=== PATIENT | male | born 1965 | race Caucasian/White ===

== ENCOUNTER 2019-07-08 09:14 | Outpatient (CLI) | payer MEDICARE, MEDICAID, SELFPAY ==
--- NOTE | ~2019-07-08 | XR_ITS ---
EXAMINATION: XR foot LT min 3V EXAM DATE: 07/08/2019 09:45 INDICATION: No known recent injury provided at this time. Pain of the left foot, fifth metatarsal. TECHNIQUE: Left foot dorsoplantar, lateral and oblique projections obtained and reviewed. Images obt ained standing. FINDINGS: Left metatarsal bones unremarkable. There is left calcaneal moderate sized posterior spu r. There is mild polyarticular midfoot primary osteoarthritis. There are no bony erosions identified . No periosteal reaction or band of sclerosis to suggest subacute stress fracture. There are no acute fractures or dislocations identified. There is no subcutaneous gas. The soft tissue is unremarkabl e. There are no radiopaque foreign bodies. IMPRESSION: 1. Left calcaneal posterior spur. 2. Mild polyarticular midfoot osteoarthritis. Reviewed, dictated and finalized at location A. E WORKER
--- NOTE | ~2019-07-08 | XR_ITS ---
EXAMINATION: XR foot RT min 3V EXAM DATE: 07/08/2019 09:45 INDICATION: No known recent injury provided at this time. Pain of the TECHNIQUE: Right foot dorsoplantar, lateral and oblique projections obtained and reviewed. Images o btained standing. There are no prior studies for comparison. FINDINGS: Right metatarsal bones unremarkable. Moderate sized posterior calcaneal spur. The joint s paces are uniform. There are no bony erosions identified. No periosteal reaction or band of sclerosis to suggest subacute stress fracture. Mild polyarticular midfoot primary osteoarthritis. There are no acute fractures or dislocations identified. There is no subcutaneous gas. The soft tissue is unrem arkable. There are no radiopaque foreign bodies. IMPRESSION: 1. Right calcaneal posterior spur. 2. Mild polyarticular midfoot osteoarthritis. Reviewed, dictated and finalized at location A. WARE MAINTENANCE ENGINEER
== END 2019-07-08 09:15 | disposition home or self-care (01) ==
PROVIDERS: PCP Family Medicine; Visit Provider Podiatrist Foot & Ankle Surgery
DX: M77.32 Calcaneal spur, left foot (principal); M77.31 Calcaneal spur, right foot; M19.071 Primary osteoarthritis, right ankle and foot; M19.072 Primary osteoarthritis, left ankle and foot
CPT/HCPCS: 73630

== ENCOUNTER 2019-08-04 10:36 | Outpatient (CLI) | payer MEDICARE, MEDICAID, SELFPAY ==
--- NOTE | 2019-08-04 | ECG_ITS ---
Measurements Intervals [place] Rate: 68 P: 51 IN: 175 QRS: -85 QRSD: 161 T: 28 QT: 422 QTc: 451 Interpretive Statements SINUS RHYTHM RIGHT BUNDLE BRANCH BLOCK LEFT ANTERIOR FASCICULAR BLOCK ABNORMAL ECG Electronically Signed On 08-04-2019 11:25:04 VP STRATEGIC PLANNING by Michael Esquivel D.O.
== END 2019-08-04 10:37 | disposition home or self-care (01) ==
LOC: ANHIMG 10:51 → ANHCARD 10:54
PROVIDERS: PCP Family Medicine; Visit Provider Family Medicine
DX: R06.00 Dyspnea, unspecified (principal); I45.10 Unspecified right bundle-branch block; I44.4 Left anterior fascicular block
CPT/HCPCS: 93005

== ENCOUNTER 2019-08-06 00:15 | Day surgery (SDC) | payer MEDICARE, MEDICAID, SELFPAY ==
[2019-08-01 09:30] VITALS: BMI 40.7
[2019-08-06 08:16] VITALS: BP 139/70; PULSE 80; RESP 20; TEMP 36.7; O2SAT 96
[2019-08-06] MEDS: LACTATED RINGERS 1,000 ML 150 ML IV CONT (08:25)
[2019-08-06 08:31] LABS: Glucose Point of Care 219 (65-105)
--- NOTE | 2019-08-06 08:45 | P.PNAN_ITS ---
Anes - Initial Pre Proc Eval Procedure: Operation Date: 08/06/19 09:30 Proposed Procedures p Esophagogastroduodenoscopy & Screening Colonoscopy - Blas Roblero MD Date/Time: 08/06/19 08:45 Surgeon: Blas Roblero MD Pre Op Diagnosis: Neoplasm Screening, dysphagia Patient Data Age: 54 Gender: M Height: 5 ft 7 in Weight: 118.3 kg Last Vital Signs Temp 98.0 F 08/06/19 08:16 Pulse 80 08/06/19 08:16 Resp 20 08/06/19 08:16 BP 139/70 08/06/19 08:16 Pulse Ox 96 08/06/19 08:16 Allergies Allergy/AdvReac Type Severity Reaction Status Date / Time codeine Allergy Mild Itching Verified 08/06/19 08:09 Home Medications Medication Instructions Recorded Confirmed Type amlodipine 10 mg PO HS 05/05/19 08/01/19 History aspirin [Adult Low Dose Aspirin] 1 mg PO QAM 05/05/19 08/01/19 History atenolol 50 mg PO BID 05/05/19 08/01/19 History buspirone 30 mg PO HS 05/05/19 08/01/19 History citalopram 20 mg PO HS 05/05/19 08/01/19 History clopidogrel 75 mg PO DAILY 05/05/19 08/06/19 History ezetimibe 1 mg PO HS 05/05/19 08/01/19 History fenofibrate 145 mg PO HS 05/05/19 08/01/19 History glimepiride 4 mg PO BID 05/05/19 08/01/19 History hydrochlorothiazide 25 mg PO DAILY 05/05/19 08/01/19 History levothyroxine 50 mcg PO DAILY 05/05/19 08/01/19 History lisinopril 20 mg PO DAILY 05/05/19 08/01/19 History metoclopramide HCl 10 mg PO BID 05/05/19 08/01/19 History potassium chloride 10 meq PO DAILY 05/05/19 08/01/19 History pregabalin [Lyrica] 150 mg PO BID 05/05/19 08/01/19 History simvastatin 40 mg PO HS 05/05/19 08/01/19 History sitagliptin [Januvia] 100 mg PO QPM #30 tablet 05/07/19 08/01/19 Rx omeprazole 40 mg PO DAILY 08/01/19 08/01/19 History Laboratory Tests 08/06/19 08:23 POC Capillary Glucose 219 mg/dl H mg/dl (65-105) Patient hx anesthesia problems: none Family hx anesthesia problems: none [facility] Social History Social History Tobacco type: cigarettes Alcohol intake: former Substance use: never Gender identity (if verbalized by the patient): Male Spiritual care concerns: No Agree to blood products: Yes Anes - Eval Final PreProcedure Day of Procedure 08/06/19 08:45 Patient weight: morbidly obese Heart: regular rate and rhythm Lungs: clear to auscultation Airway: Mallampati scale class III Neurological: alert and oriented Last oral intake: >/= 8 hours ASA classification: IV Emergent: no Anesthetic plan: proceed Anesthesia type and monitoring: general GIVS and standard monitoring Informed Consent: The patient's anesthetic plan and its attendant risks and benefits were discussed with the patient/family/POA. Questions were solicited and answers provided to the satisfaction of the patient/family/POA.
--- NOTE | 2019-08-06 08:58 | PM.HPGS ---
History of Present Illness History of Present Illness Consent: Risks, benefits, and alternatives have been discussed and questions answered. Patient agrees to proceed with procedure. Chief complaint: Neoplasm Screening, dysphagia Narrative: Ramakrishna Mora is a 54 year old male referred for screening colonoscopy and also for investigation of dysphagia. He has noticed difficulty swallowing not only solid food and liquids which seem to get caught up I in his chest. He will need to stop wait for while for to pass. He has been on omeprazole just recently to try and relieve this. [facility] Past Medical History Medical History CAD (coronary artery disease) Chronic low back pain Depression with anxiety Diabetes History of drainage of abscess 1994 and 2004 Hyperlipidemia Hypertension, essential Hypothyroidism (acquired) KEVIN (obstructive sleep apnea) Proteinuria Testicular abscess 1994 and 2004 with hospitalization, drainage and packing Tobacco use Type 2 diabetes mellitus with hyperglycemia Type 2 diabetes mellitus with polyneuropathy Surgical History Surgical History History of appendectomy History of cholecystectomy Stented coronary artery 2017 Family History Family History Other Chronic obstructive pulmonary disease Diabetes mellitus Social History Social History Tobacco type: cigarettes Alcohol intake: former Substance use: never Gender identity (if verbalized by the patient): Male Spiritual care concerns: No Agree to blood products: Yes Meds Home Medications and Allergies Home Medications Medication Instructions Recorded Confirmed Type amlodipine 10 mg PO HS 05/05/19 08/01/19 History aspirin [Adult Low Dose Aspirin] 1 mg PO QAM 05/05/19 08/01/19 History atenolol 50 mg PO BID 05/05/19 08/01/19 History buspirone 30 mg PO HS 05/05/19 08/01/19 History citalopram 20 mg PO HS 05/05/19 08/01/19 History clopidogrel 75 mg PO DAILY 05/05/19 08/06/19 History ezetimibe 1 mg PO HS 05/05/19 08/01/19 History fenofibrate 145 mg PO HS 05/05/19 08/01/19 History glimepiride 4 mg PO BID 05/05/19 08/01/19 History hydrochlorothiazide 25 mg PO DAILY 05/05/19 08/01/19 History levothyroxine 50 mcg PO DAILY 05/05/19 08/01/19 History lisinopril 20 mg PO DAILY 05/05/19 08/01/19 History metoclopramide HCl 10 mg PO BID 05/05/19 08/01/19 History potassium chloride 10 meq PO DAILY 05/05/19 08/01/19 History pregabalin [Lyrica] 150 mg PO BID 05/05/19 08/01/19 History simvastatin 40 mg PO HS 05/05/19 08/01/19 History sitagliptin [Januvia] 100 mg PO QPM #30 tablet 05/07/19 08/01/19 Rx omeprazole 40 mg PO DAILY 08/01/19 08/01/19 History Allergies Allergy/AdvReac Type Severity Reaction Status Date / Time codeine Allergy Mild Itching Verified 08/06/19 08:09 Vital Signs Vital Signs - 24 hr 08/06/19 08:16 Temperature 36.7 C Pulse Rate 80 Respiratory Rate 20 Blood Pressure 139/70 Pulse Oximetry 96 Exam Const: General: alert Orientation/consciousness: patient oriented x3 Resp: Auscultation: clear to auscultation bilaterally Cardio: Rhythm: regular rhythm GI: GI Palp: Yes Soft to palpation and No Tenderness to palpation present (GI) Neuro: General: patient oriented x3 Assessment and Plan Assessment and plan (1) Dysphagia: Code(s): R13.10 - Dysphagia, unspecified Status: Acute Assessment and Plan: EGD with possible biopsy or dilatation or cautery. (2) Colon cancer screening: Code(s): Z12.11 - Encounter for screening for malignant neoplasm of colon Status: Acute Assessment and Plan: Colonoscopy with possible biopsy or polypectomy or cautery or injection of substances.
[2019-08-06 09:53] VITALS: BP 98/44; PULSE 71; RESP 24; O2SAT 98
[2019-08-06 10:03] VITALS: BP 97/55; PULSE 71; RESP 14; O2SAT 98
== END 2019-08-06 10:24 | disposition home or self-care (01) ==
PROVIDERS: PCP Family Medicine; Visit Provider Internal Medicine Gastroenterology
PROC: 0DJ08ZZ Inspection of Upper Intestinal Tract, Via Natural or Artificial Opening Endoscopic (ICD-10-PCS; CPT 43235; principal; 2019-08-06 09:30)
DX: Z12.11 Encounter for screening for malignant neoplasm of colon (principal); D12.0 Benign neoplasm of cecum; D12.3 Benign neoplasm of transverse colon; K63.5 Polyp of colon; R13.10 Dysphagia, unspecified; K29.70 Gastritis, unspecified, without bleeding; K21.9 Gastro-esophageal reflux disease without esophagitis; I25.10 Atherosclerotic heart disease of native coronary artery without angina pectoris; I10 Essential (primary) hypertension; E78.5 Hyperlipidemia, unspecified; E11.40 Type 2 diabetes mellitus with diabetic neuropathy, unspecified; E03.9 Hypothyroidism, unspecified; G47.33 Obstructive sleep apnea (adult) (pediatric); F41.8 Other specified anxiety disorders; Z79.82 Long term (current) use of aspirin; Z79.02 Long term (current) use of antithrombotics/antiplatelets; Z87.891 Personal history of nicotine dependence; E66.01 Morbid (severe) obesity due to excess calories; Z68.41 Body mass index [BMI] 40.0-44.9, adult; Z95.5 Presence of coronary angioplasty implant and graft; Z79.84 Long term (current) use of oral hypoglycemic drugs
CPT/HCPCS: 45385; 45380; 43239; 87081; 88305; J2704; J7120

== ENCOUNTER 2020-05-20 13:43 | Outpatient (CLI) | payer MEDICARE, MEDICAID, SELFPAY ==
--- NOTE | ~2020-05-20 | MR_ITS ---
EXAMINATION: MR lumbar spine wo [facility] EXAM DATE: 05/20/2020 14:55 INDICATION: Low back pain. Bilateral hip pain. TECHNIQUE: Multi-sequential, multiplanar MR images of the lumbar spine were obtained without contrast . Sagittal T1, T2, T2 fat saturation images. Axial T2 weighted images. There is no prior study for comparison. FINDINGS: There is moderate disc disease L-1-2. Mild disc disease L4-5 and L5-S1. There is 3 mm anter olisthesis L5 on S1 without spondylolysis. The conus medullaris terminates at the T12 level and has n ormal signal intensity and morphology. There are no suspicious marrow signal abnormalities. Paraspin al soft tissue is unremarkable. Level by level evaluation: T12-L1: There is a minimal diffuse disc bulge. Facet arthropathy: None. Neural foraminal stenosis: No stenosis. Central canal stenosis: No stenosis. L1-L2: There is a mild to moderate diffuse disc bulge. Facet arthropathy: Mild. Neural foraminal stenosis: Mild left. Central canal stenosis: Mild. L2-L3: There is a minimal diffuse disc bulge. Facet arthropathy: Mild bilateral. Neural foraminal stenosis: Mild left. Central canal stenosis: No stenosis. L3-L4: There is a minimal diffuse disc bulge. Facet arthropathy: Mild bilateral. Neural foraminal stenosis: No stenosis. Central canal stenosis: No stenosis. L4-L5: Hrym-gy-snkekdly Facet arthropathy: Mild to moderate. Neural foraminal stenosis: Moderate to severe left, moderate right. Central canal stenosis: Mild. L5-S1: There is a mild to moderate diffuse disc bulge. Facet arthropathy: Moderate. Neural foraminal stenosis: Mild to moderate left, mild right. Central canal stenosis: Mild. IMPRESSION: 1. L4-5 moderate to severe left, moderate right neural foraminal stenosis. 2. Otherwise mild to moderate lumbar spondylosis. Reviewed, dictated and finalized at location A. GE IRONWORKER HELPER
== END 2020-05-20 13:44 | disposition home or self-care (01) ==
LOC: ANHIMG 13:47
PROVIDERS: PCP Family Medicine; Visit Provider Nurse Practitioner Family
DX: M47.896 Other spondylosis, lumbar region (principal)
CPT/HCPCS: 72148

== ENCOUNTER 2022-05-01 13:07 | Outpatient (CLI) | payer OTHER, SELFPAY ==
--- NOTE | ~2022-05-01 | XR_ITS ---
XR chest 2V 05/01/2022 13:28 Indication: Dyspnea Procedure: 2 view chest Comparison: 02/11/2019 Findings: Heart size normal. No focal air space disease, pulmonary edema, pleural effusion or suspect ed pneumothorax. No acute osseous abnormality. Impression: 1: No acute cardiopulmonary disease. Reviewed, dictated and finalized at location A. RIAL STOCKKEEPER YARD Impression: 1: No acute cardiopulmonary disease.
== END 2022-05-01 13:08 | disposition home or self-care (01) ==
LOC: ANHIMG 13:15
PROVIDERS: PCP Family Medicine; Visit Provider Family Medicine
DX: R06.00 Dyspnea, unspecified (principal)
CPT/HCPCS: 71046

== ENCOUNTER 2022-05-10 13:33 | Outpatient (CLI) | payer OTHER, SELFPAY ==
--- NOTE | 2022-05-10 | ECHO_ITS ---
Patient Info Name: Ramakrishna Mora Age: 57 years : 1965 Gender: Male Ht: 67 in Wt: 250 lbs BSA: 2.37 m2 HR: 103 bpm BP: 181 / 94 mmHg Heart Rhythm: Sinus Rhythm, Tachycardia Exam Date: 05/10/2022 2:26 PM Exam Location: [facility] Patient Status: Outpatient Admit Date: 05/10/2022 Staff Ordering Physician: Letty, Karyn Finley MD Auto Painter: Citlalli Eaton RDCS Attending Provider: Letty, Karyn Finley MD Referring Physician: Letty STEWARD; Exam Type: CA echo doppler color flow Study Info Indications R06.00 - Dyspnea, unspecified Complete two-dimensional, color flow and Doppler transthoracic echocardiogram is performed. Summary 1. Complete two-dimensional, color flow and Doppler transthoracic echocardiogram is performed. 2. Technically difficult study with limited views. 3. Left ventricular chamber dimension is normal. 4. Left ventricular systolic function is normal, estimated at 55-60%. 5. There is no increased left ventricular wall thickness. 6. The left ventricular diastolic function is grade I diastolic dysfunction. 7. There is no aortic valve stenosis. 8. There is mild mitral valve stenosis. 9. There is trace mitral valve regurgitation. 10. Unable to estimate PA systolic pressure due to poor spectral resolution of tricuspid regurgitant jet velocity. Left Ventricle Left ventricular chamber dimension is normal. Left ventricular systolic function is normal, estimated at 55-60%. There is no increased left ventricular wall thickness. The left ventricular diastolic function is grade I diastolic dysfunction. Technically difficult study with limited views. Right Ventricle Right ventricular chamber dimension is normal. Right ventricular systolic function is normal. Left Atria Left atrial chamber dimension is mildly enlarged. Right Atria Right atrial chamber dimension is mildly enlarged. Aortic Valve The aortic valve is trileaflet. There is no aortic valve stenosis. There is trace aortic valve regurgitation. There is mild aortic valve calcification. Pulmonic Valve The pulmonic valve is not well visualized. Mitral Valve The mitral valve has thickened leaflets. There is mild mitral valve stenosis. There is trace mitral valve regurgitation. The mitral valve annulus is severely calcified. Tricuspid Valve The tricuspid valve leaflets are normal. There is trace tricuspid valve regurgitation. Unable to estimate PA systolic pressure due to poor spectral resolution of tricuspid regurgitant jet velocity. Pericardium/Pleural The pericardium appears not well visualized. Aorta The aortic root size at the sinus of Valsalva is not well visualized. Left Ventricular Outflow Tract Name Value Normal LVOT Doppler LVOT Peak Gradient 7 mmHg LVOT Mean Gradient 4 mmHg LVOT VTI 25 cm LVOT VTI/AV VTI Ratio 1.2 Mitral Valve Name Value Normal MV Doppler
== END 2022-05-10 13:34 | disposition home or self-care (01) ==
PROVIDERS: PCP Family Medicine; Visit Provider Family Medicine
DX: R06.00 Dyspnea, unspecified (principal); I05.0 Rheumatic mitral stenosis
CPT/HCPCS: 93306

== ENCOUNTER 2022-05-24 10:17 | Outpatient (CLI) | payer OTHER, SELFPAY ==
--- NOTE | 2022-05-24 | ECG_ITS ---
Measurements Intervals [place] Rate: 110 P: 72 HI: 168 QRS: -83 QRSD: 153 T: 69 QT: 365 QTc: 494 Interpretive Statements SINUS TACHYCARDIA RIGHT BUNDLE BRANCH BLOCK [120+ ms QRS DURATION, UPRIGHT V1, 40+ ms S IN I/aVL/V4/V5/V6] LEFT ANTERIOR FASCICULAR BLOCK [QRS AXIS <= -45, QR IN I, RS IN II] COMPARED TO ECG 08/04/2019 11:21:55 SINUS TACHYCARDIA NOW PRESENT Electronically Signed On 05-24-2022 17:59:02 WORKERS COMPENSATION ADJUSTER by Enid Marinelli M.D.
[2022-05-24 11:54] LABS: Alveolar/Arterial O2 Gradient 56.7 mmHg; Base Excess ABG 7.1 mEq/l (+/-2.0); Carboxyhemoglobin 3.6 % THb (0-2.0); Fractional Inspired Oxygen 21 %; HCO3 ABG 32.7 mEq/l (22.0-26.0); Methemoglobin ABG 0.2 %THb (0-1.5); Oxygen Content ABG 14.2 %vol (16.0-22.0); PCO2 ABG 48.2 mmHg (35.0-45.0); PO2 FiO2 Ratio Arterial Blood 1.68 %; Reduced Hemoglobin 39.4 %THb (0-5.0); Total Hemoglobin 17.9 g/dL (12.0-18.0); pH ABG 7.449 (7.350-7.450)
[2022-05-24 12:06] LABS: Site Drawn RIGHT BRACHIAL
[2022-05-24 12:07] LABS: Device ROOM AIR
[2022-05-24 18:45] LABS: Oxygen Saturation ABG 69.7 % (95.0-100.0); PO2 ABG 35.3 mmHg (80.0-100.0)
[2022-05-24 18:46] LABS: Oxyhemoglobin 56.8 % THb (90.0-100.0)
== END 2022-05-24 10:18 | disposition home or self-care (01) ==
PROVIDERS: PCP Family Medicine; Visit Provider Nurse Practitioner
DX: R05.3 Chronic cough (principal); J44.9 Chronic obstructive pulmonary disease, unspecified; R06.09 Other forms of dyspnea; R60.9 Edema, unspecified; I45.10 Unspecified right bundle-branch block; I44.4 Left anterior fascicular block
CPT/HCPCS: 36600; 82375; 82805; 83050; 87070; 87205; 93005

== ENCOUNTER 2022-07-23 07:36 | Inpatient (IN) | payer OTHER, SELFPAY ==
[2022-07-23] VITALS (40 sets, daily range): BP systolic 97–219; BP diastolic 67–122; PULSE 94–128; RESP 16–35; TEMP 36.2–36.9; O2SAT 87–100; BMI 41.4
--- NOTE | ~2022-07-23 | XR_ITS ---
XR chest 1V portable 07/26/2022 14:28 Indication: Shortness of breath Procedure: AP portable chest Comparison: 07/25/2022 Findings: Borderline heart size with mild persistent interstitial edema. No pleural effusion. No pneu mothorax. No acute osseous abnormality. Impression: 1: Unchanged mild interstitial edema. Reviewed, dictated and finalized at location B. INE ENGINE ASSEMBLER Impression: 1: Unchanged mild interstitial edema.
--- NOTE | ~2022-07-23 | XR_ITS ---
XR chest 1V portable 07/23/2022 07:58 Indication: Shortness of breath Procedure: AP portable chest Comparison: 05/01/2022 Findings: Bilateral asymmetric diffuse airspace disease. No significant effusion. No pneumothorax. No acute osseous abnormality. Impression: 1: Stable diffuse bilateral airspace disease, right greater than left. Differential diagnosis include s asymmetric edema and pneumonia. Reviewed, dictated and finalized at location A. L WELDER Impression: 1: Stable diffuse bilateral airspace disease, right greater than left. Differleatha tiashayy diagnosis includes asymmetric edema and pneumonia.
--- NOTE | ~2022-07-23 | US_ITS ---
EXAMINATION:US venous doppler LE BI INDICATION:Leg edema TECHNIQUE: Multiple grayscale, color flow and Doppler images of the right and left lower extremity de ep venous systems were obtained and reviewed. COMPARISON:No prior studies for comparison. FINDINGS: The common femoral, superficial femoral and popliteal veins demonstrate normal respiratory variation, augmentation and compressibility. Color flow is also seen within the posterior tibial, pe roneal, greater saphenous and profunda veins. IMPRESSION: 1: No lower extremity deep venous thrombosis. Reviewed, dictated and finalized at location B. SCRIBING OPERATOR HEAD
--- NOTE | ~2022-07-23 | CT_ITS ---
EXAMINATION: CTA chest PE protocol DATE: 07/23/2022 09:44 BRICK OFFBEARER INDICATION: Shortness of breath TECHNIQUE: Computed tomographic angiography (CTA) of the chest was performed with 100 mL Omnipaque-35 0 intravenous contrast. The dose-length product was 1066.13 mGy-cm. Maximum intensity projection 3D-r econstructions of the aorta and other arteries were constructed by the technologist on a separate wor kstation. Automated exposure control and iterative reconstruction technique were employed. COMPARISON: CT dated 05/26/2019. FINDINGS: Study is technically adequate without evidence for pulmonary embolism. There is mediastinal and bilateral hilar lymphadenopathy. No evidence for aortic aneurysm or dissection. No significant p leural or pericardial effusion. There are cholecystectomy clips. No focal airspace consolidation. No pneumothorax. No endobronchial lesions. There are a few small pulmonary nodules in the upper lobes me asuring 2 mm or less, likely benign. Evaluation for nodules limited by motion artifact in the mid and lower lungs. There is nonspecific bilateral adrenal thickening and nodularity, likely related to und erlying adenomatous change. IMPRESSION: 1. No evidence for pulmonary embolism. 2: Mediastinal and bilateral hilar lymph node adenopathy, most likely reactive, although metastatic d isease and lymphoma are considered in the appropriate clinical setting. 3: Small pulmonary nodules measuring 2 mm or less, most likely benign. Consider follow-up low dose CT chest in 12 months. Reviewed, dictated and finalized at location A. K OFFBEARER IMPRESSION: 1. No evidence for pulmonary embolism. 2: Mediastinal and bilateral hilar lymph node adenopathy, most likely reactive, although metastatic disease and lymphoma are considered in the appropriate cli nical setting. 3: Small pulmonary nodules measuring 2 mm or less, most likely benign. Consider follow-up low dose CT chest in 12 months.
--- NOTE | ~2022-07-23 | XR_ITS ---
Portable chest x-ray Comparison: 07/23/2022 Clinical History: Shortness of breath Findings: Probable mild interstitial pulmonary edema pattern is present. No definite pleural effusio ns. Cardiomediastinal silhouette is stable. Bones and soft tissues are unremarkable. Impression: Mild interstitial pulmonary edema pattern. Reviewed, dictated and finalized at [facility]. CONSULTANT Impression: Mild interstitial pulmonary edema pattern.
--- NOTE | ~2022-07-23 | XR_ITS ---
Portable chest x-ray Comparison: 07/26/2022 Clinical History: Shortness of breath Findings: Questionable minimal bibasilar interstitial edema. No consolidation or pleural effusion. Cardiomediastinal silhouette is stable. Bones and soft tissues are unremarkable. Impression: Possible minimal bibasilar interstitial edema. Reviewed, dictated and finalized at [facility]. E PURCHASE DRIVER Impression: Possible minimal bibasilar interstitial edema.
--- NOTE | 2022-07-23 07:48 | ECG_ITS ---
Measurements Intervals [place] Rate: 127 P: SC: 0 QRS: 270 QRSD: 154 T: 41 QT: 350 QTc: 511 Interpretive Statements PROBABLE SINUS TACHYCARDIA WITH PREMATURE ATRIAL CONTRACTIONS RIGHT AXIS DEVIATION RIGHT BUNDLE BRANCH BLOCK CANNOT RULE OUT INFERIOR INFARCTION, AGE INDETERMINATE ABNORMAL ECG COMPARED TO ECG 05/24/2022 11:08:55 HEART RATE HAS INCREASED Electronically Signed On 07-23-2022 14:51:34 JANITORIAL MANAGER by Brett Brown M.D.
[2022-07-23] MEDS: methylPREDNISolone SOD SUCC 125 MG VIAL IV PUSH (07:57)
[2022-07-23 08:20] LABS: Alveolar/Arterial O2 Gradient 181.8 mmHg; Base Excess ABG 1.2 mEq/l (+/-2.0); Carboxyhemoglobin 1.3 % THb (0-2.0); Fractional Inspired Oxygen 40 %; HCO3 ABG 26.1 mEq/l (22.0-26.0); Methemoglobin ABG 0.6 %THb (0-1.5); Oxygen Content ABG 24.7 %vol (16.0-22.0); Oxygen Saturation ABG 88.8 % (95.0-100.0); PCO2 ABG 42.2 mmHg (35.0-45.0); PO2 ABG 54.9 mmHg (80.0-100.0); PO2 FiO2 Ratio Arterial Blood 1.37 %; Reduced Hemoglobin 11.2 %THb (0-5.0); Total Hemoglobin 20.3 g/dL (12.0-18.0); pH ABG 7.409 (7.350-7.450)
[2022-07-23 08:23] LABS: Device NASAL CANNULA; Oxyhemoglobin 86.9 % THb (90.0-100.0); Site Drawn LEFT BRACHIAL
[2022-07-23] MEDS: NITROGLYCERIN OINTMENT 1 INCH DOSE TRANSDERM (08:47)
[2022-07-23 08:54] LABS: Basophils Absolute Auto 0.1 K/mm3 (0.0-0.1); Basophils Percent Auto 0.7 % (0.2-1.2); Eosinophils Percent Auto 0.1 % (0-4.4); Hematocrit 54.9 % (42.0-52.0); Hemoglobin 18.6 g/dL (14.0-18.0); Immature Granulocyte Absolute 0.09 K/mm3 (0.00-0.031); Immature Granulocyte Percent A 0.7 % (0-0.5); Lymphocytes Absolute Auto 0.72 K/mm3 (0.9-3.2); Lymphocytes Percent Auto 5.7 % (18.3-44.2); Mean Corpuscular HGB Conc 33.9 g/dl (32-36); Mean Corpuscular Hemoglobin 27.6 pg (26-34); Mean Corpuscular Volume 81.5 fl (80-100); Mean Platelet Volume 9.8 fl (7.4-10.4); Monocytes Absolute Auto 1.8 K/mm3 (0.1-0.6); Monocytes Percent Auto 14.1 % (2.6-8.5); Neutrophils Percent Auto 78.7 % (45.5-73.1); Platelet Count Result 226 k/mm3 (150-375); Red Blood Count 6.74 M/mm3 (4.6-6.20); Red Cell Distribution Width 15.5 % (11.5-14.5); White Blood Count 12.7 K/mm3 (4.5-10.0)
[2022-07-23 09:04] LABS: Alanine Aminotransferase 23 U/L (6-50); Albumin Level 3.9 g/dL (3.5-5.1); Alkaline Phosphatase 78 U/L (38-126); Anion Gap 8 mmol/L (8-16); Aspartate Amino Transferase 25 U/L (17-59); Blood Urea Nitrogen 18 mg/dL (9-20); Carbon Dioxide 27 mmol/L (22-30); Chloride 92 mmol/L (98-107); Estimated CRCL calculation 88 ml/min; Estimated Glomerular Filt Rate > 60; Glucose 293 mg/dL (65-110); INR 1.2; Potassium 3.8 mmol/L (3.4-5.0); Prothrombin Time 14.6 Seconds (11.1-14.7); Sodium 127 mmol/L (137-145)
[2022-07-23 09:05] LABS: Partial Thromboplastin Time 31.3 SECONDS (22.3-36.8)
--- NOTE | 2022-07-23 09:09 | ED.SOB ---
HPI - SOB/Dyspnea General Chief Complaint: Shortness of Breath/Dyspnea Stated Complaint: SOB Time Seen by Provider: 07/23/22 07:45 History of Present Illness HPI Narrative: Patient is a 57-year-old male who presents ER with shortness of breath. Worsening over last 3 days. No fevers or chills. Has wheezing and orthopnea. Endorses lower extremity swelling that is new. No known sick contacts. No history of heart failure. Patient does have history of COPD. He does have cough. Hypoxic for EMS and given DuoNeb in route. Related Data Home Medications Medication Instructions Recorded Confirmed amlodipine 10 mg tablet 10 mg PO HS 05/05/19 08/01/19 aspirin 81 mg tablet,delayed 1 mg PO QAM 05/05/19 08/01/19 release (Adult Low Dose Aspirin) atenolol 50 mg tablet 50 mg PO BID 05/05/19 08/01/19 buspirone 15 mg tablet 30 mg PO HS 05/05/19 08/01/19 citalopram 20 mg tablet 20 mg PO HS 05/05/19 08/01/19 clopidogrel 75 mg tablet 75 mg PO DAILY 05/05/19 08/06/19 ezetimibe 10 mg tablet 1 mg PO HS 05/05/19 08/01/19 fenofibrate 150 mg capsule 145 mg PO HS 05/05/19 08/01/19 glimepiride 4 mg tablet 4 mg PO BID 05/05/19 08/01/19 hydrochlorothiazide 25 mg tablet 25 mg PO DAILY 05/05/19 08/01/19 levothyroxine 50 mcg tablet 50 mcg PO DAILY 05/05/19 08/01/19 lisinopril 20 mg tablet 20 mg PO DAILY 05/05/19 08/01/19 metoclopramide HCl 10 mg tablet 10 mg PO BID 05/05/19 08/01/19 potassium chloride 10 mEq 10 meq PO DAILY 05/05/19 08/01/19 tablet,extended release pregabalin 150 mg capsule (Lyrica) 150 mg PO BID 05/05/19 08/01/19 simvastatin 40 mg tablet 40 mg PO HS 05/05/19 08/01/19 omeprazole 40 mg capsule,delayed 40 mg PO DAILY 08/01/19 08/01/19 release Allergies Allergy/AdvReac Type Severity Reaction Status Date / Time codeine Allergy Mild Itching Verified 07/23/22 07:53 Review of Systems Review of Systems: All systems reviewed & are unremarkable except as noted in HPI and below Constitutional: Constitutional: Denies chills, Reports fatigue and Denies fever(s) ENT: Reports nasal congestion and Denies sore throat Cardiovascular: Cardiovascular: Denies chest pain, Denies rapid heart rate and Denies radiating jaw, neck or arm pain Respiratory: Respiratory: Reports chest congestion, Reports cough, Reports dyspnea and Reports wheezing Gastrointestinal: Gastrointestinal: Denies abdominal pain, Denies nausea and Denies vomiting [facility] Past Medical History Medical History (Updated 07/23/22 @ 10:58 by Carlos Langley MD) CAD (coronary artery disease) Chronic low back pain Depression with anxiety Diabetes History of drainage of abscess 1994 and 2004 Hyperlipidemia Hypertension, essential Hypothyroidism (acquired) KEVIN (obstructive sleep apnea) Proteinuria Testicular abscess 1994 and 2004 with hospitalization, drainage and packing Tobacco use Type 2 diabetes mellitus with hyperglycemia Type 2 diabetes mellitus with polyneuropathy Surgical History Surgical History History of appendectomy History of cholecystectomy Stented coronary artery 2017 Family History Family History Other Chronic obstructive pulmonary disease Diabetes mellitus Social History Social History Tobacco type: cigarettes Alcohol intake: former Substance use: never Gender identity (if verbalized by the patient): Male Spiritual care concerns: No Agree to blood products: Yes Exam Narrative: GENERAL: Uncomfortable appearing, morbidly obese, and in moderate distress. HEAD: Normocephalic, atraumatic. EYES: PERRL and EOMI. ENT: Mucous membranes moist. CHEST: Moderate respiratory distress with expiratory wheezing and some crackles noted throughout.. HEART: Tachycardic and regular. Normal peripheral pulses. ABDOMEN: Soft, nontender, nondistended. EXTREMITIES: Normal range of mot
[2022-07-23 09:12] LABS: NT Pro B Type Natriuretic Pept 918 pg/mL (19.9-100)
[2022-07-23 09:29] LABS: Influenza A QL RT-PCR Negative (Negative); Influenza B QL RT-PCR Negative (Negative); SARS-CoV-2 RNA PCR Negative
[2022-07-23] MEDS: FUROSEMIDE INJ 40 MG/4 ML VIAL IV PUSH ×2 (10:00→18:02)
[2022-07-23] MEDS: IPRATROPIUM BR 0.02% INH SOLN 0.5 MG/2.5 ML VIAL 1.5 MG INHALATION (11:25)
--- NOTE | 2022-07-23 13:26 | PM.IMHP ---
H&P: HPI History of Present Illness Date/Time: 07/23/22 13:26 Chief Complaint: Shortness of breath Narrative: This is a 57-year-old male patient to has a history of COPD and tobacco abuse. The patient is not on oxygen at home. He also has sleep apnea and does not use his CPAP machine. The patient came to the emergency room with complaint of worsening shortness of breath over the last 3 days. The patient has been wheezing. The patient has no fever or chills. He has difficulty laying flat. He also has 4+ pitting edema to his lower extremities. The patient stated that he does not have a history of CHF. The patient has been having a cough. The patient was hypoxic when EMS assessed him and he was given a dual nebs EN route and placed on 5 liters per nasal cannula. There is a BiPAP at the bedside. The patient is currently sitting on the side of the bed with his feet up. His white count is 12.7. H&H is 18.6 and 54.9. The patient admits to not eating and drinking very much because he was too short of breath. On his ABGs is pH was within normal limits and his PC O2 was within normal limits however his PO2 was 54.9. The patient admits to smoking at least a carton of cigarettes a month. His oxyhemoglobin was 86.9. Sodium is low at 127. Hemoglobin A1c is 9.3 blood glucose is 293. BNP 918. He was negative for influenza A/B and COVID. Chest x-ray read as stable diffuse bilateral airspace disease right greater than left differential diagnosis includes asymmetric edema or pneumonia. CTA was read as the following. No evidence for pulmonary embolism. 2: Mediastinal and bilateral hilar lymph node adenopathy, most likely reactive, although metastatic disease and lymphoma are considered in the appropriate clinical setting. 3: Small pulmonary nodules measuring 2 mm or less, most likely benign. Consider follow-up low dose CT chest in 12 months. The patient was given Solu-Medrol, nitro, Lasix and nebulizer treatment in the emergency room. The patient was initially admitted to observation and change to inpatient status on the date of service of 07/23/2022. Review of Systems Review of Systems: See HPI All systems reviewed & are unremarkable except as noted in HPI and below Constitutional: Constitutional: Reports as per HPI and Reports no additional constitutional complaints Eyes: Eyes: Reports as per HPI and Reports no additional eye complaints ENT: Reports system reviewed and no additional complaints, except as documented and Reports Normal hearing present Cardiovascular: Cardiovascular: Reports no additional cardiovascular complaints Respiratory: Respiratory: Reports no additional respiratory complaints and Reports no additional respiratory complaints Gastrointestinal: Gastrointestinal: Reports as per HPI and Reports no additional gastrointestinal complaints Musculoskeletal: Musculoskeletal: Reports no additional musculoskeletal complaints Integumentary/Breasts: Skin/Breast: Reports system reviewed and no additional complaints, except as docu and Reports as per HPI Neurologic: Reports system reviewed and no additional complaints, except as documented, Reports as per HPI and Reports Normal hearing present Psychiatric: Psychiatric: Reports no additional psychiatric complaints and Reports as per HPI Endocrine: Endocrine: Reports no additional endocrine complaints Hematologic/Lymphatic: Hematologic/Lymphatic: Reports no additional hematologic/lymphatic complaints Allergic/Immunologic: Allergic/Immunologic: Reports no additional allergic/immunologic complaints [facility] Past Medical History Medical History CAD (coronary artery disease) Chronic low back pain Depression with anxiety Diabetes History of drainage of abscess 1994 and 2004 Hyperlipidemia Hypertension, essential Hypothyroidism (acquired) KEVIN (obstructive sleep apnea) Proteinuria Testicular abscess 1994 and 2004 with hospitalizatio
[2022-07-23 14:26] LABS: Hemoglobin A1C 9.3 % (<5.7)
--- NOTE | 2022-07-23 14:40 | ADMGEN ---
This patient, Ramakrishna Mora, was admitted to IMU Room 207-01. Patient/family oriented to hospital policies and general routines including ID bracelet, bed and alarms, visiting hours, pain management, procedures, bathroom and other care routines, personal items, smoking policy, room service/diet, and visiting hours. Information on how to activate the Rapid Response Team has been discussed. Patient/Family are encouraged to report perceived risks to care and to ask questions if they do not understand what they are told or what they should do.
[2022-07-23] MEDS: methylPREDNISolone SOD SUCC 125 MG VIAL 60 MG IV PUSH ×2 (16:46→20:54)
[2022-07-23 17:20] LABS: Glucose Point of Care 497 mg/dl (65-105)
[2022-07-23] MEDS: INSULIN ASPART (*BKC) 100 UNITS/ML 8 UNITS SUB-Q (17:42)
[2022-07-23] MEDS: PREGABALIN (*CRX) 75 MG CAPSULE 150 MG PO (18:02)
[2022-07-23] MEDS: GLIMEPIRIDE 2 MG TABLET 4 MG PO (18:02)
[2022-07-23 18:03] LABS: Anion Gap 9 mmol/L (8-16); Blood Urea Nitrogen 24 mg/dL (9-20); Calcium 7.7 mg/dL (8.4-10.2); Carbon Dioxide 25 mmol/L (22-30); Chloride 91 mmol/L (98-107); Estimated CRCL calculation 87 ml/min; Estimated Glomerular Filt Rate > 60; Glucose 476 mg/dL (65-110); Potassium 4.5 mmol/L (3.4-5.0); Sodium 125 mmol/L (137-145)
[2022-07-23] MEDS: ENOXAPARIN 40 MG/0.4 ML SYRINGE SUB-Q (18:03)
[2022-07-23 19:55] LABS: Glucose Point of Care 465 mg/dl (65-105)
[2022-07-23 20:31] LABS: Alveolar/Arterial O2 Gradient 147.5 mmHg; Base Excess ABG 0.5 mEq/l (+/-2.0); Fractional Inspired Oxygen 40 %; HCO3 ABG 27.8 mEq/l (22.0-26.0); Oxygen Content ABG 27.6 %vol (16.0-22.0); Oxygen Saturation ABG 94.4 % (95.0-100.0); Oxyhemoglobin 93.2 % THb (90.0-100.0); PO2 ABG 76.8 mmHg (80.0-100.0); PO2 FiO2 Ratio Arterial Blood 1.92 %; Total Hemoglobin 21.1 g/dL (12.0-18.0); pH ABG 7.338 (7.350-7.450)
[2022-07-23 20:32] LABS: Device NON-INVASIVE VENT; Modified Allen's Test Pass; Site Drawn LEFT RADIAL
[2022-07-23 20:33] LABS: Non-Invasive Expiratory Pressure 8 CMH2O; Non-Invasive Inspiratory Pressure 14 CMH2O; Non-Invasive Vent Rate 16 /MIN
[2022-07-23] MEDS: INSULIN GLARGINE (*BKC) 100 UNITS/ML 10 UNITS SUB-Q (20:39)
[2022-07-23] MEDS: hydrALAZINE HCL 20 MG/ML VIAL 10 MG IV PUSH (20:39)
[2022-07-23] MEDS: ALBUTEROL SULFATE NEB 2.5 MG/3 ML INH INHALATION (20:45)
[2022-07-23] MEDS: IPRATROPIUM BR 0.02% INH SOLN 0.5 MG/2.5 ML VIAL INHALATION (20:45)
[2022-07-23] MEDS: INSULIN ASPART (*BKC) 100 UNITS/ML 6 UNITS SUB-Q (20:54)
[2022-07-24] VITALS (25 sets, daily range): BP systolic 148–160; BP diastolic 57–74; PULSE 71–118; RESP 20–31; TEMP 36.1–36.7; O2SAT 90–100
--- NOTE | 2022-07-24 | ECHO_ITS ---
Patient Info Name: Ramakrishna Mora Age: 57 years : 1965 Gender: Male Ht: 67 in Wt: 268 lbs BSA: 2.46 m2 HR: 104 bpm BP: 160 / 74 mmHg Heart Rhythm: Sinus Rhythm Exam Date: 07/24/2022 8:37 AM Exam Location: [facility] Patient Status: Inpatient Admit Date: 07/23/2022 Staff Ordering Physician: Chela Pickett NP Award Clerk: Jaun Dinh RDCS, RT Attending Provider: Adi Gutierrez MD Referring Physician: Piyush LAWRENCE; Exam Type: CA echo dop color flow w con Study Info Indications R60.0 - Localized edema Complete two-dimensional, color flow and Doppler transthoracic echocardiogram is performed with contrast to opacify the left ventricle and to improve the deliniation of the left ventricle endocardial borders. Summary 1. Technically difficult exam, definity contrast used to improve visualization. 2. Left ventricular hypertrophy with vigorous systolic function and grade 1 diastolic noncompliance. 3. Enlarged left atrium. 4. Calcified mitral valve annulus versus previous ring annuloplasty/clinical correlation advised. 5. Sclerotic aortic valve which is not stenotic. 6. Mild tricuspid insufficiency velocities indicate at least moderate if not severely elevated pulmonary artery pressure. Left Ventricle Left ventricular chamber dimension is normal. Left ventricular systolic function is normal, estimated at 65-70%. There is mild concentric increased left ventricular wall thickness. The left ventricular diastolic function is grade I diastolic dysfunction. Right Ventricle Right ventricular chamber dimension is mildly enlarged. Left Atria Left atrial chamber dimension is moderately enlarged. Right Atria Right atrial chamber dimension is normal. Aortic Valve The aortic valve is trileaflet. There is mild aortic valve sclerosis. Pulmonic Valve The pulmonic valve is not well visualized. Mitral Valve The mitral valve has thickened leaflets. There is no mitral valve regurgitation. The mitral valve annulus is moderately calcified. Tricuspid Valve The tricuspid valve leaflets are normal. There is mild tricuspid valve regurgitation. Moderate pulmonary hypertension, estimated pulmonary arterial systolic pressure is 71 mmHg. Pericardium/Pleural The pericardium appears normal. Aorta The aortic root size at the sinus of Valsalva is normal. Left Ventricular Outflow Tract Name Value Normal LVOT 2D LVOT Diameter 2.01 cm LVOT Doppler LVOT Peak Gradient 8 mmHg LVOT Mean Gradient 4 mmHg LVOT VTI 25.32 cm LVOT VTI/AV VTI Ratio 0.82 LVOT Stroke Volume 80.03 ml LVOT CO 8.50 l/min LVOT CI 3.46 L/min/m2 Mitral Valve Name Value Normal MV Doppler
[2022-07-24] MEDS: ALBUTEROL SULFATE NEB 2.5 MG/3 ML INH INHALATION ×4 (01:50→19:53)
[2022-07-24] MEDS: IPRATROPIUM BR 0.02% INH SOLN 0.5 MG/2.5 ML VIAL INHALATION ×4 (01:52→19:53)
[2022-07-24 05:09] LABS: Basophils Percent Auto 0.3 % (0.2-1.2); Hematocrit 59.9 % (42.0-52.0); Hemoglobin 19.8 g/dL (14.0-18.0); Immature Granulocyte Absolute 0.12 K/mm3 (0.00-0.031); Lymphocytes Absolute Auto 0.52 K/mm3 (0.9-3.2); Lymphocytes Percent Auto 4.3 % (18.3-44.2); Mean Corpuscular HGB Conc 33.1 g/dl (32-36); Mean Corpuscular Hemoglobin 27.8 pg (26-34); Mean Corpuscular Volume 84.1 fl (80-100); Mean Platelet Volume 9.8 fl (7.4-10.4); Monocytes Absolute Auto 1.1 K/mm3 (0.1-0.6); Monocytes Percent Auto 8.7 % (2.6-8.5); Neutrophils Absolute Auto 10.4 K/mm3 (1.3-6.7); Neutrophils Percent Auto 85.7 % (45.5-73.1); Platelet Count Result 233 k/mm3 (150-375); Red Blood Count 7.12 M/mm3 (4.6-6.20); Red Cell Distribution Width 16.8 % (11.5-14.5); White Blood Count 12.2 K/mm3 (4.5-10.0)
[2022-07-24 05:15] LABS: Alanine Aminotransferase 25 U/L (6-50); Albumin Level 4.1 g/dL (3.5-5.1); Alkaline Phosphatase 78 U/L (38-126); Anion Gap 9 mmol/L (8-16); Aspartate Amino Transferase 24 U/L (17-59); Bilirubin,Total 0.7 mg/dL (0.2-1.3); Blood Urea Nitrogen 30 mg/dL (9-20); Calcium 7.9 mg/dL (8.4-10.2); Carbon Dioxide 27 mmol/L (22-30); Chloride 92 mmol/L (98-107); Estimated CRCL calculation 87 ml/min; Estimated Glomerular Filt Rate > 60; Glucose 334 mg/dL (65-110); Magnesium 1.6 mg/dL (1.6-2.3); Potassium 3.8 mmol/L (3.4-5.0); Sodium 128 mmol/L (137-145)
[2022-07-24 05:17] LABS: Lactic Acid Reflex 1.6 mmol/L (0.7-2.0)
[2022-07-24] MEDS: LEVOTHYROXINE SODIUM 25 MCG TABLET PO (05:30)
[2022-07-24] MEDS: methylPREDNISolone SOD SUCC 125 MG VIAL 60 MG IV PUSH ×3 (05:30→20:38)
[2022-07-24 07:41] LABS: Glucose Point of Care 324 mg/dl (65-105)
[2022-07-24] MEDS: INSULIN ASPART (*BKC) 100 UNITS/ML SUB-Q ×4 (08:12→23:24)
[2022-07-24] MEDS: GLIMEPIRIDE 2 MG TABLET 4 MG PO (08:12)
[2022-07-24] MEDS: FUROSEMIDE INJ 40 MG/4 ML VIAL IV PUSH (08:13)
[2022-07-24] MEDS: POTASSIUM CHLORIDE 10 MEQ TABLET.ER PO (08:13)
[2022-07-24] MEDS: ASPIRIN 325 MG ENTERIC TABLET PO (08:13)
[2022-07-24] MEDS: PREGABALIN (*CRX) 75 MG CAPSULE 150 MG PO ×2 (08:22→18:20)
[2022-07-24] MEDS: PERFLUTREN LIPID MICROSPHERES 1.5 ML VIAL DILUTED TO 10 ML TOTAL VOLUME IV PUSH (09:23)
--- NOTE | 2022-07-24 09:23 | IVDEFINITY ---
Prior to administration of IV Definity the patient was educated on the risks and benefits of the imaging enhancing agent including potential adverse side effects. The patient verbalized understanding. Allergies were verified. No exclusion criteria were identified and at least one of the following inclusion criteria were met: 1) physician request, 2) patient technically difficult to image (per the [place] [employer] guidelines of two or more segments not discernable within the apical view), or 3) questionable left ventricular function. ?
[2022-07-24] MEDS: FLUTICASONE/UMECLIDIN/VILANTER 100-62.5-25 MCG ELLIPTA 1 PUFF INHALATION (09:31)
[2022-07-24 11:26] LABS: Glucose Point of Care 365 mg/dl (65-105)
--- NOTE | 2022-07-24 15:00 | PM.IMPN ---
Progress Note: A&P Assessment and Plan (1) COPD exacerbation: Code(s): J44.1 - Chronic obstructive pulmonary disease with (acute) exacerbation Status: Acute Assessment and Plan: endorses increased shortness of breath, increased oxygen demand, increased cough and changes in sputum Sputum is brown thick Sputum culture ordered ABG shows respiratory acidosis Neb treatments Continue Solu-Medrol Add Pulmozyme AVAPS Start patient on a azithromycin and ceftriaxone Consult pulmonology (2) Acute respiratory failure: Code(s): J96.00 - Acute respiratory failure, unspecified whether with hypoxia or hypercapnia Status: Acute Assessment and Plan: No home O2 needs Currently on 5 L high-flow cannula Neb treatment Patient has dyspnea with minimal exertion, unable to complete sentences, tripoding Continue with supplemental oxygen wean to maintain saturation greater than 80% Fluid overload could have a component along with pneumonia and COPD (3) Hypothyroidism (acquired): Code(s): E03.9 - Hypothyroidism, unspecified Status: Acute Assessment and Plan: continue levothyroxine TSH in a.m. (4) Tobacco use: Code(s): Z72.0 - Tobacco use Status: Acute Assessment and Plan: Nicotine patch and gum ordered Reiterated smoking cessation with patient (5) Depression with anxiety: Code(s): F41.8 - Other specified anxiety disorders Status: Acute Assessment and Plan: Continue with current treatment Add Xanax (6) Type 2 diabetes mellitus with polyneuropathy: Code(s): E11.42 - Type 2 diabetes mellitus with diabetic polyneuropathy Status: Acute Assessment and Plan: Accu-Cheks AC and HS Sliding scale insulin increased hypoglycemic protocol A1c 9.3 hematology nurse educator consulted Continue with Januvia hold glimepiride Increase Lantus to 20 units (7) KEVIN (obstructive sleep apnea): Code(s): G47.33 - Obstructive sleep apnea (adult) (pediatric) Status: Acute Assessment and Plan: Patient will need a new machine Patient will need of patient follow-up (8) Hypertension, essential: Code(s): I10 - Essential (primary) hypertension Status: Acute Assessment and Plan: Continue with current treatment Blood pressure a bit on the high side 152/57 Continue home medication Trend blood pressure Adjust therapy as indicated (9) Pneumonia: Code(s): J18.9 - Pneumonia, unspecified organism Status: Acute Assessment and Plan: CTA indicate CHF versus pneumonia Azithromycin ceftriaxone started Sputum culture ordered Chest x-ray in the a.m. Breathing treatments (10) CHF (congestive heart failure): Code(s): I50.9 - Heart failure, unspecified Status: Acute Assessment and Plan: Acute on chronic diastolic heart failure in acute exacerbation Echo shows an EF of 65-70 with grade 1 diastolic dysfunction 2 to 3+ pitting edema bilateral lower extremities Lasix ordered Daily weights CTA indicates possible fluid shift Trend labs Adjust therapy as indicated Time Spent With Patient Time: 52 minutes Time with patient: Greater than 35 minutes Subjective Date/time seen: 07/24/22 15:00 Interval history: 07/24/22 1500 Patient was resting in bed. He did arise very easily however he is having hard time talking in full signs is as he gets very short of breath. Patient does have 2+ pitting edema bilateral lower extremities. He is complaining of a cough which he stated his sputum is brown in nature he is also complaining that he is very anxious as stuff is just scaring him. He denies any chest pain, abdominal pain, nausea, vomiting, diarrhea or constipation. 07/23/22? 13:26 This is a 57-year-ol
--- NOTE | 2022-07-24 15:00 | P.PNIM_ITS ---
Progress Note: A&P Assessment and Plan (1) COPD exacerbation: Code(s): J44.1 - Chronic obstructive pulmonary disease with (acute) exacerbation Status: Acute Assessment and Plan: * endorses increased shortness of breath, increased oxygen demand, increased cough and changes in sputum * Sputum is brown thick * Sputum culture ordered * ABG shows respiratory acidosis * Neb treatments * Continue Solu-Medrol * Add Pulmozyme * AVAPS * Start patient on a azithromycin and ceftriaxone * Consult pulmonology (2) Acute respiratory failure: Code(s): J96.00 - Acute respiratory failure, unspecified whether with hypoxia or hypercapnia Status: Acute Assessment and Plan: * No home O2 needs * Currently on 5 L high-flow cannula * Neb treatment * Patient has dyspnea with minimal exertion, unable to complete sentences, tripoding * Continue with supplemental oxygen wean to maintain saturation greater than 80% * Fluid overload could have a component along with pneumonia and COPD (3) Hypothyroidism (acquired): Code(s): E03.9 - Hypothyroidism, unspecified Status: Acute Assessment and Plan: * continue levothyroxine * TSH in a.m. (4) Tobacco use: Code(s): Z72.0 - Tobacco use Status: Acute Assessment and Plan: * Nicotine patch and gum ordered * Reiterated smoking cessation with patient (5) Depression with anxiety: Code(s): F41.8 - Other specified anxiety disorders Status: Acute Assessment and Plan: * Continue with current treatment * Add Xanax (6) Type 2 diabetes mellitus with polyneuropathy: Code(s): E11.42 - Type 2 diabetes mellitus with diabetic polyneuropathy Status: Acute Assessment and Plan: * Accu-Cheks AC and HS * Sliding scale insulin increased * hypoglycemic protocol * A1c 9.3 * visual educator consulted * Continue with Januvia hold glimepiride * Increase Lantus to 20 units (7) KEVIN (obstructive sleep apnea): Code(s): G47.33 - Obstructive sleep apnea (adult) (pediatric) Status: Acute Assessment and Plan: * Patient will need a new machine * Patient will need of patient follow-up (8) Hypertension, essential: Code(s): I10 - Essential (primary) hypertension Status: Acute Assessment and Plan: * Continue with current treatment * Blood pressure a bit on the high side 152/57 * Continue home medication * Trend blood pressure * Adjust therapy as indicated (9) Pneumonia: Code(s): J18.9 - Pneumonia, unspecified organism Status: Acute Assessment and Plan: * CTA indicate CHF versus pneumonia * Azithromycin ceftriaxone started * Sputum culture ordered * Chest x-ray in the a.m. * Breathing treatments (10) CHF (congestive heart failure): Code(s): I50.9 - Heart failure, unspecified Status: Acute Assessment and Plan: * Acute on chronic diastolic heart failure in acute exacerbation * Echo shows an EF of 65-70 with grade 1 diastolic dysfunction * 2 to 3+ pitting edema bilateral lower extremities * Lasix ordered * Daily weights * CTA indicates possible fluid
[2022-07-24] MEDS: SODIUM CHLORIDE 0.9% IV 500 ML 999 ML IV CONT (16:02)
[2022-07-24] MEDS: MAGNESIUM SULF 4 GM/WATER100ML 4 GM/100 ML BAG IVPB (16:02)
[2022-07-24] MEDS: SODIUM CHLORIDE 0.9% IV 1,000 ML 100 ML IV CONT (16:02)
[2022-07-24 16:36] LABS: Glucose Point of Care 256 mg/dl (65-105)
[2022-07-24] MEDS: ENOXAPARIN 40 MG/0.4 ML SYRINGE SUB-Q (18:20)
[2022-07-24] MEDS: DORNASE ALFA INH SOLN 1 MG/ML 2.5 ML AMP 2.5 MG INHALATION (19:53)
[2022-07-24] MEDS: INSULIN GLARGINE (*BKC) 100 UNITS/ML 20 UNITS SUB-Q (20:37)
[2022-07-24 23:05] LABS: Glucose Point of Care 250 mg/dl (65-105)
[2022-07-25] VITALS (29 sets, daily range): BP systolic 132–174; BP diastolic 67–86; PULSE 88–145; RESP 18–40; TEMP 36.1–36.8; O2SAT 86–98
[2022-07-25] MEDS: ALBUTEROL SULFATE NEB 2.5 MG/3 ML INH INHALATION ×4 (02:32→21:43)
[2022-07-25] MEDS: IPRATROPIUM BR 0.02% INH SOLN 0.5 MG/2.5 ML VIAL INHALATION ×4 (02:32→21:43)
--- NOTE | 2022-07-25 03:01 | PCRCNOTE ---
pt has extreme GOLD when getting up to use restroom with RN.
[2022-07-25 04:48] LABS: Basophils Percent Auto 0.3 % (0.2-1.2); Hematocrit 59.7 % (42.0-52.0); Hemoglobin 19.7 g/dL (14.0-18.0); Immature Granulocyte Percent A 0.7 % (0-0.5); Lymphocytes Absolute Auto 0.54 K/mm3 (0.9-3.2); Lymphocytes Percent Auto 3.8 % (18.3-44.2); Mean Corpuscular Hemoglobin 27.9 pg (26-34); Mean Corpuscular Volume 84.6 fl (80-100); Mean Platelet Volume 9.9 fl (7.4-10.4); Monocytes Percent Auto 6.6 % (2.6-8.5); Neutrophils Absolute Auto 12.7 K/mm3 (1.3-6.7); Neutrophils Percent Auto 88.6 % (45.5-73.1); Platelet Count Result 248 k/mm3 (150-375); Red Blood Count 7.06 M/mm3 (4.6-6.20); Red Cell Distribution Width 16.8 % (11.5-14.5); White Blood Count 14.3 K/mm3 (4.5-10.0)
[2022-07-25] MEDS: methylPREDNISolone SOD SUCC 125 MG VIAL 60 MG IV PUSH ×3 (04:54→22:13)
[2022-07-25] MEDS: LEVOTHYROXINE SODIUM 25 MCG TABLET PO (04:54)
[2022-07-25 05:07] LABS: Transferrin 232 mg/dL (206-381)
[2022-07-25 05:08] LABS: Alanine Aminotransferase 30 U/L (6-50); Albumin Level 4.1 g/dL (3.5-5.1); Alkaline Phosphatase 64 U/L (38-126); Anion Gap 7 mmol/L (8-16); Aspartate Amino Transferase 42 U/L (17-59); Bilirubin,Total 0.6 mg/dL (0.2-1.3); Blood Urea Nitrogen 39 mg/dL (9-20); Calcium 7.8 mg/dL (8.4-10.2); Carbon Dioxide 30 mmol/L (22-30); Chloride 95 mmol/L (98-107); Estimated CRCL calculation 96 ml/min; Estimated Glomerular Filt Rate > 60; Glucose 225 mg/dL (65-110); Iron 48 ug/dL (49-181); Magnesium 2.8 mg/dL (1.6-2.3); Potassium 4.5 mmol/L (3.4-5.0); Sodium 132 mmol/L (137-145)
[2022-07-25 05:12] LABS: Percent Iron Saturation 14 % (20-50)
[2022-07-25 06:04] LABS: Folic Acid 12.2 ng/mL (2.76->20)
[2022-07-25 08:02] LABS: Glucose Point of Care 241 mg/dl (65-105)
[2022-07-25] MEDS: FERROUS SULFATE 324 MG TABLET PO (08:30)
[2022-07-25] MEDS: FUROSEMIDE INJ 100 MG/10 ML VIAL 80 MG IV PUSH (08:30)
--- NOTE | 2022-07-25 08:45 | P.PNIM_ITS ---
Progress Note: A&P Assessment and Plan (1) CHF (congestive heart failure): Code(s): I50.9 - Heart failure, unspecified Status: Acute Assessment and Plan: * Acute on chronic diastolic heart failure in acute exacerbation * Echo shows an EF of 65-70 with grade 1 diastolic dysfunction * 2 to 3+ pitting edema bilateral lower extremities * Lasix increased to Q8H for now * Daily weights * CTA indicates possible fluid shift * Chest xray from today shows pulmonary edema * Trend labs * Adjust therapy as indicated (2) Acute respiratory failure: Code(s): J96.00 - Acute respiratory failure, unspecified whether with hypoxia or hypercapnia Status: Acute Assessment and Plan: * No home O2 needs * Currently on 10 L high-flow cannula * Neb treatment * Patient has dyspnea with minimal exertion, unable to complete sentences, tripoding * Continue with supplemental oxygen wean to maintain saturation greater than 88% * Fluid overload is a problem at this time * Placed patient on AVAPS at this time (3) COPD exacerbation: Code(s): J44.1 - Chronic obstructive pulmonary disease with (acute) exacerbation Status: Acute Assessment and Plan: * endorses increased shortness of breath, increased oxygen demand, increased cough and changes in sputum * Sputum is brown thick * Sputum culture continues to pend * ABG from 07/25/22 * Neb treatments * Continue Solu-Medrol * Add Pulmozyme * AVAPS mode initiated at TV 500, EPAP 6, Rate 20, itime 0.95, MinP 8, MaxP 25, Rise 3, FIO2 50%. * Continue azithromycin and ceftriaxone * Consult pulmonology thank you for your recommendations (4) Pneumonia: Code(s): J18.9 - Pneumonia, unspecified organism Status: Acute Assessment and Plan: * CTA indicate CHF versus pneumonia * Azithromycin ceftriaxone started * Sputum culture pending * Chest x-ray pulmonary edema * Breathing treatments (5) Hypothyroidism (acquired): Code(s): E03.9 - Hypothyroidism, unspecified Status: Acute Assessment and Plan: * continue levothyroxine * TSH 2.600 (6) Tobacco use: Code(s): Z72.0 - Tobacco use Status: Acute Assessment and Plan: * Nicotine patch and gum ordered * Reiterated smoking cessation with patient (7) Depression with anxiety: Code(s): F41.8 - Other specified anxiety disorders Status: Acute Assessment and Plan: * Continue with current treatment * Add Xanax (8) Type 2 diabetes mellitus with polyneuropathy: Code(s): E11.42 - Type 2 diabetes mellitus with diabetic polyneuropathy Status: Acute Assessment and Plan: * Glucose is 225 * Accu-Cheks AC and HS * Sliding scale insulin increased * hypoglycemic protocol * A1c 9.3 * adaptive physical educator consulted * Continue with Januvia hold glimepiride * Increase Lantus to 25 units * Insulin aspart 5 units with meals (9) KEVIN (obstructive sleep apnea): Code(s): G47.33 - Obstructive sleep apnea (adult) (pediatric) Status: Acute Assessment and Plan: * Patient will need a new machine * Patient will need of patient follow-up (10) Hype
--- NOTE | 2022-07-25 08:45 | PM.IMPN ---
Progress Note: A&P Assessment and Plan (1) CHF (congestive heart failure): Code(s): I50.9 - Heart failure, unspecified Status: Acute Assessment and Plan: Acute on chronic diastolic heart failure in acute exacerbation Echo shows an EF of 65-70 with grade 1 diastolic dysfunction 2 to 3+ pitting edema bilateral lower extremities Lasix increased to Q8H for now Daily weights CTA indicates possible fluid shift Chest xray from today shows pulmonary edema Trend labs Adjust therapy as indicated (2) Acute respiratory failure: Code(s): J96.00 - Acute respiratory failure, unspecified whether with hypoxia or hypercapnia Status: Acute Assessment and Plan: No home O2 needs Currently on 10 L high-flow cannula Neb treatment Patient has dyspnea with minimal exertion, unable to complete sentences, tripoding Continue with supplemental oxygen wean to maintain saturation greater than 88% Fluid overload is a problem at this time Placed patient on AVAPS at this time (3) COPD exacerbation: Code(s): J44.1 - Chronic obstructive pulmonary disease with (acute) exacerbation Status: Acute Assessment and Plan: endorses increased shortness of breath, increased oxygen demand, increased cough and changes in sputum Sputum is brown thick Sputum culture continues to pend ABG from 07/25/22 Neb treatments Continue Solu-Medrol Add Pulmozyme AVAPS mode initiated at TV 500, EPAP 6, Rate 20, itime 0.95, MinP 8, MaxP 25, Rise 3, FIO2 50%. Continue azithromycin and ceftriaxone Consult pulmonology thank you for your recommendations (4) Pneumonia: Code(s): J18.9 - Pneumonia, unspecified organism Status: Acute Assessment and Plan: CTA indicate CHF versus pneumonia Azithromycin ceftriaxone started Sputum culture pending Chest x-ray pulmonary edema Breathing treatments (5) Hypothyroidism (acquired): Code(s): E03.9 - Hypothyroidism, unspecified Status: Acute Assessment and Plan: continue levothyroxine TSH 2.600 (6) Tobacco use: Code(s): Z72.0 - Tobacco use Status: Acute Assessment and Plan: Nicotine patch and gum ordered Reiterated smoking cessation with patient (7) Depression with anxiety: Code(s): F41.8 - Other specified anxiety disorders Status: Acute Assessment and Plan: Continue with current treatment Add Xanax (8) Type 2 diabetes mellitus with polyneuropathy: Code(s): E11.42 - Type 2 diabetes mellitus with diabetic polyneuropathy Status: Acute Assessment and Plan: Glucose is 225 Accu-Cheks AC and HS Sliding scale insulin increased hypoglycemic protocol A1c 9.3 community educator consulted Continue with Januvia hold glimepiride Increase Lantus to 25 units Insulin aspart 5 units with meals (9) KEVIN (obstructive sleep apnea): Code(s): G47.33 - Obstructive sleep apnea (adult) (pediatric) Status: Acute Assessment and Plan: Patient will need a new machine Patient will need of patient follow-up (10) Hypertension, essential: Code(s): I10 - Essential (primary) hypertension Status: Acute Assessment and Plan: Continue with current treatment Blood pressure a bit on the high side 156/69 Continue home medication Trend blood pressure Adjust therapy as indicated (11) Pulmonary hypertension: Code(s): I27.20 - Pulmonary hypertension, unspecified Status: Acute Assessment and Plan: Echo indicates severe pulmonary hypertension Pulmonary consulted thank you for your help Probably related to severe COPD, tobacco abuse Currently on AVAPS (12) Acquired polycythemia: Code(s): D75.1 - Secondary polycythemia Status: Acute
[2022-07-25] MEDS: PREGABALIN (*CRX) 75 MG CAPSULE 150 MG PO ×2 (08:55→16:47)
[2022-07-25] MEDS: FUROSEMIDE INJ 40 MG/4 ML VIAL 80 MG (08:55)
[2022-07-25] MEDS: ASPIRIN 325 MG ENTERIC TABLET PO (08:55)
[2022-07-25] MEDS: INSULIN ASPART (*BKC) 100 UNITS/ML SUB-Q ×3 (08:55→16:47)
[2022-07-25] MEDS: POTASSIUM CHLORIDE 10 MEQ TABLET.ER PO (08:55)
[2022-07-25] MEDS: DORNASE ALFA INH SOLN 1 MG/ML 2.5 ML AMP 2.5 MG INHALATION ×2 (09:06→21:43)
[2022-07-25 09:15] LABS: Alveolar/Arterial O2 Gradient 308.1 mmHg; Carboxyhemoglobin 0.3 % THb (0-2.0); Fractional Inspired Oxygen 60 %; HCO3 ABG 27.1 mEq/l (22.0-26.0); Methemoglobin ABG 0.5 %THb (0-1.5); Oxygen Content ABG 25.4 %vol (16.0-22.0); PCO2 ABG 56.4 mmHg (35.0-45.0); PO2 ABG 57.7 mmHg (80.0-100.0); PO2 FiO2 Ratio Arterial Blood 0.96 %; Reduced Hemoglobin 11.4 %THb (0-5.0); Total Hemoglobin 20.7 g/dL (12.0-18.0)
[2022-07-25 09:19] LABS: Modified Allen's Test Pass; Oxygen Saturation ABG 86.7 % (95.0-100.0); Oxyhemoglobin 87.8 % THb (90.0-100.0); Site Drawn LEFT RADIAL
[2022-07-25 09:20] LABS: Device HIGH FLOW NASAL CANN
[2022-07-25] MEDS: ALPRAZolam (*CRX) 0.5 MG TABLET PO (09:33)
[2022-07-25] MEDS: NICOTINE (*PBKC) 21 MG PATCH 1 PATCH TRANSDERM (09:33)
[2022-07-25] MEDS: FLUTICASONE/UMECLIDIN/VILANTER 100-62.5-25 MCG ELLIPTA 1 PUFF INHALATION (09:41)
--- NOTE | 2022-07-25 11:28 | PCRCNOTE ---
RT was called to pt's room, pt was only stating 85%, placed pt on BiPAP, earlier in the day Dr. Mckeon placed pt on AVAPS settings, RT try titrating to pt comfort but was unable to. Placed pt on previous BiPAP settings of 15/01 R 16. RN notified of changes. Will continue to try to inform Dr. Mckeon of changes to BiPAP.
[2022-07-25 11:40] LABS: Glucose Point of Care 334 mg/dl (65-105)
[2022-07-25] MEDS: FUROSEMIDE INJ 40 MG/4 ML VIAL IV PUSH (16:46)
[2022-07-25 16:51] LABS: Glucose Point of Care 379 mg/dl (65-105)
--- NOTE | 2022-07-25 20:09 | PM.CNPUL ---
Assessment and Plan Assessment and plan (1) COPD exacerbation: Code(s): J44.1 - Chronic obstructive pulmonary disease with (acute) exacerbation Status: Acute Assessment and Plan: Admitted with severe COPD exacerbation, not sure his underlying degree of COPD, still smokes, failed out patient treated, had symptoms for several weeks, worse x 3 days Now with AF with RVR due to strain on heart from his COPD exacerbation plans outlined below Can continue to follow up as put patient as he has many issues that need to be addressed (2) Acute respiratory failure: Code(s): J96.00 - Acute respiratory failure, unspecified whether with hypoxia or hypercapnia Status: Acute Assessment and Plan: Has not required O2 at home so far (3) Tobacco use: Code(s): Z72.0 - Tobacco use Status: Acute Assessment and Plan: current smoker (4) KEVIN (obstructive sleep apnea): Code(s): G47.33 - Obstructive sleep apnea (adult) (pediatric) Status: Acute Assessment and Plan: Plan Stop albuterol and ipratropium; he is having rapid atrial fibrillation, these may worsen his tachyarrhythmia. Levalbuterol if rescue bronchodilator is needed, Q 6 hr prn shortness of breath. Continue Trelegy for COPD controller therapy. Stop D5W at 100; he has edema , getting diuresed. Will watch renal labs; BUN is 39, creat 0.9; expect these to increase with Lasix and no IVF Stop solumedrol 60 mg IV Q 8 hr, change to prednisone 40 mg po Q am with food. Sputum specimen is pending. Try other O2 delivery as he is uncomfortable on BiPAP, saturation is 94% on BiPAP 14/8, f-16 and 50%, not severely hypoxemic. He is a candidate for NPPV at discharge; he tells me that he has been trying to get PAP equipment at home, has a dx of KEVIN. History of Present Illness History of Present Illness Consult date: 07/25/22 Chief complaint: COPD/Acute Respiratory Failure Narrative: Patient was seen 07/25/2022 at 22:00 cc: COPD exacerbation NEW: Ramakrishna Mora is a 57-year-old man with a COPD exacerbation, admitted 07/23/2022. He said that he had a sinus infection, increased cough, purulent sputum green-brown color, increased shortness of breath and LE swelling for 3 days prior to admission. He had 2 rounds of antibiotics before admission. He was better after the first round of antibiotics, had 3 weeks with improved symptoms, then worsened. He says that Dr Saenz was trying to get him set up with supplemental O2, sleep equipment, a nebulizer, and some help with smoking cessation before he deteriorated and required admission. He kwame not been on O2 at home. His nurse is at the beside, tells me he start on BiPAP about an hour and a half ago. He went into rapid atrial fibrillation rate 140s, is getting Cardizem IV push and a drip because his rate is still high. He did not have hypoxemia triggering the event. He has been getting IV Lasix Q 8 hours. The patient says that he was getting more IV fluids in the last day with increase in his leg swelling. DATA * 07/25/2022 CXR - Mild interstitial pulmonary edema pattern. * 07/23/2022 - CTA- No evidence for pulmonary embolism. 2: Mediastinal and bilateral hilar lymph node adenopathy, most likely reactive, although metastatic disease and lymphoma are considered in the appropriate clinical setting. 3: Small pulmonary nodules measuring 2 mm or less, most likely benign. Consider follow-up low dose CT chest in 12 months. * 07/24/2022 - echo Technically difficult exam, definity contrast used to improve visualization. ?
[2022-07-25 20:27] LABS: Glucose Point of Care 417 mg/dl (65-105)
--- NOTE | 2022-07-25 20:56 | ECG_ITS ---
Measurements Intervals [place] Rate: 124 P: TN: 0 QRS: 266 QRSD: 146 T: 122 QT: 327 QTc: 471 Interpretive Statements ATRIAL FIBRILLATION WITH RAPID VENTRICULAR RESPONSE MARKED RIGHT AXIS DEVIATION [QRS AXIS > 100] RIGHT BUNDLE BRANCH BLOCK [120+ ms QRS DURATION, UPRIGHT V1, 40+ ms S IN I/aVL/V4/V5/V6] POSSIBLE ANTERIOR MYOCARDIAL INFARCTION [30 ms Q WAVE IN V3/V4, OR R < 0.2 mV IN V4], OF INDETERMINATE AGE ABNORMAL ECG COMPARED TO ECG 07/23/2022 07:40:57 ATRIAL FIBRILLATION NOW PRESENT Electronically Signed On 07-26-2022 13:39:22 ROBOT TECHNICIAN by Sukumar Kyle M.D.
[2022-07-25] MEDS: ENOXAPARIN 40 MG/0.4 ML SYRINGE SUB-Q (21:06)
[2022-07-25] MEDS: INSULIN GLARGINE (*BKC) 100 UNITS/ML 25 UNITS SUB-Q (21:07)
[2022-07-25] MEDS: INSULIN ASPART (*BKC) 100 UNITS/ML 12 UNITS SUB-Q (21:08)
[2022-07-25] MEDS: dilTIAZem HCl INJ 25 MG/5 ML VIAL 10 MG IV PUSH (21:13)
--- NOTE | 2022-07-25 21:15 | PM.EVENT ---
Event Note Event Note Event Note: Received a call from nursing staff at about 21:00. The patient went into atrial fibrillation with rapid ventricular response. He is asymptomatic with that and has no sensations of racing heart or palpitations. He was bolused with IV diltiazem 10 mg x 1 and has been started on a diltiazem drip. CHADS2 Vasc score is 2-3 (hypertension, diabetes, diastolic dysfunction) and he has been started on Lovenox 1 milligram/kilogram b.i.d..
[2022-07-25] MEDS: HYDROcodone/acetaminophen (*CRX) 5-325 MG TABLET 1 TAB PO (22:24)
--- NOTE | 2022-07-25 22:48 | PM.EVENT ---
Event Note Event Note Event Note: Received a call from nursing staff at about 21:00. The patient went into atrial fibrillation with rapid ventricular response. He is asymptomatic with that and has no sensations of racing heart or palpitations. He was bolused with IV diltiazem 10 mg x 1 and has been started on a diltiazem drip. CHADS2 Vasc score is 2 (hypertension and diabetes) and he was given a dose of Lovenox 1 milligram/kilogram x1.
[2022-07-25] MEDS: dilTIAZem 100 MG/100 ML 100 MG/100 ML BAG IV CONT (23:03)
[2022-07-25] MEDS: ENOXAPARIN 120 MG/0.8 ML SYRINGE SUB-Q (23:04)
[2022-07-26] VITALS (28 sets, daily range): BP systolic 125–161; BP diastolic 70–97; PULSE 66–136; RESP 18–32; TEMP 36.1–36.6; O2SAT 90–97; BMI 40.8
[2022-07-26] MEDS: ENOXAPARIN 80 MG/0.8 ML SYRINGE SUB-Q (00:03)
[2022-07-26] MEDS: BENZOCAINE/MENTHOL (*BKC) 18 EA LOZENGE 1 LOZENGE PO ×3 (00:04→10:47)
[2022-07-26 00:14] LABS: Glucose Point of Care 360 mg/dl (65-105)
[2022-07-26] MEDS: FUROSEMIDE INJ 40 MG/4 ML VIAL IV PUSH ×2 (01:58→10:55)
[2022-07-26 05:02] LABS: Basophils Absolute Auto 0.1 K/mm3 (0.0-0.1); Basophils Percent Auto 0.4 % (0.2-1.2); Hematocrit 58.7 % (42.0-52.0); Hemoglobin 18.7 g/dL (14.0-18.0); Immature Granulocyte Absolute 0.11 K/mm3 (0.00-0.031); Immature Granulocyte Percent A 0.8 % (0-0.5); Lymphocytes Absolute Auto 0.71 K/mm3 (0.9-3.2); Lymphocytes Percent Auto 5.1 % (18.3-44.2); Mean Corpuscular HGB Conc 31.9 g/dl (32-36); Mean Corpuscular Hemoglobin 27.5 pg (26-34); Mean Corpuscular Volume 86.2 fl (80-100); Monocytes Absolute Auto 1.3 K/mm3 (0.1-0.6); Monocytes Percent Auto 9.3 % (2.6-8.5); Neutrophils Absolute Auto 11.8 K/mm3 (1.3-6.7); Neutrophils Percent Auto 84.4 % (45.5-73.1); Platelet Count Result 283 k/mm3 (150-375); Red Blood Count 6.81 M/mm3 (4.6-6.20); Red Cell Distribution Width 16.6 % (11.5-14.5); White Blood Count 13.9 K/mm3 (4.5-10.0)
[2022-07-26] MEDS: dilTIAZem 100 MG/100 ML 100 MG/100 ML BAG 15 MG IV CONT ×3 (05:23→19:36)
[2022-07-26 05:25] LABS: Alanine Aminotransferase 29 U/L (6-50); Albumin Level 3.8 g/dL (3.5-5.1); Alkaline Phosphatase 75 U/L (38-126); Anion Gap 6 mmol/L (8-16); Aspartate Amino Transferase 24 U/L (17-59); Bilirubin,Total 0.4 mg/dL (0.2-1.3); Blood Urea Nitrogen 55 mg/dL (9-20); Carbon Dioxide 33 mmol/L (22-30); Chloride 94 mmol/L (98-107); Estimated CRCL calculation 79 ml/min; Estimated Glomerular Filt Rate > 60; Glucose 339 mg/dL (65-110); Magnesium 2.4 mg/dL (1.6-2.3); Potassium 4.7 mmol/L (3.4-5.0); Sodium 133 mmol/L (137-145)
[2022-07-26] MEDS: LEVOTHYROXINE SODIUM 25 MCG TABLET PO (05:55)
[2022-07-26] MEDS: DORNASE ALFA INH SOLN 1 MG/ML 2.5 ML AMP 2.5 MG INHALATION ×2 (07:41→21:49)
[2022-07-26] MEDS: FLUTICASONE/UMECLIDIN/VILANTER 100-62.5-25 MCG ELLIPTA 1 PUFF INHALATION (07:42)
[2022-07-26 08:21] LABS: Glucose Point of Care 367 mg/dl (65-105)
[2022-07-26] MEDS: POTASSIUM CHLORIDE 10 MEQ TABLET.ER PO (08:30)
[2022-07-26] MEDS: predniSONE 20 MG TABLET 40 MG PO (08:30)
[2022-07-26] MEDS: ASPIRIN 325 MG ENTERIC TABLET PO (08:30)
[2022-07-26] MEDS: FERROUS SULFATE 324 MG TABLET PO (08:30)
[2022-07-26] MEDS: ENOXAPARIN 120 MG/0.8 ML SYRINGE SUB-Q (08:31)
[2022-07-26] MEDS: PREGABALIN (*CRX) 75 MG CAPSULE 150 MG PO ×2 (08:35→17:28)
[2022-07-26] MEDS: INSULIN ASPART (*BKC) 100 UNITS/ML SUB-Q ×5 (08:35→17:26)
[2022-07-26] MEDS: NICOTINE (*PBKC) 21 MG PATCH 1 PATCH TRANSDERM (10:48)
[2022-07-26 11:56] LABS: Glucose Point of Care 367 mg/dl (65-105)
--- NOTE | 2022-07-26 12:30 | PM.CNCAR ---
Assessment and Plan Assessment and plan (1) Atrial fibrillation: Code(s): I48.91 - Unspecified atrial fibrillation Status: Acute Assessment and Plan: New onset atrial fibrillation that he is aware of. He has a chads Vasc score of 3 and anticoagulation is recommended. He has received enoxaparin 1 milligram/kilogram at this point and will transition him to Xarelto 20 mg daily if cost effective. Continue this has not drip for the time being. He is undergoing treatment of his COPD exacerbation which is at least in part in etiology of his AFib with RVR. He also has untreated sleep apnea, pulmonary hypertension, known CAD. All of these could be contributors also to his AFib in addition to his hypertension and diabetes. Will give a dose of IV amiodarone 150 mg IV x1 to hopefully lower his heart rate. Long-term however amiodarone is a poor choice of medication given his underlying lung disease. Will also lower his aspirin dose down 81 mg p.o. daily since starting anticoagulant therapy. Patient verbalized understanding and is agreeable (2) Pulmonary hypertension: Code(s): I27.20 - Pulmonary hypertension, unspecified Status: Acute Assessment and Plan: Moderate to severe and likely related to a combination sleep apnea, obesity and left heart disease in addition to underlying COPD/lung disease (3) CHF (congestive heart failure): Code(s): I50.9 - Heart failure, unspecified Status: Acute Assessment and Plan: Likely right-sided heart failure from pulmonary hypertension. No evidence of significant diastolic failure or systolic failure (4) COPD exacerbation: Code(s): J44.1 - Chronic obstructive pulmonary disease with (acute) exacerbation Status: Acute Assessment and Plan: Per hospitalist (5) Tobacco use: Code(s): Z72.0 - Tobacco use Status: Acute Assessment and Plan: Tobacco abuse counseling performed (6) CAD (coronary artery disease): Code(s): I25.10 - Atherosclerotic heart disease of [place] coronary artery without angina pectoris Status: Acute Assessment and Plan: Will lower his aspirin at 81 mg p.o. daily. Will add rosuvastatin 10 mg daily. (7) KEVIN (obstructive sleep apnea): Code(s): G47.33 - Obstructive sleep apnea (adult) (pediatric) Status: Acute Assessment and Plan: Imperative that he has CPAP treatment (8) Hypertension, essential: Code(s): I10 - Essential (primary) hypertension Status: Acute Assessment and Plan: Continue meds History of Present Illness History of Present Illness Consult date/time: 07/26/22 12:30 Requesting physician: Arnaud Mckeon [facility] Consult reason: atrial fibrillation Reason For Visit: COPD/Acute Respiratory Failure Narrative: Reason for consultation: Atrial fibrillation Date of service 07/26/2022 Requesting provider: Arnaud Mckeon History patient is a 57-year-old male who appears older than stated age who has a history of CAD and previous stent placement previously followed by [facility] vascular in [facility] by Dr. Soto. He has not been seen in well over a year he states. Came to hospital because worsening shortness of breath. He had been more short of breath 3 days prior to admission with wheezing and he was being treated as an inpatient for COPD exacerbation. He also had significant lower extremity edema. Echocardiogram reveals preserved ejection fraction but with moderate to severe pulmonary hypertension left atrial enlargement. While undergoing treatment for COPD exacerbation, he was noted to go into atrial fibrillation with rapid ventricular response last night. He was started on diltiazem drip and has had marginal heart rate control with heart rate varying between 101 120 beats per minute. Patient states that he does have episodes of palpitations as an outpatient. He thinks that he goes in and out of his rhythm every few weeks and
--- NOTE | 2022-07-26 14:00 | P.PNIM_ITS ---
Progress Note: A&P Assessment and Plan (1) CHF (congestive heart failure): Code(s): I50.9 - Heart failure, unspecified Status: Acute Assessment and Plan: * Acute on chronic right sided heart failure in acute exacerbation * Echo shows an EF of 65-70 with grade 1 diastolic dysfunction * 2 to 3+ pitting edema bilateral lower extremities * Lasix changed to bumex 1mg BID * Daily weights * CTA indicates possible fluid shift * Chest xray from today shows pulmonary edema * Trend labs * Adjust therapy as indicated (2) Acute respiratory failure: Code(s): J96.00 - Acute respiratory failure, unspecified whether with hypoxia or hypercapnia Status: Acute Assessment and Plan: * No home O2 needs * Currently on airvo maxed out * Neb treatment * Patient has dyspnea with minimal exertion, unable to complete sentences, tripoding * Continue with supplemental oxygen wean to maintain saturation greater than 88% * Fluid overload is a problem at this time * Placed patient on AVAPS at this time (3) COPD exacerbation: Code(s): J44.1 - Chronic obstructive pulmonary disease with (acute) exacerbation Status: Acute Assessment and Plan: * endorses increased shortness of breath, increased oxygen demand, increased cough and changes in sputum * Sputum is brown thick * Sputum culture Beta hemolytic streptococcus * ABG from 07/25/22 7.370, PCO2 43.8, PO2 74.8, HCO3 24.8, O2 sat 94.6 * Neb treatments * Continue Solu-Medrol * Add Pulmozyme * AVAPS mode initiated at TV 500, EPAP 6, Rate 20, itime 0.95, MinP 8, MaxP 25, Rise 3, FIO2 50%. * Continue azithromycin and ceftriaxone * Consult pulmonology thank you for your recommendations (4) Pneumonia: Code(s): J18.9 - Pneumonia, unspecified organism Status: Acute Assessment and Plan: * CTA indicate CHF versus pneumonia * Azithromycin ceftriaxone started * Sputum culture Beta Hemolytic streptococcus * Chest x-ray pulmonary edema * Breathing treatments (5) Hypothyroidism (acquired): Code(s): E03.9 - Hypothyroidism, unspecified Status: Acute Assessment and Plan: * continue levothyroxine * TSH 2.600 (6) Tobacco use: Code(s): Z72.0 - Tobacco use Status: Acute Assessment and Plan: * Nicotine patch and gum ordered * Reiterated smoking cessation with patient (7) Depression with anxiety: Code(s): F41.8 - Other specified anxiety disorders Status: Acute Assessment and Plan: * Continue with current treatment * Add Xanax (8) Type 2 diabetes mellitus with polyneuropathy: Code(s): E11.42 - Type 2 diabetes mellitus with diabetic polyneuropathy Status: Acute Assessment and Plan: * Glucose is 339 * Accu-Cheks AC and HS * Sliding scale insulin increased * hypoglycemic protocol * A1c 9.3 * primary special educator consulted * Continue with Januvia hold glimepiride * Increase Lantus to 35 units * Insulin aspart 10 units with meals (9) KEVIN (obstructive sleep apnea): Code(s): G47.33 - Obstructive sleep apnea (adult) (pediatric) Status: Acute Assessment and Plan: * Patient will need a new machine * Patient w
--- NOTE | 2022-07-26 14:00 | PM.IMPN ---
Progress Note: A&P Assessment and Plan (1) CHF (congestive heart failure): Code(s): I50.9 - Heart failure, unspecified Status: Acute Assessment and Plan: Acute on chronic right sided heart failure in acute exacerbation Echo shows an EF of 65-70 with grade 1 diastolic dysfunction 2 to 3+ pitting edema bilateral lower extremities Lasix changed to bumex 1mg BID Daily weights CTA indicates possible fluid shift Chest xray from today shows pulmonary edema Trend labs Adjust therapy as indicated (2) Acute respiratory failure: Code(s): J96.00 - Acute respiratory failure, unspecified whether with hypoxia or hypercapnia Status: Acute Assessment and Plan: No home O2 needs Currently on airvo maxed out Neb treatment Patient has dyspnea with minimal exertion, unable to complete sentences, tripoding Continue with supplemental oxygen wean to maintain saturation greater than 88% Fluid overload is a problem at this time Placed patient on AVAPS at this time (3) COPD exacerbation: Code(s): J44.1 - Chronic obstructive pulmonary disease with (acute) exacerbation Status: Acute Assessment and Plan: endorses increased shortness of breath, increased oxygen demand, increased cough and changes in sputum Sputum is brown thick Sputum culture Beta hemolytic streptococcus ABG from 07/25/22 7.370, PCO2 43.8, PO2 74.8, HCO3 24.8, O2 sat 94.6 Neb treatments Continue Solu-Medrol Add Pulmozyme AVAPS mode initiated at TV 500, EPAP 6, Rate 20, itime 0.95, MinP 8, MaxP 25, Rise 3, FIO2 50%. Continue azithromycin and ceftriaxone Consult pulmonology thank you for your recommendations (4) Pneumonia: Code(s): J18.9 - Pneumonia, unspecified organism Status: Acute Assessment and Plan: CTA indicate CHF versus pneumonia Azithromycin ceftriaxone started Sputum culture Beta Hemolytic streptococcus Chest x-ray pulmonary edema Breathing treatments (5) Hypothyroidism (acquired): Code(s): E03.9 - Hypothyroidism, unspecified Status: Acute Assessment and Plan: continue levothyroxine TSH 2.600 (6) Tobacco use: Code(s): Z72.0 - Tobacco use Status: Acute Assessment and Plan: Nicotine patch and gum ordered Reiterated smoking cessation with patient (7) Depression with anxiety: Code(s): F41.8 - Other specified anxiety disorders Status: Acute Assessment and Plan: Continue with current treatment Add Xanax (8) Type 2 diabetes mellitus with polyneuropathy: Code(s): E11.42 - Type 2 diabetes mellitus with diabetic polyneuropathy Status: Acute Assessment and Plan: Glucose is 339 Accu-Cheks AC and HS Sliding scale insulin increased hypoglycemic protocol A1c 9.3 hospital educator consulted Continue with Januvia hold glimepiride Increase Lantus to 35 units Insulin aspart 10 units with meals (9) KEVIN (obstructive sleep apnea): Code(s): G47.33 - Obstructive sleep apnea (adult) (pediatric) Status: Acute Assessment and Plan: Patient will need a new machine Patient will need of patient follow-up (10) Hypertension, essential: Code(s): I10 - Essential (primary) hypertension Status: Acute Assessment and Plan: Continue with current treatment Blood pressure a bit on the high side 148/97 Continue home medication Trend blood pressure Adjust therapy as indicated (11) Pulmonary hypertension: Code(s): I27.20 - Pulmonary hypertension, unspecified Status: Acute Assessment and Plan: Echo indicates severe pulmonary hypertension at 78 Pulmonary consulted thank you for your help Probably related to severe COPD, tobacco abuse Currently on AVAPS (12) Acquired pavel
[2022-07-26 15:00] LABS: Alveolar/Arterial O2 Gradient 304.8 mmHg; Base Excess ABG -0.8 mEq/l (+/-2.0); Carboxyhemoglobin 0.3 % THb (0-2.0); Fractional Inspired Oxygen 60 %; HCO3 ABG 24.8 mEq/l (22.0-26.0); Methemoglobin ABG 0.6 %THb (0-1.5); Oxygen Content ABG 25.6 %vol (16.0-22.0); Oxygen Saturation ABG 94.6 % (95.0-100.0); Oxyhemoglobin 93.1 % THb (90.0-100.0); PCO2 ABG 43.8 mmHg (35.0-45.0); PO2 ABG 74.8 mmHg (80.0-100.0); PO2 FiO2 Ratio Arterial Blood 1.25 %; Total Hemoglobin 19.6 g/dL (12.0-18.0)
[2022-07-26 15:01] LABS: Device HIGH FLOW THERAPY; Modified Allen's Test Pass; Site Drawn RIGHT RADIAL
[2022-07-26 16:22] LABS: Glucose Point of Care 366 mg/dl (65-105)
[2022-07-26] MEDS: INSULIN ASPART (*BKC) 100 UNITS/ML 10 UNITS SUB-Q (17:26)
[2022-07-26] MEDS: RIVAROXABAN 20 MG TABLET PO (17:28)
[2022-07-26] MEDS: BUMETANIDE INJ 1 MG/4 ML VIAL IV PUSH (20:30)
[2022-07-26] MEDS: INSULIN GLARGINE (*BKC) 100 UNITS/ML 35 UNITS SUB-Q (20:30)
[2022-07-26 20:46] LABS: Glucose Point of Care 295 mg/dl (65-105)
[2022-07-27] VITALS (28 sets, daily range): BP systolic 117–148; BP diastolic 69–80; PULSE 48–119; RESP 18–34; TEMP 35.9–36.3; O2SAT 92–98
[2022-07-27] MEDS: dilTIAZem 100 MG/100 ML 100 MG/100 ML BAG 15 MG IV CONT ×4 (02:07→22:18)
[2022-07-27] MEDS: LEVOTHYROXINE SODIUM 25 MCG TABLET PO (05:42)
[2022-07-27] MEDS: BUMETANIDE INJ 1 MG/4 ML VIAL IV PUSH ×3 (05:42→20:10)
[2022-07-27 06:38] LABS: Alveolar/Arterial O2 Gradient 269.7 mmHg; Base Excess ABG 7.3 mEq/l (+/-2.0); Carboxyhemoglobin 0.9 % THb (0-2.0); Fractional Inspired Oxygen 55 %; HCO3 ABG 33.8 mEq/l (22.0-26.0); Methemoglobin ABG 0.3 %THb (0-1.5); Oxygen Saturation ABG 92.3 % (95.0-100.0); Oxyhemoglobin 90.6 % THb (90.0-100.0); PCO2 ABG 53.2 mmHg (35.0-45.0); PO2 ABG 63.3 mmHg (80.0-100.0); PO2 FiO2 Ratio Arterial Blood 1.15 %; Reduced Hemoglobin 8.2 %THb (0-5.0); Total Hemoglobin 18.1 g/dL (12.0-18.0); pH ABG 7.421 (7.350-7.450)
[2022-07-27 06:44] LABS: Device HIGH FLOW THERAPY; Modified Allen's Test Pass; Site Drawn RIGHT RADIAL
[2022-07-27] MEDS: HYDROcodone/acetaminophen (*CRX) 5-325 MG TABLET 1 TAB PO (08:33)
[2022-07-27] MEDS: NICOTINE (*PBKC) 21 MG PATCH 1 PATCH TRANSDERM (08:34)
[2022-07-27] MEDS: BENZOCAINE/MENTHOL (*BKC) 18 EA LOZENGE 1 LOZENGE PO (08:35)
[2022-07-27] MEDS: ASPIRIN 81 MG ENTERIC TABLET PO (08:36)
[2022-07-27] MEDS: ROSUVASTATIN 10 MG TABLET PO (08:36)
[2022-07-27] MEDS: predniSONE 20 MG TABLET 40 MG PO (08:36)
[2022-07-27] MEDS: POTASSIUM CHLORIDE 10 MEQ TABLET.ER PO (08:36)
[2022-07-27] MEDS: FERROUS SULFATE 324 MG TABLET PO (08:36)
[2022-07-27] MEDS: INSULIN ASPART (*BKC) 100 UNITS/ML SUB-Q ×3 (08:50→17:00)
[2022-07-27] MEDS: PREGABALIN (*CRX) 75 MG CAPSULE 150 MG PO ×2 (08:50→17:01)
[2022-07-27] MEDS: INSULIN ASPART (*BKC) 100 UNITS/ML 10 UNITS SUB-Q ×3 (08:51→17:01)
[2022-07-27] MEDS: DORNASE ALFA INH SOLN 1 MG/ML 2.5 ML AMP 2.5 MG INHALATION ×2 (09:40→19:38)
[2022-07-27] MEDS: FLUTICASONE/UMECLIDIN/VILANTER 100-62.5-25 MCG ELLIPTA 1 PUFF INHALATION (09:40)
--- NOTE | 2022-07-27 09:43 | PM.PNCARD ---
Progress Note: A&P Assessment and Plan (1) Atrial fibrillation: Code(s): I48.91 - Unspecified atrial fibrillation Status: Acute Assessment and Plan: New onset atrial fibrillation that he is aware of. He has a chads Vasc score of 3 and anticoagulation is recommended. Continue diltiazem drip and Xarelto for now. Wean drips as able. Gradually transition to oral and consider cardioversion once lung issues improved. He also has untreated sleep apnea, pulmonary hypertension, known CAD. All of these could be contributors also to his AFib in addition to his hypertension and diabetes. (2) Pulmonary hypertension: Code(s): I27.20 - Pulmonary hypertension, unspecified Status: Acute Assessment and Plan: Moderate to severe and likely related to a combination sleep apnea, obesity and left heart disease in addition to underlying COPD/lung disease (3) CHF (congestive heart failure): Code(s): I50.9 - Heart failure, unspecified Status: Acute Assessment and Plan: Likely right-sided heart failure from pulmonary hypertension. No evidence of significant diastolic failure or systolic failure (4) COPD exacerbation: Code(s): J44.1 - Chronic obstructive pulmonary disease with (acute) exacerbation Status: Acute Assessment and Plan: Per hospitalist (5) Tobacco use: Code(s): Z72.0 - Tobacco use Status: Acute Assessment and Plan: Tobacco abuse counseling performed (6) CAD (coronary artery disease): Code(s): I25.10 - Atherosclerotic heart disease of [place] coronary artery without angina pectoris Status: Acute Assessment and Plan: Continue current meds. He does have some chest pain today and will order troponin as well as an EKG (7) KEVIN (obstructive sleep apnea): Code(s): G47.33 - Obstructive sleep apnea (adult) (pediatric) Status: Acute Assessment and Plan: Imperative that he has CPAP treatment (8) Hypertension, essential: Code(s): I10 - Essential (primary) hypertension Status: Acute Assessment and Plan: Continue meds Subjective Date/time seen: 07/27/22 09:43 Interval history: This is a 57-year-old male patient to has a history of COPD and tobacco abuse Admitted for worsening shortness of breath.? date of service 07/27/2022: Patient states he has been having intermittent chest pain on the left side since yesterday. Breathing is better. Overall feels better than he did yesterday. Review of Systems Review of Systems: All systems reviewed & are unremarkable except as noted in HPI and below Constitutional: Constitutional: Denies body ache(s) and Denies excessive sweating Eyes: Eyes: Denies blurry vision ENT: Reports Normal hearing present Cardiovascular: Cardiovascular: Denies chest pain, Reports pedal edema, Reports leg edema, Reports dyspnea and Reports dyspnea on exertion Respiratory: Respiratory: Denies chest congestion, Reports dyspnea, Reports dyspnea on exertion and Reports wheezing Gastrointestinal: Gastrointestinal: Denies abdominal pain Genitourinary: Genitourinary: Denies hematuria Musculoskeletal: Musculoskeletal: Denies back pain Integumentary/Breasts: Skin/Breast: Denies breast pain Neurologic: Reports Normal hearing present and Denies Abnormal speech present Psychiatric: Psychiatric: Denies anxiety Endocrine: Endocrine: Denies excessive sweating Hematologic/Lymphatic: Hematologic/Lymphatic: Denies easy bleeding Allergic/Immunologic: Allergic/Immunologic: Denies GI upset with certain foods and Reports wheezing Exam Narrative: Patient is awake alert oriented appears older than stated age Const: General: comfortable; No in distress HENMT: Face/Nose/Sinus: Normal nares present Mouth: Yes moist mucous membranes Eyes: General: appearance normal, both eyes and all related structures Sclera: sclerae normal Neck: Neck: supple Carotids: no bruit
--- NOTE | 2022-07-27 09:47 | ECG_ITS ---
Measurements Intervals [place] Rate: 96 P: [place]: 0 QRS: -84 QRSD: 155 T: 72 QT: 388 QTc: 491 Interpretive Statements ATRIAL FIBRILLATION RIGHT BUNDLE BRANCH BLOCK [120+ ms QRS DURATION, UPRIGHT V1, 40+ ms S IN I/aVL/V4/V5/V6] LEFT ANTERIOR FASCICULAR BLOCK [QRS AXIS <= -45, QR IN I, RS IN II] POSSIBLE SEPTAL MYOCARDIAL INFARCTION [30 ms Q WAVE IN V1/V2], PROBABLY OLD ABNORMAL ECG COMPARED TO ECG 07/25/2022 21:04:20 LEFT ANTERIOR FASCICULAR BLOCK NOW PRESENT Electronically Signed On 07-27-2022 12:07:23 HAND RUG CLEANER by Sukumar Kyle M.D.
[2022-07-27 10:43] LABS: Troponin I < 0.012 ng/mL (0.000-0.034)
--- NOTE | 2022-07-27 11:37 | P.PNIM_ITS ---
Progress Note: A&P Assessment and Plan (1) CHF (congestive heart failure): Code(s): I50.9 - Heart failure, unspecified Status: Acute Assessment and Plan: * Acute on chronic right sided heart failure in acute exacerbation * Echo shows an EF of 65-70 with grade 1 diastolic dysfunction * edema has improved * bumex 1mg BID * Daily weights * CTA indicates possible fluid shift * Chest xray from today shows pulmonary edema * Trend labs * Adjust therapy as indicated (2) Acute respiratory failure: Code(s): J96.00 - Acute respiratory failure, unspecified whether with hypoxia or hypercapnia Status: Acute Assessment and Plan: * No home O2 needs * Currently on airvo maxed out * Neb treatment * Patient has dyspnea with minimal exertion, unable to complete sentences, tripoding * Continue with supplemental oxygen wean to maintain saturation greater than 88% * Fluid overload is a problem at this time * Placed patient on AVAPS at this time (3) COPD exacerbation: Code(s): J44.1 - Chronic obstructive pulmonary disease with (acute) exacerbation Status: Acute Assessment and Plan: * endorses increased shortness of breath, increased oxygen demand, increased cough and changes in sputum * Sputum is brown thick * Sputum culture Beta hemolytic streptococcus * ABG from 07/25/22 7.370, PCO2 43.8, PO2 74.8, HCO3 24.8, O2 sat 94.6 * Neb treatments * Continue Solu-Medrol * Add Pulmozyme * AVAPS mode initiated at TV 500, EPAP 6, Rate 20, itime 0.95, MinP 8, MaxP 25, Rise 3, FIO2 50%. * Continue azithromycin and ceftriaxone * Consult pulmonology thank you for your recommendations (4) Pneumonia: Code(s): J18.9 - Pneumonia, unspecified organism Status: Acute Assessment and Plan: * CTA indicate CHF versus pneumonia * Azithromycin ceftriaxone started * Sputum culture Beta Hemolytic streptococcus * Chest x-ray pulmonary edema * Breathing treatments (5) Hypothyroidism (acquired): Code(s): E03.9 - Hypothyroidism, unspecified Status: Acute Assessment and Plan: * continue levothyroxine * TSH 2.600 (6) Tobacco use: Code(s): Z72.0 - Tobacco use Status: Acute Assessment and Plan: * Nicotine patch and gum ordered * Reiterated smoking cessation with patient (7) Depression with anxiety: Code(s): F41.8 - Other specified anxiety disorders Status: Acute Assessment and Plan: * Continue with current treatment * Add Xanax (8) Type 2 diabetes mellitus with polyneuropathy: Code(s): E11.42 - Type 2 diabetes mellitus with diabetic polyneuropathy Status: Acute Assessment and Plan: * Glucose is 339 * Accu-Cheks AC and HS * Sliding scale insulin increased * hypoglycemic protocol * A1c 9.3 * community nutrition educator consulted * Continue with Januvia hold glimepiride * Increase Lantus to 35 units * Insulin aspart 10 units with meals (9) KEVIN (obstructive sleep apnea): Code(s): G47.33 - Obstructive sleep apnea (adult) (pediatric) Status: Acute Assessment and Plan: * Patient will need a new machine * Patient will need of patient follow-up
--- NOTE | 2022-07-27 11:37 | PM.IMPN ---
Progress Note: A&P Assessment and Plan (1) CHF (congestive heart failure): Code(s): I50.9 - Heart failure, unspecified Status: Acute Assessment and Plan: Acute on chronic right sided heart failure in acute exacerbation Echo shows an EF of 65-70 with grade 1 diastolic dysfunction edema has improved bumex 1mg BID Daily weights CTA indicates possible fluid shift Chest xray from today shows pulmonary edema Trend labs Adjust therapy as indicated (2) Acute respiratory failure: Code(s): J96.00 - Acute respiratory failure, unspecified whether with hypoxia or hypercapnia Status: Acute Assessment and Plan: No home O2 needs Currently on airvo maxed out Neb treatment Patient has dyspnea with minimal exertion, unable to complete sentences, tripoding Continue with supplemental oxygen wean to maintain saturation greater than 88% Fluid overload is a problem at this time Placed patient on AVAPS at this time (3) COPD exacerbation: Code(s): J44.1 - Chronic obstructive pulmonary disease with (acute) exacerbation Status: Acute Assessment and Plan: endorses increased shortness of breath, increased oxygen demand, increased cough and changes in sputum Sputum is brown thick Sputum culture Beta hemolytic streptococcus ABG from 07/25/22 7.370, PCO2 43.8, PO2 74.8, HCO3 24.8, O2 sat 94.6 Neb treatments Continue Solu-Medrol Add Pulmozyme AVAPS mode initiated at TV 500, EPAP 6, Rate 20, itime 0.95, MinP 8, MaxP 25, Rise 3, FIO2 50%. Continue azithromycin and ceftriaxone Consult pulmonology thank you for your recommendations (4) Pneumonia: Code(s): J18.9 - Pneumonia, unspecified organism Status: Acute Assessment and Plan: CTA indicate CHF versus pneumonia Azithromycin ceftriaxone started Sputum culture Beta Hemolytic streptococcus Chest x-ray pulmonary edema Breathing treatments (5) Hypothyroidism (acquired): Code(s): E03.9 - Hypothyroidism, unspecified Status: Acute Assessment and Plan: continue levothyroxine TSH 2.600 (6) Tobacco use: Code(s): Z72.0 - Tobacco use Status: Acute Assessment and Plan: Nicotine patch and gum ordered Reiterated smoking cessation with patient (7) Depression with anxiety: Code(s): F41.8 - Other specified anxiety disorders Status: Acute Assessment and Plan: Continue with current treatment Add Xanax (8) Type 2 diabetes mellitus with polyneuropathy: Code(s): E11.42 - Type 2 diabetes mellitus with diabetic polyneuropathy Status: Acute Assessment and Plan: Glucose is 339 Accu-Cheks AC and HS Sliding scale insulin increased hypoglycemic protocol A1c 9.3 bread molder consulted Continue with Jankarrie hold glimepiride Increase Lantus to 35 units Insulin aspart 10 units with meals (9) KEVIN (obstructive sleep apnea): Code(s): G47.33 - Obstructive sleep apnea (adult) (pediatric) Status: Acute Assessment and Plan: Patient will need a new machine Patient will need of patient follow-up (10) Hypertension, essential: Code(s): I10 - Essential (primary) hypertension Status: Acute Assessment and Plan: Continue with current treatment Blood pressure a bit on the high side 148/97 Continue home medication Trend blood pressure Adjust therapy as indicated (11) Pulmonary hypertension: Code(s): I27.20 - Pulmonary hypertension, unspecified Status: Acute Assessment and Plan: Echo indicates severe pulmonary hypertension at 78 Pulmonary consulted thank you for your help Probably related to severe COPD, tobacco abuse Currently on AVAPS (12) Acquired polycythemia: Code(s): D75.1 - Secondary
[2022-07-27 11:58] LABS: Glucose Point of Care 212 mg/dl (65-105)
[2022-07-27 11:59] LABS: Glucose Point of Care 246 mg/dl (65-105)
[2022-07-27] MEDS: traMADol HCL (*CRX) 50 MG TABLET PO ×2 (12:23→18:27)
[2022-07-27] MEDS: polyethylene glycoL 3350 17 GM POWD.PACK PO (12:28)
--- NOTE | 2022-07-27 15:08 | PM.PNPUL ---
Progress Note: A&P Assessment and Plan (1) COPD exacerbation: Code(s): J44.1 - Chronic obstructive pulmonary disease with (acute) exacerbation Status: Acute Assessment and Plan: Admitted with severe COPD exacerbation, not sure his underlying degree of COPD, still smokes, failed out patient treated, had symptoms for several weeks, worse x 3 days prior to arrival. A fib resolved. His a fib was due to strain on heart from his COPD exacerbation. Can continue to follow up with JUAN Abdi- out patient. We can get his NIV set up while he is here. (2) Acute respiratory failure: Code(s): J96.00 - Acute respiratory failure, unspecified whether with hypoxia or hypercapnia Status: Acute Assessment and Plan: The patient appears to have chronic hypercapnic and possibly hypoxemic respiratory failure looking there was old blood gases. He gets pulmonary management through [facility], may have other data that we have not reviewed. He has elevated pCO2 dating back prior to this admission. Has not required O2 at home however may go home on oxygen. He is having improvement on AVAPS AE mode, O2, management of COPD and smoking cessation. We will continue the AVAPS mode, oxygen, and plan for home O2 study prior to discharge. (3) Tobacco use: Code(s): Z72.0 - Tobacco use Status: Acute Assessment and Plan: current smoker, stopped at admission (4) KEVIN (obstructive sleep apnea): Code(s): G47.33 - Obstructive sleep apnea (adult) (pediatric) Status: Acute Assessment and Plan: He reports a diagnosis of obstructive sleep apnea but has not been set up with a quit me yet. He is a candidate for noninvasive ventilator and this will take the place of CPAP or other equipment ordered through the sleep lab. Treating chronic respiratory failure takes precedence over treating sleep apnea. (5) Acquired polycythemia: Code(s): D75.1 - Secondary polycythemia Status: Acute Assessment and Plan: due to underlying lung disease, hypoxemia, untreated sleep apnea Plan Levalbuterol if rescue bronchodilator is needed, Q 6 hr prn shortness of breath. Continue Trelegy for COPD controller therapy. Will watch renal labs; BUN is 55, creat 1.1, expect these to increase with diuresis. Oral steroids prednisone 40 mg po Q am with food. Sputum specimen showed a sample that was not acceptable, too many epithelial cells. Wean O2 delivery as tolerated. Saturation is 95% on HFNC. Management of CHF per inspector air carrier and hospitalist. He is a candidate for NPPV at discharge; he tells me that he has been trying to get PAP equipment at home, has a dx of KEVIN. He wants to follow with JOANA Thakur from [facility], which is fine. We can set up AVAPS and he can follow with her. Subjective Date/time seen: 07/27/22 15:08 Interval history: Hospital follow up Ramakrishna Mora is a 57-year-old man with a COPD exacerbation, admitted 07/23/2022, presented with recent sinus infection, increased cough, purulent sputum green-brown color, increased shortness of breath and LE swelling for 3 days prior to admission.? He had 2 rounds of antibiotics before admission.? He was better after the first round of antibiotics, had 3 weeks with improved symptoms, then worsened.? He says that Dr Saenz was trying to get him set up with supplemental O2, sleep equipment, a nebulizer, and some help with smoking cessation before he deteriorated
[2022-07-27 16:30] LABS: Glucose Point of Care 332 mg/dl (65-105)
[2022-07-27] MEDS: RIVAROXABAN 20 MG TABLET PO (17:00)
[2022-07-27] MEDS: CEFDINIR 300 MG CAPSULE PO (17:00)
[2022-07-27] MEDS: AZITHROMYCIN 250 MG TABLET 500 MG PO (17:00)
[2022-07-27] MEDS: INSULIN GLARGINE (*BKC) 100 UNITS/ML 35 UNITS SUB-Q (20:10)
[2022-07-27 20:47] LABS: Glucose Point of Care 336 mg/dl (65-105)
[2022-07-27] MEDS: ALPRAZolam (*CRX) 0.5 MG TABLET PO (23:38)
[2022-07-28] VITALS (27 sets, daily range): BP systolic 101–165; BP diastolic 60–73; PULSE 68–97; RESP 18–22; TEMP 35.8–36.5; O2SAT 92–100
[2022-07-28] MEDS: BUMETANIDE INJ 1 MG/4 ML VIAL IV PUSH ×3 (04:29→22:57)
[2022-07-28] MEDS: CEFDINIR 300 MG CAPSULE PO ×2 (05:07→18:00)
[2022-07-28] MEDS: LEVOTHYROXINE SODIUM 25 MCG TABLET PO (05:07)
[2022-07-28] MEDS: dilTIAZem 100 MG/100 ML 100 MG/100 ML BAG 15 MG IV CONT ×2 (05:08→11:16)
[2022-07-28 07:40] LABS: Glucose Point of Care 252 mg/dl (65-105)
[2022-07-28] MEDS: ERGOCALCIFEROL 50,000 UNITS CAPSULE 50000 UNITS PO (08:47)
[2022-07-28] MEDS: predniSONE 20 MG TABLET 40 MG PO (08:48)
[2022-07-28] MEDS: POTASSIUM CHLORIDE 10 MEQ TABLET.ER PO (08:48)
[2022-07-28] MEDS: ROSUVASTATIN 10 MG TABLET PO (08:48)
[2022-07-28] MEDS: FERROUS SULFATE 324 MG TABLET PO (08:48)
[2022-07-28] MEDS: ASPIRIN 81 MG ENTERIC TABLET PO (08:49)
[2022-07-28] MEDS: polyethylene glycoL 3350 17 GM POWD.PACK PO (08:49)
[2022-07-28] MEDS: PREGABALIN (*CRX) 75 MG CAPSULE 150 MG PO ×2 (08:52→16:25)
[2022-07-28] MEDS: INSULIN ASPART (*BKC) 100 UNITS/ML SUB-Q ×3 (08:52→18:01)
[2022-07-28] MEDS: INSULIN ASPART (*BKC) 100 UNITS/ML 10 UNITS SUB-Q ×3 (08:54→18:02)
[2022-07-28] MEDS: DORNASE ALFA INH SOLN 1 MG/ML 2.5 ML AMP 2.5 MG INHALATION ×2 (09:09→20:12)
[2022-07-28] MEDS: FLUTICASONE/UMECLIDIN/VILANTER 100-62.5-25 MCG ELLIPTA 1 PUFF INHALATION (09:09)
[2022-07-28 10:14] LABS: Basophils Absolute Auto 0.1 K/mm3 (0.0-0.1); Basophils Percent Auto 0.4 % (0.2-1.2); Eosinophils Absolute Auto 0.1 K/mm3 (0-0.3); Eosinophils Percent Auto 0.4 % (0-4.4); Hematocrit 45.6 % (42.0-52.0); Hemoglobin 14.7 g/dL (14.0-18.0); Immature Granulocyte Absolute 0.23 K/mm3 (0.00-0.031); Immature Granulocyte Percent A 1.4 % (0-0.5); Lymphocytes Absolute Auto 3.11 K/mm3 (0.9-3.2); Lymphocytes Percent Auto 19.5 % (18.3-44.2); Mean Corpuscular HGB Conc 32.2 g/dl (32-36); Mean Corpuscular Hemoglobin 27.8 pg (26-34); Mean Corpuscular Volume 86.2 fl (80-100); Mean Platelet Volume 10.1 fl (7.4-10.4); Monocytes Absolute Auto 1.4 K/mm3 (0.1-0.6); Monocytes Percent Auto 8.7 % (2.6-8.5); Neutrophils Absolute Auto 11.1 K/mm3 (1.3-6.7); Neutrophils Percent Auto 69.6 % (45.5-73.1); Platelet Count Result 293 k/mm3 (150-375); Red Blood Count 5.29 M/mm3 (4.6-6.20); Red Cell Distribution Width 14.3 % (11.5-14.5)
[2022-07-28 10:39] LABS: Anion Gap 4 mmol/L (8-16); Blood Urea Nitrogen 68 mg/dL (9-20); Calcium 8.4 mg/dL (8.4-10.2); Carbon Dioxide 39 mmol/L (22-30); Chloride 93 mmol/L (98-107); Estimated CRCL calculation 94 ml/min; Estimated Glomerular Filt Rate > 60; Glucose 254 mg/dL (65-110); Potassium 4.2 mmol/L (3.4-5.0); Sodium 136 mmol/L (137-145)
[2022-07-28 11:42] LABS: Glucose Point of Care 293 mg/dl (65-105)
[2022-07-28] MEDS: AZITHROMYCIN 250 MG TABLET 500 MG PO (16:21)
[2022-07-28] MEDS: RIVAROXABAN 20 MG TABLET PO (16:22)
[2022-07-28 16:39] LABS: Glucose Point of Care 268 mg/dl (65-105)
[2022-07-28 19:54] LABS: Glucose Point of Care 348 mg/dl (65-105)
[2022-07-28] MEDS: traMADol HCL (*CRX) 50 MG TABLET PO (22:56)
[2022-07-28] MEDS: INSULIN GLARGINE (*BKC) 100 UNITS/ML 35 UNITS SUB-Q (22:58)
[2022-07-29] VITALS (20 sets, daily range): BP systolic 96–141; BP diastolic 55–68; PULSE 74–109; RESP 16–24; TEMP 36.1–36.6; O2SAT 92–100
[2022-07-29] MEDS: dilTIAZem 100 MG/100 ML 100 MG/100 ML BAG 15 MG IV CONT (01:50)
[2022-07-29] MEDS: CEFDINIR 300 MG CAPSULE PO ×2 (06:32→18:41)
[2022-07-29] MEDS: traMADol HCL (*CRX) 50 MG TABLET PO ×2 (06:32→16:44)
[2022-07-29] MEDS: LEVOTHYROXINE SODIUM 25 MCG TABLET PO (06:32)
[2022-07-29] MEDS: ROSUVASTATIN 10 MG TABLET PO (08:00)
[2022-07-29] MEDS: POTASSIUM CHLORIDE 10 MEQ TABLET.ER PO (08:00)
[2022-07-29] MEDS: predniSONE 20 MG TABLET 40 MG PO (08:00)
[2022-07-29] MEDS: FERROUS SULFATE 324 MG TABLET PO (08:00)
[2022-07-29] MEDS: ASPIRIN 81 MG ENTERIC TABLET PO (08:01)
[2022-07-29] MEDS: polyethylene glycoL 3350 17 GM POWD.PACK PO (08:01)
[2022-07-29] MEDS: PREGABALIN (*CRX) 75 MG CAPSULE 150 MG PO ×2 (08:05→16:44)
[2022-07-29] MEDS: FLUTICASONE/UMECLIDIN/VILANTER 100-62.5-25 MCG ELLIPTA 1 PUFF INHALATION (08:06)
[2022-07-29] MEDS: INSULIN ASPART (*BKC) 100 UNITS/ML SUB-Q ×3 (08:06→16:46)
[2022-07-29] MEDS: DORNASE ALFA INH SOLN 1 MG/ML 2.5 ML AMP 2.5 MG INHALATION ×2 (08:06→20:22)
[2022-07-29] MEDS: INSULIN ASPART (*BKC) 100 UNITS/ML 10 UNITS SUB-Q ×3 (08:06→16:46)
[2022-07-29 08:11] LABS: Glucose Point of Care 252 mg/dl (65-105)
--- NOTE | 2022-07-29 09:32 | PM.PNCARD ---
Progress Note: A&P Assessment and Plan (1) Atrial fibrillation: Code(s): I48.91 - Unspecified atrial fibrillation Status: Acute Plan 57-year-old man with background of coronary artery disease also has chronic significant COPD. Patient had AF with RVR in the setting of respiratory difficulties on admission. On top of this he also has previously untreated sleep apnea. Xarelto has been appropriately started for systemic anticoagulation. Will discontinue IV diltiazem today since he is back in sinus rhythm. We will follow telemetry with you while he is in the hospital. I will presume that he intends to follow up with his established [facility] in [place] unless we hear otherwise Scott Cross MD [facility] Subjective Date/time seen: Date of service: 07/29/22 09:32 Interval history: This is a 57-year-old male patient to has a history of COPD and tobacco abuse Admitted for worsening shortness of breath.? date of service 07/27/2022: Patient states he has been having intermittent chest pain on the left side since yesterday. Breathing is better. Overall feels better than he did yesterday. Date of service 07/29/2022: Patient seems to be comfortable this morning. On telemetry he is back in sinus rhythm and heart rate is normal. No cardiovascular complaints this morning. Slept well with BiPAP device last night Exam Narrative: Patient is awake alert oriented appears older than stated age Const: General: comfortable; No in distress HENMT: Face/Nose/Sinus: Normal nares present Mouth: Yes moist mucous membranes Eyes: General: appearance normal, both eyes and all related structures Sclera: sclerae normal Neck: Neck: supple Carotids: no bruits Chest: Other: No reproducible chest wall pain to palpation Resp: Auscultation: diminished lung sounds Cardio: Rate: tachycardic Rhythm: abnormal rhythm irregularly irregular Heart sounds: no murmurs GI: Inspection: distended Auscultation: normal bowel sounds Skin: General skin exam: normal color and No rashes Rashes: no rashes noted Neuro: Cranial nerves: Yes Normal hearing present Speech: normal speech and No Abnormal speech present Sensory Exam: normal sensation Extrem: General: edema Other: 3+ bilateral lower extremity edema Psych: Mental Status: mental status grossly normal Affect: normal affect Objective Data Vital Signs Vital Signs: Vital Signs - 24 hr 07/28/22 11:16 07/28/22 10:00 07/28/22 11:44 Temperature 35.8 C L Pulse Rate 84 89 88 Respiratory Rate 20 Blood Pressure 128/60 128/60 Pulse Oximetry 93 Oxygen Delivery Oxygen Flow Rate Fraction of Inspired Oxygen 07/28/22 14:53 07/28/22 15:42 07/28/22 12:00 Temperature Pulse Rate 86 Respiratory Rate Blood Pressure Pulse Oximetry 95 95 Oxygen Delivery High Flow Therapy with Na High Flow Nasal Cannula Oxygen Flow Rate 30 6 Fraction of Inspired Oxygen 30 07/28/22 14:00 07/28/22 16:00 07/28/22 16:00 Temperature 36.5 C Pulse Rate 97 87 95 Respiratory Rate 20 Blood Pressure 165/67 H Pulse Oximetry 98 Oxygen Delivery Oxygen Flow Rate Fraction of Inspired Oxygen 07/28/22 20:18 07/28/22 20:18 07/28/22 20:00 Temperature 36.4 C L Pulse Rate 90 95 Respiratory Rate 18 20 Blood Pressure 151/69 H Pulse Oximetry 95 99 Oxygen Delivery High Flow Nasal Cannula Oxygen Flow Rate 4 Fraction of Inspired Oxygen 07/28/22 20:30 07/28/22 12:00 07/28/22 16:00 Temperature Pulse Rate 89 Respiratory Rate 18 Blood Pressure Pulse Oximetry 95 95 Oxygen Delivery High Flow Nasal Cannula High Flow Nasal Cannula Oxygen Flow Rate 35 30 Fraction of Inspired Oxygen 35 30 07/28/22 18:00 07/28/22 23:08 07/28/22 23:11 Temperature 36.1 C L Pulse Rate 89 85 84 Respiratory Rate 22 H Blood Pressure 138/66 Pulse Oximetry 92 Oxygen Delivery Oxygen Flow Rate Fraction of Inspired O
--- NOTE | 2022-07-29 12:04 | P.PNIM_ITS ---
Progress Note: A&P Assessment and Plan (1) CHF (congestive heart failure): Code(s): I50.9 - Heart failure, unspecified Status: Acute Assessment and Plan: * Acute on chronic right sided heart failure in acute exacerbation * Echo shows an EF of 65-70 with grade 1 diastolic dysfunction * edema has improved * bumex * Daily weights * CTA indicates possible fluid shift * Chest xray from today shows pulmonary edema * Trend labs * Adjust therapy as indicated =-overall breathing much better (2) Acute respiratory failure: Code(s): J96.00 - Acute respiratory failure, unspecified whether with hypoxia or hypercapnia Status: Acute Assessment and Plan: * Currently on airvo -oxygen requirements are coming down. * Neb treatment * Appreciate pulmonary input (3) COPD exacerbation: Code(s): J44.1 - Chronic obstructive pulmonary disease with (acute) exacerbation Status: Acute Assessment and Plan: * endorses increased shortness of breath, increased oxygen demand, increased cough and changes in sputum * Sputum is brown thick * Sputum culture Beta hemolytic streptococcus * ABG from 07/25/22 7.370, PCO2 43.8, PO2 74.8, HCO3 24.8, O2 sat 94.6 * Neb treatments * Continue Solu-Medrol * Add Pulmozyme * AVAPS mode initiated at TV 500, EPAP 6, Rate 20, itime 0.95, MinP 8, MaxP 25, Rise 3, FIO2 50%. * Continue azithromycin and ceftriaxone * Consult pulmonology thank you for your recommendations (4) Pneumonia: Code(s): J18.9 - Pneumonia, unspecified organism Status: Acute Assessment and Plan: * CTA indicate CHF versus pneumonia * Azithromycin ceftriaxone started * Sputum culture Beta Hemolytic streptococcus * Chest x-ray pulmonary edema * Breathing treatments (5) Hypothyroidism (acquired): Code(s): E03.9 - Hypothyroidism, unspecified Status: Acute Assessment and Plan: * continue levothyroxine * TSH 2.600 (6) Tobacco use: Code(s): Z72.0 - Tobacco use Status: Acute Assessment and Plan: * Nicotine patch and gum ordered * Reiterated smoking cessation with patient (7) Depression with anxiety: Code(s): F41.8 - Other specified anxiety disorders Status: Acute Assessment and Plan: * Continue with current treatment * Add Xanax (8) Type 2 diabetes mellitus with polyneuropathy: Code(s): E11.42 - Type 2 diabetes mellitus with diabetic polyneuropathy Status: Acute Assessment and Plan: * Glucose is 339 * Accu-Cheks AC and HS * Sliding scale insulin increased * hypoglycemic protocol * A1c 9.3 * special education paraeducator consulted * Continue with Januvia hold glimepiride * Increase Lantus to 35 units * Insulin aspart 10 units with meals (9) KEVIN (obstructive sleep apnea): Code(s): G47.33 - Obstructive sleep apnea (adult) (pediatric) Status: Acute Assessment and Plan: * Patient will need a new machine * Patient will need of patient follow-up (10) Hypertension, essential: Code(s): I10 - Essential (primary) hypertension Status: Acute Assessment and Plan: * Continue with current yana
--- NOTE | 2022-07-29 12:04 | PM.IMPN ---
Progress Note: A&P Assessment and Plan (1) CHF (congestive heart failure): Code(s): I50.9 - Heart failure, unspecified Status: Acute Assessment and Plan: Acute on chronic right sided heart failure in acute exacerbation Echo shows an EF of 65-70 with grade 1 diastolic dysfunction edema has improved bumex Daily weights CTA indicates possible fluid shift Chest xray from today shows pulmonary edema Trend labs Adjust therapy as indicated =-overall breathing much better (2) Acute respiratory failure: Code(s): J96.00 - Acute respiratory failure, unspecified whether with hypoxia or hypercapnia Status: Acute Assessment and Plan: Currently on airvo -oxygen requirements are coming down. Neb treatment Appreciate pulmonary input (3) COPD exacerbation: Code(s): J44.1 - Chronic obstructive pulmonary disease with (acute) exacerbation Status: Acute Assessment and Plan: endorses increased shortness of breath, increased oxygen demand, increased cough and changes in sputum Sputum is brown thick Sputum culture Beta hemolytic streptococcus ABG from 07/25/22 7.370, PCO2 43.8, PO2 74.8, HCO3 24.8, O2 sat 94.6 Neb treatments Continue Solu-Medrol Add Pulmozyme AVAPS mode initiated at TV 500, EPAP 6, Rate 20, itime 0.95, MinP 8, MaxP 25, Rise 3, FIO2 50%. Continue azithromycin and ceftriaxone Consult pulmonology thank you for your recommendations (4) Pneumonia: Code(s): J18.9 - Pneumonia, unspecified organism Status: Acute Assessment and Plan: CTA indicate CHF versus pneumonia Azithromycin ceftriaxone started Sputum culture Beta Hemolytic streptococcus Chest x-ray pulmonary edema Breathing treatments (5) Hypothyroidism (acquired): Code(s): E03.9 - Hypothyroidism, unspecified Status: Acute Assessment and Plan: continue levothyroxine TSH 2.600 (6) Tobacco use: Code(s): Z72.0 - Tobacco use Status: Acute Assessment and Plan: Nicotine patch and gum ordered Reiterated smoking cessation with patient (7) Depression with anxiety: Code(s): F41.8 - Other specified anxiety disorders Status: Acute Assessment and Plan: Continue with current treatment Add Xanax (8) Type 2 diabetes mellitus with polyneuropathy: Code(s): E11.42 - Type 2 diabetes mellitus with diabetic polyneuropathy Status: Acute Assessment and Plan: Glucose is 339 Accu-Cheks AC and HS Sliding scale insulin increased hypoglycemic protocol A1c 9.3 architectural coating finisher consulted Continue with Januvia hold glimepiride Increase Lantus to 35 units Insulin aspart 10 units with meals (9) KEVIN (obstructive sleep apnea): Code(s): G47.33 - Obstructive sleep apnea (adult) (pediatric) Status: Acute Assessment and Plan: Patient will need a new machine Patient will need of patient follow-up (10) Hypertension, essential: Code(s): I10 - Essential (primary) hypertension Status: Acute Assessment and Plan: Continue with current treatment Blood pressure a bit on the high side 148/97 Continue home medication Trend blood pressure Adjust therapy as indicated (11) Pulmonary hypertension: Code(s): I27.20 - Pulmonary hypertension, unspecified Status: Acute Assessment and Plan: Echo indicates severe pulmonary hypertension at 78 Pulmonary consulted thank you for your help Probably related to severe COPD, tobacco abuse Currently on AVAPS (12) Acquired polycythemia: Code(s): D75.1 - Secondary polycythemia Status: Acute Assessment and Plan: H/H elevated at 18.7/58.7 Thought it could be from hemoconcentrate fluids given with no results Probably related to
[2022-07-29 12:24] LABS: Glucose Point of Care 329 mg/dl (65-105)
[2022-07-29] MEDS: RIVAROXABAN 20 MG TABLET PO (16:42)
[2022-07-29 16:56] LABS: Glucose Point of Care 319 mg/dl (65-105)
--- NOTE | 2022-07-29 17:20 | PM.PNPUL ---
Progress Note: A&P Assessment and Plan (1) COPD exacerbation: Code(s): J44.1 - Chronic obstructive pulmonary disease with (acute) exacerbation Status: Acute Assessment and Plan: Admitted with severe COPD exacerbation, not sure his underlying degree of COPD, still smokes, failed out patient treated, had symptoms for several weeks, worse x 3 days prior to arrival. A fib resolved. His a fib was due to strain on heart from his COPD exacerbation. Can continue to follow up with JUAN Abdi- out patient. We can get his NIV set up while he is here. (2) Acute respiratory failure: Code(s): J96.00 - Acute respiratory failure, unspecified whether with hypoxia or hypercapnia Status: Acute Assessment and Plan: The patient appears to have chronic hypercapnic and possibly hypoxemic respiratory failure looking there was old blood gases. He gets pulmonary management through [facility], may have other data that we have not reviewed. He has elevated pCO2 dating back prior to this admission. Has not required O2 at home however may go home on oxygen. He is having improvement on AVAPS AE mode, O2, management of COPD and smoking cessation. We will continue the AVAPS mode, oxygen, and plan for home O2 study prior to discharge. (3) Tobacco use: Code(s): Z72.0 - Tobacco use Status: Acute Assessment and Plan: current smoker, stopped at admission (4) KEVIN (obstructive sleep apnea): Code(s): G47.33 - Obstructive sleep apnea (adult) (pediatric) Status: Acute Assessment and Plan: He reports a diagnosis of obstructive sleep apnea but has not been set up with a quit me yet. He is a candidate for noninvasive ventilator and this will take the place of CPAP or other equipment ordered through the sleep lab. Treating chronic respiratory failure takes precedence over treating sleep apnea. (5) Acquired polycythemia: Code(s): D75.1 - Secondary polycythemia Status: Acute Assessment and Plan: due to underlying lung disease, hypoxemia, untreated sleep apnea Plan Levalbuterol if rescue bronchodilator is needed, Q 6 hr prn shortness of breath. Continue Trelegy for COPD controller therapy. Will watch renal labs; BUN is 55, creat 1.1, expect these to increase with diuresis. Oral steroids prednisone 40 mg po Q am with food. Sputum specimen showed a sample that was not acceptable, too many epithelial cells. Wean O2 delivery as tolerated. Saturation is 95% on HFNC. Management of CHF per direct service provider and hospitalist. He is a candidate for NPPV at discharge; he tells me that he has been trying to get PAP equipment at home, has a dx of KEVIN. He wants to follow with JOANA Thakur from [facility], which is fine. We can set up AVAPS and he can follow with her. Subjective Date/time seen: 07/29/22 17:20 Interval history: Hospital follow up? Ramakrishna Mora is a 57-year-old man with a COPD exacerbation, admitted 07/23/2022, presented with recent sinus infection, increased cough, purulent sputum green-brown color, increased shortness of breath and LE swelling for 3 days prior to admission.? He had 2 rounds of antibiotics before admission.? He was better after the first round of antibiotics, had 3 weeks with improved symptoms, then worsened.? He says that Dr Saenz was trying to get him set up with supplemental O2, sleep equipment, a nebulizer, and some help with smoking cessation before he deteriorated
[2022-07-29 20:22] LABS: Glucose Point of Care 223 mg/dl (65-105)
[2022-07-29] MEDS: INSULIN GLARGINE (*BKC) 100 UNITS/ML 35 UNITS SUB-Q (20:37)
[2022-07-29] MEDS: ALPRAZolam (*CRX) 0.5 MG TABLET PO (22:22)
[2022-07-29] MEDS: BUMETANIDE 1 MG TABLET PO (22:27)
[2022-07-30] VITALS (19 sets, daily range): BP systolic 92–130; BP diastolic 47–95; PULSE 83–109; RESP 8–24; TEMP 36.1–36.7; O2SAT 92–100
[2022-07-30] MEDS: LEVOTHYROXINE SODIUM 25 MCG TABLET PO (06:25)
[2022-07-30] MEDS: CEFDINIR 300 MG CAPSULE PO ×2 (06:25→17:44)
[2022-07-30] MEDS: INSULIN ASPART (*BKC) 100 UNITS/ML SUB-Q ×3 (08:06→17:40)
[2022-07-30] MEDS: INSULIN ASPART (*BKC) 100 UNITS/ML 10 UNITS SUB-Q ×3 (08:07→17:40)
[2022-07-30 08:09] LABS: Glucose Point of Care 233 mg/dl (65-105)
[2022-07-30] MEDS: BUMETANIDE 1 MG TABLET PO (08:34)
[2022-07-30] MEDS: ASPIRIN 81 MG ENTERIC TABLET PO (08:34)
[2022-07-30] MEDS: polyethylene glycoL 3350 17 GM POWD.PACK PO (08:34)
[2022-07-30] MEDS: FERROUS SULFATE 324 MG TABLET PO (08:34)
[2022-07-30] MEDS: predniSONE 20 MG TABLET 40 MG PO (08:34)
[2022-07-30] MEDS: ROSUVASTATIN 10 MG TABLET PO (08:35)
[2022-07-30] MEDS: POTASSIUM CHLORIDE 10 MEQ TABLET.ER PO (08:35)
[2022-07-30] MEDS: PREGABALIN (*CRX) 75 MG CAPSULE 150 MG PO ×2 (08:37→17:43)
[2022-07-30] MEDS: DORNASE ALFA INH SOLN 1 MG/ML 2.5 ML AMP 2.5 MG INHALATION ×2 (10:06→20:15)
[2022-07-30] MEDS: FLUTICASONE/UMECLIDIN/VILANTER 100-62.5-25 MCG ELLIPTA 1 PUFF INHALATION (10:18)
--- NOTE | 2022-07-30 11:29 | P.PNIM_ITS ---
Progress Note: A&P Assessment and Plan (1) CHF (congestive heart failure): Code(s): I50.9 - Heart failure, unspecified Status: Acute Assessment and Plan: * Acute on chronic right sided heart failure in acute exacerbation * Echo shows an EF of 65-70 with grade 1 diastolic dysfunction * edema has improved * bumex * Daily weights * Adjust therapy as indicated =-overall breathing much better (2) Acute respiratory failure: Code(s): J96.00 - Acute respiratory failure, unspecified whether with hypoxia or hypercapnia Status: Acute Assessment and Plan: * Currently on airvo -oxygen requirements are coming down. * Neb treatment * Appreciate pulmonary input * Will be set up with noninvasive ventilator on discharge (3) COPD exacerbation: Code(s): J44.1 - Chronic obstructive pulmonary disease with (acute) exacerbation Status: Acute Assessment and Plan: * endorses increased shortness of breath, increased oxygen demand, increased cough and changes in sputum * Sputum is brown thick * Sputum culture Beta hemolytic streptococcus * ABG from 07/25/22 7.370, PCO2 43.8, PO2 74.8, HCO3 24.8, O2 sat 94.6 * Neb treatments * Continue Solu-Medrol * Add Pulmozyme * AVAPS mode initiated at TV 500, EPAP 6, Rate 20, itime 0.95, MinP 8, MaxP 25, Rise 3, FIO2 50%. * Continue azithromycin and ceftriaxone * Consult pulmonology thank you for your recommendations (4) Pneumonia: Code(s): J18.9 - Pneumonia, unspecified organism Status: Acute Assessment and Plan: * CTA indicate CHF versus pneumonia * Azithromycin ceftriaxone started * Sputum culture Beta Hemolytic streptococcus * Chest x-ray pulmonary edema * Breathing treatments (5) Hypothyroidism (acquired): Code(s): E03.9 - Hypothyroidism, unspecified Status: Acute Assessment and Plan: * continue levothyroxine * TSH 2.600 (6) Tobacco use: Code(s): Z72.0 - Tobacco use Status: Acute Assessment and Plan: * Nicotine patch and gum ordered * Reiterated smoking cessation with patient (7) Depression with anxiety: Code(s): F41.8 - Other specified anxiety disorders Status: Acute Assessment and Plan: * Continue with current treatment * Add Xanax (8) Type 2 diabetes mellitus with polyneuropathy: Code(s): E11.42 - Type 2 diabetes mellitus with diabetic polyneuropathy Status: Acute Assessment and Plan: * Glucose is 339 * Accu-Cheks AC and HS * Sliding scale insulin increased * hypoglycemic protocol * A1c 9.3 * consumer educator consulted * Continue with Januvkrystle hold glimepiride * Increase Lantus to 35 units * Insulin aspart 10 units with meals (9) KEVIN (obstructive sleep apnea): Code(s): G47.33 - Obstructive sleep apnea (adult) (pediatric) Status: Acute Assessment and Plan: * Patient will need a new machine * Patient will need of patient follow-up (10) Hypertension, essential: Code(s): I10 - Essential (primary) hypertension Status: Acute Assessment and Plan: * Continue with current treatment * Blood pressure a bit on the high si
[2022-07-30 12:02] LABS: Glucose Point of Care 236 mg/dl (65-105)
[2022-07-30 16:44] LABS: Glucose Point of Care 248 mg/dl (65-105)
[2022-07-30] MEDS: HYDROcodone/acetaminophen (*CRX) 5-325 MG TABLET 1 TAB PO (17:41)
[2022-07-30] MEDS: RIVAROXABAN 20 MG TABLET PO (17:42)
[2022-07-30 20:10] LABS: Glucose Point of Care 306 mg/dl (65-105)
[2022-07-30] MEDS: INSULIN GLARGINE (*BKC) 100 UNITS/ML 35 UNITS SUB-Q (20:33)
[2022-07-30] MEDS: traMADol HCL (*CRX) 50 MG TABLET PO (20:41)
[2022-07-30] MEDS: ALPRAZolam (*CRX) 0.5 MG TABLET PO (22:43)
[2022-07-31] VITALS (17 sets, daily range): BP systolic 104–138; BP diastolic 50–58; PULSE 87–104; RESP 18–20; TEMP 36–36.5; O2SAT 87–100
[2022-07-31] MEDS: CEFDINIR 300 MG CAPSULE PO (06:26)
[2022-07-31] MEDS: LEVOTHYROXINE SODIUM 25 MCG TABLET PO (06:26)
[2022-07-31 08:10] LABS: Glucose Point of Care 193 mg/dl (65-105)
[2022-07-31] MEDS: ROSUVASTATIN 10 MG TABLET PO (08:29)
[2022-07-31] MEDS: predniSONE 20 MG TABLET 40 MG PO (08:29)
[2022-07-31] MEDS: PREGABALIN (*CRX) 75 MG CAPSULE 150 MG PO ×2 (08:29→16:47)
[2022-07-31] MEDS: BUMETANIDE 1 MG TABLET PO (08:29)
[2022-07-31] MEDS: ASPIRIN 81 MG ENTERIC TABLET PO (08:29)
[2022-07-31] MEDS: FERROUS SULFATE 324 MG TABLET PO (08:29)
[2022-07-31] MEDS: polyethylene glycoL 3350 17 GM POWD.PACK PO (08:30)
[2022-07-31] MEDS: DORNASE ALFA INH SOLN 1 MG/ML 2.5 ML AMP 2.5 MG INHALATION (08:39)
[2022-07-31] MEDS: INSULIN ASPART (*BKC) 100 UNITS/ML 10 UNITS SUB-Q ×3 (08:39→16:47)
[2022-07-31] MEDS: FLUTICASONE/UMECLIDIN/VILANTER 100-62.5-25 MCG ELLIPTA 1 PUFF INHALATION (09:59)
[2022-07-31] MEDS: POTASSIUM CHLORIDE 10 MEQ TABLET.ER PO (10:17)
--- NOTE | 2022-07-31 11:05 | PCNWS ---
Weekly nutritional screen. Patient is tolerating current diabetic diet with adequate intake at 100% all meals. No weight loss reported. No nutritional needs at this time. Will reassess as needed.
--- NOTE | 2022-07-31 11:15 | PC.NURSE ---
Received from [facility] / via wheelchair.
--- NOTE | 2022-07-31 11:52 | PM.IMPN ---
Progress Note: A&P Assessment and Plan (1) CHF (congestive heart failure): Code(s): I50.9 - Heart failure, unspecified Status: Acute Assessment and Plan: Acute on chronic right sided heart failure in acute exacerbation Echo shows an EF of 65-70 with grade 1 diastolic dysfunction edema has improved bumex Daily weights Adjust therapy as indicated =-overall breathing much better (2) Acute respiratory failure: Code(s): J96.00 - Acute respiratory failure, unspecified whether with hypoxia or hypercapnia Status: Acute Assessment and Plan: Currently on airvo -oxygen requirements are coming down. Neb treatment Appreciate pulmonary input Will be set up with noninvasive ventilator on discharge (3) COPD exacerbation: Code(s): J44.1 - Chronic obstructive pulmonary disease with (acute) exacerbation Status: Acute Assessment and Plan: endorses increased shortness of breath, increased oxygen demand, increased cough and changes in sputum Sputum is brown thick Sputum culture Beta hemolytic streptococcus ABG from 07/25/22 7.370, PCO2 43.8, PO2 74.8, HCO3 24.8, O2 sat 94.6 Neb treatments Continue Solu-Medrol Add Pulmozyme AVAPS mode initiated at TV 500, EPAP 6, Rate 20, itime 0.95, MinP 8, MaxP 25, Rise 3, FIO2 50%. Continue azithromycin and ceftriaxone Consult pulmonology thank you for your recommendations (4) Pneumonia: Code(s): J18.9 - Pneumonia, unspecified organism Status: Acute Assessment and Plan: CTA indicate CHF versus pneumonia Azithromycin ceftriaxone started Sputum culture Beta Hemolytic streptococcus Chest x-ray pulmonary edema Breathing treatments (5) Hypothyroidism (acquired): Code(s): E03.9 - Hypothyroidism, unspecified Status: Acute Assessment and Plan: continue levothyroxine TSH 2.600 (6) Tobacco use: Code(s): Z72.0 - Tobacco use Status: Acute Assessment and Plan: Nicotine patch and gum ordered Reiterated smoking cessation with patient (7) Depression with anxiety: Code(s): F41.8 - Other specified anxiety disorders Status: Acute Assessment and Plan: Continue with current treatment Add Xanax (8) Type 2 diabetes mellitus with polyneuropathy: Code(s): E11.42 - Type 2 diabetes mellitus with diabetic polyneuropathy Status: Acute Assessment and Plan: Glucose is 339 Accu-Cheks AC and HS Sliding scale insulin increased hypoglycemic protocol A1c 9.3 early childhood special educator consulted Continue with Tash shearer glimepiride Increase Lantus to 35 units Insulin aspart 10 units with meals (9) KEVIN (obstructive sleep apnea): Code(s): G47.33 - Obstructive sleep apnea (adult) (pediatric) Status: Acute Assessment and Plan: Patient will need a new machine Patient will need of patient follow-up (10) Hypertension, essential: Code(s): I10 - Essential (primary) hypertension Status: Acute Assessment and Plan: Continue with current treatment Blood pressure a bit on the high side 148/97 Continue home medication Trend blood pressure Adjust therapy as indicated (11) Pulmonary hypertension: Code(s): I27.20 - Pulmonary hypertension, unspecified Status: Acute Assessment and Plan: Echo indicates severe pulmonary hypertension at 78 Pulmonary consulted thank you for your help Probably related to severe COPD, tobacco abuse Currently on AVAPS (12) Acquired polycythemia: Code(s): D75.1 - Secondary polycythemia Status: Acute Assessment and Plan: H/H elevated at 18.7/58.7 Thought it could be from hemoconcentrate fluids given with no results Probably related to smoking and severe COPD Continue to t
[2022-07-31 12:05] LABS: Glucose Point of Care 188 mg/dl (65-105)
--- NOTE | 2022-07-31 12:07 | PC.NURSE ---
This patient, Ramakrishna Mora, was transferred to [facility] on 07/31/22 at 1115. Personal belongings sent with patient. Report given to Cristy. Appropriate documentation sent with patient.
[2022-07-31] MEDS: HYDROcodone/acetaminophen (*CRX) 5-325 MG TABLET 1 TAB PO ×2 (12:27→22:15)
--- NOTE | 2022-07-31 15:14 | PM.PNPUL ---
Progress Note: A&P Assessment and Plan (1) COPD exacerbation: Code(s): J44.1 - Chronic obstructive pulmonary disease with (acute) exacerbation Status: Acute Assessment and Plan: Admitted with severe COPD exacerbation, not sure his underlying degree of COPD, still smokes, failed out patient treated, had symptoms for several weeks, worse x 3 days prior to arrival. A fib resolved. His a fib was due to strain on heart from his COPD exacerbation. Can continue to follow up with JOANA Abdi out patient. We can get his NIV set up while he is here. Patient has a history of COPD with chronic hypercarbic respiratory failure. Patient is BiPAP gas on 15/01 and 40% was 7.3 4-50 3-77. Repeat blood gas on 07/27/2022 on high-flow nasal cannula 45 L and 55% FiO2 was 7.42/53/63. Patient would benefit from noninvasive ventilation to prevent further deterioration and subsequent hospitalizations. Patient did not tolerate BiPAP but has tolerated noninvasive ventilation with the AVAPS mode. 07/26: Orders for a trilogy noninvasive ventilator with AVAPS-AE mode were sent to [facility]. Breath rate auto, tidal volume 400-550, EPAP minimum 4, EPAP maximum 14, PS minimum 5, PS maximum 25, AVAPS speed 5, maximum pressure 30 with 8 L bleed in. 07/31 : Patient tells me his breathing is back to normal. He has no change in his chronic cough and phlegm production. Room air saturations are 91%. Patient wore hospital noninvasive ventilator with the a AVAPS mode last night for approximately 3-4 hours. He is willing to wear noninvasive ventilation at home. if patient's home noninvasive ventilator can be set up today he is stable for discharge on these pulmonary medications: trelegy 100-60.2 0.5-25 at 1 puff q.day rescue albuterol 2 puffs Q 4 hours p.r.n. shortness of breath or wheezing. 1 L NC oxygen at rest and with ambulation per formal home O2 assessment completed on 07/31. when he naps or sleeps: trilogy noninvasive ventilator with AVAPS-AE mode were sent to [facility]. Breath rate auto, tidal volume 400-550, EPAP minimum 4, EPAP maximum 14, PS minimum 5, PS maximum 25, AVAPS speed 5, maximum pressure 30 with 8 L bleed in (through [facility] and [employer]). He wants to follow with JOANA Thakur from [facility], which is fine. We can set up AVAPS and he can follow with her. (2) Acute respiratory failure: Code(s): J96.00 - Acute respiratory failure, unspecified whether with hypoxia or hypercapnia Status: Acute Assessment and Plan: The patient appears to have chronic hypercapnic and possibly hypoxemic respiratory failure looking there was old blood gases. He gets pulmonary management through [facility], may have other data that we have not reviewed. He has elevated pCO2 dating back prior to this admission. Has not required O2 at home however may go home on oxygen. He is having improvement on AVAPS AE mode, O2, management of COPD and smoking cessation. We will continue the AVAPS mode, oxygen, and plan for home O2 study prior to discharge. 07/26: Orders for a trilogy noninvasive ventilator with AVAPS-AE mode were sent to [facility]. Breath rate auto, tidal volume 400-550, EPAP minimum 4, EPAP maximum 14, PS minimum 5, PS maximum 25, a VATS speed 5, maximum pressure 30 with 8 L bleed in. 07/31: we have placed a call to [facility] to determine if there are any updates regarding the patient's home noninvasive ventilator. Patient's insurance is [employer] and we are waiting to hear back from [facility]. (3) Tobacco use: Code(s): Z72.0 - Tobacco use Status: Acute Assessment and Plan: current smoker, stopped at admission (4) KEVIN (obstructive sleep apnea)
--- NOTE | 2022-07-31 15:21 | PCRCNOTE ---
Home O2 eval complete. Patient requires 1lpm with rest and activity. RN notified. will set up with [facility].
--- NOTE | 2022-07-31 16:04 | PCRCNOTE ---
Trilogy has been approved through [employer] and will be arranged with [facility].
[2022-07-31 16:37] LABS: Glucose Point of Care 259 mg/dl (65-105)
[2022-07-31] MEDS: INSULIN ASPART (*BKC) 100 UNITS/ML SUB-Q (16:47)
[2022-07-31] MEDS: RIVAROXABAN 20 MG TABLET PO (16:47)
[2022-07-31] MEDS: INSULIN GLARGINE (*BKC) 100 UNITS/ML 35 UNITS SUB-Q (20:14)
[2022-07-31 20:33] LABS: Glucose Point of Care 267 mg/dl (65-105)
[2022-07-31] MEDS: ALPRAZolam (*CRX) 0.5 MG TABLET PO (22:15)
[2022-08-01 00:05] VITALS: PULSE 75; RESP 21; O2SAT 97
[2022-08-01] MEDS: LEVOTHYROXINE SODIUM 25 MCG TABLET PO (05:32)
[2022-08-01 06:00] VITALS: BP 123/54; PULSE 82; RESP 16; TEMP 36.3; O2SAT 94
[2022-08-01 08:27] LABS: Glucose Point of Care 130 mg/dl (65-105)
[2022-08-01] MEDS: PREGABALIN (*CRX) 75 MG CAPSULE 150 MG PO (08:33)
[2022-08-01] MEDS: polyethylene glycoL 3350 17 GM POWD.PACK PO (08:33)
[2022-08-01] MEDS: INSULIN ASPART (*BKC) 100 UNITS/ML 10 UNITS SUB-Q (08:34)
[2022-08-01] MEDS: BUMETANIDE 1 MG TABLET PO (08:34)
[2022-08-01] MEDS: FERROUS SULFATE 324 MG TABLET PO (08:34)
[2022-08-01] MEDS: ASPIRIN 81 MG ENTERIC TABLET PO (08:34)
[2022-08-01] MEDS: POTASSIUM CHLORIDE 10 MEQ TABLET.ER PO (08:34)
[2022-08-01] MEDS: ROSUVASTATIN 10 MG TABLET PO (08:35)
[2022-08-01] MEDS: FLUTICASONE/UMECLIDIN/VILANTER 100-62.5-25 MCG ELLIPTA 1 PUFF INHALATION (09:35)
[2022-08-01 09:38] VITALS: O2SAT 92
--- NOTE | 2022-08-01 10:12 | PM.PNPUL ---
Progress Note: A&P Assessment and Plan (1) COPD exacerbation: Code(s): J44.1 - Chronic obstructive pulmonary disease with (acute) exacerbation Status: Acute Assessment and Plan: Admitted with severe COPD exacerbation, not sure his underlying degree of COPD, still smokes, failed out patient treated, had symptoms for several weeks, worse x 3 days prior to arrival. A fib resolved. His a fib was due to strain on heart from his COPD exacerbation. Can continue to follow up with JOANA Abdi out patient. We can get his NIV set up while he is here. Patient has a history of COPD with chronic hypercarbic respiratory failure. Patient is BiPAP gas on 15/01 and 40% was 7.3 4-50 3-77. Repeat blood gas on 07/27/2022 on high-flow nasal cannula 45 L and 55% FiO2 was 7.42/53/63. Patient would benefit from noninvasive ventilation to prevent further deterioration and subsequent hospitalizations. Patient did not tolerate BiPAP but has tolerated noninvasive ventilation with the AVAPS mode. 07/26: Orders for a trilogy noninvasive ventilator with AVAPS-AE mode were sent to [facility]. Breath rate auto, tidal volume 400-550, EPAP minimum 4, EPAP maximum 14, PS minimum 5, PS maximum 25, AVAPS speed 5, maximum pressure 30 with 8 L bleed in. 07/31 : Patient tells me his breathing is back to normal. He has no change in his chronic cough and phlegm production. Room air saturations are 91%. Patient wore hospital noninvasive ventilator with the a AVAPS mode last night for approximately 3-4 hours. He is willing to wear noninvasive ventilation at home. 08/01 Patient said he slept for about 4 hours with a hospital noninvasive ventilator with a VATS mode rate of 20, tidal volume 500, EPAP 5, minimal inspiratory pressure 6, maximal inspiratory pressure 25. 28% FiO2. Patient had an overnight oximetry on the studies with an average saturation 92%, low saturation 55%, time with saturation less than or equal to 88% was 77 minutes. patient should be discharged home on 4 L bleed in The patient told me he has contacted his [employer] company and once he is home and notified as the [employer] company they can set his noninvasive ventilator up as early as today. From a pulmonary perspective patient is stable for discharge on these pulmonary medications: trelegy 100-60.2 0.5-25 at 1 puff q.day rescue albuterol 2 puffs Q 4 hours p.r.n. shortness of breath or wheezing. 1 L NC oxygen at rest and with ambulation per formal home O2 assessment completed on 07/31. When he naps or sleeps: trilogy noninvasive ventilator with AVAPS-AE mode were sent to [facility]. Breath rate auto, tidal volume 400-550, EPAP minimum 4, EPAP maximum 14, PS minimum 5, PS maximum 25, AVAPS speed 5, maximum pressure 30 with 4 L bleed in (through [facility] and [employer]). He wants to follow with JOANA Thakur from [facility], which is fine. We can set up AVAPS and he can follow with her. Discussed with Dr. Varela. (2) Acute respiratory failure: Code(s): J96.00 - Acute respiratory failure, unspecified whether with hypoxia or hypercapnia Status: Acute Assessment and Plan: The patient appears to have chronic hypercapnic and possibly hypoxemic respiratory failure looking there was old blood gases. He gets pulmonary management through [facility], may have other data that we have not reviewed. He has elevated pCO2 dating back prior to this admission. Has not required O2 at home however may go home on oxygen. He is having improvement on AVAPS AE mode, O2, management of COPD and smoking cessation. We will continue the AVAPS mode, oxygen, and plan for home O2 study prior to discharge. 07/26: Orders for a trilogy noninvasive ventilator with AVAPS-AE mode were sent to [facility]. Breath rate auto, tidal volume 400-550, EPAP minimum 4, EPAP maximum 14, PS minimum 5,
--- NOTE | 2022-08-01 10:29 | P.DS_ITS ---
DS: Admitting Diagnosis Discharge Date August 01, 2022 Admitting Diagnosis COPD acute on chronic respiratory failure, hypercarbic DS: Discharge Diagnosis Discharge Diagnosis (1) CHF (congestive heart failure): Code(s): I50.9 - Heart failure, unspecified Status: Acute Assessment and Plan: * Acute on chronic right sided heart failure in acute exacerbation * Echo shows an EF of 65-70 with grade 1 diastolic dysfunction * edema has improved * bumex * Daily weights * Adjust therapy as indicated =-overall breathing much better (2) Acute respiratory failure: Code(s): J96.00 - Acute respiratory failure, unspecified whether with hypoxia or hypercapnia Status: Acute Assessment and Plan: * Currently on airvo -oxygen requirements are coming down. * Neb treatment * Appreciate pulmonary input * Will be set up with noninvasive ventilator on discharge (3) COPD exacerbation: Code(s): J44.1 - Chronic obstructive pulmonary disease with (acute) exacerbation Status: Acute Assessment and Plan: * endorses increased shortness of breath, increased oxygen demand, increased cough and changes in sputum * Sputum is brown thick * Sputum culture Beta hemolytic streptococcus * ABG from 07/25/22 7.370, PCO2 43.8, PO2 74.8, HCO3 24.8, O2 sat 94.6 * Neb treatments * Continue Solu-Medrol * Add Pulmozyme * AVAPS mode initiated at TV 500, EPAP 6, Rate 20, itime 0.95, MinP 8, MaxP 25, Rise 3, FIO2 50%. * Continue azithromycin and ceftriaxone * Consult pulmonology thank you for your recommendations (4) Pneumonia: Code(s): J18.9 - Pneumonia, unspecified organism Status: Acute Assessment and Plan: * CTA indicate CHF versus pneumonia * Azithromycin ceftriaxone started * Sputum culture Beta Hemolytic streptococcus * Chest x-ray pulmonary edema * Breathing treatments (5) Hypothyroidism (acquired): Code(s): E03.9 - Hypothyroidism, unspecified Status: Acute Assessment and Plan: * continue levothyroxine * TSH 2.600 (6) Tobacco use: Code(s): Z72.0 - Tobacco use Status: Acute Assessment and Plan: * Nicotine patch and gum ordered * Reiterated smoking cessation with patient (7) Depression with anxiety: Code(s): F41.8 - Other specified anxiety disorders Status: Acute Assessment and Plan: * Continue with current treatment * Add Xanax (8) Type 2 diabetes mellitus with polyneuropathy: Code(s): E11.42 - Type 2 diabetes mellitus with diabetic polyneuropathy Status: Acute Assessment and Plan: * Glucose is 339 * Accu-Cheks AC and HS * Sliding scale insulin increased * hypoglycemic protocol * A1c 9.3 * imcu nurse consulted * Continue with Januvia hold glimepiride * Increase Lantus to 35 units * Insulin aspart 10 units with meals (9) KEVIN (obstructive sleep apnea): Code(s): G47.33 - Obstructive sleep apnea (adult) (pediatric) Status: Acute Assessment and Plan: * Patient will need a new machine * Patient will need of patient follow-up (10) Hypertension, essential: Code(s): I10 - Esse
--- NOTE | 2022-08-01 10:29 | PM.DS ---
DS: Admitting Diagnosis Discharge Date August 01, 2022 Admitting Diagnosis COPD acute on chronic respiratory failure, hypercarbic DS: Discharge Diagnosis Discharge Diagnosis (1) CHF (congestive heart failure): Code(s): I50.9 - Heart failure, unspecified Status: Acute Assessment and Plan: Acute on chronic right sided heart failure in acute exacerbation Echo shows an EF of 65-70 with grade 1 diastolic dysfunction edema has improved bumex Daily weights Adjust therapy as indicated =-overall breathing much better (2) Acute respiratory failure: Code(s): J96.00 - Acute respiratory failure, unspecified whether with hypoxia or hypercapnia Status: Acute Assessment and Plan: Currently on airvo -oxygen requirements are coming down. Neb treatment Appreciate pulmonary input Will be set up with noninvasive ventilator on discharge (3) COPD exacerbation: Code(s): J44.1 - Chronic obstructive pulmonary disease with (acute) exacerbation Status: Acute Assessment and Plan: endorses increased shortness of breath, increased oxygen demand, increased cough and changes in sputum Sputum is brown thick Sputum culture Beta hemolytic streptococcus ABG from 07/25/22 7.370, PCO2 43.8, PO2 74.8, HCO3 24.8, O2 sat 94.6 Neb treatments Continue Solu-Medrol Add Pulmozyme AVAPS mode initiated at TV 500, EPAP 6, Rate 20, itime 0.95, MinP 8, MaxP 25, Rise 3, FIO2 50%. Continue azithromycin and ceftriaxone Consult pulmonology thank you for your recommendations (4) Pneumonia: Code(s): J18.9 - Pneumonia, unspecified organism Status: Acute Assessment and Plan: CTA indicate CHF versus pneumonia Azithromycin ceftriaxone started Sputum culture Beta Hemolytic streptococcus Chest x-ray pulmonary edema Breathing treatments (5) Hypothyroidism (acquired): Code(s): E03.9 - Hypothyroidism, unspecified Status: Acute Assessment and Plan: continue levothyroxine TSH 2.600 (6) Tobacco use: Code(s): Z72.0 - Tobacco use Status: Acute Assessment and Plan: Nicotine patch and gum ordered Reiterated smoking cessation with patient (7) Depression with anxiety: Code(s): F41.8 - Other specified anxiety disorders Status: Acute Assessment and Plan: Continue with current treatment Add Xanax (8) Type 2 diabetes mellitus with polyneuropathy: Code(s): E11.42 - Type 2 diabetes mellitus with diabetic polyneuropathy Status: Acute Assessment and Plan: Glucose is 339 Accu-Cheks AC and HS Sliding scale insulin increased hypoglycemic protocol A1c 9.3 early childhood special educator consulted Continue with Januvkrystle hold glimepiride Increase Lantus to 35 units Insulin aspart 10 units with meals (9) KEVIN (obstructive sleep apnea): Code(s): G47.33 - Obstructive sleep apnea (adult) (pediatric) Status: Acute Assessment and Plan: Patient will need a new machine Patient will need of patient follow-up (10) Hypertension, essential: Code(s): I10 - Essential (primary) hypertension Status: Acute Assessment and Plan: Continue with current treatment Blood pressure a bit on the high side 148/97 Continue home medication Trend blood pressure Adjust therapy as indicated (11) Pulmonary hypertension: Code(s): I27.20 - Pulmonary hypertension, unspecified Status: Acute Assessment and Plan: Echo indicates severe pulmonary hypertension at 78 Pulmonary consulted thank you for your help Probably related to severe COPD, tobacco abuse Currently on AVAPS (12) Acquired polycythemia: Code(s): D75.1 - Secondary polycythemia Status: Acute Assessment and Plan: H/H elevated at 1
--- NOTE | 2022-08-01 11:54 | HOMEO2EVAL ---
Evaluation was performed at [facility] Home Oxygen Evaluation RC: Home Oxygen (O2) Evaluation Start: 07/31/22 11:51 Freq: ONCE Status: Active Protocol: RPE Activity Type Activity Date Activity User E-sign Co-sign Detail Recorded Client Recorded Date Recorded By Document 07/31/22 14:40 [facility] [email or web address] 07/31/22 15:20 [facility] Document 07/31/22 14:50 PK RT_004 07/31/22 15:20 [facility] Document 07/31/22 15:05 [facility] RT_004 07/31/22 15:20 [facility] Document 07/31/22 15:10 [facility] RT_004 07/31/22 15:20 [facility] 07/31/22 07/31/22 07/31/22 14:40 14:50 15:05 Home O2 Evaluation [Oxygen] -Test Phase Resting Resting Exercise -Oxygen Delivery Room Air Nasal Cannula Nasal Cannula -Oxygen Flow Rate (L/min) 1 1 [Pulse Oximetry] -Pulse Oximetry (90-100 %) 87 L 91 91 [Pulse Rate] -Pulse Rate (60-100 beats/min) 99 104 H 102 H [Evaluation] -Activity Tolerance Good [Charges] -Treatment Charges O2 Evaluation - Inpatient 07/31/22 15:10 Home O2 Evaluation [Oxygen] -Test Phase Resting -Oxygen Delivery Nasal Cannula -Oxygen Flow Rate (L/min) 1 [Pulse Oximetry] -Pulse Oximetry (90-100 %) 91 [Pulse Rate] -Pulse Rate (60-100 beats/min) 102 H [Evaluation] -Activity Tolerance [Charges] -Treatment Charges
== END 2022-08-01 11:56 | disposition home or self-care (01) | DRG 190 ==
LOC: ANHED 10:58 → ANHIMU 13:20 → ANH2MED 07-31 10:52
PROVIDERS: Internal Medicine Cardiovascular Disease; Nurse Practitioner; Admitting Provider Internal Medicine; Emergency Provider Emergency Medicine; PCP Family Medicine; Visit Provider Chiropractor
DX: J44.1 Chronic obstructive pulmonary disease with (acute) exacerbation (principal); I50.33 Acute on chronic diastolic (congestive) heart failure; J18.9 Pneumonia, unspecified organism; J96.01 Acute respiratory failure with hypoxia; J96.12 Chronic respiratory failure with hypercapnia; F41.8 Other specified anxiety disorders; E11.42 Type 2 diabetes mellitus with diabetic polyneuropathy; E03.9 Hypothyroidism, unspecified; I11.0 Hypertensive heart disease with heart failure; G47.33 Obstructive sleep apnea (adult) (pediatric); I27.20 Pulmonary hypertension, unspecified; D75.1 Secondary polycythemia; D50.9 Iron deficiency anemia, unspecified; I48.91 Unspecified atrial fibrillation; Z20.822 Contact with and (suspected) exposure to COVID-19; F17.210 Nicotine dependence, cigarettes, uncomplicated; Z79.899 Other long term (current) drug therapy; Z88.5 Allergy status to narcotic agent; Z79.82 Long term (current) use of aspirin
CPT/HCPCS: 36415; 36600; 71045; 71275; 80048; 80053; 82375; 82607; 82728; 82746; 82805; 82948; 83036; 83050; 83540; 83550; 83605; 83735; 83880; 84443; 84466; 84484; 85025; 85610; 85730; 87070; 87205; 87636; 93005; 93970; 94002; 94003; 94618; 94640; 94660; 96374; 96375; 99291; A9270; C8929; G0378; J0360; J0456; J0696; J1650; J1815; J1940; J2930; J3475; J7030; J7040; J7512; Q9957; Q9967

== ENCOUNTER 2022-08-02 12:14 | Inpatient (IN) | payer OTHER, SELFPAY ==
[2022-08-02] VITALS (19 sets, daily range): BP systolic 95–165; BP diastolic 39–102; PULSE 83–102; RESP 14–24; TEMP 36.2–36.7; O2SAT 90–100
--- NOTE | ~2022-08-02 | MR_ITS ---
EXAMINATION: MR lumbar spine wo con DATE: 08/04/2022 17:58 INDICATION: Right lower extremity weakness. Low back pain. TECHNIQUE: Magnetic resonance imaging (MRI) of the lumbar spine was performed without intravenous con trast. Sequences included sagittal T2-weighted FSE, sagittal T2-weighted FS FSE, sagittal T1-weighted FSE, and axial T2-weighted FSE. COMPARISON: Lumbar spine MRI 05/20/2020 FINDINGS: There is 3 mm anterolisthesis of L4 on L5. There is mild chronic anterior wedging of L1 suze tebral body. There is severely decreased disc height at L1-L2 and mildly decreased disc height at L4- L5. The distal spinal cord signal intensity is normal. The conus medullaris is at L1. The following d isc levels are specifically discussed: L1-L2: The disc is bulging and has an annular fissure. There is no facet joint osteoarthritis. There is mild bilateral neural foraminal stenosis. There is mild central canal stenosis. L2-L3: The disc is bulging. There is mild bilateral facet joint osteoarthritis. There is mild bilater al neural foraminal stenosis. There is mild central canal stenosis. L3-L4: The disc is bulging. There is mild bilateral facet joint osteoarthritis. There is mild bilater al neural foraminal stenosis. There is no central canal stenosis. L4-L5: The disc is bulging and has an annular fissure. There is mild right and moderate left facet alireza int osteoarthritis. There is moderate bilateral neural foraminal stenosis. There is mild central sandy l stenosis. L5-S1: The disc is bulging and has an annular fissure. There is severe bilateral facet joint osteoart hritis. There is mild bilateral neural foraminal stenosis. There is mild central canal stenosis. IMPRESSION: 1. Severe lumbar spondylosis, stable from 05/20/2020. Reviewed, dictated and finalized at location A. CALIBRATOR
--- NOTE | ~2022-08-02 | XR_ITS ---
EXAMINATION: XR chest 1V portable INDICATION: Central line insertion TECHNIQUE: Portable AP chest at 2115 hours COMPARISON: 07/27/2022 FINDINGS: A right internal jugular central venous catheter ends with its tip in the proximal right at rium. No pneumothorax or pleural effusion. The cardiomediastinal silhouette is stable. There are mini mal airspace opacities of the right lung base. Changes of cervical spinal fusion are noted. IMPRESSION: 1. Right internal jugular catheter ending with its tip in the right atrium. 2. Minimal right basilar airspace opacity, consistent with atelectasis versus pneumonia. Reviewed, dictated and finalized at location F. AND GROOVE MACHINE OPERATOR IMPRESSION: 1. Right internal jugular catheter ending with its tip in the right atrium. 2. Minimal right basilar airspace opacity, consistent with atelectasis versus p neumonia.
--- NOTE | ~2022-08-02 | CT_ITS ---
EXAMINATION: CT brain wo con INDICATION: Right leg weakness COMPARISON: None TECHNIQUE: Standard unenhanced head CT. The dose-length product (DLP) was 681.00 mGy-cm. The mA was a djusted according to patient size. Iterative reconstruction technique was employed. FINDINGS: There is no intracranial hemorrhage, acute infarction, or abnormal mass lesion. The ventric les are normal. There is no abnormal mass effect or midline shift. The delvalle-white matter differentiat ion is normal. The basal cisterns are patent. The orbits are normal. There is mild mucosal thickening of the paranasal sinuses. IMPRESSION: 1. No acute intracranial abnormality. Reviewed, dictated and finalized at location F. ASST
--- NOTE | ~2022-08-02 | CT_ITS ---
CT of the Abdomen and Pelvis: Indication: Sepsis, GI bleed Technique: 2.5 mm axial scans were obtained through the abdomen and pelvis following intravenous adm inistration of 100 cc of Omnipaque 350. Dose reduction technique was used on this scan by utilizing a utomated exposure control and iterative reconstruction technique. The dose-length product (DLP) was 1 283.34 mGy-cm. COMPARISON: 05/05/2019 Findings: Scans through the lung bases are unremarkable. The liver, spleen, pancreas, and kidneys are within normal limits. Cholecystectomy clips present. Sta ble small bilateral adrenal nodules, compatible with benign lesions given time interval. No evidence of aortic aneurysm. There are atherosclerotic calcifications of the aorta. No lymphadenopathy. No bowel obstruction or bowel wall thickening. There is no evidence to suggest acute appendicitis. Ev idence of probable prior herniorrhaphy. Images through the pelvis were performed. Urinary bladder is collapsed with Avila catheter. Prostate gland is enlarged. No ascites. Impression: No acute abnormality. Stable small bilateral adrenal nodules, benign given stability since 2018. Postoperative changes, as above. Enlarged prostate gland. Reviewed, dictated and finalized at location . [place] RATTLE AND LEAK REPAIRER Impression: No acute abnormality. Stable small bilateral adrenal nodules, benign given stability since 2018. Postoperative changes, as above. Enlarged prostate gland.
--- NOTE | ~2022-08-02 | US_ITS ---
EXAMINATION: US venous doppler LE RT DATE: 08/02/2022 18:35 INDICATION: Numbness and tingling of the right lower extremity TECHNIQUE: Love scale images without and with compression and Doppler images of the right lower extre mity veins were obtained. COMPARISON: 07/24/2022 FINDINGS: The right common femoral vein, profunda femoral vein, femoral vein, popliteal vein, peronea l trunk, posterior tibial veins, and greater saphenous vein are patent. IMPRESSION: 1. Patent right lower extremity veins. No evidence of deep venous thrombosis. Reviewed, dictated and finalized at location F. RESSOR STATION ENGINEER CHIEF
--- NOTE | ~2022-08-02 | CT_ITS ---
EXAMINATION: CTA brain carotid DATE: 08/05/2022 15:09 INDICATION: Acute stroke TECHNIQUE: Computed tomographic angiography (CTA) of the head was performed without and with 100 mL O mnipaque-350 intravenous contrast. CTA of the neck was performed with intravenous contrast. The dose- length product was 2329.96 mGy-cm. Maximum intensity projection and volume rendered 3D-reconstruction s were created by the technologist on a separate workstation. Automated exposure control and iterativ e reconstruction technique were employed. COMPARISON: 08/02/2022 and MRI, 08/04/2022 FINDINGS: HEAD CTA: There is no intracranial hemorrhage or abnormal mass lesion. The ventricles are normal. The re are subtle areas of low attenuation in the left cerebellum corresponding to infarcts seen on the c omparison MRI. There is no abnormal mass effect or midline shift. The delvalle-white matter differentiati on is normal. The basal cisterns are patent. The orbits are normal. There is mild mucosal thickening of the paranasal sinuses. There is no significant stenosis of the basilar artery or posterior cerebral arteries. There is no si gnificant stenosis of the anterior or middle cerebral arteries. There is moderate stenosis of the int racranial internal carotid arteries. The anterior communicating artery and posterior communicating ar teries are normal. There is no aneurysm. NECK CTA: The thyroid gland is unremarkable. The submandibular and parotid glands are symmetric. Ther e is no lymphadenopathy. There are no masses identified. The airway is unremarkable. There is moderat e cervical spondylosis with changes of anterior fusion from C4 through C6. The superior mediastinum i s unremarkable. A right internal jugular central venous catheter ends with its tip in the distal supe rior vena cava. There is 52% stenosis of the proximal right internal carotid artery relative to normal distal artery lumen diameter (NASCET criteria). There is 43% stenosis of the proximal left internal carotid artery relative to normal distal artery lumen diameter. IMPRESSION: 1. Subtle areas of low attenuation in the left cerebellum corresponding to the known small infarcts. Moderate stenosis of the intracranial internal carotid arteries. 2. 52% stenosis of the proximal right internal carotid artery relative to normal distal artery lumen diameter (NASCET criteria). 3. 43% stenosis of the proximal left internal carotid artery relative to normal distal artery lumen d iameter. Reviewed, dictated and finalized at location F. H SPREADER IMPRESSION: 1. Subtle areas of low attenuation in the left cerebellum corresponding to the known small infarcts. Moderate stenosis of the intracranial internal carotid ar teries. 2. 52% stenosis of the proximal right internal carotid artery relative to antwon l distal artery lumen diameter (NASCET criteria). 3. 43% stenosis of the proximal left internal carotid artery relative to normal distal artery lumen diameter.
--- NOTE | ~2022-08-02 | MR_ITS ---
EXAMINATION: MR brain/brain stem wo con DATE: 08/04/2022 17:43 INDICATION: Right lower extremity weakness. TECHNIQUE: Magnetic resonance imaging (MRI) of the brain and brainstem was performed without intraven ous contrast. COMPARISON: Head CT 08/02/2022 FINDINGS: There are acute infarcts in the left cerebellar white matter. There are scattered areas of nonspecific increased T2-weighted signal intensity in the cerebral white matter. There is no intracra nial hemorrhage or abnormal mass lesion. The ventricles are normal in size. There is mucosal thickeni ng in the paranasal sinuses. There are likely changes of ocular lens replacement surgeries. There are small mastoid effusions. IMPRESSION: 1. Acute infarcts in the left cerebellar white matter. 2. Moderate nonspecific cerebral white matter disease and pontine disease, which likely represents ch ronic small vessel ischemic disease. Reviewed, dictated and finalized at location A. E SUPERVISOR IMPRESSION: 1. Acute infarcts in the left cerebellar white matter. 2. Moderate nonspecific cerebral white matter disease and pontine disease, whic h likely represents chronic small vessel ischemic disease.
--- NOTE | ~2022-08-02 | US_ITS ---
EXAMINATION: US ARTERIAL DUPLEX LOWER SARAHY DATE: 08/02/2022 22:01 INDICATION: Weak pulses TECHNIQUE: Grayscale ultrasound images and duplex color Doppler ultrasound images of the bilateral lo wer extremity arteries were obtained. COMPARISON: none FINDINGS: The systolic velocity is 63 cm/s in the left common femoral artery, 85 cm/s in the profunda femoris artery, 57 cm/s in the proximal superficial femoral artery, 35 cm/s in the distal superficia l femoral artery, 21 cm/s in the popliteal artery, 19 cm/s in the posterior tibial artery, 24 cm/s in the anterior tibial artery and 11 cm/s in the dorsalis pedis artery. IMPRESSION: 1. Diminished distal pulses relative to the superficial femoral artery suggestive of moderate stenosi s. Reviewed, dictated and finalized at location F. URCE CONSERVATION SPECIALIST IMPRESSION: 1. Diminished distal pulses relative to the superficial femoral artery suggesti ve of moderate stenosis.
--- NOTE | 2022-08-02 17:44 | ED.GENADULT ---
HPI - General Adult General Chief complaint: Unspecified <Belen Edward PA-C - Last Filed: 08/03/22 01:48> Stated complaint: LEG NUMBNESS <Belen Edward PA-C - Last Filed: 08/03/22 01:48> Time Seen by Provider: 08/02/22 17:30 <RANDI Pineda Last Filed: 08/03/22 01:48> History of Present Illness HPI narrative: Patient is a 57-year-old male who was recently hospitalized for COPD/heart failure exacerbation here for evaluation of right lower extremity numbness and pain. States he woke up with this sensation in his right leg and has been unable to walk due to the sensations. He also states that he feels weak all over. States that his breathing has been better since he was hospitalized and denies increased SOB, fevers, chest pain. He has chronic back pain but denies any incontinence or retention of bowel or bladder or saddle anesthesia. <Belen Edward PA-C - Last Filed: 08/03/22 01:48> Related Data Home medications: Home Medications Medication Instructions Recorded Confirmed aspirin 81 mg tablet,delayed 325 mg PO QAM 05/05/19 08/03/22 release (Adult Low Dose Aspirin) glimepiride 4 mg tablet 4 mg PO BID 05/05/19 08/03/22 levothyroxine 50 mcg tablet 25 mcg PO 0600 05/05/19 08/03/22 potassium chloride 10 mEq 10 meq PO DAILY 05/05/19 08/03/22 tablet,extended release pregabalin 150 mg capsule (Lyrica) 150 mg PO BID 05/05/19 08/03/22 albuterol sulfate 90 mcg/actuation 1 puff inhalation Q6H PRN 07/23/22 08/03/22 aerosol inhaler Shortness Of Breath ergocalciferol (vitamin D2) 1,250 1,250 mcg PO WEEKLY 07/23/22 08/03/22 mcg (50,000 unit) capsule fluticasone fur. 100 mcg-umeclid 1 inh inhalation DAILY 07/23/22 08/03/22 62.5 mcg-vilant 25 mcg inhalat.powder (Trelegy Ellipta) furosemide 40 mg tablet 80 mg PO DAILY 07/23/22 08/03/22 <RANDI Pineda Last Filed: 08/03/22 01:48> Allergies/adverse reactions: Allergies Allergy/AdvReac Type Severity Reaction Status Date / Time codeine Allergy Mild Itching Verified 08/03/22 10:28 <RANDI Pineda Last Filed: 08/03/22 01:48> Review of Systems Review of Systems: Gen: Denies fevers or chills Eyes: Denies eye pain or visual change ENT: Denies congestion Respiratory: Denies shortness of breath or cough CV: Denies chest pain or palpitations GI: Denies abdominal pain nausea, emesis or diarrhea : denies burning, urgency, frequency or hematuria Musculoskeletal: Reports right leg pain Neuro: Denies numbness, tingling, weakness or focal weakness Skin: Denies rash Except as documented, all other systems reviewed and negative <RANDI Pineda Last Filed: 08/03/22 01:48> PMFSH Past Medical History Medical History: Medical History CAD (coronary artery disease) CHF (congestive heart failure) Chronic low back pain Depression with anxiety Diabetes History of drainage of abscess 1994 and 2004 Hyperlipidemia Hypertension, essential Hypothyroidism (acquired) KEVIN (obstructive sleep apnea) Proteinuria Pulmonary hypertension Testicular abscess 1994 and 2004 with hospitalization, drainage and packing Tobacco use Type 2 diabetes mellitus with hyperglycemia Type 2 diabetes mellitus with polyneuropathy <RANDI Pineda Last Filed: 08/03/22 01:48> Surgical History Surgical History: Surgical History History of appendectomy History of cataract extraction History of cholecystectomy Stented coronary artery 2016 <RANDI Pineda Last Filed: 08/03/22 01:48> Family History Family History: Family History Father Diabetes mellitus Emphysema lung Mother Hypothyroidism Grandparent Brain tumor <RANDI Pineda Last Filed: 08/03/22 01:48> Social Hi
--- NOTE | 2022-08-02 17:50 | PC.NURSE ---
Patient states that yesterday when he was discharged they started him on oxygen. Patient is currently on room air and has normal readings (90-100) for readings.
[2022-08-02] MEDS: traMADol HCL (*CRX) 50 MG TABLET PO (18:25)
--- NOTE | 2022-08-02 18:52 | PC.NURSE ---
Patient stated that he just started oxygen at home, 1L/min in the day via nasal cannula and 4L/min at night via bipap
[2022-08-02 19:19] LABS: Mean Corpuscular HGB Conc 31.9 g/dl (32-36); Mean Corpuscular Hemoglobin 28.7 pg (26-34); Mean Platelet Volume 9.6 fl (7.4-10.4); Platelet Count Result 395 k/mm3 (150-375); Red Blood Count 2.09 M/mm3 (4.6-6.20); Red Cell Distribution Width 17.8 % (11.5-14.5); White Blood Count 26.9 K/mm3 (4.5-10.0)
[2022-08-02 19:30] LABS: Alanine Aminotransferase 60 U/L (6-50); Albumin Level 3.1 g/dL (3.5-5.1); Alkaline Phosphatase 78 U/L (38-126); Anion Gap 4 mmol/L (8-16); Aspartate Amino Transferase 44 U/L (17-59); Bilirubin,Total 0.7 mg/dL (0.2-1.3); Blood Urea Nitrogen 30 mg/dL (9-20); Calcium 8.2 mg/dL (8.4-10.2); Carbon Dioxide 35 mmol/L (22-30); Chloride 93 mmol/L (98-107); Estimated CRCL calculation 86 ml/min; Estimated Glomerular Filt Rate > 60; Glucose 159 mg/dL (65-110); Sodium 132 mmol/L (137-145)
[2022-08-02 19:31] LABS: INR 1.1; Partial Thromboplastin Time 26.5 SECONDS (22.3-36.8); Prothrombin Time 13.8 Seconds (11.1-14.7)
[2022-08-02 19:40] LABS: Hematocrit 18.8 % (42.0-52.0)
[2022-08-02 19:42] LABS: Band Neutrophils Percent 2 % (0-6); Metamyelocytes Percent 1 %; Monocytes Absolute Manual 0.53 K/mm3 (0.1-0.90); Monocytes Percent Manual 2 % (3-9); Neutrophils Absolute Manual 21.78 K/mm3 (1.3-6.7); Neutrophils Percent Manual 79 % (46-73); Nucleated Red Blood Cells 1 %; Platelet Estimate Adequate (Adequate); Total Cells Counted 100
[2022-08-02 19:43] LABS: Anisocytosis 1+ (NORMAL); Hypochromasia 2+ (NORMAL); Polychromasia 1+ (NORMAL); Schistocytes None Seen (NORMAL); Stomatocytes 1+ (NORMAL)
[2022-08-02 19:54] LABS: Influenza A QL RT-PCR Negative (Negative); Influenza B QL RT-PCR Negative (Negative); SARS-CoV-2 RNA PCR Negative
--- NOTE | 2022-08-02 20:25 | PC.NURSE ---
central line to be placed by Dr Aparicio Consent given by the pt
[2022-08-02 21:26] LABS: Mean Corpuscular HGB Conc 32.4 g/dl (32-36); Mean Corpuscular Hemoglobin 29.5 pg (26-34); Mean Corpuscular Volume 91.2 fl (80-100); Mean Platelet Volume 10.1 fl (7.4-10.4); Platelet Count Result 393 k/mm3 (150-375); Red Blood Count 1.93 M/mm3 (4.6-6.20); Red Cell Distribution Width 17.8 % (11.5-14.5)
[2022-08-02 21:31] LABS: Hematocrit 17.6 % (42.0-52.0); Hemoglobin 5.7 g/dL (14.0-18.0)
[2022-08-02 21:39] LABS: INR 1.2; Prothrombin Time 14.4 Seconds (11.1-14.7)
[2022-08-02] MEDS: LACTATED RINGERS 1,000 ML 999 ML IV CONT (21:39)
[2022-08-02 21:40] LABS: Lactic Acid Reflex 1.6 mmol/L (0.7-2.0); Partial Thromboplastin Time 26.5 SECONDS (22.3-36.8)
[2022-08-02 21:41] LABS: Free T4 Free Thyroxine Reflex 1.03 ng/dL (0.78-2.19)
[2022-08-02 22:06] LABS: Band Neutrophils Percent 2 % (0-6); Metamyelocytes Percent 1 %; Neutrophils Absolute Manual 20.25 K/mm3 (1.3-6.7); Neutrophils Percent Manual 79 % (46-73); Platelet Estimate Adequate (Adequate); Total Cells Counted 100
[2022-08-02 22:07] LABS: Anisocytosis 1+ (NORMAL); Polychromasia 1+ (NORMAL); Schistocytes None Seen (NORMAL)
[2022-08-02] MEDS: MORPHINE SULFATE (*CRX) 4 MG/ML INJ IV PUSH (22:07)
[2022-08-02 22:34] LABS: Total Triiodothyronine (T3) 0.87 NG/ML (0.97-1.69)
[2022-08-02 23:21] LABS: Appearance Urine Clear (Clear); Bacteria Urine None Seen /hpf; Bilirubin Urine Negative (Negative); Blood Urine 2+ (Negative); Color Urine Yellow (Yellow); Glucose Urine UA Negative (Negative); Ketones Urine Negative (Negative); Leukocyte Esterase Ur Negative LEU/UL (Negative); Nitrate Urine Negative (Negative); Non Pathogenic Casts 0-2; Protein Urine 2+ mg/dL (Negative); Specific Grav Ur 1.012 (1.001-1.035); Squamous Epithelial Cell Urine None seen /hpf (Few); Urobilinogen Urine 0.2 mg/dL (<2.0); WBC Urine 0-5 /hpf; pH Urine 6.5 (5.0-9.0)
--- NOTE | 2022-08-02 23:23 | PM.IMHP ---
H&P: HPI History of Present Illness Date/Time: 08/02/22 23:23 Chief Complaint: 57 years old male with past medical history of COPD CHF AFib on aspirin was recently discharged from the hospital were was treated for probable pneumonia pulmonary edema CHF exacerbation COPD exacerbation required [facility] pulmonology and cardiology was consulted during last hospitalization. Patient presented to the hospital with difficulty standing associated with generalized weakness patient was not able to walk patient denies fever or chills still complaining of intermittent cough patient has baseline shortness of breath still has lower extremity swelling at the ER patient was found to have hemoglobin of 5 black tarry stool patient denies vomiting blood or seeing fresh blood in the stools patient denies previous history of GI bleed, CT scan of the abdomen pending, GI consulted, GI bleed protocol. CT scan of the head negative for acute finding Review of Systems Review of Systems: Twelve system review was done negative except above PMFSH Past Medical History Medical History CAD (coronary artery disease) Chronic low back pain Depression with anxiety Diabetes History of drainage of abscess 1994 and 2004 Hyperlipidemia Hypertension, essential Hypothyroidism (acquired) KEVIN (obstructive sleep apnea) Proteinuria Testicular abscess 1994 and 2004 with hospitalization, drainage and packing Tobacco use Type 2 diabetes mellitus with hyperglycemia Type 2 diabetes mellitus with polyneuropathy Surgical History Surgical History History of appendectomy History of cataract extraction History of cholecystectomy Stented coronary artery 2017 Family History Family History Father Diabetes mellitus Emphysema lung Mother Hypothyroidism Grandparent Brain tumor Social History Social History Social History: He lives alone and is . He stated that he smoked less than 2 cartons a month . He has no children . He is disabled. code status : full code Smoking packs per day: 1 Smoking cigarettes per day: 20.0 Years smoked: 50 Smoking pack-years: 50.00 Smoking status: Current every day smoker Tobacco type: cigarettes Alcohol intake: former Substance use: never Substance use type: marijuana Last use: 07/21/2022 Lack of Transportation: No Lack of Food: Never True Current Housing: I Have Housing Concerned About Future Housing: No Difficulty Paying Gas/Electric Bills: No Difficulty Paying for Meds: No Currently Unemployed: No Education: High School Diploma/GED Difficulty w/ Childcare or Family Care: No Gender identity (if verbalized by the patient): Male Spiritual care concerns: No Agree to blood products: Yes Meds Home Medications and Allergies Home Medications Medication Instructions Recorded Confirmed Type aspirin 81 mg tablet,delayed 325 mg PO QAM 05/05/19 07/23/22 History release (Adult Low Dose Aspirin) glimepiride 4 mg tablet 4 mg PO BID 05/05/19 07/23/22 History levothyroxine 50 mcg tablet 25 mcg PO 0600 05/05/19 07/23/22 History potassium chloride 10 mEq 10 meq PO DAILY 05/05/19 07/23/22 History tablet,extended release pregabalin 150 mg capsule (Lyrica) 150 mg PO BID 05/05/19 07/23/22 History sitagliptin phosphate 100 mg 100 mg PO QPM #30 tabs 05/07/19 07/23/22 Rx tablet (Januvia) albuterol sulfate 90 mcg/actuation 1 puff inhalation Q6H PRN 07/23/22 07/23/22 History aerosol inhaler Shortness Of Breath ergocalciferol (vitamin D2) 1,250 1,250 mcg PO WEEKLY 07/23/22 07/23/22 History mcg (50,000 unit) capsule fluticasone fur. 100 mcg-umeclid 1 inh inhalation DAILY 07/23/22 07/23/22 History 62.5 mcg-vilant 25 mcg inhalat.powder (Trelegy Ellipt
[2022-08-02 23:25] LABS: Add Urine Microscopic? YES
[2022-08-02] MEDS: PANTOPRAZOLE SODIUM IV 40 MG VIAL 80 MG IV PUSH (23:25)
[2022-08-02] MEDS: SODIUM CHLORIDE 0.9% IV 250 ML 30 ML IV CONT (23:25)
[2022-08-02] MEDS: TUBING, BLOOD SET 1 EACH XX (23:49)
[2022-08-03] VITALS (58 sets, daily range): BP systolic 110–151; BP diastolic 48–93; PULSE 70–97; RESP 14–24; TEMP 36.1–37; O2SAT 91–100; BMI 39.6
[2022-08-03 00:08] LABS: Lactic Acid Reflex 0.6 mmol/L (0.7-2.0)
[2022-08-03 01:30] LABS: Procalcitonin 0.1 ng/mL
[2022-08-03 04:52] LABS: Hematocrit 22.6 % (42.0-52.0); Hemoglobin 7.3 g/dL (14.0-18.0); Mean Corpuscular HGB Conc 32.3 g/dl (32-36); Mean Corpuscular Hemoglobin 28.5 pg (26-34); Mean Corpuscular Volume 88.3 fl (80-100); Mean Platelet Volume 9.8 fl (7.4-10.4); Platelet Count Result 345 k/mm3 (150-375); Red Blood Count 2.56 M/mm3 (4.6-6.20); Red Cell Distribution Width 17.1 % (11.5-14.5); White Blood Count 20.9 K/mm3 (4.5-10.0)
--- NOTE | 2022-08-03 05:07 | PC.NURSE ---
2.2L emptied from urinary catheter.
[2022-08-03 05:25] LABS: Band Neutrophils Percent 2 % (0-6); Lymphocytes Absolute Manual 5.43 K/mm3 (1.1-4.5); Metamyelocytes Percent 1 %; Monocytes Absolute Manual 1.04 K/mm3 (0.1-0.90); Monocytes Percent Manual 5 % (3-9); Neutrophils Absolute Manual 14.21 K/mm3 (1.3-6.7); Neutrophils Percent Manual 66 % (46-73); Platelet Estimate Adequate (Adequate); Total Cells Counted 100
[2022-08-03 05:26] LABS: Anisocytosis 1+ (NORMAL); Hypochromasia 2+ (NORMAL); Schistocytes None Seen (NORMAL); Stomatocytes 1+ (NORMAL)
--- NOTE | 2022-08-03 05:39 | ADMGEN ---
This patient, Ramakrishna Mora, was admitted to IMU Room 202-01 at 0535. Patient/family oriented to hospital policies and general routines including ID bracelet, bed and alarms, visiting hours, pain management, procedures, bathroom and other care routines, personal items, smoking policy, room service/diet, and visiting hours. Information on how to activate the Rapid Response Team has been discussed. Patient/Family are encouraged to report perceived risks to care and to ask questions if they do not understand what they are told or what they should do.
--- NOTE | 2022-08-03 06:40 | WPDGICN ---
Assessment and Plan Assessment and plan (1) Acute blood loss anemia: Code(s): D62 - Acute posthemorrhagic anemia Status: Acute Assessment and Plan: She may go has dropped dramatically from 14 last week to 5.7 at present. He has noted that his stools were dark but thought that there was because he takes an iron supplement. He has never had an ulcer. He takes only aspirin for his atrial fibrillation and denies using NSAIDs. EGD will be scheduled for today. (2) Iron deficiency anemia: Code(s): D50.9 - Iron deficiency anemia, unspecified Status: Acute Assessment and Plan: He has never been treated for anemia in the past. He is now taking an iron supplement. during his last admission his iron level was found to be 48 with normal 49 or higher. (3) Atrial fibrillation: Code(s): I48.91 - Unspecified atrial fibrillation Status: Acute Assessment and Plan: Only on aspirin 325 mg for this (4) Generalized weakness: Code(s): R53.1 - Weakness Status: Acute Assessment and Plan: admission, his right a extremities seemed difficulty moving he was afraid he might be having a stroke. He has recovered from that. He admits that when he went home 2 days ago he was not feeling the best done gradually of felt weaker over the next 24 hours. (5) CHF (congestive heart failure): Code(s): I50.9 - Heart failure, unspecified Status: Acute (6) Lower respiratory tract infection: Code(s): J22 - Unspecified acute lower respiratory infection Status: Acute Assessment and Plan: chest x-ray shows: 1. Right internal jugular catheter ending with its tip in the right atrium. 2. Minimal right basilar airspace opacity, consistent with atelectasis versus pneumonia. he has been started on antibiotics for possible infection due to elevated white blood count GI Consult Note Consult date/time: 08/03/22 06:40 HPI: Ramakrishna Mora is a 57 year old male who was just discharged from the hospital after treatment for COPD exacerbation and congestive heart failure he states that was also questionable whether he may have had pneumonia. The day after going home he felt his right side become very weak and thought he may be having a stroke. He came then to the emergency room last evening and he was found to be markedly anemic. His hemoglobin which was 18.7 a week ago and then 14.7 on the now has dropped to 6. He states that he has had black stools what he thought was because he takes iron supplements. Repeat hemoglobin was 5.7. He has received 2 units of blood in is up to 7.3. He denies being short of breath now. He has never had an ulcer in the past. He does take 1 aspirin a day for atrial fibrillation. He denies using any anti-inflammatory medications. He has had no vomiting or nausea but admits to having queasy discomfort in the upper abdomen from time to time. He thinks he had an EGD and colonoscopy many years ago in [place] some more. Review of Systems Review of Systems: All systems reviewed & are unremarkable except as noted in HPI and below PMFSH Past Medical History Medical History CAD (coronary artery disease) Chronic low back pain Depression with anxiety Diabetes History of drainage of abscess 1994 and 2004 Hyperlipidemia Hypertension, essential Hypothyroidism (acquired) KEVIN (obstructive sleep apnea) Proteinuria Testicular abscess 1994 and 2004 with hospitalization, drainage and packing Tobacco use Type 2 diabetes mellitus with hyperglycemia Type 2 diabetes mellitus with polyneuropathy Surgical History Surgical History History of appendectomy History of cataract extraction History of cholecystectomy Stented coronary artery 2017 Family History Family History Nabil
[2022-08-03 08:23] LABS: Glucose Point of Care 170 mg/dl (65-105)
--- NOTE | 2022-08-03 08:26 | WPDANESEPPF ---
Anes - Initial Pre Proc Eval Procedure: Operation Date: 08/03/22 11:30 Proposed Procedures p Esophagogastroduodenoscopy - Blas Roblero MD Date/Time: 08/03/22 08:26 Surgeon: Georgie Wilkes MD Pre Op Diagnosis: GI bleed Patient Data Age: 57 Gender: M Height: 1.7 m Weight: 115 kg Last Vital Signs Temp 36.3 C L 08/03/22 07:55 Pulse 77 08/03/22 07:55 Resp 16 08/03/22 07:55 BP 131/48 L 08/03/22 07:55 Pulse Ox 95 08/03/22 07:55 O2 Del Method Nasal Cannula 08/03/22 07:40 O2 Flow Rate 1.5 08/03/22 07:40 Allergies Allergy/AdvReac Type Severity Reaction Status Date / Time codeine Allergy Mild Itching Verified 08/03/22 10:28 Home Medications Medication Instructions Recorded Confirmed Type aspirin 81 mg tablet,delayed 325 mg PO QAM 05/05/19 07/23/22 History release (Adult Low Dose Aspirin) glimepiride 4 mg tablet 4 mg PO BID 05/05/19 07/23/22 History levothyroxine 50 mcg tablet 25 mcg PO 0600 05/05/19 07/23/22 History potassium chloride 10 mEq 10 meq PO DAILY 05/05/19 07/23/22 History tablet,extended release pregabalin 150 mg capsule (Lyrica) 150 mg PO BID 05/05/19 07/23/22 History sitagliptin phosphate 100 mg 100 mg PO QPM #30 tabs 05/07/19 07/23/22 Rx tablet (Januvia) albuterol sulfate 90 mcg/actuation 1 puff inhalation Q6H PRN 07/23/22 07/23/22 History aerosol inhaler Shortness Of Breath ergocalciferol (vitamin D2) 1,250 1,250 mcg PO WEEKLY 07/23/22 07/23/22 History mcg (50,000 unit) capsule fluticasone fur. 100 mcg-umeclid 1 inh inhalation DAILY 07/23/22 07/23/22 History 62.5 mcg-vilant 25 mcg inhalat.powder (Trelegy Ellipta) furosemide 40 mg tablet 80 mg PO DAILY 07/23/22 07/23/22 History Laboratory Tests 08/02/22 08/02/22 08/02/22 19:12 19:12 19:12 WBC 26.9 K/mm3 H K/mm3 (4.5-10.0) RBC 2.09 M/mm3 L M/mm3 (4.6-6.20) Hgb 6.0 g/dL L* D g/dL (14.0-18.0) Hct 18.8 % L* % (42.0-52.0) MCV 90.0 fl fl (80-100) MCH 28.7 pg pg (26-34) MCHC 31.9 g/dl L g/dl (32-36) RDW 17.8 % H % (11.5-14.5) Plt Count 395 k/mm3 H k/mm3 (150-375) MPV 9.6 fl fl (7.4-10.4) Immature Gran % (Auto) Not Reportable Neut % (Auto) Not Reportable Lymph % (Auto) Not Reportable Brooks % (Auto) Not Reportable Eos % (Auto) Not Reportable Baso % (Auto) Not Reportable Lymph # (Auto) Not Reportable Brooks # (Auto) Not Reportable Eos # (Auto) Not Reportable Baso # (Auto) Not Reportable Abs Immat Gran (auto) Not Reportable Absolute Neuts (auto) Not Reportable Absolute Nucleated RBC Not Reportable Total Counted 100 Neutrophils % (Manual) 79 % H % (46-73) Band Neutrophils % 2 % % (0-6) Lymphocytes % (Manual) 16.0 % L % (18-44) Monocytes % (Manual) 2 % L % (3-9) Metamyelocytes % 1 % % Nucleated RBC % Not Reportable Abs Neuts (Manual) 21.78 K/mm3 H K/mm3 (1.3-6.7) Abs Lymphs (Manual) 4.30 K/mm3 K/mm3 (1.1-4.5) Abs Monocytes (Manual) 0.53 K/mm3 K/mm3 (0.1-0.90) Nucleated RBCs 1 % % Platelet Estimate Adequate (Adequate) Polychromasia 1+ (NORMAL) Hypochromasia 2+ (NORMAL) Anisocytosis 1+ (NORMAL) Stomatocytes 1+ (NORMAL) Schistocytes None seen (NORMAL) PT 13.8 Seconds Seconds (11.1-14.7) INR 1.1 APTT 26.5 SECONDS SECONDS (22.3-36.8) Sodium 132 mmol/L L mmol/L (137-145) Potassium 4.0 mmol/L mmol/L (3.4-5.0) Chloride 93 mmol/L L mmol/L (98-107) Carbon Dioxide 35 mmol/L H mmol/L (22-30) Anion Gap 4 mmol/L L mmol/L (8-16) BUN
[2022-08-03 08:47] LABS: Alanine Aminotransferase 46 U/L (6-50); Albumin Level 2.9 g/dL (3.5-5.1); Alkaline Phosphatase 70 U/L (38-126); Anion Gap 0 mmol/L (8-16); Aspartate Amino Transferase 29 U/L (17-59); Bilirubin,Total 0.8 mg/dL (0.2-1.3); Blood Urea Nitrogen 22 mg/dL (9-20); Calcium 7.8 mg/dL (8.4-10.2); Carbon Dioxide 35 mmol/L (22-30); Chloride 93 mmol/L (98-107); Estimated CRCL calculation 78 ml/min; Estimated Glomerular Filt Rate > 60; Glucose 163 mg/dL (65-110); Potassium 3.8 mmol/L (3.4-5.0); Sodium 128 mmol/L (137-145)
--- NOTE | 2022-08-03 10:06 | PM.IMPN ---
Progress Note: A&P Assessment and Plan (1) Atrial fibrillation: Code(s): I48.91 - Unspecified atrial fibrillation Status: Acute Assessment and Plan: Hold aspirin for now Pending home medication reconciliation Rate controlled (2) CHF (congestive heart failure): Code(s): I50.9 - Heart failure, unspecified Status: Acute Assessment and Plan: Blood pressure is soft Na are 103 systolic Hold diuresis for now Monitor closely as patient is planned to get 2 units of blood No sign of fluid overload (3) Pneumonia: Code(s): J18.9 - Pneumonia, unspecified organism Status: Acute Assessment and Plan: CT scan concern for atelectasis versus pneumonia patient has significant leukocytosis Blood culture pending sputum culture pending Patient was recently on steroid Has acute GI bleed Continue empiric IV antibiotic for now will give Hcap coverage vancomycin and cefepime avoid Zosyn as patient at increased risk for renal failure (4) Acute blood loss anemia: Code(s): D62 - Acute posthemorrhagic anemia Status: Acute Assessment and Plan: Monitor H&H Occult blood GI bleed protocol IV Protonix GI consulted NPO (5) Hypothyroidism (acquired): Code(s): E03.9 - Hypothyroidism, unspecified Status: Acute Assessment and Plan: Pending home medication reconciliation (6) CAD (coronary artery disease): Code(s): I25.10 - Atherosclerotic heart disease of [place] coronary artery without angina pectoris Status: Acute Assessment and Plan: Hold aspirin (7) Type 2 diabetes mellitus with polyneuropathy: Code(s): E11.42 - Type 2 diabetes mellitus with diabetic polyneuropathy Status: Acute Assessment and Plan: Insulin sliding scale for now Patient has numbness tingling on right foot, chronic, and patient also has feeling of right leg sleeping patient can hold the right leg 45 degree more than 10 seconds (8) KEVIN (obstructive sleep apnea): Code(s): G47.33 - Obstructive sleep apnea (adult) (pediatric) Status: Acute Assessment and Plan: Patient is noncompliant (9) Hypertension, essential: Code(s): I10 - Essential (primary) hypertension Status: Acute Assessment and Plan: Hold blood pressure medication due to soft blood pressure Subjective Date/time seen: 08/03/22 10:06 Interval history: Patient denies chest pain, shortness of breath, abdomen pain. Patient has chronic numbness tingling of foot due to diabetic neuropathy. Also has sleeping feeling all right leg. Patient denies headache, vision change, or focal weakness Exam Narrative: GENERAL: Well appearing, well-nourished, non-toxic, in no acute distress. HEAD: Normocephalic, atraumatic. NECK: Supple. No adenopathy, no masses. RESPIRATORY: Decreased air entry bilateral CARDIOVASCULAR: Regular rate and rhythm without murmurs, rubs, or gallops. Peripheral pulses 2+ and equal bilaterally. ABDOMINAL: Soft, nontender, nondistended, no hepatosplenomegaly. Normoactive BS. MUSCULOSKELETAL: Bilateral lower extremity edema SKIN: Warm, dry, normal color. No rashes. NEURO: A&O X3. Speech clear. Cranial nerves grossly intact. Steady gait. No ataxic movements. No focal weakness. Numbness of her right foot PSYCHIATRIC: Appropriate mood and affect. Normal interaction. Objective Data Vital Signs Vital Signs: Vital Signs - 24 hr 08/02/22 12:46 08/02/22 17:17 08/02/22 17:29 Temperature 97.5 F L 97.2 F L 97.8 F Pulse Rate 102 H 93 91 Respiratory Rate 16 16 17 Blood Pressure 100/68 116/43 L 112/54 L Pulse Oximetry 96 94 94 Oxygen Delivery Room Air Room Air Oxygen Flow Rate 08/02/22 17:34 08/02/22 17:45 08/02/22 18:54 Temperature Pulse Rate 96 92 Respiratory Rate 23 H Blood Pressure Pulse Oximetry 90 96 Oxygen Delivery Room Air Oxygen Flow Rate 08/02/22 18:54 08/02/22 19:00 08/02/22 20:30 Temperature
[2022-08-03 10:41] LABS: Glucose Point of Care 225 mg/dl (65-105)
[2022-08-03] MEDS: LACTATED RINGERS 1,000 ML 150 ML IV CONT (11:02)
--- NOTE | 2022-08-03 12:14 | PC.NURSE ---
Patient transferred to GI lab at 1015 with hospital staff, oriented x4, no complaints of chest pain/shortness of breath. Patient returned to 202 at 1150 with gi lab staff. No complaints, oriented x4, vital signs within normal limits.
[2022-08-03] MEDS: BISACODYL 5 MG TABLET EC 10 MG PO ×3 (13:41→20:59)
[2022-08-03] MEDS: INSULIN ASPART (*BKC) 100 UNITS/ML SUB-Q (13:43)
[2022-08-03] MEDS: polyethylene glycoL 3350 238 GM BOTTLE PO (15:54)
[2022-08-03 17:05] LABS: Glucose Point of Care 146 mg/dl (65-105)
[2022-08-03 19:46] LABS: Glucose Point of Care 165 mg/dl (65-105)
[2022-08-03] MEDS: guaiFENesin 12 HR 600 MG TABCR PO (20:59)
[2022-08-03] MEDS: PANTOPRAZOLE 40 MG TABLET PO (20:59)
[2022-08-03] MEDS: MELATONIN 3 MG TABLET PO (21:01)
[2022-08-03] MEDS: polyethylene glycoL 3350 17 GM POWD.PACK PO (22:42)
[2022-08-04] VITALS (12 sets, daily range): BP systolic 122–171; BP diastolic 50–68; PULSE 18–100; RESP 12–24; TEMP 36–36.4; O2SAT 94–100
[2022-08-04 01:00] LABS: Hematocrit 23.2 % (42.0-52.0); Hemoglobin 7.4 g/dL (14.0-18.0)
[2022-08-04 06:39] LABS: Glucose Point of Care 225 mg/dl (65-105)
--- NOTE | 2022-08-04 07:36 | WPDANESPN ---
Anes - Prog Note Post-Op Date/Time: 08/04/22 07:36 Cardiovascular status: normal Respiratory status: normal Airway patency: baseline Mental status: baseline Post-Op hydration status: normal Vital Signs: Last Vital Signs Temp 36.1 C L 08/04/22 04:00 Pulse 100 08/04/22 05:45 Resp 18 08/04/22 04:00 BP 122/50 L 08/04/22 04:00 Pulse Ox 94 08/04/22 04:00 O2 Del Method Nasal Cannula 08/03/22 16:00 O2 Flow Rate 1 08/03/22 16:00 Pain Score (VAS): Patient asleep, no nonverbal signs of pain present at this it time. I/O: Intake & Output 08/03/22 08/03/22 08/04/22 15:59 23:59 07:59 Intake Total 790 290 50 Output Total 2250 700 720 Balance -1460 -410 -670 Laboratory Tests 08/04/22 00:26 08/03/22 08:29 08/03/22 08/03/22 08/03/22 08:20 08:29 08:32 Hgb Hct Sodium 128 L Potassium 3.8 Chloride 93 L Carbon Dioxide 35 H Anion Gap 0 L BUN 22 H Creatinine 1.10 Estim Creat Clear Calc 78 Estimated GFR > 60 Glucose 163 H POC Capillary Glucose 170 H Calcium 7.8 L Total Bilirubin 0.8 AST 29 ALT 46 Alkaline Phosphatase 70 Total Protein 5.0 L Albumin 2.9 L Urine Pneumococcal Ag Pending 08/03/22 08/03/22 08/03/22 10:38 12:03 17:01 Hgb Hct Sodium Potassium Chloride Carbon Dioxide Anion Gap BUN Creatinine Estim Creat Clear Calc Estimated GFR Glucose POC Capillary Glucose 225 H 225 H 146 H Calcium Total Bilirubin AST ALT Alkaline Phosphatase Total Protein Albumin Urine Pneumococcal Ag 08/03/22 08/04/22 19:40 00:26 Hgb 7.4 L Hct 23.2 L Sodium Potassium Chloride Carbon Dioxide Anion Gap BUN Creatinine Estim Creat Clear Calc Estimated GFR Glucose POC Capillary Glucose 165 H Calcium Total Bilirubin AST ALT Alkaline Phosphatase Total Protein Albumin Urine Pneumococcal Ag Microbiology 08/02/22 20:20 Blood Blood Culture - Preliminary 08/02/22 20:20 Blood Blood Culture - Preliminary Post-procedural complaints: none Patient Feedback: Patient satisfied with anesthetic care.
[2022-08-04] MEDS: guaiFENesin 12 HR 600 MG TABCR PO ×2 (08:43→21:21)
[2022-08-04] MEDS: PANTOPRAZOLE 40 MG TABLET PO (08:43)
[2022-08-04] MEDS: ACETAMINOPHEN 325 MG TABLET 650 MG PO (08:43)
[2022-08-04] MEDS: polyethylene glycoL 3350 238 GM BOTTLE 119 GM PO (08:44)
[2022-08-04] MEDS: ONDANSETRON INJ 4 MG/2 ML VIAL IV PUSH (08:57)
[2022-08-04 08:59] LABS: Basophils Percent Auto 0.2 % (0.2-1.2); Eosinophils Absolute Auto 0.1 K/mm3 (0-0.3); Eosinophils Percent Auto 0.3 % (0-4.4); Hematocrit 25.3 % (42.0-52.0); Hemoglobin 8.2 g/dL (14.0-18.0); Immature Granulocyte Absolute 0.76 K/mm3 (0.00-0.031); Lymphocytes Absolute Auto 1.46 K/mm3 (0.9-3.2); Lymphocytes Percent Auto 7.7 % (18.3-44.2); Mean Corpuscular HGB Conc 32.4 g/dl (32-36); Mean Corpuscular Hemoglobin 28.4 pg (26-34); Mean Corpuscular Volume 87.5 fl (80-100); Mean Platelet Volume 9.4 fl (7.4-10.4); Monocytes Absolute Auto 1.5 K/mm3 (0.1-0.6); Monocytes Percent Auto 7.8 % (2.6-8.5); Neutrophils Absolute Auto 15.1 K/mm3 (1.3-6.7); Nucleated Red Blood Cells Perc 0.2 % (0.0-0.2); Platelet Count Result 369 k/mm3 (150-375); Red Blood Count 2.89 M/mm3 (4.6-6.20); Red Cell Distribution Width 17.4 % (11.5-14.5); White Blood Count 18.9 K/mm3 (4.5-10.0)
[2022-08-04 09:18] LABS: Alanine Aminotransferase 38 U/L (6-50); Albumin Level 3.3 g/dL (3.5-5.1); Alkaline Phosphatase 77 U/L (38-126); Anion Gap 4 mmol/L (8-16); Aspartate Amino Transferase 28 U/L (17-59); Bilirubin,Total 0.9 mg/dL (0.2-1.3); Blood Urea Nitrogen 11 mg/dL (9-20); Calcium 8.3 mg/dL (8.4-10.2); Carbon Dioxide 32 mmol/L (22-30); Chloride 94 mmol/L (98-107); Estimated CRCL calculation 84 ml/min; Estimated Glomerular Filt Rate > 60; Glucose 169 mg/dL (65-110); Potassium 3.7 mmol/L (3.4-5.0); Sodium 130 mmol/L (137-145)
--- NOTE | 2022-08-04 09:27 | WPDNEURCNPN ---
Assessment and Plan Assessment and plan (1) Numbness of right foot: Code(s): R20.0 - Anesthesia of skin Status: Acute (2) Weakness of right foot: Code(s): R29.898 - Other symptoms and signs involving the musculoskeletal system Status: Acute (3) Generalized weakness: Code(s): R53.1 - Weakness Status: Acute (4) Low hemoglobin: Code(s): D64.9 - Anemia, unspecified Status: Acute (5) Atrial fibrillation: Code(s): I48.91 - Unspecified atrial fibrillation Status: Acute (6) Tobacco use: Code(s): Z72.0 - Tobacco use Status: Acute (7) CAD (coronary artery disease): Code(s): I25.10 - Atherosclerotic heart disease of [place] coronary artery without angina pectoris Status: Acute (8) Type 2 diabetes mellitus with polyneuropathy: Code(s): E11.42 - Type 2 diabetes mellitus with diabetic polyneuropathy Status: Acute (9) KEVIN (obstructive sleep apnea): Code(s): G47.33 - Obstructive sleep apnea (adult) (pediatric) Status: Acute (10) Hypertension, essential: Code(s): I10 - Essential (primary) hypertension Status: Acute Plan Ramakrishna Mora is a 57 year old male with a history of CHF, COPD, DM (HgbA1c 9.3), hypothyroidism, chronic smoking, depression/anxiety, atrial fibrillation, KEVIN, HTN who was recently admitted for CHF and COPD exacerbation, currently admitted for GI bleed. Patient now also complaining of new right sided weakness. Will need to evaluate for acute stroke given patient has had multiple risk factors, although given distribution of sensory changes, seems more likely to be a peripheral process rather than central. Suspect symptoms are more likely to be due to compressive neuropathy vs radiculopathy. - MRI brain w/o contrast - MRI lumbar spine w/o contrast - If imaging is unrevealing, will need EMG/NCS as outpatient Consult date: 08/04/22 Reason for consult: Right leg weakness/numbness HPI: Ramakrishna Mora is a 57 year old male with a history of CHF, COPD, DM (HgbA1c 9.3), hypothyroidism, chronic smoking, depression/anxiety, atrial fibrillation, KEVIN, HTN who was recently admitted for CHF and COPD exacerbation. He presented shortly after discharge due to difficulty standing/ambulating. When he presented to the emergency room, labs were significant for hemoglobin of 5. Patient also had black tarry stools. CT head was negative for acute process. Yesterday patient expressed concerns regarding his right leg feeling like it fell asleep . At baseline he has diabetic polyneuropathy so he does have numbness in the lower extremities, however, on the day of discharge from his recent admission, he noted that his right foot felt number than the left and he wasn't able to walk as well. He denies any symptoms in the upper extremities other than worsening numbness in the finger tips which is chronic. At baseline he walks independently but at times uses a cane for balance due to his peripheral neuropathy. He underwent EGD yesterday and was found to have reflex esophagitis and duodenitis. He underwent colonoscopy today and had several polyps removed. Review of Systems Constitutional: Constitutional: Reports no additional constitutional complaints Eyes: Eyes: Reports blurry vision ENT: Reports system reviewed and no additional complaints, except as documented Cardiovascular: Cardiovascular: Reports no additional cardiovascular complaints Respiratory: Respiratory: Reports dyspnea Gastrointestinal: Gastrointestinal: Reports abdominal pain Genitourinary: Genitourinary: Reports no additional male genitourinary complaints Musculoskeletal: Comments: chronic back pain Integumentary/Breasts: Skin/Breast: Reports dry skin Neurologic: Reports as per HPI and Reports numbness Psychiatric: Psychiatric: Reports anxiety PMFSH Past Medical History Medical History CAD (coronar
[2022-08-04 09:31] LABS: Vancomycin Trough 13.7 ug/mL (10.0-20.0)
[2022-08-04] MEDS: LACTATED RINGERS 1,000 ML 150 ML IV CONT (11:04)
[2022-08-04 11:10] LABS: Glucose Point of Care 189 mg/dl (65-105)
[2022-08-04 12:01] LABS: Glucose Point of Care 154 mg/dl (65-105)
[2022-08-04 12:31] LABS: Glucose Point of Care 175 mg/dl (65-105)
--- NOTE | 2022-08-04 12:50 | PM.IMPN ---
Progress Note: A&P Assessment and Plan (1) Atrial fibrillation: Code(s): I48.91 - Unspecified atrial fibrillation Status: Acute Assessment and Plan: Hold aspirin for now Pending home medication reconciliation Rate controlled (2) CHF (congestive heart failure): Code(s): I50.9 - Heart failure, unspecified Status: Acute Assessment and Plan: Blood pressure is soft Na are 103 systolic Hold diuresis for now Monitor closely as patient is planned to get 2 units of blood No sign of fluid overload (3) Pneumonia: Code(s): J18.9 - Pneumonia, unspecified organism Status: Acute Assessment and Plan: CT scan concern for atelectasis versus pneumonia patient has significant leukocytosis Blood culture no growth so far Patient was recently on steroid Has acute GI bleed Continue empiric IV antibiotic for Hcap coverage vancomycin and Zosynon since 08/03 (4) Acute blood loss anemia: Code(s): D62 - Acute posthemorrhagic anemia Status: Acute Assessment and Plan: Monitor H&H Occult blood GI bleed protocol IV Protonix GI consulted multiple polyp was removed by colonoscopy hemoglobin is trending up hemodynamically stable (5) Hypothyroidism (acquired): Code(s): E03.9 - Hypothyroidism, unspecified Status: Acute Assessment and Plan: Continue Synthroid 25 mcg daily via (6) CAD (coronary artery disease): Code(s): I25.10 - Atherosclerotic heart disease of [place] coronary artery without angina pectoris Status: Acute Assessment and Plan: Hold aspirin (7) Type 2 diabetes mellitus with polyneuropathy: Code(s): E11.42 - Type 2 diabetes mellitus with diabetic polyneuropathy Status: Acute Assessment and Plan: Insulin sliding scale for now Patient has numbness tingling on right foot, chronic, and patient also has feeling of right leg sleeping patient can hold the right leg 45 degree more than 10 seconds (8) KEVIN (obstructive sleep apnea): Code(s): G47.33 - Obstructive sleep apnea (adult) (pediatric) Status: Acute Assessment and Plan: Patient is noncompliant (9) Hypertension, essential: Code(s): I10 - Essential (primary) hypertension Status: Acute Assessment and Plan: Hold blood pressure medication due to soft blood pressure (10) COPD (chronic obstructive pulmonary disease): Code(s): J44.9 - Chronic obstructive pulmonary disease, unspecified Status: Acute Assessment and Plan: continue Trelegy Ellipta 1 puff daily Continue apparent evidence for Q 4.prn O2 therapy prn Subjective Date/time seen: 08/04/22 12:50 Interval history: Patient denies chest pain, shortness of breath, abdomen pain. hemodynamically stable, hemoglobin is trending up Exam Narrative: GENERAL: Well appearing, well-nourished, non-toxic, in no acute distress. HEAD: Normocephalic, atraumatic. NECK: Supple. No adenopathy, no masses. RESPIRATORY: Decreased air entry bilateral CARDIOVASCULAR: Regular rate and rhythm without murmurs, rubs, or gallops. Peripheral pulses 2+ and equal bilaterally. ABDOMINAL: Soft, nontender, nondistended, no hepatosplenomegaly. Normoactive BS. MUSCULOSKELETAL: Bilateral lower extremity edema SKIN: Warm, dry, normal color. No rashes. NEURO: A&O X3. Speech clear. Cranial nerves grossly intact. Steady gait. No ataxic movements. No focal weakness. Numbness of her right foot PSYCHIATRIC: Appropriate mood and affect. Normal interaction. Objective Data Vital Signs Vital Signs: Vital Signs - 24 hr 08/03/22 14:00 08/03/22 16:00 08/03/22 16:00 Temperature 98.6 F Pulse Rate 96 92 91 Respiratory Rate 14 Blood Pressure 151/54 H Pulse Oximetry 97 Oxygen Delivery Oxygen Flow Rate 08/03/22 16:00 08/03/22 18:00 08/03/22 19:47 Temperature 97.5 F L Pulse Rate 97 91 Respiratory Rate 22 H Blood Pressure 144/63 H Puls
[2022-08-04 16:46] LABS: Glucose Point of Care 238 mg/dl (65-105)
[2022-08-04] MEDS: LORazepam INJ (*CRX) 2 MG/ML VIAL 0.5 MG IV PUSH (16:55)
[2022-08-04] MEDS: INSULIN ASPART (*BKC) 100 UNITS/ML SUB-Q (18:01)
[2022-08-05] VITALS: BP 147/59; PULSE 90; RESP 18; TEMP 36.2; O2SAT 99
[2022-08-05 00:26] LABS: Hematocrit 23.4 % (42.0-52.0); Hemoglobin 7.5 g/dL (14.0-18.0)
[2022-08-05] MEDS: ONDANSETRON INJ 4 MG/2 ML VIAL IV PUSH (01:37)
[2022-08-05] MEDS: LEVOTHYROXINE SODIUM 25 MCG TABLET PO (05:10)
[2022-08-05 06:00] VITALS: BP 135/56; PULSE 106; RESP 16; TEMP 32.7; O2SAT 96
[2022-08-05 06:38] LABS: Hematocrit 23.4 % (42.0-52.0); Hemoglobin 7.4 g/dL (14.0-18.0); Mean Corpuscular HGB Conc 31.6 g/dl (32-36); Mean Corpuscular Hemoglobin 27.3 pg (26-34); Mean Corpuscular Volume 86.3 fl (80-100); Mean Platelet Volume 9.4 fl (7.4-10.4); Platelet Count Result 335 k/mm3 (150-375); Red Blood Count 2.71 M/mm3 (4.6-6.20); Red Cell Distribution Width 16.8 % (11.5-14.5); White Blood Count 14.1 K/mm3 (4.5-10.0)
[2022-08-05 06:49] LABS: Alanine Aminotransferase 33 U/L (6-50); Albumin Level 3.1 g/dL (3.5-5.1); Alkaline Phosphatase 72 U/L (38-126); Anion Gap 2 mmol/L (8-16); Aspartate Amino Transferase 25 U/L (17-59); Bilirubin,Total 0.7 mg/dL (0.2-1.3); Blood Urea Nitrogen 8 mg/dL (9-20); Carbon Dioxide 32 mmol/L (22-30); Chloride 98 mmol/L (98-107); Estimated CRCL calculation 84 ml/min; Estimated Glomerular Filt Rate > 60; Glucose 183 mg/dL (65-110); Potassium 3.7 mmol/L (3.4-5.0); Sodium 132 mmol/L (137-145)
[2022-08-05 07:43] LABS: Glucose Point of Care 198 mg/dl (65-105)
[2022-08-05 08:00] VITALS: BP 140/60; PULSE 82; RESP 18; TEMP 36.3; O2SAT 99
[2022-08-05 08:02] VITALS: RESP 18; O2SAT 95
[2022-08-05] MEDS: FLUTICASONE/UMECLIDIN/VILANTER 100-62.5-25 MCG ELLIPTA 1 PUFF INHALATION (08:02)
[2022-08-05] MEDS: PANTOPRAZOLE 40 MG TABLET PO ×2 (08:47→20:31)
--- NOTE | 2022-08-05 10:28 | PM.IMPN ---
Progress Note: A&P Assessment and Plan (1) Atrial fibrillation: Code(s): I48.91 - Unspecified atrial fibrillation Status: Acute Assessment and Plan: Hold aspirin for now Pending home medication reconciliation Rate controlled (2) Acute CVA (cerebrovascular accident): Code(s): I63.9 - Cerebral infarction, unspecified Status: Acute Assessment and Plan: patient has chronic numbness of her right foot due to neuropathy, significant since admission. patient also feeling of right leg sleeping, patient is able to hold up the right leg 45 degree more than 10 seconds consulted neurologist for evaluation and treatment situ has shows no acute intracranial issues MRI is done today, MRI shows Acute infarcts in the left cerebellar white matter. patient has paroxysmal AFib, aspirin and blood thinner on hold because of anemia may resume blood thinner and aspirin if that is okay for GI and the neurologist consult OT PT patient has no dysphagia (3) CHF (congestive heart failure): Code(s): I50.9 - Heart failure, unspecified Status: Acute Assessment and Plan: Blood pressure is soft Na are 103 systolic Hold diuresis for now Monitor closely as patient is planned to get 2 units of blood No sign of fluid overload (4) Pneumonia: Code(s): J18.9 - Pneumonia, unspecified organism Status: Acute Assessment and Plan: CT scan concern for atelectasis versus pneumonia patient has significant leukocytosis Blood culture no growth so far Patient was recently on steroid Has acute GI bleed Continue empiric IV antibiotic for Hcap coverage vancomycin and Zosynon since 08/03 (5) Acute blood loss anemia: Code(s): D62 - Acute posthemorrhagic anemia Status: Acute Assessment and Plan: Monitor H&H Occult blood GI bleed protocol IV Protonix GI consulted multiple polyp was removed by colonoscopy hemoglobin is trending up hemodynamically stable (6) Hypothyroidism (acquired): Code(s): E03.9 - Hypothyroidism, unspecified Status: Acute Assessment and Plan: Continue Synthroid 25 mcg daily via (7) CAD (coronary artery disease): Code(s): I25.10 - Atherosclerotic heart disease of [place] coronary artery without angina pectoris Status: Acute Assessment and Plan: Hold aspirin (8) Type 2 diabetes mellitus with polyneuropathy: Code(s): E11.42 - Type 2 diabetes mellitus with diabetic polyneuropathy Status: Acute Assessment and Plan: Insulin sliding scale for now Patient has numbness tingling on right foot, chronic, and patient also has feeling of right leg sleeping patient can hold the right leg 45 degree more than 10 seconds (9) KEVIN (obstructive sleep apnea): Code(s): G47.33 - Obstructive sleep apnea (adult) (pediatric) Status: Acute Assessment and Plan: Patient is noncompliant (10) Hypertension, essential: Code(s): I10 - Essential (primary) hypertension Status: Acute Assessment and Plan: Hold blood pressure medication due to soft blood pressure (11) COPD (chronic obstructive pulmonary disease): Code(s): J44.9 - Chronic obstructive pulmonary disease, unspecified Status: Acute Assessment and Plan: continue Trelegy Ellipta 1 puff daily Continue apparent evidence for Q 4.prn O2 therapy prn Subjective Date/time seen: 08/05/22 10:28 Interval history: Patient denies chest pain, shortness of breath, abdomen pain. hemodynamically stable, hemoglobin is stable. patient denies headache, focal weakness, vision change, palpitation, chest pain Exam Narrative: GENERAL: Well appearing, well-nourished, non-toxic, in no acute distress. HEAD: Normocephalic, atraumatic. NECK: Supple. No adenopathy, no masses. RESPIRATORY:? Decreased air entry bilateral CARDIOVASCULAR: Regular rate and rhythm without murmurs, rubs, or gallops. Periphera
--- NOTE | 2022-08-05 10:30 | WPDGIPROGNO ---
Progress Note: A&P Assessment and Plan (1) Acute blood loss anemia: Code(s): D62 - Acute posthemorrhagic anemia Status: Acute Assessment and Plan: His hemoglobin had dropped dramatically from 14 last week to 5.7 at present. He has noted that his stools were dark but thought that it was because he takes an iron supplement. He has never had an ulcer. He takes only aspirin for his atrial fibrillation and denies using NSAIDs. EGD will be scheduled for today. EGD revealed only hiatal hernia. Colonoscopy was negative except for polyps. Some residual stool in the colon was brown. Consequently, we have no evidence of an acute gastrointestinal bleed. I told the plan now is to supplement and replenish his iron. Perhaps iron infusion would be helpful. (2) Iron deficiency anemia: Code(s): D50.9 - Iron deficiency anemia, unspecified Status: Acute Assessment and Plan: He has never been treated for anemia in the past. He is now taking an iron supplement. during his last admission his iron level was found to be 48 with normal 49 or higher. He has been started on iron. (3) Atrial fibrillation: Code(s): I48.91 - Unspecified atrial fibrillation Status: Acute Assessment and Plan: Only on aspirin 325 mg for this Aspirin has been held (4) Generalized weakness: Code(s): R53.1 - Weakness Status: Acute Assessment and Plan: admission, his right a extremities seemed difficulty moving he was afraid he might be having a stroke. He has recovered from that. He admits that when he went home 2 days ago he was not feeling the best done gradually of felt weaker over the next 24 hours. (5) CHF (congestive heart failure): Code(s): I50.9 - Heart failure, unspecified Status: Acute (6) Lower respiratory tract infection: Code(s): J22 - Unspecified acute lower respiratory infection Status: Acute Assessment and Plan: chest x-ray shows: 1. Right internal jugular catheter ending with its tip in the right atrium. 2. Minimal right basilar airspace opacity, consistent with atelectasis versus pneumonia. he has been started on antibiotics for possible infection due to elevated white blood count Subjective Date/time seen: 08/05/22 10:30 He had 1 small bowel movement this morning which was brown. He states that in fact until he was placed on iron he had never seen black stools. That was the last few days his hospitalization prior to this and the 1 day that he was at home. We discussed the results of his endoscopy and colonoscopy which were unremarkable except for the presence of polyps removed from his colon. H pylori was negative. He is tolerating his diet. He is hopeful discharge soon but he is on antibiotics intravenously at this point. Exam Const: General: comfortable, no acute distress and alert Orientation/consciousness: patient oriented x3 Resp: Auscultation: clear to auscultation bilaterally Cardio: Rhythm: regular rhythm GI: GI Palp: Yes Soft to palpation, No Tenderness to palpation present (GI), Yes No hepatosplenomegaly present, No Hernia present and No Ascites present Auscultation: normal bowel sounds Neuro: General: patient oriented x3 Objective Data Vital Signs Vital Signs: Vital Signs - 24 hr 08/04/22 11:02 08/04/22 12:05 08/04/22 12:15 Temperature 36.4 C Pulse Rate 86 75 69 Respiratory Rate 24 H 18 12 Blood Pressure 153/68 H 133/66 129/63 Pulse Oximetry 94 100 98 Oxygen Delivery Nasal Cannula Nasal Cannula Nasal Cannula Oxygen Flow Rate 2 3 2 Fraction of Inspired Oxygen 08/04/22 12:25 08/04/22 12:00 08/04/22 17:04 Temperature 36.2 C L Pulse Rate 78 78 Respiratory Rate 24 H 24 H Blood Pressure 131/68 140/59 L Pulse Oximetry 100 100 97 Oxygen Delivery Nasal Cannula Nasal Cannula Oxygen Flow Rate 2 2 Fraction of Inspired Oxygen 08/05/22 00:00 08/05/22 06:00 08/05/22 08:02 T
--- NOTE | 2022-08-05 10:42 | WPDNEUROPN ---
Progress Note: A&P Assessment and Plan (1) Acute CVA (cerebrovascular accident): Code(s): I63.9 - Cerebral infarction, unspecified Status: Acute (2) Weakness of right foot: Code(s): R29.898 - Other symptoms and signs involving the musculoskeletal system Status: Acute (3) Numbness of right foot: Code(s): R20.0 - Anesthesia of skin Status: Acute (4) Atrial fibrillation: Code(s): I48.91 - Unspecified atrial fibrillation Status: Acute (5) Tobacco use: Code(s): Z72.0 - Tobacco use Status: Acute (6) Type 2 diabetes mellitus with polyneuropathy: Code(s): E11.42 - Type 2 diabetes mellitus with diabetic polyneuropathy Status: Acute (7) Hypertension, essential: Code(s): I10 - Essential (primary) hypertension Status: Acute Plan Ramakrishna Mora is a 57 year old male with a history of CHF, COPD, DM (HgbA1c 9.3), hypothyroidism, chronic smoking, depression/anxiety, atrial fibrillation, KEVIN, HTN who was recently admitted for CHF and COPD exacerbation, currently admitted for GI bleed. Patient now also complaining of new right sided weakness. MRI brain showed acute left cerebellar infarct. - CTA brain/carotid - Surface echocardiogram - Check LDL level - Will need to weigh risk/benefit of anticoagulation. Once medically stable from GI and hospitalist's standpoint, I would start anticoagulation -- likely Eliquis 5mg BID, although risk of GI bleed is still present. Subjective Date/time seen: 08/05/22 10:42 Interval history: Ramakrishna Mora is a 57 year old male with a history of CHF, COPD, DM (HgbA1c 9.3), hypothyroidism, chronic smoking, depression/anxiety, atrial fibrillation, KEVIN, HTN who was recently admitted for CHF and COPD exacerbation. He presented shortly after discharge due to difficulty standing/ambulating. When he presented to the emergency room, labs were significant for hemoglobin of 5. Patient also had black tarry stools. CT head was negative for acute process. Yesterday patient expressed concerns regarding his right leg feeling like it fell asleep . At baseline he has diabetic polyneuropathy so he does have numbness in the lower extremities, however, on the day of discharge from his recent admission, he noted that his right foot felt number than the left and he wasn't able to walk as well. He denies any symptoms in the upper extremities other than worsening numbness in the finger tips which is chronic. At baseline he walks independently but at times uses a cane for balance due to his peripheral neuropathy. He underwent EGD and was found to have reflex esophagitis and duodenitis. He underwent colonoscopy and had several polyps removed. MRI lumbar spine showed severe lumbar spondylosis. MRI brain showed left cerebellar infarct. Review of Systems Constitutional: Constitutional: Reports no additional constitutional complaints Eyes: Eyes: Reports no additional eye complaints ENT: Reports system reviewed and no additional complaints, except as documented Cardiovascular: Cardiovascular: Reports no additional cardiovascular complaints Respiratory: Respiratory: Reports dyspnea Gastrointestinal: Gastrointestinal: Reports no additional gastrointestinal complaints Genitourinary: Genitourinary: Reports no additional male genitourinary complaints Musculoskeletal: Musculoskeletal: Reports back pain Comments: chronic back pain Integumentary/Breasts: Skin/Breast: Reports system reviewed and no additional complaints, except as docu Neurologic: Reports as per HPI and Reports numbness Psychiatric: Psychiatric: Reports no additional psychiatric complaints Exam Const: General: comfortable and no acute distress HENMT: Mouth: Yes moist mucous membranes Eyes: Pupils: Equal, round and reactive pupils present EOM: EOMs intact bilaterally Resp: Effort & Inspection: normal respiratory effort Auscultation: clear to auscultation bilaterally Cardi
[2022-08-05 11:21] LABS: Glucose Point of Care 258 mg/dl (65-105)
[2022-08-05 12:28] LABS: LDL Cholesterol Direct 37 mg/dL
[2022-08-05] MEDS: INSULIN ASPART (*BKC) 100 UNITS/ML SUB-Q (12:40)
--- NOTE | 2022-08-05 15:01 | PCPTNOTE ---
Attempted to evaluate, but he is down for CT. Will attempt evaluation tomorrow.
[2022-08-05 16:00] VITALS: BP 142/60; PULSE 79; RESP 16; TEMP 36.4; O2SAT 97
[2022-08-05] MEDS: HYDROcodone/acetaminophen (*CRX) 5-325 MG TABLET 1 TAB PO (16:06)
[2022-08-05 16:20] LABS: Glucose Point of Care 195 mg/dl (65-105)
[2022-08-05] MEDS: guaiFENesin 12 HR 600 MG TABCR PO (20:31)
[2022-08-05 20:55] LABS: Glucose Point of Care 328 mg/dl (65-105)
[2022-08-05 21:37] LABS: Hematocrit 23.2 % (42.0-52.0); Hemoglobin 7.3 g/dL (14.0-18.0)
[2022-08-05 21:53] LABS: Vancomycin Trough 17.7 ug/mL (10.0-20.0)
[2022-08-05 22:00] VITALS: BP 125/69; PULSE 107; RESP 17; TEMP 36.2; O2SAT 94
[2022-08-06] LABS: Pneumococcal Antigen Urine Not Detected (Not Detected)
[2022-08-06 05:16] VITALS: BP 135/61; PULSE 89; RESP 18; TEMP 36.3; O2SAT 99
[2022-08-06] MEDS: LEVOTHYROXINE SODIUM 25 MCG TABLET PO (05:54)
[2022-08-06 06:23] LABS: Estimated CRCL calculation 80 ml/min; Estimated Glomerular Filt Rate > 60
--- NOTE | 2022-08-06 08:02 | PM.IMPN ---
Progress Note: A&P Assessment and Plan (1) Atrial fibrillation: Code(s): I48.91 - Unspecified atrial fibrillation Status: Acute Assessment and Plan: Hold aspirin for now Pending home medication reconciliation Rate controlled (2) Acute CVA (cerebrovascular accident): Code(s): I63.9 - Cerebral infarction, unspecified Status: Acute Assessment and Plan: patient has chronic numbness of her right foot due to neuropathy, significant since admission. patient also feeling of right leg sleeping, patient is able to hold up the right leg 45 degree more than 10 seconds consulted neurologist for evaluation and treatment situ has shows no acute intracranial issues MRI is done today, MRI shows Acute infarcts in the left cerebellar white matter. patient has paroxysmal AFib, aspirin and blood thinner on hold because of anemia may resume blood thinner and aspirin if that is okay for GI and the neurologist consult OT PT patient has no dysphagia f/u CTA neurologist saw the patient and recommended to start Eliquis 5 mg b.i.d. p.o. if okay for GI. (3) CHF (congestive heart failure): Code(s): I50.9 - Heart failure, unspecified Status: Acute Assessment and Plan: Blood pressure is soft Na are 103 systolic Hold diuresis for now Monitor closely as patient is planned to get 2 units of blood No sign of fluid overload (4) Pneumonia: Code(s): J18.9 - Pneumonia, unspecified organism Status: Acute Assessment and Plan: CT scan concern for atelectasis versus pneumonia patient has significant leukocytosis Blood culture no growth so far Patient was recently on steroid Continue empiric IV antibiotic for Hcap coverage vancomycin and Zosynon since 08/03 (5) Acute blood loss anemia: Code(s): D62 - Acute posthemorrhagic anemia Status: Acute Assessment and Plan: Monitor H&H Occult blood GI bleed protocol IV Protonix GI consulted multiple polyp was removed by colonoscopy hemoglobin is trending up hemodynamically stable f/u cbc (6) Hypothyroidism (acquired): Code(s): E03.9 - Hypothyroidism, unspecified Status: Acute Assessment and Plan: Continue Synthroid 25 mcg daily via (7) CAD (coronary artery disease): Code(s): I25.10 - Atherosclerotic heart disease of [place] coronary artery without angina pectoris Status: Acute Assessment and Plan: Hold aspirin (8) Type 2 diabetes mellitus with polyneuropathy: Code(s): E11.42 - Type 2 diabetes mellitus with diabetic polyneuropathy Status: Acute Assessment and Plan: Insulin sliding scale for now Patient has numbness tingling on right foot, chronic, and patient also has feeling of right leg sleeping patient can hold the right leg 45 degree more than 10 seconds (9) KEVIN (obstructive sleep apnea): Code(s): G47.33 - Obstructive sleep apnea (adult) (pediatric) Status: Acute Assessment and Plan: Patient is noncompliant (10) Hypertension, essential: Code(s): I10 - Essential (primary) hypertension Status: Acute Assessment and Plan: Hold blood pressure medication due to soft blood pressure (11) COPD (chronic obstructive pulmonary disease): Code(s): J44.9 - Chronic obstructive pulmonary disease, unspecified Status: Acute Assessment and Plan: continue Trelegy Ellipta 1 puff daily Continue apparent evidence for Q 4.prn O2 therapy prn Subjective Date/time seen: 08/06/22 08:02 Interval history: patient has no new issues over the night. Patient denies chest pain, shortness of breath, abdomen pain. hemodynamically stable, hemoglobin is stable. patient denies headache, focal weakness, vision change, palpitation, chest pain Exam Narrative: GENERAL: Well appearing, well-nourished, non-toxic, in no acute distress. HEAD: Normocephalic, atraumatic. NECK: Supple. No adenopathy, n
[2022-08-06 08:20] LABS: Glucose Point of Care 235 mg/dl (65-105)
[2022-08-06 08:55] VITALS: PULSE 87; RESP 16; O2SAT 99
[2022-08-06] MEDS: FLUTICASONE/UMECLIDIN/VILANTER 100-62.5-25 MCG ELLIPTA 1 PUFF INHALATION (08:55)
[2022-08-06 08:56] VITALS: PULSE 88; RESP 16
[2022-08-06] MEDS: PANTOPRAZOLE 40 MG TABLET PO ×2 (09:08→20:12)
[2022-08-06] MEDS: guaiFENesin 12 HR 600 MG TABCR PO ×2 (09:09→20:12)
[2022-08-06] MEDS: INSULIN ASPART (*BKC) 100 UNITS/ML SUB-Q ×3 (09:11→17:54)
[2022-08-06 09:47] LABS: Hematocrit 23.8 % (42.0-52.0); Hemoglobin 7.5 g/dL (14.0-18.0); Mean Corpuscular HGB Conc 31.5 g/dl (32-36); Mean Corpuscular Hemoglobin 27.7 pg (26-34); Mean Corpuscular Volume 87.8 fl (80-100); Mean Platelet Volume 9.7 fl (7.4-10.4); Platelet Count Result 363 k/mm3 (150-375); Red Blood Count 2.71 M/mm3 (4.6-6.20); Red Cell Distribution Width 16.3 % (11.5-14.5); White Blood Count 10.1 K/mm3 (4.5-10.0)
[2022-08-06 09:57] LABS: Anion Gap 2 mmol/L (8-16); Blood Urea Nitrogen 7 mg/dL (9-20); Calcium 8.6 mg/dL (8.4-10.2); Carbon Dioxide 31 mmol/L (22-30); Chloride 97 mmol/L (98-107); Estimated CRCL calculation 88 ml/min; Estimated Glomerular Filt Rate > 60; Glucose 235 mg/dL (65-110); Potassium 3.7 mmol/L (3.4-5.0); Sodium 130 mmol/L (137-145)
[2022-08-06 11:55] LABS: Glucose Point of Care 320 mg/dl (65-105)
[2022-08-06 14:00] VITALS: BP 141/61; PULSE 89; RESP 18; TEMP 36.5; O2SAT 99
[2022-08-06 17:16] LABS: Glucose Point of Care 217 mg/dl (65-105)
[2022-08-06 21:03] LABS: Glucose Point of Care 274 mg/dl (65-105)
[2022-08-06 21:21] VITALS: BP 150/62; PULSE 80; RESP 20; TEMP 36.3; O2SAT 97
[2022-08-06 23:25] LABS: Hematocrit 22.7 % (42.0-52.0); Hemoglobin 7.1 g/dL (14.0-18.0)
[2022-08-07 05:26] VITALS: BP 140/57; PULSE 79; RESP 16; TEMP 36.6; O2SAT 100
[2022-08-07] MEDS: LEVOTHYROXINE SODIUM 25 MCG TABLET PO (05:26)
[2022-08-07 07:53] LABS: Glucose Point of Care 234 mg/dl (65-105)
[2022-08-07] MEDS: TAMSULOSIN HCL 0.4 MG CAPSULE PO (08:13)
[2022-08-07] MEDS: guaiFENesin 12 HR 600 MG TABCR PO (08:13)
[2022-08-07] MEDS: PANTOPRAZOLE 40 MG TABLET PO (08:13)
[2022-08-07] MEDS: INSULIN ASPART (*BKC) 100 UNITS/ML SUB-Q ×3 (08:14→12:15)
[2022-08-07] MEDS: INSULIN GLARGINE (*BKC) 100 UNITS/ML 10 UNITS SUB-Q (09:07)
[2022-08-07] MEDS: FLUTICASONE/UMECLIDIN/VILANTER 100-62.5-25 MCG ELLIPTA 1 PUFF INHALATION (09:45)
[2022-08-07 09:47] VITALS: PULSE 73; RESP 18
[2022-08-07 09:48] VITALS: O2SAT 95
[2022-08-07 09:50] LABS: Basophils Percent Auto 0.5 % (0.2-1.2); Eosinophils Absolute Auto 0.1 K/mm3 (0-0.3); Eosinophils Percent Auto 1.6 % (0-4.4); Hematocrit 23.4 % (42.0-52.0); Hemoglobin 7.2 g/dL (14.0-18.0); Immature Granulocyte Absolute 0.04 K/mm3 (0.00-0.031); Immature Granulocyte Percent A 0.5 % (0-0.5); Lymphocytes Absolute Auto 0.77 K/mm3 (0.9-3.2); Lymphocytes Percent Auto 8.8 % (18.3-44.2); Mean Corpuscular HGB Conc 30.8 g/dl (32-36); Mean Corpuscular Volume 87.6 fl (80-100); Mean Platelet Volume 9.4 fl (7.4-10.4); Monocytes Absolute Auto 0.8 K/mm3 (0.1-0.6); Monocytes Percent Auto 9.5 % (2.6-8.5); Neutrophils Absolute Auto 6.9 K/mm3 (1.3-6.7); Neutrophils Percent Auto 79.1 % (45.5-73.1); Platelet Count Result 347 k/mm3 (150-375); Red Blood Count 2.67 M/mm3 (4.6-6.20); Red Cell Distribution Width 16.1 % (11.5-14.5); White Blood Count 8.7 K/mm3 (4.5-10.0)
[2022-08-07 10:21] LABS: Alanine Aminotransferase 24 U/L (6-50); Albumin Level 3.1 g/dL (3.5-5.1); Alkaline Phosphatase 62 U/L (38-126); Anion Gap 3 mmol/L (8-16); Aspartate Amino Transferase 24 U/L (17-59); Bilirubin,Total 0.5 mg/dL (0.2-1.3); Blood Urea Nitrogen 7 mg/dL (9-20); Calcium 8.1 mg/dL (8.4-10.2); Carbon Dioxide 31 mmol/L (22-30); Chloride 99 mmol/L (98-107); Estimated CRCL calculation 88 ml/min; Estimated Glomerular Filt Rate > 60; Glucose 230 mg/dL (65-110); Sodium 133 mmol/L (137-145)
[2022-08-07] MEDS: APIXABAN 5 MG TABLET PO (10:59)
[2022-08-07 11:47] LABS: Glucose Point of Care 341 mg/dl (65-105)
--- NOTE | 2022-08-07 13:10 | PM.DS ---
DS: Admitting Diagnosis Discharge Date 08/07/22 Admitting Diagnosis Acute CVA Afibb DS: Discharge Diagnosis Discharge Diagnosis (1) Type 2 diabetes mellitus with polyneuropathy: Code(s): E11.42 - Type 2 diabetes mellitus with diabetic polyneuropathy Status: Acute (2) Type 2 diabetes mellitus with hyperglycemia: Qualifiers: Diabetes mellitus fdc insulin use: without fdc use Qualified Code(s): E11.65 - Type 2 diabetes mellitus with hyperglycemia Code(s): E11.65 - Type 2 diabetes mellitus with hyperglycemia Status: Acute (3) Acute CVA (cerebrovascular accident): Code(s): I63.9 - Cerebral infarction, unspecified Status: Acute DS: Summary Hospital Course Reason for hospitalization: Generalized Weakness Hospital Course: 57 years old male with past medical history of COPD CHF AFib on aspirin was recently discharged from the hospital were was treated for probable pneumonia pulmonary edema CHF exacerbation COPD exacerbation, presented to the hospital with difficulty standing associated with generalized weakness. Was found to have acute anemia, GI was consulted, underwent EGD, Colonoscopy which were negative for acute bleeding. Neurology was consulted,for right sided weakness, work up showed Acute infarcts in the left cerebellar white matter. D/w GI, was started on Eliquis. Discharged home in stable condition with advice to follow up with Neurology, GI as outpatient. Status at Discharge Functional status at discharge: independent ambulation Overall status at discharge: patient is back to baseline Time Spent with Patient Time attestation: Total time spent providing and/or coordinating discharge services: Exam Narrative: GENERAL: Well appearing, well-nourished, non-toxic, in no acute distress. HEAD: Normocephalic, atraumatic. NECK: Supple. No adenopathy, no masses. RESPIRATORY:? Decreased air entry bilateral CARDIOVASCULAR: Regular rate and rhythm without murmurs, rubs, or gallops. Peripheral pulses 2+ and equal bilaterally. ABDOMINAL: Soft, nontender, nondistended, no hepatosplenomegaly. Normoactive BS. MUSCULOSKELETAL:? Bilateral lower extremity edema SKIN: Warm, dry, normal color. No rashes. NEURO: A&O X3. Speech clear. Cranial nerves ? grossly intact. Steady gait. No ataxic movements.? No focal weakness.? Numbness of her right foot PSYCHIATRIC: Appropriate mood and affect. Normal interaction. DS: Data Data Completed and Pending Pending studies at discharge: Pending at discharge 08/04/22 11:58 Surgical [PTH] Routine Labs on day of discharge: Labs from last 24 hours 08/07/22 08/07/22 08/07/22 11:34 09:23 09:23 WBC 8.7 RBC 2.67 L Hgb 7.2 L Hct 23.4 L MCV 87.6 MCH 27.0 MCHC 30.8 L RDW 16.1 H Plt Count 347 MPV 9.4 Immature Gran % (Auto) 0.5 Neut % (Auto) 79.1 H Lymph % (Auto) 8.8 L [place] % (Auto) 9.5 H Eos % (Auto) 1.6 Baso % (Auto) 0.5 Lymph # (Auto) 0.77 L [place] # (Auto) 0.8 H Eos # (Auto) 0.1 Baso # (Auto) 0.0 Abs Immat Gran (auto) 0.04 H Absolute Neuts (auto) 6.9 H Absolute Nucleated RBC 0.0 Nucleated RBC % 0.0 Sodium 133 L Potassium 4.0 Chloride 99 Carbon Dioxide 31 H Anion Gap 3 L BUN 7 L Creatinine 0.90 Estim Creat Clear Calc 88 Estimated GFR > 60 Glucose 230 H POC Capillary Glucose 341 H Calcium 8.1 L Total Bilirubin 0.5 AST 24 ALT 24 Alkaline Phosphatase 62 Total Protein 6.0 L Albumin 3.1 L 08/07/22 08/06/22 08/06/22 07:43 23:19 20:50 WBC RBC Hgb 7.1 L Hct 22.7 L MCV MCH MCHC RDW Plt Count MPV Immature Gran % (Auto) Neut % (Auto) Lymph % (Auto) [place] % (Auto) Eos % (Auto) Baso % (Auto) Lymph # (Auto) [place] # (Auto) Eos # (Auto) Baso # (Auto) Abs Immat Gran (auto) Absolute Neuts (auto) Absolute Nucleated RBC Nucleated R
[2022-08-09 19:39] LABS: Haptoglobin 221 mg/dL (43-212)
== END 2022-08-07 14:30 | disposition home or self-care (01) | DRG 811 ==
LOC: ANHED 08-03 01:47 → ANHIMU 08-03 08:12 → ANH3MEDSUR 08-04 15:35
PROVIDERS: Hospitalist; Internal Medicine Gastroenterology; Student in an Organized Health Care Education/Training Program; Admitting Provider Internal Medicine; Emergency Provider Physician Assistant; PCP Family Medicine; Visit Provider Internal Medicine
PROC: 0DJ08ZZ Inspection of Upper Intestinal Tract, Via Natural or Artificial Opening Endoscopic (ICD-10-PCS; CPT 43235; principal; 2022-08-03 11:30)
PROC: 0DJD8ZZ Inspection of Lower Intestinal Tract, Via Natural or Artificial Opening Endoscopic (ICD-10-PCS; CPT 45378; principal; 2022-08-04 14:30)
DX: D62 Acute posthemorrhagic anemia (principal); I63.9 Cerebral infarction, unspecified; J18.9 Pneumonia, unspecified organism; G81.91 Hemiplegia, unspecified affecting right dominant side; D12.2 Benign neoplasm of ascending colon; D12.0 Benign neoplasm of cecum; D12.8 Benign neoplasm of rectum; D50.9 Iron deficiency anemia, unspecified; E03.9 Hypothyroidism, unspecified; E11.65 Type 2 diabetes mellitus with hyperglycemia; E11.42 Type 2 diabetes mellitus with diabetic polyneuropathy; E78.5 Hyperlipidemia, unspecified; F41.8 Other specified anxiety disorders; G89.29 Other chronic pain; G47.33 Obstructive sleep apnea (adult) (pediatric); I25.10 Atherosclerotic heart disease of native coronary artery without angina pectoris; I48.91 Unspecified atrial fibrillation; I11.0 Hypertensive heart disease with heart failure; I48.0 Paroxysmal atrial fibrillation; I50.9 Heart failure, unspecified; J44.9 Chronic obstructive pulmonary disease, unspecified; K21.00 Gastro-esophageal reflux disease with esophagitis, without bleeding; K29.80 Duodenitis without bleeding; K64.8 Other hemorrhoids; M54.50 Low back pain, unspecified; R29.701 NIHSS score 1; Z20.822 Contact with and (suspected) exposure to COVID-19; Z90.49 Acquired absence of other specified parts of digestive tract; Z98.49 Cataract extraction status, unspecified eye; Z95.5 Presence of coronary angioplasty implant and graft; Z87.891 Personal history of nicotine dependence; Z91.199 Patient's noncompliance with other medical treatment and regimen due to unspecified reason; Z79.82 Long term (current) use of aspirin; Z79.84 Long term (current) use of oral hypoglycemic drugs; Z79.01 Long term (current) use of anticoagulants
CPT/HCPCS: 36415; 36430; 70450; 70496; 70498; 70551; 71045; 72148; 74177; 80048; 80053; 80202; 81001; 82565; 82948; 83010; 83605; 83721; 84145; 84439; 84443; 84480; 85014; 85018; 85025; 85027; 85610; 85730; 86850; 86900; 86901; 86923; 87040; 87081; 87636; 87899; 88305; 93926; 93971; 94640; 96361; 96365; 96366; 96367; 96375; 96376; 97161; 97165; 99285; A9270; C1751; C9113; G0378; J1815; J2060; J2270; J2370; J2405; J2543; J2704; J3370; J7050; J7060; J7120; P9016; Q9967

== ENCOUNTER 2023-03-01 12:05 | Outpatient (CLI) | payer OTHER, SELFPAY ==
--- NOTE | ~2023-03-01 | PE_ITS ---
EXAMINATION: PET skull to mid thigh DATE: 03/01/2023 13:59 INDICATION: Mediastinal lymphadenopathy. TECHNIQUE: Blood glucose level was 125 mg/dL. 10.619 mCi of 18-fluorodeoxyglucose (18-FDG) was admini stered i.v. Low dose computed tomography (CT) images were acquired from the base of the brain to the proximal thighs for attenuation correction and anatomic localization. Automated exposure control was employed. Dose-length product (DLP) was 1224 mGy-cm. Positron emission tomography (PET) images were a cquired in the same distribution. COMPARISON: CT abdomen and pelvis 08/03/2022, neck CTA 08/05/22 FINDINGS: Head/neck: There are no pathologically enlarged lymph nodes. There are changes of anterior fusion pro cedure in cervical spine. There is mucosal thickening in the paranasal sinuses. There is a 1.7 x 1.0 cm mass in left parotid gland with maximum SUV of 9.1. Chest: There is mild emphysema. There are scattered nodules in the lungs measuring up to 4 mm without increased activity, likely benign. No pleural effusion. There is ectasia of ascending aorta measurin g 4.5 cm. The heart size is normal. There are coronary artery calcifications. No pericardial effusion . There are calcifications of aortic valve. There is mild bilateral gynecomastia. There are mildly en larged mediastinal lymph nodes without increased activity. For example, a 2.3 x 1.3 cm node in the ao rticopulmonary window demonstrates normal activity. There is increased activity in bone marrow withou t abnormal CT correlate, likely bone marrow stimulation. Abdomen/pelvis/proximal thighs: The liver is normal. There are changes of cholecystectomy. The spleen , and pancreas are normal. There are masses in the adrenal glands measuring up to 2.6 cm on the left measuring low-attenuation without increased activity, consistent with adenomas. The kidneys are antwon l. There are no dilated loops of bowel. There are changes of ventral hernia repair. The prostate is m ildly enlarged. There is a stent in left common iliac artery. There is calcified atherosclerosis of t he aorta and many of the other arteries. There are no pathologically enlarged lymph nodes. There is i ncreased activity in bone marrow without abnormal CT correlate, likely bone marrow stimulation. IMPRESSION: 1. Mildly enlarged mediastinal lymph nodes without increased activity, likely reactive. 2. 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 Ultrasound-guided fine-needle aspiration is recommended. Reviewed, dictated and finalized at location E. IMPRESSION: 1. Mildly enlarged mediastinal lymph nodes without increased activity, likely r eactive. 2. 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 Ultrasound-guided fine-needle aspiration is beka mmended.
[2023-03-01 12:29] LABS: Glucose Point of Care 125 mg/dl (65-105)
== END 2023-03-01 12:06 | disposition home or self-care (01) ==
PROVIDERS: PCP Family Medicine; Visit Provider Nurse Practitioner
DX: R59.0 Localized enlarged lymph nodes (principal); R19.8 Other specified symptoms and signs involving the digestive system and abdomen; K11.9 Disease of salivary gland, unspecified
CPT/HCPCS: 78815; A9552

== ENCOUNTER 2023-05-15 12:33 | Outpatient (CLI) | payer OTHER, SELFPAY ==
--- NOTE | ~2023-05-15 | US_ITS ---
EXAMINATION: US FNA w image guidance DATE: 05/15/2023 13:24 INDICATION: Left parotid mass. TECHNIQUE: The procedure and its benefits and risks were discussed with the patient. Risks specifically discusse d included bleeding. The patient verbalized understanding of the risks and agreed to proceed. The nec k was prepped and draped in the usual sterile manner. 1% lidocaine was used for local anesthesia. 6 passes were made with a 25G needle into the lesion under ultrasound guidance. There were no immedia te complications. FINDINGS: Grayscale ultrasound images demonstrate needles advanced into a 1.6 x 1.5 x 0.9 cm mass in left parot id gland for biopsy. The mass has a fatty hilum suggesting it is a lymph node. IMPRESSION: 1. Ultrasound-guided fine needle aspiration of a normal-sized intraparotid lymph node with increased activity on recent PET. Reviewed, dictated and finalized at location A. L REED TUNER IMPRESSION: 1. Ultrasound-guided fine needle aspiration of a normal-sized intraparotid lym ph node with increased activity on recent PET.
== END 2023-05-15 12:34 | disposition home or self-care (01) ==
PROVIDERS: PCP Family Medicine; Visit Provider Otolaryngology
DX: R22.1 Localized swelling, mass and lump, neck (principal); D11.9 Benign neoplasm of major salivary gland, unspecified
CPT/HCPCS: 10005; 88108; 88172; 88305

== ENCOUNTER 2024-07-10 15:55 | Outpatient (CLI) | payer OTHER, SELFPAY ==
--- NOTE | ~2024-07-10 | US_ITS ---
EXAMINATION: US scrotum doppler DATE: 07/10/2024 16:24 INDICATION: Disorder of male genital organs TECHNIQUE: Testicular sonogram utilizing grayscale and Doppler COMPARISON: None. FINDINGS: The right testis measures 4.0 x 2.5 x 2.8 cm. The left testis measures 3.5 x 2.3 x 2.2 cm. Symmetric normal grayscale appearance to both testes. There is normal vascular flow to both testes. The right e pididymis is normal with normal vascular flow. The left epididymis is normal with normal vascular yrn w. There is no varicocele or hydrocele. There is a 2.6 x 2.5 x 1.0 cm hypoechoic lesion with <1 mm we ll-defined peripheral echogenic capsule and with posterior acoustic enhancement. This appears to danita espond to a 2.0 x 0.8 x 1.3 cm cystic lesion without corresponding FDG uptake on prior PET/CT dated . Constellation of findings would be most consistent with an epidermoid cyst. IMPRESSION: 1. Normal testes and epididymides. 2. 2.6 x 2.5 x 1.0 cm likely hypoechoic likely complex cyst which appears to been present for greater than one year favoring a benign etiology such as an epidermoid cyst. Reviewed, dictated and finalized at location A. 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 Normal testes and epididymides. 2. 2.6 x 2.5 x 1.0 cm likely hypoechoic likely complex cyst which appears to be en present for greater than one year favoring a benign etiology such as an epid ermoid cyst.
--- OUTSIDE RECORDS SUMMARY | 2024-07-10 16:01 | XMS_ITS | Clinical Summary ---
Author Organization [facility] Address [address] [place] [address] Care Team Providers [employer] Head Name Role Phone Unavailable Primary Care Provider Unavailabl e Social History Tobacco Use Types Packs/Day Years Used Date Smoking Tobacco: Never Assessed Sex and Gender Information Value Date Recorded Sex Assigned at Not on file Legal Sex Male 1:39 PM FINAL [employer] Gender Identity Not on file Sexual Orientation Not on file Plan of Treatment Upcoming Encounters Date Type Department Care Team ([facility] st Contact Info) Description 09/26/2024 10:40 AM CDT Office Visit [facility] - [address], [address] [place] [address] Mariann Horton MD [address] [place] [address] Health Maintenance Due Date Last Done Comments Colorectal Cancer Screening Colonoscopy (10 Years) 1963 Annual Physical 1966 Hepatitis C 1981 DTaP, Tdap and Td Vaccines ( 1 - Tdap) 1982 Zoster Vaccines (1 of 2) 2013 COVID-19 Vaccine (2023-2 5 season) 2024 Influenza Adult (#1) 2024 RSV Immunization or 60+ Years (1 - 1-dose 75+ series) 2038 Meningococcal B Vaccine Aged Out No l onger eligible based on patient's age to complete this topic Meningococcal Vaccine Aged Out No rebel shobha eligible based on patient's age to complete this topic Pneumococcal Vaccine: Pediat rics (0 to 5 Years) and At-Risk Patients (6 to 64 Years) Aged Out No longer eligible b ased on patient's age to complete this topic RSV Immunizations Under 20 Months Aged Out No longer eligible based on patient's age to complete this topic Insurance [place]
--- OUTSIDE RECORDS SUMMARY | 2024-07-10 16:01 | XMS_ITS | CONTINUITY OF CARE DOCUMENT ---
Author Name otf vanessa Address Unknown Organization [facility] Address [address] [place] [address] Phone [phone] Care Team Providers Care Wire Setter Name Role Phone José Brian MD Unavailable JOE SEGUNDO MD Unavailable Kelley ERADICATOR, Krys Unavailable PROBLEMS Condition Status Date Provider Notes Cardiovascular screening active José zaman MD Hip pain active José Brian MD CAD s/p stent active José Brian MD HTN essential active José Brian MD Diabetes mellitus active José Brian MD Tobacco abuse active José Brian MD Shortness of breath active José Brian MD Chronic back pain active José Brian MD PVD active José Brian MD Hyperlipidemia active José Brian MD CHF - diastolic active Ava Ventimiglia F ERADICATOR Afib active Ava 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 DESIGNER CVA active Ava Ventimiglia MACHINE DESIGNER KEVIN, adult active Ava Ventimiglia MACHINE DESIGNER ENCOUNTERS Date Type Provider Location Encounter Diag nosis - In-person encounter Office Visit José Brian MD [facility] - In-person encounter Office Visit José Brian MD [facility] - In-person encounter Office Visit Cheryl Stanford MD [facility] - In-person encounter Office Visit José Brian MD [facility] - In-person encounter Office Visit Dexter Chavez MD [facility] - In-person encounter Office Visit José Brian MD [facility] - In-person encounter Office Visit José Brian MD [facility] - In-person encounter Office Visit José Brian MD [facility] - In-person encounter Office Visit José Brian MD [facility] - In-person encounter Office Visit José Brian MD [facility] - In-person encounter Office Visit José Brian MD [facility] CHF - diastolicAfibCVAOSA, adult - In-person encounter Office Visit José Brian MD [facility] - In-person encounter Office Visit José Brian MD [facility] Hyperlipidemia - In-person encounter Office Visit José Brian MD [facility] - In-person encounter Office Visit José Brian MD [facility] Chronic back painPVD - In-person encounter Office Visit José Brian MD [facility] - In-person encounter Office Visit José Brian MD [facility] - In-person encounter Office Visit José Brian MD [facility] Cardiovascular screeningHip painCAD s/p stentHTN essentialDiabetes mellitusTobacco abuseShortness of breath VITAL SIGNS Date Observation Value Provider Body Mass Index (Ratio) 33.89 kg/m2 Radha Brian MD blood pressure, diastolic 67 mm[Hg] Jose Carlos michel [place] blood pressure, systolic 133 mm[Hg] Elen ramires [place] blood pressure, cuff size regular Jose Carlos anand [place] oxygen saturation, oximetry 98 % [facility] [place] pulse rate 92 /min [facility] [place] weight E&M 216.4 [lb_av] [facility] [place] height E&M 67 [in_i] [facility] [place] Body Mass Index (Ratio) 34.30 kg/m2 Radha Brian MD blood pressure, cuff size regular Orestes moreira Tai blood pressure, diastolic 49 mm[Hg] Orestes moreira Tai blood pressure, systolic 100 mm[Hg] [facility] [place] oxygen saturation, oximetry 94 % [facility] 64 /min [facility] weight E&M 219 [lb_av] [facility] respiratory rate E&M 12 /min [facility] height E&M 67 [in_i] Evelyn [place] Body Mass Index (Ratio) 33.36 kg/m2 Hadley Stanford MD blood pressure, cuff size regular Ke rri Amol blood pressure, diastolic 80 mm[Hg] Ke rri Amol blood pressure, systolic 124 mm[Hg] Lindsay Carmichael oxygen saturation, oximetry 91 % Xiomara Amol respiratory rate E&M 12 /min Xiomara [facility] pulse rate 101 /min Xiomara Taylor [facility] weight E&M 213 [lb_av] Xiomara Taylor er height E&M 67 [in_i] Xiomara Taylor [facility] Body Mass Index (Ratio) 33.20 kg/m2 Radha Brian MD blood pressure, diastolic 68 mm[Hg] Vi [facility] blood pressure, systolic 89 mm[Hg] [facility] [place] [facility] pulse rate 99 /min [facility] blood pressure, cuff size regular [facility] respiratory rate E&M 24 /min [facility] oxygen saturation, oximetry 92 % [facility] weight E&M 212 [lb_av] [facility] height E&M 67 [in_i] [facility] Body Mass Index (Ratio) 36.18 kg/m2 Aruna Chavez MD blood pressure, diastolic 71 mm[Hg] [facility] blood pressure, systolic 123 mm[Hg] Flor kLogic blood pressure, diastolic 71 mm[Hg] Derek et blood pressure, systolic 123 mm[Hg] Jar ret pulse rate 87 /min [facility] er y oxygen saturation, oximetry 93 % Claus weight E&M 231 [lb_av] Claus y respiratory rate E&M 16 /min Claus blood pressure, cuff size regular Ja rret height E&M 67 [in_i] [facility] er y Body Mass Index (Ratio) 37.12 kg/m2 Radha Brian MD blood pressure, diastolic -1 mm[Hg] Farnaz nkLogic blood pressure, systolic 146 mm[Hg] Flor ic blood pressure, diastolic 81 mm[Hg] Ja rret blood pressure, systolic 146 mm[Hg] [facility] pulse rate 109 /min Claus blood pressure, cuff size regular Ja rret weight E&M 237 [lb_av] Claus oxygen saturation, oximetry 96 % respiratory rate E&M 16 /min Claus height E&M 67 [in_i] [facility] Body Mass Index (Ratio) 34.45 kg/m2 Radha Brian MD blood pressure, diastolic 71 mm[Hg] Ja rret blood pressure, systolic 125 mm[Hg] [facility] pulse rate 78 /min Claus oxygen saturation, oximetry 92 % blood pressure, cuff size regular Ja rret respiratory rate E&M 16 /min Claus weight E&M 220 [lb_av] Claus height E&M 67 [in_i] Claus y Body Mass Index (Ratio) 35.71 kg/m2 Radha Brian MD blood pressure, diastolic 69 mm[Hg] [facility] blood pressure, systolic 97 mm[Hg] Flor kLic pulse rate 110 /min Claus blood pressure, cuff size regular Ja rret blood pressure, diastolic 69 mm[Hg] Ja rr blood pressure, systolic 97 mm[Hg] Jar ret respiratory rate E&M 14 /min oxygen saturation, oximetry 95 % weight E&M 228 [lb_av] Claus height E&M 67 [in_i] Claus Body Mass Index (Ratio) 35.24 kg/m2 Radha Brian MD weight E&M 225 [lb_av] Claus blood pressure, cuff size regular Ja rr blood pressure, diastolic 70 mm[Hg] Ja rret blood pressure, systolic 119 mm[Hg] [facility] ret pulse rate 93 /min Claus respiratory rate E&M 16 /min oxygen saturation, oximetry 96 % height E&M 67 [in_i] Claus Body Mass Index (Ratio) 40.25 kg/m2 Radha Brian MD pulse rate 99 /min Claus blood pressure, cuff size regular Ja rr blood pressure, diastolic 72 mm[Hg] Ja rret blood pressure, systolic 169 mm[Hg] [facility] respiratory rate E&M 16 /min Claus oxygen saturation, oximetry 92 % Claus weight E&M 257 [lb_av] Claus height E&M 67 [in_i] Claus blood pressure, cuff size large Ke rri Amol blood pressure, diastolic 60 mm[Hg] Cedric shawi Gruenenfelder blood pressure, systolic 142 mm[Hg] Lindsay ri Sergenfelder Inhaled O2 1.5 L/min Xiomara Chie lder oxygen saturation, oximetry 96 % Xiomara Grlennoxnfelder respiratory rate E&M 16 /min Xiomara G ruenenfelder pulse rate 113 /min Xiomara Chie lder height E&M 67 [in_i] Xiomara Taylor lder Body Mass Index (Ratio) 40.40 kg/m2 Radha Brian MD blood pressure, diastolic 73 mm[Hg] Farnaz nkLogic blood pressure, systolic 144 mm[Hg] Flor kLogic blood pressure, cuff size regular Ca therine Rubén blood pressure, diastolic 73 mm[Hg] Ca therine Rubén blood pressure, systolic 144 mm[Hg] Cat herine [place] oxygen saturation, oximetry 95 % Kelsie Rubén respiratory rate E&M 18 /min Catheri ne [place] pulse rate 67 /min Kelsie [place] weight E&M 258 [lb_av] Kelsie [place] height E&M 67 [in_i] Kelsie [place] blood pressure, diastolic, baseline 80 mm [Hg] Chastity Kaila blood pressure, systolic, baseline 120 mm [Hg] Chastity Kaila height E&M 67 [in_i] Chastity Kaila height in centimeters E&M 170.18 cm astity Kaila Body Mass Index (Ratio) 41.03 kg/m2 Radha Brian MD blood pressure, diastolic 81 mm[Hg] Kb Nicole blood pressure, systolic 172 mm[Hg] Wale Shirleyby blood pressure, resting Yes Guicho Nicole pulse rate 84 /min Holly Nicole oxygen saturation, oximetry 94 % Holly Nicole respiratory rate E&M 18 /min Holly Shirleyby weight E&M 262 [lb_av] Holly Nicole height E&M 67 [in_i] Holly Nicole Body Mass Index (Ratio) 41.81 kg/m2 Radha Brian MD blood pressure, resting Yes Guicho Nicole blood pressure, cuff size regular Kb Nicole blood pressure, diastolic 80 mm[Hg] Kb Nicole blood pressure, systolic 142 mm[Hg] Wale Nicole oxygen saturation, oximetry 95 % Holly Nicole respiratory rate E&M 18 /min Holly Nicole pulse rate 75 /min Holly Nicole weight E&M 267 [lb_av] Holly Nicole height E&M 67 [in_i] Holly Nicole Body Mass Index (Ratio) 43.54 kg/m2 Radha Brian MD blood pressure, diastolic 78 mm[Hg] Igor Carrasco blood pressure, systolic 142 mm[Hg] Veronica Carrasco oxygen saturation, oximetry 93 % Rochelle Carrasco respiratory rate E&M 16 /min Rochelle Danilo pulse rate 93 /min Rochelle Franbel l blood pressure, cuff size regular Cy mike Carrasco weight E&M 278 [lb_av] Rochelle Campbel l height E&M 67 [in_i] Rochelle Campbel l Body Mass Index (Ratio) 42.28 kg/m2 Radha Brian MD blood pressure, cuff size regular Cy nttate Carrasco blood pressure, diastolic 68 mm[Hg] Cy nttate Carrasco blood pressure, systolic 119 mm[Hg] Veronica gurjit Carrasco oxygen saturation, oximetry 92 % Rochelle Carrasco respiratory rate E&M 16 /min Rochelle Carrasco pulse rate 72 /min Rochelle lucas weight E&M 270 [lb_av] Rochelle Myles l height E&M 67 [in_i] Rochelle Myles l Body Mass Index (Ratio) 42.13 kg/m2 Radha Brian MD blood pressure, resting Yes [facility] respiratory rate E&M 16 /min [facility] blood pressure, diastolic 90 mm[Hg] To [facility] blood pressure, systolic 160 mm[Hg] Ton [facility] oxygen saturation, oximetry 94 % [facility] pulse rate 70 /min [facility] weight E&M 269 [lb_av] [facility] height E&M 67 [in_i] [facility] Body Mass Index (Ratio) 41.81 kg/m2 Radha Brian MD respiratory rate E&M 18 /min Rochelleviviana Carrasco pulse rate 78 /min Rochelle Myles shayy oxygen saturation, oximetry 90 % Rochellegurjit Carrasco blood pressure, cuff size regular Cy nttate Carrasco blood pressure, diastolic 74 mm[Hg] Cy nttate Carrasco blood pressure, systolic 140 mm[Hg] Veronica gurjit Carrasco height E&M 67 [in_i] Rochelle Myles l weight E&M 267 [lb_av] Rochelle Myles l ALLERGIES Allergy Name Onset Date Reaction Criticality Status CODEINE SULFATE Low Criticality acti ve RESULTS Date Observation Value Provider Reference Range Interpretation Location 4 prothrombin time (patient) 10.7 s [facility] 9.1-12.0 4 international normalized ratio (INR) 1.0 [facility] 0.8-1.2 4 lipoprotein, beta, serum, point, quantitative, calculated 63 mg/dL [facility] 0-99 4 very low density lipoproteins 22 mg/dL [facility] 5-40 4 HDL cholesterol, serum 37 mg/dL [facility] >39 Low 4 triglyceride, serum, random 112 mg/dL [facility] 0-149 4 cholesterol, serum 122 mg/dL [facility] [id number] 0447/02/0 4 calcium, serum 9.8 mg/dL [facility] 8.7-10.2 4 carbon dioxide, venous blood 25 mmol/L [facility] 20-29 4 chloride, serum 96 mmol/L [facility] 96-106 4 potassium, serum 5.0 mmol/L [facility] 3.5-5.2 4 sodium, serum 138 mmol/L [facility] 797-500 3393/02/0 4 urea nitrogen/creatinine ratio, serum 21 [facility] 9-20 High 4 eGFR if 74 mL/min/{1 .73_m2} [facility] >59 4 eGFR if not 64 mL/min/{1 .73_m2} [facility] >59 4 creatinine, serum 1.25 mg/dL [facility] 0.76-1.27 4 urea nitrogen, blood 26 mg/dL [facility] 6-24 High 4 blood glucose, random 283 mg/dL [facility] 65-99 High 4 basophil count, absolute 0.1 x10E3/uL [facility] 0.0-0.2 4 Eosinophil Absolute Count 0.2 X10E3/UL [facility] 0.0-0.4 4 monocyte count, blood, automated 1.0 X10E3/UL [facility] 0.1-0.9 High 4 lymphocyte count, blood, automated 2.0 X10E3/UL [facility] 0.7-3.1 4 Absolute Neutrophils 5.8 X10E3/UL [facility] 1.4-7.0 4 basophils as percent of blood leukocytes 1 % [facility] Not Estab. 4 eosinophils as percent of blood leukocytes 2 % [facility] Not Estab. 4 monocytes as percent of blood leukocytes 11 % [facility] Not Estab. 4 lymphocytes as percent of blood leukocytes 21 % [facility] Not Estab. 4 neutrophils as percent of blood leukocytes 65 % [facility] Not Estab. 4 platelet count 267 X10E3/UL [facility] 513-482 3274/02/0 4 red blood cell distribution width 12.7 % [facility] 11.6-15.4 4 mean corpuscular hemoglobin concentration, RBC 32.6 G/DL [facility] 31.5-35.7 4 mean corpuscular hemoglobin, RBC 29.2 pg [facility] 26.6-33.0 4 mean corpuscular volume, RBC 90 fL [facility] 79-97 4 hematocrit, blood 53.4 % [facility] 37.5-51.0 High 4 hemoglobin, blood 17.4 g/dL [facility] 13.0-17.7 4 erythrocyte (RBC) count 5.96 X10E6/UL [facility] 4.14-5.80 High 4 leukocyte count, blood 9.2 X10E3/UL [facility] 3.4-10.8 4 alanine aminotransferase (SGPT), serum 19 1/L [facility] 0-44 4 aspartate aminotransferase (SGOT), serum 15 1/L [facility] 0-40 4 alkaline phosphatase, serum 62 1/L [facility] 39-117 4 bilirubin, serum, total 0.4 mg/dL [facility] 0.0-1.2 4 albumin/globulin ratio, serum 1.6 [facility] 1.2-2.2 4 globulin, serum 2.7 [facility] 1.5-4.5 4 albumin, serum 4.3 g/dL [facility] 3.5-5.5 4 protein, total, serum 7.0 g/dL [facility] 6.0-8.5 4 calcium, serum 9.7 mg/dL [facility] 8.7-10.2 4 carbon dioxide, venous blood 21 mmol/L [facility] 20-29 4 chloride, serum 98 mmol/L [facility] 96-106 4 potassium, serum 4.8 mmol/L [facility] 3.5-5.2 4 sodium, serum 135 mmol/L [facility] 788-263 5408/01/0 4 urea nitrogen/creatinine ratio, serum 23 [facility] 9-20 High 4 eGFR if 67 mL/min/{1 .73_m2} [facility] >59 4 eGFR if not 58 mL/min/{1 .73_m2} [facility] >59 Low 4 creatinine, serum 1.35 mg/dL [facility] 0.76-1.27 High 4 urea nitrogen, blood 31 mg/dL [facility] 6-24 High 4 blood glucose, random 284 mg/dL [facility] 65-99 High HISTORY OF MEDICATION USE Medication Status Instructions Dates Provider Indications Com ments sotalol 80 mg tablet active Take 1/2 tablet by mouth twice a day 01/03 Fabio San Ferrex 150 150 mg iron capsule active TAKE 1 CAPSULE BY MOUTH ONCE DAILY Odette Prater NP magnesium oxide 400 mg (241.3 mg magnesium) tablet active TAKE 1 TABLET BY MOUTH TWICE DAILY Odette Prater NP Farxiga 10 mg tablet active TAKE 1 TABLET BY MOUTH EVERY DAY Odette Prater NP levothyroxine 25 mcg tablet active TAKE 1 TABLET BY MOUTH EVERY DAY FIRST THING IN THE MORNING. NO FOOD FOR 30 MINUTES AFTER Odette Prater NP losartan 50 mg tablet completed - 01/03 Odette Prater NP metoprolol tartrate 100 mg tablet completed TAKE 1 TABLET BY MOUTH TWICE DAILY - 01/03 Fabio San pregabalin 300 mg capsule active twice a day Odette Prater NP Trelegy Ellipta 100-62.5-25 mcg blister with device active once a day Odette Prater NP albuterol sulfate 90 mcg/actuation HFA aerosol inhaler active as needed Odette Prater NP metolazone 5 mg tablet completed Take 1 tablet by mouth once a day 12/26 - 01/02 José Brian MD potassium chloride 20 mEq tablet extended release active Take 2 tablet by mouth once a day 12/26 Dexter Chavez MD metoprolol tartrate 25 mg tablet completed TAKE 1 TABLET TWICE DAILY - 01/03 Odette Prater NP magnesium oxide 400 mg magnesium tablet completed Take 1 tablet by mouth twice a day - 01/03 Odette Prater NP clopidogrel 75 mg tablet completed TAKE 1 TABLET BY MOUTH EVERY DAY - 06/11 José Brian MD bumetanide 2 mg tablet active Take 1 tablet by mouth once a day Odette Prater NP glimepiride 2 mg tablet completed - 01/03 Odette Prater NP Jardiance 10 mg tablet active Take 1 tablet by mouth once a day 12/25 Ava MARTINEZ Eliquis 5 mg tablet active TAKE 1 TABLE T BY MOUTH TWICE A DAY Odette Prater NP Trelegy Ellipta 100-62.5-25 mcg blister with device completed - 01/03 Odette Prater NP Lantus Solcandyar U-100 Insulin 100 unit/mL (3 mL) insulin pen completed - 01/03 Odette Prater NP pantoprazole 40 mg tablet,delayed release (DR/EC) completed - 01/03 Odette Prater NP furosemide 40 mg tablet completed Take 2 tablet by mouth once a day - 12/19 Ava JOHNSP losartan 25 mg tablet completed - 01/03 Odette Prater NP tramadol 50 mg tablet active as needed Odette Prater NP levothyroxine 25 mcg tablet completed - 01/03 Odette Prater NP atorvastatin 40 mg tablet active TAKE 1 TABLET BY MOUTH DAILY EVERY NIGHT Odette Prater NP aspirin 81 mg tablet,delayed release (DR/EC) completed Take 1 tablet by mouth once a day - 10/31 Avaelyse Brownglkrystle JOHNSP Ozempic 1 mg/dose (2 mg/1.5 mL) pen injector completed Inject 1 mg subcutaneously once a week 07/07 - 09/03 José Brian MD Ozempic 0.25 mg or 0.5 mg(2 mg/1.5 mL) pen injector completed Inject 1/4 mg subcutaneously once a week Take 0.25mg once a week x4 weeks then increase to 0.5mg weekly 02/10 - 07/07 José Brian MD Januvia 100 mg tablet active TAKE 1 TABLET BY MOUTH ONCE DAILY Holly Nicole tamsulosin 0.4 mg capsule active TAKE 1 CAPSULE BY MOUTH ONCE DAILY Holly Nicole omeprazole 40 mg capsule,delayed release(DR/EC) completed - 11/16 Ava MARTINEZ duloxetine 60 mg capsule,delayed release(DR/EC) completed Take 1 capsule by mouth every morning 06/23 - 11/16 Ava Aravindmiglia MACHINE DESIGNER #30, 30 days supply, Prescribed by JUAN LUIS MCKAY, Filled 04/23/2020 duloxetine 30 mg capsule,delayed release(DR/EC) completed Take 1 capsule by mouth once a day 06/23 - 11/16 Ava Aravindmiglia MACHINE DESIGNER #30, 30 days supply, Prescribed by JUAN LUIS MCKAY, Filled 04/23/2020 Levemir FlexTouch U100 Insulin 100 unit/mL (3 mL) insulin pen completed Inject 10 unit subcutaneously every night 06/26 - 11/16 Ava Aravindjohannaglia MACHINE DESIGNER #15, 150 days supply, Prescribed by NATALIA ARAUJO, Filled 04/27/2020 citalopram 20 mg tablet completed Take 1 tablet by mouth once a day 06/06 - 11/16 Avaelyse Wallace [facility] Lyrica 150 mg capsule active Take 1 tablet by mouth once a day 06/06 Rochelle Carrasco ezetimibe 10 mg tablet completed Take 1 tablet by mouth once a day 06/06 - 11/16 [facility] potassium chloride 10 mEq tablet,ER particles/crystals completed Take 1 tablet by mouth once a day 06/06 - 12/26 Dexter Chavez MD levothyroxine 50 mcg tablet completed Take 1 tablet by mouth once a day 06/06 - 11/16 Ava Aravindndglkrystle [facility] fenofibrate nanocrystallized 145 mg tablet completed Take 1 tablet by mouth once a day 06/06 - 11/16 [facility] lisinopril 20 mg tablet completed Take 1 tablet by mouth once a day 06/06 - 11/16 [facility] clopidogrel 75 mg tablet completed Take 1 tablet by mouth once a day 06/06 - 07/07 Rochelle Carrasco atenolol 50 mg tablet completed Take 1 tablet by mouth once a day 06/06 - 11/16 [facility] metoclopramide HCl 10 mg tablet completed Take 1 tablet by mouth twice a day 06/06 - 11/16 [facility] amlodipine 10 mg tablet completed Take 1 tablet by mouth once a day 06/06 - 11/16 [facility] glimepiride 4 mg tablet completed Take 1 tablet by mouth twice a day 06/06 - 11/16 [facility] hydrochlorothiazide 25 mg tablet completed Take 1 tablet by mouth once a day 06/06 - 11/16 [facility] aspirin 81 mg tablet,chewable completed Take 1 tablet by mouth once a day 06/06 - 07/07 Rochelle Carrasco buspirone 15 mg tablet completed Take 1 tablet by mouth twice a day 06/06 - 11/16 Ava MATRINEZ simvastatin 40 mg tablet completed Take 1 tablet by mouth once a day 06/06 - 11/16 Ava MARTINEZ SOCIAL HISTORY Date Observation Value Provider personal history of marijuana use no José Brian MD drug use no José Brian MD alcohol use no José Brian MD smoking/tobacco cess ation, patient education and counseling yes José Brian MD number of years as a smoker 40 a José Brian MD smoking history, tot al pack/day 1 PPD José Brian MD cigarette use yes José Loredo smoking status Current every da y smoker José Brian MD personal history of marijuana use no José Brian MD drug use no José Brian MD alcohol use no José Brian MD smoking/tobacco cess ation, patient education and counseling yes José Brian MD number of years as a smoker 40 a José Brian MD smoking history, tot al pack/day 1 PPD José Brian MD cigarette use yes José Loredo smoking status Current every da y smoker José Brian MD personal history of marijuana use no Odette Prater NP drug use no Odette bello NP alcohol use no Odette bello NP smoking/tobacco cess ation, patient education and counseling yes Odette Prater NP number of years as a smoker 40 a Odette Josi ERADICATOR smoking history, tot al pack/day 1 PPD Odette Prater ERADICATOR cigarette use yes Odette Chano nicolas ERADICATOR smoking status Current every da y smoker Odette Josi ERADICATOR Exercise counseling Yes Odette Prater NP personal history of marijuana use no José Brian MD drug use no José Brian MD alcohol use no José Brian MD smoking/tobacco cess ation, patient education and counseling yes José Brian MD number of years as a smoker 40 a José Brian MD smoking history, tot al pack/day 1 PPD José Brian MD cigarette use yes José Lroedo smoking status Current every da y smoker José Brian MD personal history of marijuana use no Dexter Chavez MD drug use no Dexter Chavez MD alcohol use no Dexter Chavez MD smoking/tobacco cess ation, patient education and counseling yes Dexter Chavez MD number of years as a smoker 40 a Dexter Chavez MD smoking history, tot al pack/day 1 PPD Dexter Chavez MD cigarette use yes Dexter Chavez MD smoking status Current every da y smoker Dexter Chavez MD personal history of marijuana use no Ava Ventimiglia MACHINE DESIGNER drug use no Ava Ventimig beth MACHINE DESIGNER alcohol use no Ava Ventimig beth MACHINE DESIGNER smoking/tobacco cess ation, patient education and counseling yes Ava Ventimiglia MACHINE DESIGNER number of years as a smoker 40 a Ava Ventimiglia MACHINE DESIGNER smoking history, tot al pack/day 1 PPD Ava Ventimiglia [facility] cigarette use yes Ava Ventimi glia MACHINE DESIGNER smoking status Current every da y smoker Ava Ventimiglia [facility] personal history of marijuana use no José Brian MD drug use no José Brian MD alcohol use no José Brian MD smoking/tobacco cess ation, patient education and counseling yes José Brian MD number of years as a smoker 40 a José Brian MD smoking history, tot al pack/day 1 PPD José Brian MD cigarette use yes José Loredo smoking status Current every da y smoker José Brian MD personal history of marijuana use no Ava Ventimiglia [facility] drug use no Ava Ventimig beth [facility] alcohol use no Ava Ventimig beth [facility] smoking/tobacco cess ation, patient education and counseling yes Ava Ventimiglia [facility] number of years as a smoker 40 a Ava Ventimiglia [facility] smoking history, tot al pack/day 1 PPD Ava Ventimiglia [facility] cigarette use yes Ava Ventimi glia [facility] smoking status Current every da y smoker Avaelyse Nazariomiglia [facility] drug use no José Brian MD alcohol use no José Brian MD smoking/tobacco cess ation, patient education and counseling yes José Brian MD number of years as a smoker 40 a José Brian MD smoking history, tot al pack/day 1 PPD José Brian MD cigarette use yes José Loredo smoking status Current every da y smoker José Brian MD social history E&M Smoking Histo ry: P atient currently smokes every day. P atient has been counseled to quit. Ava Ventimiglia [facility] social history reviewed E&M revi ewed - no changes required Ava Ventimiglia [facility] drug use no Ava Ventimig beth [facility] alcohol use no Ava Ventimig beth [facility] cigarette use yes Ava Ventimi glia [facility] smoking status Current every da y smoker Ava Ventimiglia [facility] social history E&M S moking History: P atient currently smokes every day. P atient has been counseled to quit. José Brian MD social history reviewed E&M revi ewed - no changes required José Brian MD smoking/tobacco cess ation, patient education and counseling yes Kelsie Waverly number of years as a smoker 40 a Kelsie Waverly smoking history, tot al pack/day 1 PPD Kelsie Waverly cigarette use yes Kelsie Rubén smoking status Current every da y smoker Kelsie Rubén social history E&M S moking History: P atient currently smokes every day. P atient has been counseled to quit. José Brian MD social history reviewed E&M revi ewed - no changes required José Brian MD smoking/tobacco cess ation, patient education and counseling yes Holly Bonnie number of years as a smoker 40 a Holly Hayward smoking history, tot al pack/day 1 PPD Holly Hayward cigarette use yes Holly Hayward smoking status Current every da y smoker Holly Bonnie drug use no José Brian MD alcohol use no José Brian MD social history E&M S moking History: P atient currently smokes every day. P atient has been counseled to quit. José Brian MD social history reviewed E&M revi ewed - no changes required José Brian MD smoking/tobacco cess ation, patient education and counseling yes Holly Shirleyby number of years as a smoker 40 a Holly Nciole smoking history, tot al pack/day 1 PPD Holly Nicole cigarette use yes Holly Shirleyby smoking status Current every da y smoker Holly Nicole drug use no José Brian MD alcohol use no José Brian MD social history E&M S moking History: P atient currently smokes every day. P atient has been counseled to quit. José Brian MD social history reviewed E&M revi ewed - no changes required José Brian MD smoking/tobacco cess ation, patient education and counseling yes Rochelle Carrasco number of years as a smoker 40 a Rochelle Danilo smoking history, tot al pack/day 1 PPD Rochelle Carrasco cigarette use yes Rochelle cagle smoking status Current every da y smoker Rochelle Danilo social history E&M S moking History: P atient currently smokes every day. P atient has been counseled to quit. Bandar Dukes social history reviewed E&M revi ewed - no changes required Bandar Dukes smoking/tobacco cess ation, patient education and counseling yes Rochelle Carrasco number of years as a smoker 40 a Rochelle Danilo smoking history, tot al pack/day 1 PPD Rochelle Danilo cigarette use yes Rochelle cagle smoking status Current every da y smoker Rochelle Carrasco social history E&M S moking History: P atient currently smokes every day. P atient has been counseled to quit. José Brian MD social history reviewed E&M revi ewed - no changes required José Brian MD smoking/tobacco cess ation, patient education and counseling [facility], [facility]day [facility] smoking status Current every da y smoker Beverly Dubon number of grandchildren José Brian MD U ajit Brian MD drug use no José Brian MD alcohol use no José Brian MD social history E&M S moking History: P atient currently smokes every day. P atient has been counseled to quit. José Brian MD social history reviewed E&M revi ewed - no changes required José Brian MD smoking/tobacco cess ation, patient education and counseling yes José Brian MD number of years as a smoker 40 a Rochelle Carrasco smoking history, tot al pack/day 1 PPD Rochlele Carrasco cigarette use yes Rochelle cagle smoking status Current every da y smoker Rochelle Danilo FUNCTIONAL STATUS Date Observation Value Provider HRA, CV Assess/Plan, Angina (inactive) Management Plan continue current therapy José Brian MD HRA, CV Assess/Plan, Angina (inactive) Management Plan continue current therapy José Brian MD HRA, CV Assess/Plan, Angina (inactive) Management Plan continue current therapy Odette Prater NP HRA, CV Assess/Plan, Angina (inactive) Management Plan continue current therapy Dexter Chavez MD HRA, CV Assess/Plan, Angina (inactive) Management Plan continue current therapy Ava Rodrigo [facility] HRA, CV Assess/Plan, Angina (inactive) Management Plan continue current therapy José Brian MD HRA, CV Assess/Plan, Angina (inactive) Management Plan continue current therapy Ava Rodrigo [facility] HRA, CV Assess/Plan, Angina (inactive) Management Plan continue current therapy Avaelyse Wallace [facility] HRA, CV Assess/Plan, Angina (inactive) Management Plan continue current therapy Avaelyse Wallace [facility] HRA, CV Assess/Plan, Angina (inactive) Management Plan continue current therapy José Brian MD HRA, CV Assess/Plan, Angina (inactive) Management Plan continue current therapy José Brian MD HRA, CV Assess/Plan, Angina (inactive) Management Plan continue current therapy José Brian MD FAMILY HISTORY Family Member Condition Full Sister Family History of Di abetes: Uncle Family History of Di abetes: Father Family History of Di abetes: INSURANCE PROVIDERS Payer name Policy type / Coverage type [employer]us red republican ID [employer] [employer] [place] Medicare 3000 [id number] [place] Medicaid [id number] ADVANCE DIRECTIVES Name Date DISCUSSED - NO DECISION MADE TREATMENT PLAN Date Name Performer [id number],C,T he Patient was reencouraged to stop smoking. Avaelyse Nazariomiglia [facility] [id number],C,r ate controlled o n eliquis Ava Aravindmiglia [facility] [id number],C,T he patient is using CPAP on a regular basis. The patient has been benefiting from therapy and should continue use. Avaelyse Nazariomiglia [facility] [id number],C,d id not take AM meds, will readdress next OV if elevated again will increase his losartan 25 mg to 50 mg B P today: 169/72 P rior BP: 142/60 (11/16/2022) Labs Reviewed: C reat: 1.25 (07/08/2019) C hol: 122 (07/08/2019) HDL: 37 (07/08/2019) His updated medication list for this problem includes: Furosemide 40 Mg Tablet (Furosemide) ..... Take 2 tablet by mouth once a day Losartan 25 Mg Tablet (Losartan) Aspirin 81 Mg Tablet,delayed Release (dr/ec) (Aspirin) ..... Take 1 tablet by mouth once a day Avaelyse Brownkrystle [facility] [id number],C,A ppears to be bettter compensaated but still has some fluid in bilateral LE given his heart failure and DM will begin Jardiance 10mg daily for volume mangaement [facility] [id number],C, T he following medications were removed from the medication list: Lisinopril 20 Mg Tablet (Lisinopril) ..... Take 1 tablet by mouth once a day Amlodipine 10 Mg Tablet (Amlodipine) ..... Take 1 tablet by mouth once a day Atenolol 50 Mg Tablet (Atenolol) ..... Take 1 tablet by mouth once a day His updated medication list for this problem includes: Aspirin 81 Mg Tablet,delayed Release (dr/ec) (Aspirin) ..... Take 1 tablet by mouth once a day [facility] [id number],C,c ontrolled T he following medications were removed from the medication list: Lisinopril 20 Mg Tablet (Lisinopril) ..... Take 1 tablet by mouth once a day Amlodipine 10 Mg Tablet (Amlodipine) ..... Take 1 tablet by mouth once a day Atenolol 50 Mg Tablet (Atenolol) ..... Take 1 tablet by mouth once a day Hydrochlorothiazide 25 Mg Tablet (Hydrochlorothiazide) ..... Take 1 tablet by mouth once a day His updated medication list for this problem includes: Furosemide 40 Mg Tablet (Furosemide) Losartan 25 Mg Tablet (Losartan) Aspirin 81 Mg Tablet,delayed Release (dr/ec) (Aspirin) ..... Take 1 tablet by mouth once a day [facility] [id number],C, T he following medications were removed from the medication list: Lisinopril 20 Mg Tablet (Lisinopril) ..... Take 1 tablet by mouth once a day Levemir Flextouch U100 Insulin 100 Unit/ml (3 Ml) Insulin Pen (Insulin detemir u-100) ..... Inject 10 unit subcutaneously every night Glimepiride 4 Mg Tablet (Glimepiride) ..... Take 1 tablet by mouth twice a day & #13;His updated medication list for this problem includes: Lantus Solostar U-100 Insulin 100 Unit/ml (3 Ml) Insulin Pen (Insulin glargine) Losartan 25 Mg Tablet (Losartan) Aspirin 81 Mg Tablet,delayed Release (dr/ec) (Aspirin) ..... Take 1 tablet by mouth once a day Januvia 100 Mg Tablet (Sitagliptin) ..... Take 1 tablet by mouth once daily [facility] [id number],C, T he following medications were removed from the medication list: Simvastatin 40 Mg Tablet (Simvastatin) ..... Take 1 tablet by mouth once a day Fenofibrate Nanocrystallized 145 Mg Tablet (Fenofibrate nanocrystallized) ..... Take 1 tablet by mouth once a day Ezetimibe 10 Mg Tablet (Ezetimibe) ..... 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 Carotids with <50% stenosis bilaterally at that time. continue statin [facility] [id number],C,p aroxysmal. 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 Currently in SR. Will admit for further evaluation. On eliqus for AC T he following medications were removed from the medication list: Atenolol 50 Mg Tablet (Atenolol) ..... Take 1 tablet by mouth once a day His updated medication list for this problem includes: Aspirin 81 Mg Tablet,delayed Release (dr/ec) (Aspirin) ..... Take 1 tablet by mouth once a day Ava Wallace [facility] [id number],C,a cute/chronic diastolic HF. recent echo 07/27 at [facility] showed EF of 65% with LVH, grade 1 diastolic dysfunction, LAE, mod-severe pulm HTN. He is volume overloaded at this time and not responding to oral diuretic therapy. will admit for IV diuresis and further evaluation T he following medications were removed from the medication list: Lisinopril 20 Mg Tablet (Lisinopril) ..... Take 1 tablet by mouth once a day Amlodipine 10 Mg Tablet (Amlodipine) ..... Take 1 tablet by mouth once a day Atenolol 50 Mg Tablet (Atenolol) ..... Take 1 tablet by mouth once a day Hydrochlorothiazide 25 Mg Tablet (Hydrochlorothiazide) ..... Take 1 tablet by mouth once a day His updated medication list for this problem includes: Furosemide 40 Mg Tablet (Furosemide) Losartan 25 Mg Tablet (Losartan) Aspirin 81 Mg Tablet,delayed Release (dr/ec) (Aspirin) ..... Take 1 tablet by mouth once a day Avaelyse Wallace [facility] [id number],C, H is updated medication list for this problem includes: Simvastatin 40 Mg Tablet (Simvastatin) ..... Take 1 tablet by mouth once a day Fenofibrate Nanocrystallized 145 Mg Tablet (Fenofibrate nanocrystallized) ..... Take 1 tablet by mouth once a day Ezetimibe 10 Mg Tablet (Ezetimibe) ..... Take 1 tablet by mouth once a day José Brian MD [id number],S, T he Patient was reencouraged to stop smoking. José Brian MD [id number],S, B P today: 144/73 P rior BP: 172/81 (02/10/2021) Labs Reviewed: C reat: 1.25 (07/08/2019) C hol: 122 (07/08/2019) HDL: 37 (07/08/2019) His updated medication list for this problem includes: Hydrochlorothiazide 25 Mg Tablet (Hydrochlorothiazide) ..... Take 1 tablet by mouth once a day Lisinopril 20 Mg Tablet (Lisinopril) ..... Take 1 tablet by mouth once a day Amlodipine 10 Mg Tablet (Amlodipine) ..... Take 1 tablet by mouth once a day Atenolol 50 Mg Tablet (Atenolol) ..... Take 1 tablet by mouth once a day Aspirin 81 Mg Tablet,chewable (Aspirin) ..... Take 1 tablet by mouth once a day José Brian MD [id number],W,H is BP is elevated today. We will recheck his BP in 1 month. BP today: 172/81 P rior BP: 142/80 (08/06/2020) His updated medication list for this problem includes: Hydrochlorothiazide 25 Mg Tablet (Hydrochlorothiazide) ..... Take 1 tablet by mouth once a day Lisinopril 20 Mg Tablet (Lisinopril) ..... Take 1 tablet by mouth once a day Amlodipine 10 Mg Tablet (Amlodipine) ..... Take 1 tablet by mouth once a day Atenolol 50 Mg Tablet (Atenolol) ..... Take 1 tablet by mouth once a day Aspirin 81 Mg Tablet,chewable (Aspirin) ..... Take 1 tablet by mouth once a day José Brian MD [id number],S, T he Patient was reencouraged to stop smoking. José Brian MD [id number],S, 1 07/2019 ANDRE revealed arterial diease R>L. Patient is having hip pain, description is more arthritic. José Brian MD [id number],S, H as shortness of breath that comes and goes. Continue medical therapy R egadenoson 05/19/2020 demonstrated normal perfusion José Brian MD [id number],S, N eeds better sugar management. Advised him to cut sugary drinks out of his diet. We will start him on ozempic. José Brian MD Cardiology:per pcp José Brian MD Cardiology:The patie nt is using CPAP on a regular basis. The patient has been benefiting from therapy and should continue use. José Brian MD Cardiology: H is updated medication list for this problem includes: Sotalol 80 Mg Tablet (Sotalol) ..... Take 1/2 tablet by mouth twice a day Bumetanide 2 Mg Tablet (Bumetanide) ..... Take 1 tablet by mouth once a day BP today: 133/67 P rior BP: 100/49 (01/31/2024) Labs Reviewed: C reat: 1.25 (07/08/2019) C hol: 122 (07/08/2019) HDL: 37 (07/08/2019) LDL: 63 (07/08/2019) T (07/08/2019) José Brian MD Cardiology:appears c ompensated o n gdmt o n dianna H is updated medication list for this problem includes: Sotalol 80 Mg Tablet (Sotalol) ..... Take 1/2 tablet by mouth twice a day Bumetanide 2 Mg Tablet (Bumetanide) ..... Take 1 tablet by mouth once a day José Brian MD Cardiology:on eliquyaima chilel MD Cardiology:Ramakrishna Mora is a 58 y.o. male patient with severe PVD s/p RLE angiograms with [employer] and profunda balloon angioplasty and, more recently, right SFA DCB angioplasty for rest pain and right foot ulcers by cardiology. Complicated by left groin hematoma s/p evacuation by Dr. Segunod on 10/19/23, right iliofemoral endarterectomy with iliac stent angioplasty and right SFA stent angioplasty 02/15/2024 for tissue loss Continue medical therapy with a statin, asa and eliquis N o need for him to be taking plavix as he is having bleeding complications José Brian MD Cardiology: H is updated medication list for this problem includes: Atorvastatin 40 Mg Tablet (Atorvastatin) ..... Take 1 tablet by mouth daily every night José Brian MD Cardiology:On sotalo l, last monitor 01/09-01/16, showed mostly in sinus rhythm. T his visit has been a part of the consistent, comprehensive, and ongoing management of the chronic medical condition(s) listed above for the patient. José Brian MD Cardiology:Will be i ntervened by vascular surgeon 02/14 at [facility]. T his visit has been a part of the consistent, comprehensive, and ongoing management of the chronic medical condition(s) listed above for the patient. José Brian MD Cardiology:On CPAP José Brian MD EP- start sotalol 80 mg 1/2tab BID, stop metoprolol. SK:check ECHO. T he following medications were removed from the medication list: Metoprolol Tartrate 100 Mg Tablet (Metoprolol tartrate) ..... Take 1 tablet by mouth twice daily Metoprolol Tartrate 25 Mg Tablet (Metoprolol tartrate) ..... Take 1 tablet twice daily Losartan 25 Mg Tablet (Losartan) His updated medication list for this problem includes: Sotalol 80 Mg Tablet (Sotalol) ..... Take 1/2 tablet by mouth twice a day Bumetanide 2 Mg Tablet (Bumetanide) ..... Take 1 tablet by mouth once a day Clopidogrel 75 Mg Tablet (Clopidogrel) ..... Take 1 tablet by mouth every day Cheryl Stanford MD EP- start sotalol 80 mg 1/2tab BID, stop metoprolol. SK:hx of stent. no angina. stress test 2020 normal. no evidence of ischemia The following medications were removed from the medication list: Metoprolol Tartrate 100 Mg Tablet (Metoprolol tartrate) ..... Take 1 tablet by mouth twice daily Metoprolol Tartrate 25 Mg Tablet (Metoprolol tartrate) ..... Take 1 tablet twice daily H is updated medication list for this problem includes: Sotalol 80 Mg Tablet (Sotalol) ..... Take 1/2 tablet by mouth twice a day Clopidogrel 75 Mg Tablet (Clopidogrel) ..... Take 1 tablet by mouth every day Cheryl Stanford MD EP- start sotalol 80 mg 1/2tab BID, stop metoprolol. SK:s/p MARITZA/CV. EKG today appears sinus tach. Will start sotalol 80 mg half tab BID, stop metoprolol w ill check ECHO and 1 week telesentry His updated medication list for this problem includes: Clopidogrel 75 Mg Tablet (Clopidogrel) ..... Take 1 tablet by mouth every day eliquis 5mg BID T he following medications were removed from the medication list: Metoprolol Tartrate 100 Mg Tablet (Metoprolol tartrate) ..... Take 1 tablet by mouth twice daily Metoprolol Tartrate 25 Mg Tablet (Metoprolol tartrate) ..... Take 1 tablet twice daily His updated medication list for this problem includes: Sotalol 80 Mg Tablet (Sotalol) ..... Take 1/2 tablet by mouth twice a day Clopidogrel 75 Mg Tablet (Clopidogrel) ..... Take 1 tablet by mouth every day Cheryl Stanford MD EP- start sotalol 80 mg 1/2tab BID, stop metoprolol. SK:s/p MARITZA/CV. EKG today appears sinus tach. Will start sotalol 80 mg half tab BID, stop metoprolol w ill check ECHO and 1 week telesentry His updated medication list for this problem includes: Clopidogrel 75 Mg Tablet (Clopidogrel) ..... Take 1 tablet by mouth every day eliquis 5mg BID Fabio San EP- start sotalol 80 mg 1/2tab BID, stop metoprolol. SK:hx of stent. no angina. stress test 2019 normal. no evidence of ischemia Odette Prater NP EP- start sotalol 80 mg 1/2tab BID, stop metoprolol. SK:check ECHO. Odette Prater ERADICATOR EP- start sotalol 80 mg 1/2tab BID, stop metoprolol. SK: B P today: 124/80 P rior BP: 89/68 (01/03/2024) Labs Reviewed: C reat: 1.25 (07/08/2019) C hol: 122 (07/08/2019) HDL: 37 (07/08/2019) LDL: 63 (07/08/2019) T (07/08/2019) H is updated medication list for this problem includes: Bumetanide 2 Mg Tablet (Bumetanide) ..... Take 1 tablet by mouth once a day Losartan 50 Mg Tablet (Losartan) Metoprolol Tartrate 100 Mg Tablet (Metoprolol tartrate) ..... Take 1 tablet by mouth twice daily Odette Prater ERADICATOR Cardiology:The Patie nt was reencouraged to stop smoking. José Brian MD Cardiology: H is updated medication list for this problem includes: Atorvastatin 40 Mg Tablet (Atorvastatin) José Brian MD Cardiology José Brian MD Cardiology:per PCP José Brian MD Cardiology: H e has been on metoprolol and rate controlled W ill refer to EP to discuss other options o trupti andrade for AC His updated medication list for this problem includes: Metoprolol Tartrate 25 Mg Tablet (Metoprolol tartrate) ..... Take 1 tablet twice daily Clopidogrel 75 Mg Tablet (Clopidogrel) José Brian MD Cardiology:lost 19lb s in last 1 week A dvised him to stop metolazone 5mg and to reduce his bumex to 2mg once daily José Brian MD Cardiology: R emains SOB. Weight down a few lbs but still above dry weight. Continues on lasix since never received bumex from pharmacy. Start bumex today and add metolazone. Labs today. F/u with UQ in 1 week. Dexter Chavez MD Cardiology: C hest pain free. Dexter Chavez MD Cardiology Dexter Loredo Cardiology: H is updated medication list for this problem includes: Glimepiride 2 Mg Tablet (Glimepiride) Jardiance 10 Mg Tablet (Empagliflozin) ..... Take 1 tablet by mouth once a day Lantus Solostar U-100 Insulin 100 Unit/ml (3 Ml) Insulin Pen (Insulin glargine) Losartan 25 Mg Tablet (Losartan) Januvia 100 Mg Tablet (Sitagliptin) ..... Take 1 tablet by mouth once daily [facility] Cardiology:continue meds T he following medications were removed from the medication list: Furosemide 40 Mg Tablet (Furosemide) ..... Take 2 tablet by mouth once a day His updated medication list for this problem includes: Bumetanide 2 Mg Tablet (Bumetanide) ..... Take 1 tablet by mouth twice a day Metoprolol Tartrate 25 Mg Tablet (Metoprolol tartrate) ..... Take 1 tablet twice daily Losartan 25 Mg Tablet (Losartan) [facility] Cardiology:follows with vascular surgery [facility] Cardiology:bipap for all sleep A [facility] Cardiology:He is s/p CV but went back into afib that evening at home. H e has been on metoprolol and rate controlled W ill refer to EP to discuss other options o n raymond for AC H is updated medication list for this problem includes: Metoprolol Tartrate 25 Mg Tablet (Metoprolol tartrate) ..... Take 1 tablet twice daily Clopidogrel 75 Mg Tablet (Clopidogrel) [facility] Cardiology:patient h as acute CHF with SOB and weight gain of 17lbs. Have recommended that patient admit to hospital for diuresis and rate management of his atrial fibrillation. patient has declined. Will changed to bumex 2 mg PO BID. He will be placed on furosicx 80mg dose today prior to leaving office and start bumex increase tomorrow. He will return in one week or sooner if needed. If worsening SOB will need to admit to ER. T he following medications were removed from the medication list: Furosemide 40 Mg Tablet (Furosemide) ..... Take 2 tablet by mouth once a day His updated medication list for this problem includes: Bumetanide 2 Mg Tablet (Bumetanide) ..... Take 1 tablet by mouth twice a day Metoprolol Tartrate 25 Mg Tablet (Metoprolol tartrate) ..... 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 s kaykay / ppd José Brian MD Cardiology:per PCP H is updated medication list for this problem includes: Glimepiride 2 Mg Tablet (Glimepiride) Jardiance 10 Mg Tablet (Empagliflozin) ..... Take 1 tablet by mouth once a day Lantus Solostar U-100 Insulin 100 Unit/ml (3 Ml) Insulin Pen (Insulin glargine) Losartan 25 Mg Tablet (Losartan) Januvia 100 Mg Tablet (Sitagliptin) ..... Take 1 tablet by mouth once daily José Brian MD Cardiology José Brian MD Cardiology:ON Apixab an for AC A rrange for cardioversion as previous concerns have resolved regarding CHF H is updated medication list for this problem includes: Clopidogrel 75 Mg Tablet (Clopidogrel) José Brian MD Cardiology: H is updated medication list for this problem includes: Bumetanide 2 Mg Tablet (Bumetanide) ..... Take 1 tablet by mouth once a day Furosemide 40 Mg Tablet (Furosemide) ..... Take 2 tablet by mouth once a day Losartan 25 Mg Tablet (Losartan) BP today: 125/71 P rior BP: 97/69 (11/01/2023) Labs Reviewed: C reat: 1.25 (07/08/2019) C hol: 122 (07/08/2019) HDL: 37 (07/08/2019) LDL: 63 (07/08/2019) T (07/08/2019) T his visit has been a part of the consistent, comprehensive, and ongoing management of the chronic medical condition(s) listed above for the patient. José Brian MD Cardiology:Stable. Continue medi shelby therapy. José Brian MD Cardiology:appears compensated U ajit Brian MD Cardiology:Needs to follow up wi th vascular surgery José Brian MD Cardiology: T he following medications were removed from the medication list: Aspirin 81 Mg Tablet,delayed Release (dr/ec) (Aspirin) ..... Take 1 tablet by mouth once a day His updated medication list for this problem includes: Bumetanide 2 Mg Tablet (Bumetanide) ..... Take 1 tablet by mouth once a day Furosemide 40 Mg Tablet (Furosemide) ..... Take 2 tablet by mouth once a day Losartan 25 Mg Tablet (Losartan) [facility] Cardiology:cessation encouraged [facility] Cardiology:bipap for all sleep A [facility] Cardiology: H is updated medication list for this problem includes: Atorvastatin 40 Mg Tablet (Atorvastatin) [facility] Cardiology:He was pl anned for follow up MARITZA/CV prior emergent work needed on LE r ate somewhat uncontrolled W ill need MARITZA/CV timing will be dependent on surgical plan for drain removal in the left groin [facility] Cardiology:s/p AIF i ntervention to the rt and lt LE (still needs vascular surgery eval at [facility] for LLE) w ound healing to the rt 5th digit continues in wound care r emains on eliquis W ill update ANDRE [facility] Cardiology: H is updated medication list for this problem includes: Bumetanide 2 Mg Tablet (Bumetanide) ..... Take 1 tablet by mouth once a day Furosemide 40 Mg Tablet (Furosemide) ..... Take 2 tablet by mouth once a day Losartan 25 Mg Tablet (Losartan) Aspirin 81 Mg Tablet,delayed Release (dr/ec) (Aspirin) ..... Take 1 tablet by mouth once a day BP today: 119/70 Prior BP: 169/72 (12/25/2022) Labs Reviewed: C reat: 1.25 (07/08/2019) C hol: 122 (07/08/2019) HDL: 37 (07/08/2019) LDL: 63 (07/08/2019) T (07/08/2019) José Brian MD Cardiology:Stable. Continue medi shelby therapy. José Brian MD Cardiology: H is updated medication list for this problem includes: Atorvastatin 40 Mg Tablet (Atorvastatin) José Brian MD Cardiology: r ate controlled o trupti Brian MD Cardiology:Appears c ompensated R educe bumex to 2mg once daily F ollow in 1 week with blood work José Brian MD Cardiology:The Ranjeet nt was reencouraged to stop smoking. Avaelyse Wallace [facility] Cardiology:rate cont rolled o [facility]i [facility] Cardiology:The ranjeet nt is using CPAP on a regular basis. The patient has been benefiting from therapy and should continue use. [facility] Cardiology:did not t remigio AM meds, will readdress next OV if elevated again will increase his losartan 25 mg to 50 mg B P today: 169/72 P rior BP: 142/60 (11/16/2022) Labs Reviewed: C reat: 1.25 (07/08/2019) C hol: 122 (07/08/2019) HDL: 37 (07/08/2019) His updated medication list for this problem includes: Furosemide 40 Mg Tablet (Furosemide) ..... Take 2 tablet by mouth once a day Losartan 25 Mg Tablet (Losartan) Aspirin 81 Mg Tablet,delayed Release (dr/ec) (Aspirin) ..... Take 1 tablet by mouth once a day Ava Wallace [facility] Cardiology:Appears t o be bettter compensaated but still has some fluid in bilateral LE given his heart failure and DM will begin Jardiance 10mg daily for volume mangaement [facility] Cardiology: T he following medications were removed from the medication list: Lisinopril 20 Mg Tablet (Lisinopril) ..... Take 1 tablet by mouth once a day Amlodipine 10 Mg Tablet (Amlodipine) ..... Take 1 tablet by mouth once a day Atenolol 50 Mg Tablet (Atenolol) ..... Take 1 tablet by mouth once a day His updated medication list for this problem includes: Aspirin 81 Mg Tablet,delayed Release (dr/ec) (Aspirin) ..... Take 1 tablet by mouth once a day [facility] Cardiology:controlle d T he following medications were removed from the medication list: Lisinopril 20 Mg Tablet (Lisinopril) ..... Take 1 tablet by mouth once a day Amlodipine 10 Mg Tablet (Amlodipine) ..... Take 1 tablet by mouth once a day Atenolol 50 Mg Tablet (Atenolol) ..... Take 1 tablet by mouth once a day Hydrochlorothiazide 25 Mg Tablet (Hydrochlorothiazide) ..... Take 1 tablet by mouth once a day His updated medication list for this problem includes: Furosemide 40 Mg Tablet (Furosemide) Losartan 25 Mg Tablet (Losartan) Aspirin 81 Mg Tablet,delayed Release (dr/ec) (Aspirin) ..... Take 1 tablet by mouth once a day [facility] Cardiology: T he following medications were removed from the medication list: Lisinopril 20 Mg Tablet (Lisinopril) ..... Take 1 tablet by mouth once a day Levemir Flextouch U100 Insulin 100 Unit/ml (3 Ml) Insulin Pen (Insulin detemir u-100) ..... Inject 10 unit subcutaneously every night Glimepiride 4 Mg Tablet (Glimepiride) ..... Take 1 tablet by mouth twice a day His updated medication list for this problem includes: Lantus Solostar U-100 Insulin 100 Unit/ml (3 Ml) Insulin Pen (Insulin glargine) Losartan 25 Mg Tablet (Losartan) Aspirin 81 Mg Tablet,delayed Release (dr/ec) (Aspirin) ..... Take 1 tablet by mouth once a day Januvia 100 Mg Tablet (Sitagliptin) ..... Take 1 tablet by mouth once daily [facility] Cardiology: T he following medications were removed from the medication list: Simvastatin 40 Mg Tablet (Simvastatin) ..... Take 1 tablet by mouth once a day Fenofibrate Nanocrystallized 145 Mg Tablet (Fenofibrate nanocrystallized) ..... Take 1 tablet by mouth once a day Ezetimibe 10 Mg Tablet (Ezetimibe) ..... 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 Carotids with <50% stenosis bilaterally at that time. continue statin [facility] Cardiology:paroxysma l. 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 Currently in SR. Will admit for further evaluation. On eliqus for AC T he following medications were removed from the medication list: Atenolol 50 Mg Tablet (Atenolol) ..... Take 1 tablet by mouth once a day His updated medication list for this problem includes: Aspirin 81 Mg Tablet,delayed Release (dr/ec) (Aspirin) ..... Take 1 tablet by mouth once a day [facility] Cardiology:acute/chr onic diastolic HF. recent echo 07/27 at [facility] showed EF of 65% with LVH, grade 1 diastolic dysfunction, LAE, mod-severe pulm HTN. He is volume overloaded at this time and not responding to oral diuretic therapy. will admit for IV diuresis and further evaluation T he following medications were removed from the medication list: Lisinopril 20 Mg Tablet (Lisinopril) ..... Take 1 tablet by mouth once a day Amlodipine 10 Mg Tablet (Amlodipine) ..... Take 1 tablet by mouth once a day Atenolol 50 Mg Tablet (Atenolol) ..... Take 1 tablet by mouth once a day Hydrochlorothiazide 25 Mg Tablet (Hydrochlorothiazide) ..... Take 1 tablet by mouth once a day His updated medication list for this problem includes: Furosemide 40 Mg Tablet (Furosemide) Losartan 25 Mg Tablet (Losartan) Aspirin 81 Mg Tablet,delayed Release (dr/ec) (Aspirin) ..... Take 1 tablet by mouth once a day Ava [facility] Cardiology: H is updated medication list for this problem includes: Simvastatin 40 Mg Tablet (Simvastatin) ..... Take 1 tablet by mouth once a day Fenofibrate Nanocrystallized 145 Mg Tablet (Fenofibrate nanocrystallized) ..... Take 1 tablet by mouth once a day Ezetimibe 10 Mg Tablet (Ezetimibe) ..... Take 1 tablet by mouth once a day José Brian MD Cardiology: T he Patient was reencouraged to stop smoking. José Brian MD Cardiology: B P today: 144/73 P rior BP: 172/81 (02/10/2021) Labs Reviewed: C reat: 1.25 (07/08/2019) C hol: 122 (07/08/2019) HDL: 37 (07/08/2019) His updated medication list for this problem includes: Hydrochlorothiazide 25 Mg Tablet (Hydrochlorothiazide) ..... Take 1 tablet by mouth once a day Lisinopril 20 Mg Tablet (Lisinopril) ..... Take 1 tablet by mouth once a day Amlodipine 10 Mg Tablet (Amlodipine) ..... Take 1 tablet by mouth once a day Atenolol 50 Mg Tablet (Atenolol) ..... Take 1 tablet by mouth once a day Aspirin 81 Mg Tablet,chewable (Aspirin) ..... Take 1 tablet by mouth once a day José Brian MD Cardiology:His BP is elevated today. We will recheck his BP in 1 month. BP today: 172/81 P rior BP: 142/80 (08/06/2020) His updated medication list for this problem includes: Hydrochlorothiazide 25 Mg Tablet (Hydrochlorothiazide) ..... Take 1 tablet by mouth once a day Lisinopril 20 Mg Tablet (Lisinopril) ..... Take 1 tablet by mouth once a day Amlodipine 10 Mg Tablet (Amlodipine) ..... Take 1 tablet by mouth once a day Atenolol 50 Mg Tablet (Atenolol) ..... Take 1 tablet by mouth once a day Aspirin 81 Mg Tablet,chewable (Aspirin) ..... Take 1 tablet by mouth once a day José Brian MD Cardiology: T he Patient was reencouraged to stop smoking. 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 Patient is having hip pain, description is more arthritic. José Brian MD Cardiology: H as shortness of breath that comes and goes. Continue medical therapy R egadenoson 05/19/2020 demonstrated normal perfusion José Brian MD Cardiology: N eeds better sugar management. Advised him to cut sugary drinks out of his diet. We will start him on ozempic. José Brian MD Cardiology:The Patie nt was reencouraged to stop smoking. José Brian MD Cardiology: B P today: 142/80 P rior BP: 142/78 (05/07/2020) Labs Reviewed: C reat: 1.25 (07/08/2019) C hol: 122 (07/08/2019) HDL: 37 (07/08/2019) His updated medication list for this problem includes: Lisinopril 20 Mg Oral Tablet (Lisinopril) ..... Take 1 tab once daily Atenolol 50 Mg Oral Tablet (Atenolol) ..... Take 1 tab daily Amlodipine Besylate 10 Mg Oral Tablet (Amlodipine besylate) ..... Take 1 tab daily Hydrochlorothiazide 25 Mg Oral Tablet (Hydrochlorothiazide) ..... Take 1 tab daily Aspirin Adult Low Strength 81 Mg Oral Tablet Chewable (Aspirin) ..... Take 1 tab daily José Brian MD Cardiology: H as shortness of breath that comes and goes. Continue medical therapy R egadenoson 05/19/2020 demonstrated normal perfusion José Brian MD Cardiology:05/2020 A BI revealed arterial diease R>L. Patient is having hip pain, description is more arthritic. Will repeat ANDRE in 3 months with echo and f/u in 6months José Brian MD Cardiology follow up :Has upcomi ng MRI José Brian MD Cardiology follow up :Needs better sugar management. Advised him to cut sugary drinks out of his diet José Brian MD Cardiology follow up :Has shortness of breath that comes and goes. Will obtain regadenoson. Patient needs to stop smoking. W ill continue medical therapy. José Brian MD Cardiology follow up :Has stent to L TAWANDA. Appears stable at present. He does continue to have back pain and hip pain. Will repeat ANDRE with exercise José Brian MD [facility] follow up :Per PCP. States that his HgA1c was lower the last time he saw his PCP. His updated medication list for this problem includes: Lisinopril 20 Mg Oral Tablet (Lisinopril) ..... Take 1 tab once daily Glimepiride 4 Mg Oral Tablet (Glimepiride) ..... Take 1 tab twice a day Aspirin Adult Low Strength 81 Mg Oral Tablet Chewable (Aspirin) ..... Take 1 tab daily [facility] follow up : B P today: 119/68 P rior BP: 160/90 (06/26/2019) Labs Reviewed: C reat: 1.25 (07/08/2019) C hol: 122 (07/08/2019) HDL: 37 (07/08/2019) [facility] follow up :The Patient was reencouraged to stop smoking. [facility] follow up :Appears to be stable. Continue medical therapy. [facility] follow up :s/p L common iliac stent. Notes that his pain has improved. Continue ASA/Plavix for one more month, and then continue on ASA 325 after that. Will repeat his ANDRE in three months. [facility] Cardiology:Appears t o be stable. Continue medical therapy. José Brian MD Cardiology:Per PCP. Have discussed the benefit of a low carb or keto diet. José Brian MD Cardiology: B P today: 160/90 P rior BP: 140/74 (06/06/2019) Labs Reviewed: C reat: 1.35 (06/07/2019) José Brian MD Cardiology:ANDRE suggestive of mild to moderate disease b/l. Will set him up for an AIF. José Brian MD Cardiology:The Patie nt was reencouraged to stop smoking. José Brian MD Cardiology New Patie nt :Per PCP. Will check blood work including an insulin level. José Brian MD Cardiology New Patie nt : B P today: 140/74 José Brian MD Cardiology New Patient :Will trudi ck an echo José Brian MD Cardiology New Patie nt :Absent pedal and femoral pulses. Will check an ANDRE. José Brian MD Cardiology New Patie nt :The Patient was reencouraged to stop smoking. José Brian MD Date Name DLCO - 15805 FRC - [id number] FVC - [id number] Complete Echo Monitor - Telemetry (Mobile Cardiac) COMPREHENSIVE METABO LIC PANEL, W/EGFR PROBNP, N TERMINAL PROBNP, N TERMINAL BASIC METABOLIC PANE L W/EGFR MAGNESIUM PROTHROMBIN TIME WIT H INR BASIC METABOLIC PANE L W/EGFR Arterial Duplex Bi-L ower EX PROBNP, N TERMINAL BASIC METABOLIC PANE L W/EGFR Arterial Duplex Bi-L ower EX PROTHROMBIN TIME WIT H INR LIPID PANEL CBC (INCLUDES DIFF/P LT) BASIC METABOLIC PANE L W/EGFR AIF Intervention - S LHV Arterial Duplex Bi-L ower EX HEMOGLOBIN A1c LIPID PANEL COMPREHENSIVE METABO LIC PANEL, W/EGFR Arterial Duplex Bi-L ower EX Complete Echo Arterial Duplex Bi-L ower EX Stress Regadenoson Arterial Duplex Bi-L ower EX PROTHROMBIN TIME WIT H INR LIPID PANEL CBC (INCLUDES DIFF/P LT) BASIC METABOLIC PANE L W/EGFR AIF Diagnostic - GC Complete Echo Free and Total Insul in COMPREHENSIVE METABO LIC PANEL, W/EGFR Arterial Duplex Bi-L ower EX Preop clearance, phn /internet/emr >5min HISTORY OF PROCEDURES Procedure Date Procedure Name Provider Procedure Notes S tatus Complex e/m visit ad d on José Brian MD completed EKG Cheryl Stanford MD comp leted Complex e/m visit ad d on José Brian MD completed EKG Dexter Chavez MD complet ed EKG José Brian MD completed Complex e/m visit ad d on José Brian MD completed EKG José Brian MD completed EKG José Brian MD completed EKG José Brian MD completed GABE Brian MD completed EKG Nimisha Aguilar MD compl eted GABE Brian MD completed
--- OUTSIDE RECORDS SUMMARY | 2024-07-10 16:01 | XMS_ITS | Referral Summary ---
Author Organization [facility] [address] Address [address] [place] [address] Care Team Providers Care Asbestos Removal Supervisor Name Role Phone José Brian MD Unavailable Rohit Segundo MD Unavailable [phone] Krys Benson SENIOR SCIENCE CONSULTANT Primary Care Provider Encounters Date Type Department Care Team Description 06/30/2024 Telephone [facility] Pulmonary at [address] [place] [phone] Nyla Brandt LPN NIV 06/27/2024 Orders Only [facility] Pulmonary at [address] [place] [phone] Belen Castaneda NP Chronic hypercapnic respiratory failure (CMS/HCC) (HCC) (Primary Dx) 06/26/2024 Telephone [facility] Pulmonary at [address] [place] [phone] Jessica Carrasco LPN BIPAP co 06/26/2024 11:00 AM TYPE INSPECTOR Office Visit [facility] Pulmonary at [address] [place] [phone] Belen Castaneda NP Centrilobular emphysema (HCC) (Primary Dx); Chronic hypercapnic respiratory failure (CMS/HCC) (HCC); Multiple nodules of lung; Cigarette nicotine dependence without complication 06/24/2024 7:15 PM TYPE INSPECTOR - 06/24/2024 11:59 PM TYPE INSPECTOR Hospital Encounter [facility] [address] [place] [address] Chronic hypercapnic respiratory failure (CMS/HCC) (HCC) Discharge Disposition: Discharge to home or self care 06/24/2024 3:46 PM TYPE INSPECTOR - 06/24/2024 11:59 PM TYPE INSPECTOR Hospital Encounter [facility] [address] [place] [address] Discharge Disposition: Discharge to home or self care from Last 3 Months Allergies Active Allergy Reactions Criticality Noted Date Comments Codeine Itching Low 09/28/2023 Medications calcitRIOL (ROCALTROL) 0.25 mcg capsule Take 1 capsule (0.25 mcg total) by mouth every morning 08/31/19 24 Active atorvastatin (LIPITOR) 40 mg tabletIndication s:hyperlipidemia Take 1 tablet (40 mg total) by mouth every morning Active dapagliflozin propanediol (FARXIGA) 10 mg tabletIndication s:Heart Failure,type 2 diabetes mellitus Take 1 tablet (10 mg total) by mouth every morning Active famotidine (PEPCID) 20 mg tabletIndication s:Heartburn,everardo roesophageal reflux disease Take 1 tablet (20 mg total) by mouth 2 (two) times a day Active levothyroxine (SYNTHROID) 25 mcg tabletIndication s:hypothyroidism Take 1 tablet (25 mcg total) by mouth systems software specialist before breakfast Active pregabalin (LYRICA) 300 mg capsuleIndicatio ns:nerve pain Take 1 capsule (300 mg total) by mouth 2 (two) times a day Active SITagliptin phosphate (JANUVIA) 100 mg tabletIndication s:type 2 diabetes mellitus Take 1 tablet (100 mg total) by mouth every morning Active acetaminophen 500 mg capsule Take 2 capsules (1,000 mg total) by mouth every 6 (six) hours 10/25/19 24 Active senna-docusate (PERICOLACE) 8.6-50 mg Take 1 tablet by mouth daily 30 tablet 10/25/19 24 Active apixaban (ELIQUIS) 5 mg tabletIndication s:atrial fibrillation Take 1 tablet (5 mg total) by mouth every 12 (twelve) hours 10/25/19 24 Active magnesium oxide (MAG-OX) 400 mg (241.3 mg elemental magnesium) tablet Take 1 tablet (400 mg total) by mouth 2 (two) times a day 12/05/19 Active potassium chloride ER 20 mEq CR tablet Take 2 tablets (40 mEq total) by mouth every morning 12/27/19 Active bumetanide (BUMEX) 2 mg tabletIndication s:Edema,hyperten genie,chf Take 1 tablet (2 mg total) by mouth every morning 12/25/19 Active miscellaneous medical supply [facility] [place] oxygen 2 L NC prn . 4 L bleed in to BIPAP at night Active clopidogreL (PLAVIX) 75 mg tablet Take 1 tablet (75 mg total) by mouth daily 30 tablet 11 02/20/20 Active lidocaine (ASPERCREME) 4 % adhesive patch,medicated Place 1 patch on the skin daily 20 patch 02/20/20 Active Additional Information Patient not taking.Reported on 06/26/2024 tiZANidine (ZANAFLEX) 2 mg tablet Take 1 tablet (2 mg total) by mouth every 8 (eight) hours as needed for muscle spasms 30 tablet 02/20/20 Active Additional Information Patient not taking.Reported on 06/26/2024 nicotine (NICODERM CQ) [address] 1 patch on the skin daily 30 patch 02/20/20 Active Additional Information Patient not taking.Reported on 06/26/2024 aspirin 81 mg enteric coated tablet Take 1 tablet (81 mg total) by mouth daily 02/20/20 Active fluticasone-umec lidin-vilanter (Trelegy Ellipta) 100-62.5-25 mcg inhalerIndicatio ns:Bronchospasm Prevention with COPD Inhale 1 puff daily 30 each 03/06/20 24 Active albuterol HFA (PROVENTIL HFA,VENTOLIN HFA,PROAIR HFA) 90 mcg/actuation inhaler Inhale 2 puffs every 4 (four) hours as needed for shortness of breath or wheezing 1 each 03/06/20 Active HYDROcodone-acet aminophen (NORCO) 5-325 mg per tablet Take 1 tablet every 8 hours by oral route as needed for 30 days. Active traMADoL (ULTRAM) 50 mg tablet TAKE 1 TABLET BY MOUTH EVERY 6 HOURS NEEDED FOR 30 DAYS 01/23/2 025 Discontin ued(Alter susanna therapy) Active Problems Problem Noted Date Diagnosed Date Chronic bronchitis 06/26/2024 Multiple nodules of lung 06/26/2024 Assessment & Plan (06/26/2024 3:32 PM TYPE INSPECTOR): Most current CT demonstrated new pulmonary nodules and ground-glass opacities bilaterally We will plan to repeat CT in 6 months for monitoring Cigarette nicotine dependence without complicati on 06/26/2024 Assessment & Plan (06/26/2024 3:19 PM TYPE INSPECTOR): - Smoking cessation counseling and techniques reviewed at length - Avoid triggers and use distraction techniques - Participate in support groups - Information given regarding [place] [employer] Quit line: [id number] for free services - 4 minutes spent discussing cessation He will consider NRT and let us know if he requires a prescription Centrilobular emphysema 06/26/2024 Assessment & Plan (06/26/2024 3:31 PM TYPE INSPECTOR): Continue Trelegy Ellipta 100 daily Albuterol as needed only, we have discussed indications for use We have discussed signs and symptoms that would require earlier evaluation or change to his plan of care Chronic hypercapnic respiratory failure (CMS/HCC ) 06/25/2024 Assessment & Plan (06/26/2024 3:20 PM TYPE INSPECTOR): Continue BIPAP use Recent study revealed optimal settings of 17/8 with 1 liter side flow oxygen Order entered today, I will request a download for review in 30-60 days and consider ABG ABLA (acute blood loss anemia) 02/15/2024 Assessment & Plan (02/18/2024 6:28 AM CDT): EBL 1.6L with hgb drop from 11->10 - now stable. -daily CBC -transfuse for hgb <7 Groin hematoma 10/19/2023 Assessment & Plan (10/24/2023 6:18 AM CDT): admitted to the hospital 10/14 for right foot wound infection/critical limb ischemia. Patient taken by cardiology for bilateral lower extremity angiography with left CASE FITTER access. Patient became hypotensive with expanding left groin hematoma. Patient given 3u pRBC, protamine. CTA demonstrates left rectus sheath hematoma without arterial bleeding. Admitted to [facility] on 10/18 for hematoma evacuation. - Q4 NV checks - ancef x24h - ADAT - continue ASA/plavix - ok for DVT ppx - lower extremity arterial dopplers, bilateral lower extremity vein mapping - Repeat pseudo duplex: without psa - PT/OT: home with int assist - Plan for DC home with LIZETH drain, will engage for home health referrals Anxiety disorder 10/19/2023 Stage 3a chronic kidney disease 10/19/2023 Assessment & Plan (02/18/2024 6:31 AM CDT): Baseline creatinine 0.8-1.2. -daily BMP, renally dose meds -bumex restarted. CHF (congestive heart failure) ([facility]) 024 Assessment & Plan (02/15/2024 8:02 AM CDT): TRY OUT PERSON meds: losartan 50mg, farxiga 10mg, bumex 2mg, metolazone 5mg, spironolactone 100mg -holding losartan for now for normotension -hold bumex, metolazone and spironolactone for normotension. Will monitor fluid status and restart as needed -Q4 I/O Assessment & Plan (10/19/2023 8:53 AM CDT): Cannot find TTE in system. Takes losartan, bumex, metop, spironolactone at home -cont home meds as able -daily weights, Q4 I/O Dental abscess 10/19/2023 Assessment & Plan (10/24/2023 6:17 AM CDT): At [facility], noted multiple dental caries w/ abscess. Started on unasyn -OSH CT: Large dental caries and periapical lucency especially left hemimaxilla molars with buccal and apical cortical erosion, sinus tract, small abscess and inflammatory changes/cellulitis extending into the buccal space. - unasyn-> Augmentin - 10/22 OR with [facility] for Surgical removal of teeth # 14,15,16,17,18,27 - Augmentin x 7 days post-OMFS surgery, already scheduled - Mechanical soft for 3 days (starting 10/25, can have regular diet as tolerated - therapeutic heparin gtt without bolus resumed overnight. Atrial fibrillation ([facility]) 10/19/2023 Assessment & Plan (02/18/2024 6:28 AM CDT): On eliquis at home. TRY OUT PERSON eliquis, held 3 days prior to surgery -> bridged with lovenox -cont holding home eliquis. Large EBL during case so holding on heparin gtt for now -tele - Plan to restart Eliquis at discharge. Assessment & Plan (10/24/2023 6:15 AM CDT): Chronic, on metop and eliquis at home -cont metop -holding eliquis periop, resume at discharge Peripheral arterial occlusive disease ([facility]) 10/16/2023 PVD (peripheral vascular disease) 09/27/2023 Assessment & Plan (02/18/2024 8:30 AM CDT): S/p RLE angiogram with CASE FITTER/profunda balloon angioplasty R SFA DCF angioplasty -> c/b L groin hematoma s/p evacuation 10/19/23 -OR 02/13 for R fem endart, R CI/SFA stenting - Plan for prevena X 7 days. -dc OU, ok for Q4 NV checks -advance diet -on ASA TRY OUT PERSON, switch to plavix. -cont statin -pain control - Rt LE swelling and erythema: 02/16 duplex negative for DVT, unable to assess the femoral due to Prevena. 02/17: start cefazolin for possible cellulitis and monitor. Assessment & Plan (10/21/2023 4:42 PM CDT): Follows at [facility] for PVD. Has nonhealing ulcer of his right 5th toe and some heel issues. Underwent angio on 10/01 that showed subtotally occluded right common femoral artery mid SFA disease and some agqyn-yqm-lhsf disease so he proceeded with atherectomy and shockwave angioplasty of the right common femoral artery and right profunda. He was referred to Vascular surgery for his L common fem problems. He presented back to [facility] on 10/14 for ongoing foot wounds and c/f infection. Underwent repeat angio on 10/17 and subsequently developed groin hematoma and cold leg. Tx to [facility] - see groin hematoma -Q4 NV checks -cont ASA/plavix Hypothyroidism 04/19/2021 Assessment & Plan (02/15/2024 8:02 AM CDT): -Continue TRY OUT PERSON levothyroxine Assessment & Plan (10/19/2023 8:41 AM CDT): -cont home synthroid Type 2 diabetes mellitus without complication (C MS/HCC) 04/19/2021 Assessment & Plan (02/15/2024 8:09 AM CDT): TRY OUT PERSON farxiga 10mg, januvia 100mg -cont farxiga -hold januvia -SSI Assessment & Plan (10/21/2023 4:41 PM CDT): Unsure of A1c, takes amaryl, januvia and farxiga at home -hold home oral meds -start SSI -10/18 A1c 8.5 Essential hypertension 06/06/2019 Assessment & Plan (02/15/2024 8:11 AM CDT): Chronic. On bumex, spironolactone, metolazone and losartan at home -holding most of meds for notemsion -ok to restart bumex for now given swelling Assessment & Plan (10/19/2023 8:40 AM CDT): Takes losartan 50mg, metop XL 100mg, spironolactone 100mg at home -restart home meds as able -goal for normotension Resolved Problems Problem Noted Date Diagnosed Date Resolved Date Peripheral vascular disease 02/14/2024 02/15/2024 Acute lower limb ischemia 10/19/2023 PAD (peripheral artery disease) 10/02/2023 10/19/2023 Social History Tobacco Use Types Packs/Day Years Used Date Smoking Tobacco: Every Day Cigarettes 0.5 52.1 Started: 1972 Smokeless Tobacco: Never Tobacco Cessation:Ready to Q uit: Not Asked; Counseling Given: Not Answered [facility] Utilities Answer Date Recorded In the past 12 months has th e electric, gas, oil, or water company threatened to shut off services in your home? No 10/17/2023 Social Connection and Isolat ion Panel [NHANES] Answer Date Recorded In a typical week, how many times do you talk on the phone with family, friends, or neighbors? More than three times a week 10/17/2023 How often do you get togethe r with friends or relatives? More than three times a week 10/17/2023 How often do you attend chur ch or sikh services? Never 10/17/2023 Do you belong to any clubs o r organizations such as restorationism groups, unions, fraternal or athletic groups, or school groups? No 10/17/2023 How often do you attend meet ings of the clubs or organizations you belong to? Never 10/17/2023 Are you , , di vorced, , never , or living with a partner? 10/17/2023 AUDIT-C Answer Date Recorded Q1: How often do you have a drink containing alcohol? Never 02/14/2024 Q2: How many drinks containi ng alcohol do you have on a typical day when you are drinking? Patient does not drink Q3: How often do you have si x or more drinks on one occasion? Never 02/14/2024 Overall Financial Resource Strain (CARDIA) Answe r Date Recorded How hard is it for you to pa y for the very basics like food, housing, medical care, and heating? Not hard at all 10/17/2023 Hunger Vital Sign Answer Date Recorded Within the past 12 months, y ou worried that your food would run out before you got the money to buy more. Never true 10/17/19 24 Within the past 12 months, t he food you bought just didn't last and you didn't have money to get more. Never true 10/17/2023 PRAPARE - Transportation Answer Date Re corded In the past 12 months, has l ack of transportation kept you from medical appointments or from getting medications? No 10/02 In the past 12 months, has l ack of transportation kept you from meetings, work, or from getting things needed for daily living? No 10/17/2023 Housing Stability Vital Sign Answer Jered e Recorded In the last 12 months, was t here a time when you were not able to pay the mortgage or rent on time? No 10/17/2023 In the last 12 months, how many places have you lived? 1 10/17/2023 In the last 12 months, was t here a time when you did not have a steady place to sleep or slept in a chcf (including now)? No 10/17/2023 Personal Safety Answer Date Recorded Have you ever been in or are you currently in a harmful physical or emotional relationship or is someone making you feel afraid or unsafe? Denies 02/14/2024 Sex and Gender Information Value Date Recorded Sex Assigned at Not on file Legal Sex Male 1:55 AM TYPE INSPECTOR Gender Identity Not on file Sexual Orientation Not on file Last Filed Vital Signs Vital Sign Reading Time Taken Comments Blood Pressure 140/75 06/26/2024 10:56 AM TYPE INSPECTOR Pulse 85 06/26/2024 10:56 AM TYPE INSPECTOR Temperature 35.8 C (96.4 F) 06/26/2024 10:56 AM TYPE INSPECTOR Respiratory Rate 18 02/20/2024 7:00 AM CDT Oxygen Saturation 98% 06/26/2024 10:56 AM TYPE INSPECTOR Inhaled Oxygen Concentration - - Weight 103.2 kg (227 lb 8 oz) 06/26/2024 10:56 A M TYPE INSPECTOR Height 170.2 cm (5' 7 ) 06/26/2024 10:56 AM TYPE INSPECTOR Body Mass Index 35.63 06/26/2024 10:56 AM TYPE INSPECTOR Plan of Treatment Not on file Medical Devices Implanted Type Area Second Operator Device Identifier Shelf Expiration Date Model / Serial / Lot Other - See Comments Other - see comments Neck Description:Hardware present eTelemetry [employer] [place] [employer] 14x8cm Multidirectional Fiber Patch [id number] - [id number] - [id number] Implanted:Qty: 1 on 02/14/2024 by Rohit Segundo MD at [facility] Other - see comments Right: Femoral eTelemetry [id number] 09/10/2025 [id number] / [id number] / [id number] Description:Repair patch. [employer] Visi-Pro Od8 Mm L27 Mm L80 Cm Balloon Expandable; Radiopaque Rob [id number] - [id number] Implanted:Qty: 1 on 02/14/2024 by Rohit Segundo MD at [facility] Stent Right: Common Iliac Artery [employer] [id number] 10/19/2026 [id number] 8-27-08 0 / / [id number] [employer] Protege Gps Exprt 9mm .079in 40mm 80cm Otw Delivery System Self [id number] - [id number] Implanted:Qty: 1 on 02/14/2024 by Rohit Segundo MD at [facility] Stent Right: External Iliac Artery [employer] [id number] 11/27/2026 [id number]- 09-40-8 0 / / [id number] [employer] Everflex 6mm 200mm 120cm Self Expand Delivery Catheter System [id number] - [id number] Implanted:Qty: 1 on 02/14/2024 by Rohit Segundo MD at [facility] Stent Right: Superficial Femoral Artery [employer] [id number] 6-200-1 20 / / [employer] Everflex Entrust 6mm 40mm 120cm Self Expand Triaxial Low Profile - [id number] Implanted:Qty: 1 on 02/14/2024 by Rohit Segundo MD at [facility] Stent Right: Superficial Femoral Artery [employer] [id number] 09/05/2026 [id number] 6-040-1 20 / / [id number] Procedures Procedure Name Priority Date/Time Associated Diagnosis Comments PSG (SIMPLE) Routine 06/25/2024 Chronic hypercapnic respiratory failure (CMS/HCC) (HCC) CT LUNG CANCER SCREENING Schedule Routine, Read Routine (OP Routine) 06/24/2024 4:07 PM TYPE INSPECTOR Personal history of nicotine dependence EGFR Routine 02/19/2024 10:30 PM CDT POCT HEMOGLOBIN A1C Routine 02/08/2024 2:21 PM CDT LIPID PANEL STAT 10/19/2023 12:31 AM CDT from Last 3 Months or Most Recently Relevant to Health Maintenance Results * PSG (06/25/2024) Impressions Sanna Lopez MD - 06/25/2024 BIPAP TITRATION History: Ramakrishna Mora is a 59 y.o. male who presents for a BiPAP titration study. Reason for sleep study: obstructive sleep apnea, chronic hypercapnic respiratory failure [place] sleepiness score: 11 Weight: 212 lbs BMI: 33.20 Procedure: This overnight PAP titration polysomnogram was performed with the supervisor microbiology technologists in attendance. Patient is studied with multiple channel polysomnography to include EEG, sleep stage recording, cardio-respiratory monitoring, monitoring for limb movements as well as videotaping. Central, frontal, occipital and temporal EEG, bilateral EOG, submental EMG, oral and nasal airflow, thoracoabdominal motion, bilateral anterior tibialis EMG, one lead EKG, snore sensor, pulse oximetry and transcutaneous CO2 were monitored. Sleep stages, periodic limb movements, EEG arousals and respiratory events were scored according to the criteria from The [place] [employer] (AASM) Manual for the scoring of sleep and associated events - version 2.6. Positive airway pressure titration was done using bilevel positive airway pressure (biPAP). Findings: Baseline parameters: Baseline heart=81/m, Oxygen saturation =95% Sleep architecture: Polysomnogram revealed total recording duration of 425.0 minutes and total sleep time of 325.0 minutes with sleep efficiency of 76.0%. Sleep onset latency was 21.8 minutes, and REM latency 59.0 minutes. N1 6.3%, N2 69.7%, N3 0.0% and REM 24.0% accounted for the total sleep time. EEG profile: EEG was reviewed. Snoring profile: The patient had no snoring. PAP titration: BiPAP titration was started at 8/4 cm of water and incrementally increased to 17/8 cm of water. Sleep apnea was corrected at final BiPAP pressure of 17/8 cm of water where the AHI was 0.0, O2 saturations were in 91-96% and non-supine REM sleep was studied. Supplemental O2 was added at 1 liter/minute to BiPAP for non apneic desaturations. The patient reported feeling alert following PAP titration. TcCO2 data: Baseline TcCO2 was 55 mmHg and the maximum TcCO2 was 64 mmHg during the study. Limb movement profile: A total of 55 periodic limb movements were noted, of which 3 movements were associated with arousal. Total movement index was 10.2 per hour and movement with arousal index was 0.6 per hour. Parasomnia profile: No abnormal behavior to suggest parasomnia was noted. EKG analysis: revealed sinus rhythm. Interpretation and Recommendations: This overnight BiPAP titration study revealed: 1. Alleviation of obstructive sleep apnea at BiPAP pressure of 17/8 cm of water. 2. BiPAP at 17/8 cm of water with supplemental O2 at 1 liter/minute is recommended for use. 3. ResMed, air touch, F20, large, fullface mask was used during the titration. 4. Hypoventilation was noted with elevated TcCO2 at baseline and throughout the study. 5. Hypnotics, sedatives, and related medications have the potential of worsening the apnea and should be avoided. 6. Patients with sleep apnea may have significant daytime hypersomnolence. If that is the case, driving or handling heavy machinery should be avoided until the apnea and excessive sleepiness have resolved. 7. Weight loss for ideal body weight range is recommended 8. Prolonged sleep latency and reduced sleep efficiency: Patient has prolonged sleep onset latency of 21.8 minutes and reduced sleep efficiency of 76.0%. Factors like, psychiatric illness, insomnia or chronic pain may be contributory as well as poor sleep hygiene and/or daytime napping. This could also be due to sleeping in the sleep lab for the first time called first night effect . Clinical correlation is recommended. Sanna Lopez MD [facility] Sleep Medicine Narrative Sanna Lopez MD - 06/25/2024 In lab study is ready for review [facility] ORDERABLES F inal Result * CT Lung Cancer Screening (06/24/2024 4:07 PM TYPE INSPECTOR) Anatomical Region Laterality Modality Chest N/A Computed Tomogra phy 06/24/2024 4:14 PM TYPE INSPECTOR Narrative 06/24/2024 4:35 PM TYPE INSPECTOR EXAM DESCRIPTION: CT LUNG CANCER SCREENING REASON FOR STUDY: Screening CT of the chest in a current smoker with a 26 pack year smoking history. Additional history: None. TECHNIQUE: Low dose CT scan of the chest was performed without intravenous contrast using helical scanning technique. The exam extends from the lung apices through the lung bases. Automatic exposure control was used as a dose optimization technique. NOTE: This study was performed for the specific purposes of lung cancer screening and is not an alternative to diagnostic chest CT. RADIATION DOSE: CT dose index volume (CTDIvol) = 1.94 mGy COMPARISON: CT chest 11/16/2022 FINDINGS: SMOKING RELATED LUNG DISEASE: Mild pulmonary emphysema. LUNG NODULES: Numerous ill-defined bilateral upper lobe predominant ground-glass and part solid nodules are redemonstrated. For example, posterior left upper lobe 9 mm ground-glass nodule (series 3, image 45). Part solid lateral right upper lobe 1 cm nodule with a 3 mm solid component (69). A left upper lobe 4 mm solid nodule appears new (118). New left lower lobe 4 mm solid nodule (131). CORONARY ARTERY CALCIFICATION: Severe. OTHER: No focal consolidation, pneumothorax, or pleural effusion. The central airways are clear. No mediastinal mass. There is an enlarged subaortic mediastinal node measuring 1.5 cm in short axis, stable from 2022. Additional subcentimeter mediastinal nodes are stable. The heart is normal in size. No pericardial effusion. Severe mitral annular calcifications. Mild atherosclerotic calcifications of the thoracic aorta. Stable ectasia of the ascending thoracic aorta measuring 4.6 cm. No acute fractures or suspicious osseous lesions. The visualized upper abdomen is normal. IMPRESSION: Numerous ill-defined upper lobe predominant ground-glass and part solid pulmonary nodules, suggestive of a chronic infectious/inflammatory process. New 4 mm solid lung nodules as above. Mild pulmonary emphysema. Severe coronary artery calcifications. Lung-RADS category 3S: Probably benign. Finding other than a pulmonary nodule which is potentially clinically significant. Recommendation: Low dose CT of chest in 6 months. THIS IS AN ELECTRONICALLY VERIFIED FINAL REPORT 06/24/2024 4:35 PM - Electronically signed by Gabo Archibald M.D. KR: MARGIE Report ID: [id number] Reading Location: [id number] Procedure Note Gabo Archibald MD - 06/24/2024 EXAM DESCRIPTION: CT LUNG CANCER SCREENING REASON FOR STUDY: Screening CT of the chest in a current smoker with a26 pack year smoking history. Additional history: None. TECHNIQUE: Low dose CT scan of the chest was performed without intravenous contrast using helical scanning technique. The exam extends from the lung apices through the lung bases. Automatic exposure control was used as adose optimization technique. NOTE: This study was performed for the specific purposes of lung cancer screening and is not an alternative to diagnostic chest CT. RADIATION DOSE: CT dose index volume (CTDIvol) = 1.94 mGy COMPARISON: CT chest 11/16/2022 FINDINGS: SMOKING RELATED LUNG DISEASE: Mild pulmonary emphysema. LUNG NODULES: Numerous ill-defined bilateral upper lobe predominant ground-glass and part solid nodules are redemonstrated. For example, posterior left upper lobe 9 mm ground-glass nodule (series 3, image 45).Part solid lateral right upper lobe 1 cm nodule with a 3 mm solid component(69). A left upper lobe 4 mm solid nodule appears new (118). New left lowerlobe 4 mm solid nodule (131). CORONARY ARTERY CALCIFICATION: Severe. OTHER: No focal consolidation, pneumothorax, or pleural effusion. The central airways are clear. No mediastinal mass. There is an enlarged subaortic mediastinal node measuring 1.5 cm in short axis, stable [id number]. Additional subcentimeter mediastinal nodes are stable. The heart isnormal in size. No pericardial effusion. Severe mitral annular calcifications.Mild atherosclerotic calcifications of the thoracic aorta. Stable ectasia ofthe ascending thoracic aorta measuring 4.6 cm. No acute fractures orsuspicious osseous lesions. The visualized upper abdomen is normal. IMPRESSION: Numerous ill-defined upper lobe predominant ground-glass and part solid pulmonary nodules, suggestive of a chronic infectious/inflammatoryprocess. New 4 mm solid lung nodules as above. Mild pulmonary emphysema. Severe coronary artery calcifications. Lung-RADS category 3S: Probably benign. Finding other than a pulmonarynodule which is potentially clinically significant. Recommendation: Low dose CT of chest in 6 months. THIS IS AN ELECTRONICALLY VERIFIED FINAL REPORT 06/24/2024 4:35 PM - Electronically signed by Gabo Archibald M.D. KR: KR Report ID: [id number] Reading Location: [id number] Ananth Carlos Sorensen DO IMG CT PROCEDURES Final R esult * eGFR (02/19/2024 10:30 PM CDT) eGFR 84 >=60 mL/min/1. 73 m2 Comment: Interpretive Data Reference Interval Normal >/= 90 mL/min/1.73m2 Mildly decreased* 60 - 89 mL/min/1.73m2 Mildly to moderately decreased 45 - 59 mL/min/1.73m2 Moderately to severely decreased 30 - 44 mL/min/1.73m2 Severely decreased 15 - 29 mL/min/1.73m2 Kidney Failure < 15 mL/min/1.73m2 *Relative to young adult level Estimated glomerular filtration rate is determined by the 2020 CKD-EPI equation recommended by the National Kidney Foundation (A Unifying Approach to GFR Estimation: Recommendations of the NKF-ASK Task Force on Reassessing the Inclusion of Race in Diagnosing Kidney Disease, JASN 202). The CKD-EPI equation should not be used for patients with unstable renal function and has not been validated in children and those over 70. Current interpretive data was last reviewed 2021. Blood 02/19/2024 10:3 0 PM CDT 02/19/2024 11:50 PM CDT Nory Mccoy NP LAB BLOOD ORDERABLES Final Result [facility] Department [place] [address] * (ABNORMAL) POCT hemoglobin A1c (02/08/2024 2:21 PM CDT) Hgb A1C, POC 6.6(H) 4.0 - 5.6 % Est Average Gluc POC 143 mg/dL [facility] Comment: The ADA recommends reporting an estimated Average Glucose (eAG) with all Hemoglobin A1c results using the equation derived from a study of 507 normal and diabetic adults. Minority populations were underrepresented and children were not included. (Diabetes Care 31:2503-3887, 2008). The eAG is not equivalent to a fasting glucose. Blood 02/08/2024 2:21 PM CDT 02/08/2024 2:21 PM CDT Rohit Segundo MD POINT OF CARE TEST ORDERABLE S Final Result [facility] Department [place] [address] * (ABNORMAL) Lipid panel (10/19/2023 12:31 AM CDT) Cholesterol 100 30 - 199 mg/dL Comment: Interpretive Data Ages < or = 19 years Acceptable: <170 mg/dL Borderline high: 170-199 mg/dL High: >or= 200 mg/dL Ages > or = 20 years Desirable: <200 mg/dL Borderline high: 200-239 mg/dL High: >or= 240 mg/dL Literature References: 1. Expert Panel on Integrated Guidelines for Cardiovascular Health and Risk Reduction in Children and Adolescents. Pediatrics 2011;128:S213 2. NCEP Expert Panel. Circulation 2004;110:227 Current Interpretive Data was last revised on 2018. Triglycerides 95 <=149 mg/dL [facility] Comment: Interpretive Data Ages < or = 9 years Acceptable: <75 mg/dL Borderline high: 75-99 mg/dL High: >or= 100 mg/dL Ages 10 to 20 years Acceptable: <90 mg/dL Borderline high: 90-129 mg/dL High: >or= 130 mg/dL Ages > or = 20 years Desirable: <150 mg/dL Borderline high: 150-199 mg/dL High: 200-499 mg/dL Very high: >or= 499 mg/dL Literature References: 1. Expert Panel on Integrated Guidelines for Cardiovascular Health and Risk Reduction in Children and Adolescents. Pediatrics 2011;128:S213 2. NCEP Expert Panel. Circulation 2004;110:227 Current Interpretive Data was last revised on 2018. HDL 30(L) >=40 mg/dL [facility] Comment: Interpretive Data Ages < or = 19 years Acceptable: >45 mg/dL Borderline low: 40-45 mg/dL Low: <40 mg/dL Ages > or = 20 years Desirable: >or= 60 mg/dL Low: <40 mg/dL Literature References: 1. Expert Panel on Integrated Guidelines for Cardiovascular Health and Risk Reduction in Children and Adolescents. Pediatrics 2011;128:S213 2. NCEP Expert Panel. Circulation 2004;110:227 Current Interpretive Data was last revised on 2018. LDL, calculated 51 <=129 mg/dL [facility] Comment: Interpretive Data Ages < or = 19 years Acceptable: <110 mg/dL Borderline high: 110-129 mg/dL High: >or= 130 mg/dL Ages > or = 20 years Optimal: <100 mg/dL Near optimal: 100-129 mg/dL Borderline high: 130-159 mg/dL High: >160 mg/dL Literature References: 1. Expert Panel on Integrated Guidelines for Cardiovascular Health and Risk Reduction in Children and Adolescents. Pediatrics 2011;128:S213 2. NCEP Expert Panel. Circulation 2004;110:227 Current Interpretive Data was last revised on 2018. Non-HDL Cholesterol 70 mg/dL [facility] Comment: Interpretive Data Ages < or = 19 years Acceptable: <120 mg/dL Borderline high: 120-144 mg/dL High: >145 mg/dL Ages > or = 20 years When triglycerides are >200 mg/dL, Non-HDL cholesterol is a secondary target of therapy with treatment goals that are 30 mg/dL greater than the LDL cholesterol target. Literature References: 1. Expert Panel on Integrated Guidelines for Cardiovascular Health and Risk Reduction in Children and Adolescents. Pediatrics 2011;128:S213 2. NCEP Expert Panel. Circulation 2004;110:227 Current Interpretive Data was last revised on 2018. 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 DIRECTIVE 10/29/2023 3:40 PM POWER OF EXCHANGE ADMINISTRATOR-MEDICAL * Full Code (Latest Code Status on File) Date Activated Date Inactivated Comments 02/14/2024 6:44 PM 02/20/2024 3:31 PM * Full Code Date Activated Date Inactivated Comments 10/19/2023 12:22 AM 10/25/2023 6:39 PM * Full Code Date Activated Date Inactivated Comments 10/16/2023 6:09 AM 10/19/2023 12:15 AM * Full Code Date Activated Date Inactivated Comments 10/02/2023 3:59 PM 10/03/2023 4:04 PM Healthcare Agents on File Name Relationship Healthcare Agent Relationshi p Communication Lelan [facility] Care Agent Care Teams 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
--- OUTSIDE RECORDS SUMMARY | 2024-07-10 16:01 | XMS_ITS | Clinical Summary ---
Author Organization [facility] Facility Address [address] [place] [id number] Care Team Providers Care Advertising Analyst Name Role Phone Unavailable Primary Care Provider Unavailabl e Allergies Active Allergy Reactions Criticality Noted Date Comments Codeine 06/06/2019 Medications amLODIPine (NORVASC) 10 MG tablet Take by mouth 0 Active aspirin (GoodSense Aspirin Adult Low St) 81 MG chewable tablet Chew 0 Active atenolol (TENORMIN) 50 MG tablet Take by mouth 0 Active busPIRone (BUSPAR) 15 MG tablet Take by mouth 0 Active citalopram (CeleXA) 20 MG tablet Take by mouth 0 Active clopidogrel (PLAVIX) 75 MG tablet Take by mouth 0 Active DULoxetine (CYMBALTA) [address] capsule Take by mouth 0 Active ezetimibe (ZETIA) 10 MG tablet Take by mouth 0 Active fenofibrate (TRICOR) 145 MG tablet Take by mouth 0 Active glimepiride (AMARYL) 4 MG tablet Take by mouth 0 Active hydroCHLOROthia zide 25 MG tablet Take by mouth 0 Active insulin detemir (Levemir FlexTouch) 100 UNIT/ML injection Apply topically 0 Active levothyroxine (SYNTHROID, LEVOTHROID) 50 MCG tablet Take by mouth 0 Active lisinopril 20 MG tablet Take by mouth 0 Active metoclopramide (REGLAN) 10 MG tablet Take by mouth 0 Active omeprazole (PriLOSEC) [address] capsule omeprazole 40 mg capsule,delayed release(DR/EC) 0 Active potassium chloride (KLOR-CON M10) 10 MEQ CR tablet Take by mouth 0 Active pregabalin (Lyrica) 150 MG capsule Take by mouth 0 Active Semaglutide,0.2 5 or 0.5MG/DOS, (Ozempic, 0.25 or 0.5 MG/DOSE,) 2 MG/1.5ML solution pen-injector Apply topically 1 Active simvastatin (ZOCOR) 40 MG tablet Take by mouth 0 Active SITagliptin (Januvia) 100 MG tablet Januvia 100 mg tablet 0 Active tamsulosin (FLOMAX) 0.4 MG 24 hr capsule tamsulosin 0.4 mg capsule 0 Active Active Problems Problem Noted Date Diagnosed Date Diabetic peripheral neuropathy 05/13/2021 Type 2 diabetes mellitus without complication Hypothyroidism, not otherwise specified 04/19/20 21 Vitamin D deficiency 04/19/2021 Hypertrophy (benign) of pros blanchard without urinary obstruction and other lower urinary tract (LUTS) 04/19/2021 Hyperlipidemia 02/10/2021 Essential hypertension 06/06/2019 Social History Tobacco Use Types Packs/Day Years Used Date Smoking Tobacco: Never Assessed Sex and Gender Information Value Date Recorded Sex Assigned at Not on file Legal Sex Male 10:46 AM EDT Gender Identity Not on file Sexual Orientation Not on file Plan of Treatment Health Maintenance Due Date Last Done Comments Colorectal Cancer Screening: Annual FOBT 2012 Colorectal Cancer Screening: Colonoscopy 2012 Colorectal Cancer Screening: Sigmoidoscopy 2012 Diabetes: Ophthalmology Exam 2021 Diabetes: Pedal Pulse Checked 2021 Diabetes: Sensory Foot Exam 2021 Diabetes: Visual Foot Exam 2021 Diabetes: Hemoglobin A1C 06/29/2021 03/29/2021 Influenza Vaccine (#1) 2024 Hepatitis B Vaccine Aged Out No longe r eligible based on patient's age to complete this topic Pneumococcal Vaccine: Pediat rics (0 to 5 Years) and At-Risk Patients (6 to 64 Years) Aged Out No longer eligi ble based on patient's age to complete this topic Procedures Procedure Name Priority Date/Time Associated Diagnosis Comments EXT RESULT ENTRY Routine 03/29/2021 from Last 3 Months or Most Recently Relevant to Health Maintenance Results * (ABNORMAL) EXT RESULT ENTRY (03/29/2021) WBC 10.6(A) 3.3 - 10.0 10*3/ML Red Blood Cell Count 6.24 Hemoglobin 18.4(A) 13.5 - 17.5 Hematocrit 55.9(A) 41.0 - 53.0 Platelets 287 150 - 399 10*3/UL Sodium 137 137 - 147 Potassium 4.8 3.4 - 5.5 Chloride 101 99 - 108 Bicarbonate (CO2) 28 22 - 30 mmol/L Anion Gap 13 <=30 MMOL/L Glucose 212(A) 60 - 200 BUN 19 4 - 21 mg/dL Creatinine 0.89 0.60 - 1.30 mg/dL Total Protein 7.0 6.4 - 8.2 G/DL Albumin 4.2 3.5 - 5.0 g/dL Calcium 10.3 8.7 - 10.7 mg/dL eGFR Non-Afr Dominican >60 Vitamin D, 25-OH, Total 27.4 ng/mL Hemoglobin A1C 9.4(A) 4.0 - 6.0 Microalbumin Urine Random (External Result Entry) 40.4 Triglycerides 131 40 - 160 Cholesterol 138 0 - 200 HDL 37 35 - 70 MG/DL LDL Calculated 75 0 - 160 mg/dL PSA, Free 3.07 ng/mL TSH 2.870 03/29/2021 us Historical Provider LAB BLOOD ORDERABLES [place] Result from Last 3 Months or Most Recently Relevant to Health Maintenance Insurance [place]ICA[place]
--- OUTSIDE RECORDS SUMMARY | 2024-07-10 16:01 | XMS_ITS | Clinical Summary ---
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 Gender Identity Not on file Sexual Orientation Not on file Plan of Treatment Health Maintenance Due Date Last Done Comments DIABETES ANNUAL FOOT EXAM 1981 DIABETES ANNUAL RETINAL EXAM 1981 DIABETES MICROALBUMIN ANNUAL SCREEN 1981 LDL CHOLESTEROL ANNUAL 1981 DTAP/TDAP/TD VACCINES (1 - Tdap) 1982 COLORECTAL SCREENING 2008 Colorectal Cancer Screening 2008 FIT-DNA Q 3 years 2008 FIT/FOBT Q 1 year 2008 Flex Sig/CT Colonography Q 5 years 2008 ZOSTER VACCINE (1 of 2) 2013 DIABETES HBA1C Q 6 MONTHS 09/27/2021 03/29/2021 RSV VACCINE (60+ or ) (1 - Risk 60-74 years 1-dose series) 2023 INFLUENZA VACCINE (#1) 2024 Care Teams Triple Valve Mechanic Relationship Specialty Start Date End Date Karyn Saenz MD [address] [place] [address] [place] [id number] PCP - General Family Practice 08/13/20
--- OUTSIDE RECORDS SUMMARY | 2024-07-10 16:01 | XMS_ITS | Clinical Summary ---
Author Organization [facility] [address] Address [address] [place] [address] Care Team Providers Care Lye Peel Operator Name Role Phone José Brian MD Unavailable Rohit Segundo MD Unavailable [phone] Krys Benson MOLD CLOSER HELPER Primary Care Provider Allergies Active Allergy Reactions Criticality Noted Date [...] 1 tablet (25 mcg total) by mouth mat making machine tender before breakfast Active pregabalin (LYRICA) 300 mg [...] mouth 2 (two) times a day 12/05/19 24 Active potassium chloride ER 20 mEq CR tablet Take 2 tablets (40 mEq total) by mouth every morning 12/27/19 24 Active bumetanide (BUMEX) 2 mg tabletIndication s:Edema,hyperten genie,chf Take 1 tablet (2 mg total) by mouth every morning 12/25/19 24 Active miscellaneous medical supply [facility] Home oxygen 2 L NC prn . 4 L bleed in to BIPAP at night Active clopidogreL (PLAVIX) 75 mg tablet Take 1 tablet (75 mg total) by mouth daily 30 tablet 11 02/20/20 24 025 Active lidocaine (ASPERCREME) 4 % adhesive patch,medicated Place 1 patch on the skin daily 20 patch 02/20/20 Active Additional Information Patient not taking.Reported on 06/26/2024 tiZANidine (ZANAFLEX) 2 mg tablet Take 1 tablet (2 mg total) by mouth every 8 (eight) hours as needed for muscle spasms 30 tablet 02/20/20 24 Active Additional Information Patient not taking.Reported on 06/26/2024 nicotine (NICODERM CQ) [address] 1 patch on the skin daily 30 patch 02/20/20 24 Active Additional Information Patient not taking.Reported on 06/26/2024 aspirin 81 mg enteric coated tablet Take 1 tablet (81 mg total) by mouth daily 02/20/20 24 Active fluticasone-umec lidin-vilanter (Trelegy Ellipta) 100-62.5-25 mcg inhalerIndicatio ns:Bronchospasm Prevention with COPD Inhale 1 puff daily 30 each 11 03/06/20 24 025 Active albuterol HFA (PROVENTIL HFA,VENTOLIN HFA,PROAIR HFA) 90 mcg/actuation inhaler Inhale 2 puffs every 4 (four) hours as needed for shortness of breath or wheezing 1 each 03/06/20 24 Active HYDROcodone-acet aminophen (NORCO) 5-325 mg per tablet Take 1 tablet every 8 hours by oral route as needed for 30 days. Active traMADoL (ULTRAM) 50 mg tablet TAKE 1 TABLET BY MOUTH EVERY 6 HOURS NEEDED FOR 30 DAYS 025 Discontin ued(Alter susanna therapy) Active Problems Problem Noted Date Diagnosed Date Chronic bronchitis 06/26/2024 Multiple nodules of lung 06/26/2024 Assessment & Plan (06/26/2024 3:32 PM MOLD YARD WORKER): Most current CT demonstrated new pulmonary nodules and ground-glass opacities bilaterally We will plan to repeat CT in 6 months for monitoring Cigarette nicotine dependence without complicati on 06/26/2024 Assessment & Plan (06/26/2024 3:19 PM MOLD YARD WORKER): - Smoking cessation counseling and techniques reviewed at length - Avoid triggers and use distraction techniques - Participate in support groups - Information given regarding [place] [employer] Quit line: 0-785-[phone] for free services - 4 minutes spent discussing cessation He will consider NRT and let us know if he requires a prescription Centrilobular emphysema 06/26/2024 Assessment & Plan (06/26/2024 3:31 PM MOLD YARD WORKER): Continue Trelegy Ellipta 100 daily Albuterol as needed only, we have discussed indications for use We have discussed signs and symptoms that would require earlier evaluation or change to his plan of care Chronic hypercapnic respiratory failure (CMS/HCC ) 06/25/2024 Assessment & Plan (06/26/2024 3:20 PM MOLD YARD WORKER): Continue BIPAP use Recent study revealed optimal [...] for bilateral lower extremity angiography with left FLAP CURER access. Patient became hypotensive with expanding left [...] meds -bumex restarted. CHF (congestive heart failure) ([facility]) 024 Assessment & Plan (02/15/2024 8:02 AM CDT): MANAGER PROPOSAL meds: losartan 50mg, farxiga 10mg, bumex 2mg, [...] gtt without bolus resumed overnight. Atrial fibrillation ([facility]) 10/19/2023 Assessment & Plan (02/18/2024 6:28 AM CDT): On eliquis at home. MANAGER PROPOSAL eliquis, held 3 days prior to surgery -> bridged with lovenox -cont holding home eliquis. Large EBL during case so holding on heparin gtt for now -tele - Plan to restart Eliquis at discharge. Assessment & Plan (10/24/2023 6:15 AM CDT): Chronic, on metop and eliquis at home -cont metop -holding eliquis periop, resume at discharge Peripheral arterial occlusive disease ([facility]) 10/16/2023 PVD (peripheral vascular disease) 09/27/2023 Assessment & Plan (02/18/2024 8:30 AM CDT): S/p RLE angiogram with FLAP CURER/profunda balloon angioplasty R SFA DCF angioplasty -> c/b L groin hematoma s/p evacuation 10/19/23 -OR 02/13 for R fem endart, R CI/SFA stenting - Plan for prevena X 7 days. -dc OU, ok for Q4 NV checks -advance diet -on ASA MANAGER PROPOSAL, switch to plavix. -cont statin -pain control - Rt LE swelling and erythema: 02/16 duplex negative for DVT, unable to assess the femoral due to Prevena. 02/17: start cefazolin for possible cellulitis and monitor. Assessment & Plan (10/21/2023 4:42 PM CDT): Follows at [facility] for PVD. Has nonhealing ulcer of his right 5th toe and some heel issues. Underwent angio on 10/01 that showed subtotally occluded right common femoral artery mid SFA disease and some [id number] disease so he proceeded with atherectomy and shockwave angioplasty of the right common femoral artery and right profunda. He was referred to Vascular surgery for his L common fem problems. He presented back to [facility] on 10/14 for ongoing foot wounds and c/f infection. Underwent repeat angio on 10/17 and subsequently developed groin hematoma and cold leg. Tx to [facility] - see groin hematoma -Q4 NV checks -cont ASA/plavix Hypothyroidism 04/19/2021 Assessment & Plan (02/15/2024 8:02 AM CDT): -Continue MANAGER PROPOSAL levothyroxine Assessment & Plan (10/19/2023 8:41 AM CDT): -cont home synthroid Type 2 diabetes mellitus without complication (C MS/HCC) 04/19/2021 Assessment & Plan (02/15/2024 8:09 AM CDT): MANAGER PROPOSAL farxiga 10mg, januvia 100mg -cont farxiga -hold [...] 10/19/2023 PAD (peripheral artery disease) 10/02/2023 10/19/2023 Encounters Date Type Department Care Team Description 06/30/2024 Telephone [facility] Pulmonary at [address] [place] [phone] Nyla Brandt LPN NIV 06/27/2024 Orders Only [facility] Pulmonary at [address] [phone] Belen Castaneda NP Chronic hypercapnic respiratory failure (CMS/HCC) (HCC) (Primary Dx) 06/26/2024 11:00 AM MOLD YARD WORKER Office Visit [facility] Pulmonary at [address] [phone] Belen Castaneda NP Centrilobular emphysema (HCC) (Primary Dx); Chronic hypercapnic respiratory failure (CMS/HCC) (HCC); Multiple nodules of lung; Cigarette nicotine dependence without complication 06/26/2024 Telephone [facility] Pulmonary at [address] [place] [phone] Jessica Carrasco LPN BIPAP co 06/24/2024 7:15 PM MOLD YARD WORKER - 06/24/2024 11:59 PM MOLD YARD WORKER Hospital Encounter [facility] [address] [place] [id number] Chronic hypercapnic respiratory failure (CMS/HCC) (HCC) Discharge Disposition: Discharge to home or self care 06/24/2024 3:46 PM MOLD YARD WORKER - 06/24/2024 11:59 PM MOLD YARD WORKER Hospital Encounter [facility] [address] [place] [address] Discharge Disposition: Discharge to home or self care from Last 3 Months Surgical History Surgery Date Site/Laterality Comments CHOLECYSTECTOMY APPENDECTOMY EYE SURGERY HERNIA REPAIR 06/04/1999 - 06/03/2000 TONSILLECTOMY CARDIAC CATHETERIZATION Medical History Medical History Date Comments Sleep apnea Hypertension Arrhythmia CHF (congestive heart failure) (CMS/HCC) (HCC) A-fib (CMS/HCC) (HCC) Asthma Lung disease Type 2 diabetes mellitus (HCC) Hypothyroidism Stroke (HCC) Peripheral vascular disease (HCC) Cigarette nicotine dependence without complicati on 06/26/2024 Family History Medical History Relation Name Comments Anesthesia problems Neg Hx Malig Hyperthermia Neg Hx Pseudochol deficiency Neg Hx Social History Tobacco Use Types Packs/Day Years Used Date Smoking Tobacco: Every Day Cigarettes 0.5 52.1 Started: 1972 Smokeless Tobacco: Never Tobacco Cessation:Ready to Q uit: Not Asked; Counseling Given: Not Answered [facility] [employer] Answer Date Recorded In the past 12 [...] often do you attend chur ch or restoration services? Never 10/17/2023 Do you belong to any clubs o r organizations such as samaritan groups, unions, fraternal or athletic groups, or [...] place to sleep or slept in a [place] health care facility (including now)? No 10/17/2023 Personal Safety Answer Date Recorded Have you ever been in or are you currently in a harmful physical or emotional relationship or is someone making you feel afraid or unsafe? Denies 02/14/2024 Sex and Gender Information Value Date Recorded Sex Assigned at Not on file Legal Sex Male 1:55 AM MOLD YARD WORKER Gender Identity Not on file Sexual Orientation Not on file Obstetrics History Last Filed Vital Signs Vital Sign Reading Time Taken Comments Blood Pressure 140/75 06/26/2024 10:56 AM MOLD YARD WORKER Pulse 85 06/26/2024 10:56 AM MOLD YARD WORKER Temperature 35.8 C (96.4 F) 06/26/2024 10:56 AM MOLD YARD WORKER Respiratory Rate 18 02/20/2024 7:00 AM CDT Oxygen Saturation 98% 06/26/2024 10:56 AM MOLD YARD WORKER Inhaled Oxygen Concentration - - Weight 103.2 kg (227 lb 8 oz) 06/26/2024 10:56 A M MOLD YARD WORKER Height 170.2 cm (5' 7 ) 06/26/2024 10:56 AM MOLD YARD WORKER Body Mass Index 35.63 06/26/2024 10:56 AM MOLD YARD WORKER Plan of Treatment Health Maintenance Due Date Last Done Comments Albumin Creatinine Ratio, Urine 1963 Colon Cancer Screening-Colonoscopy 1963 Depression Screening 1963 Hepatitis C Screening 1963 Prostate Cancer Screening-PSA 1963 Dilated Eye Exam 1963 Foot Exam 1963 Pneumococcal vaccine <65 (1 of 2 - PCV) 1969 DTaP/Tdap/Td Vaccine (1 - Tdap) 1974 Hepatitis B Screening 1981 Regular Well Visit/Exam 18-64 1981 Zoster Vaccine (1 of 2) 2013 Covid-19 Vaccine (2 - 2023-2 5 season) 2024 02/01/2021 Influenza Vaccine (#1) 2024 , 02/20/2022, 03/28/2021, Additional history exists Hemoglobin A1C 08/07/2024 02/08/2024, 10/19/2023 Lipid Panel 10/18/2024 10/19/2023 Lung Cancer Screening 12/21/2024 06/24/2024 eGFR 02/18/2025 02/19/2024, 02/02, 02/17/2024, Additional history exists Medical Devices Implanted Type Area Peanut Salter Device Identifier Shelf Expiration Date Model / Serial / Lot Other - See Comments Other - see comments Neck Description:Hardware present [employer] Nidia-Guard [place] [employer] 14x8cm Multidirectional Fiber Patch [id number] - [id number] - [id number] Implanted:Qty: 1 on 02/14/2024 by Rohit Segundo MD at [facility] Other - see comments Right: Femoral [employer] [id number] 09/10/2025 [id number] / [id number] / [id number] Description:Repair patch. [place] Visi-Pro Od8 Mm L27 Mm L80 Cm Balloon Expandable; Radiopaque Rob Koz47-47-29-102 - [id number] Implanted:Qty: 1 on 02/14/2024 by Rohit Segundo MD at [facility] Stent Right: Common Iliac Artery [employer] [id number] 10/19/2026 [id number] 8-27-08 0 / / [id number] Med[employer] Protege Gps Exprt 9mm .079in 40mm 80cm Otw Delivery System Self Osmy02-16-24-04 - [id number] Implanted:Qty: 1 on 02/14/2024 by Rohit Segundo MD at [facility] Stent Right: External Iliac Artery [employer] [id number] 11/27/2026 [id number]- 09-40-8 0 / / [id number] [employer] Everflex 6mm 200mm 120cm Self Expand Delivery Catheter System [id number] - [id number] Implanted:Qty: 1 on 02/14/2024 by Rohit Segundo MD at [facility] Stent Right: Superficial Femoral Artery [employer] Inc [id number] 6-200-1 20 / / [employer] Everflex Entrust 6mm 40mm 120cm Self Expand Triaxial Low Profile - [id number] Implanted:Qty: 1 on 02/14/2024 by Rohit Segundo MD at [facility] Stent Right: Superficial Femoral Artery [employer] Inc [id number] 09/05/2026 EVD35-0 6-040-1 20 / / [id number] Procedures Procedure Name Priority Date/Time Associated Diagnosis Comments PSG (SIMPLE) Routine 06/25/2024 Chronic hypercapnic respiratory failure (CMS/HCC) (HCC) CT LUNG CANCER SCREENING Schedule Routine, Read Routine (OP Routine) 06/24/2024 4:07 PM MOLD YARD WORKER Personal history of nicotine dependence EGFR Routine [...] obstructive sleep apnea, chronic hypercapnic respiratory failure [place] sleepiness score: 11 Weight: 212 lbs BMI: 33.20 Procedure: This overnight PAP titration polysomnogram was performed with the chief radiologic technologist in attendance. Patient is studied with multiple [...] scored according to the criteria from The [place] Academy of Sleep Medicine (AASM) Manual for [...] Clinical correlation is recommended. Sanna Lopez MD [facility] Sleep Medicine Narrative Sanna Lopez MD - 06/25/2024 In lab study is ready for review [facility] ORDERABLES F inal Result * CT Lung Cancer Screening (06/24/2024 4:07 PM MOLD YARD WORKER) Anatomical Region Laterality Modality Chest N/A Computed Tomogra phy 06/24/2024 4:14 PM MOLD YARD WORKER Narrative 06/24/2024 4:35 PM MOLD YARD WORKER EXAM DESCRIPTION: CT LUNG CANCER SCREENING REASON [...] Gabo Archibald M.D. KR: MARGIE Report ID: [id number] Reading Location: [place] [address] Procedure Note Gabo Archibald MD - 06/24/2024 [...] measuring 1.5 cm in short axis, stable [id number]. Additional subcentimeter mediastinal nodes are stable. The [...] Gabo Archibald M.D. KR: MARGIE Report ID: [id number] Reading Location: [id number] Ananth Sorensen DO IMG CT PROCEDURES Final R [...] of Race in Diagnosing Kidney Disease, JASN 2020). The CKD-EPI equation should not be used for patients with unstable renal function and has not been validated in children and those over 70. Current interpretive data was last reviewed 2021. Blood 02/19/2024 10:3 0 PM CDT 02/19/2024 11:50 PM CDT Nory Mccoy NP LAB BLOOD ORDERABLES Final Result [facility] Department [place] [address] * (ABNORMAL) POCT hemoglobin A1c (02/08/2024 2:21 [...] and children were not included. (Diabetes Care 31:4601-2196, 2008). The eAG is not equivalent to a fasting glucose. Blood 02/08/2024 2:21 PM CDT 02/08/2024 2:21 PM CDT us Rohit Segundo MD POINT OF CARE TEST ORDERABLE S Final Result [facility] Department [place] [address] * (ABNORMAL) Lipid panel (10/19/2023 12:31 AM [...] revised on 2018. Triglycerides 95 <=149 mg/dL [facility] Comment: Interpretive Data Ages < or = [...] revised on 2018. HDL 30(L) >=40 mg/dL [facility] Comment: Interpretive Data Ages < or = [...] on 2018. LDL, calculated 51 <=129 mg/dL [facility] Comment: Interpretive Data Ages < or = [...] revised on 2018. Non-HDL Cholesterol 70 mg/dL [facility] Comment: Interpretive Data Ages < or = [...] last revised on 2018. Chol/HDL ratio 3 [facility] Blood 10/19/2023 12:3 1 AM CDT 10/19/2023 12:42 AM CDT Rohit Segundo MD LAB BLOOD ORDERABLES Final R esult [facility] Department [place] [address] from Last 3 Months or Most Recently Relevant to Health Maintenance Insurance [facility] [place] [facility] [place] [facility] [place] Member Subscriber Plan / Payer (Ef fective 2021-Present) Name:Ramakrishna Mora Relation to Subscriber:Self Name:Ramakrishna Mora Payer ID:[id number] (NAIC) Type:MEDICARE RISK OTHER Address: [address] OF [place] Advance Directives For more information, please contact: [phone] Documents on File Type Date Recorded 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 Expl anation ADVANCE DIRECTIVE 10/29/2023 3:40 PM POWER OF MANAGER ATHLETICS-MEDICAL * Full Code (Latest Code Status on [...] Name Relationship Healthcare Agent Relationshi p Communication Silvestre Mora Mother Health Care Agent Care Teams Lye Peel Operator Relationship Specialty Start Date End Date Krys Benson NP [address] [place] [address] [place] [address] PCP - General Nurse Practitioner 02/15/24 José Brian MD [address] [place] [address] Consulting Physician Cardiovascular Disease 10/03/23 [place] [id number] [place] [address] Consulting Physician Vascular Surgery 10/25/23
--- OUTSIDE RECORDS SUMMARY | 2024-07-10 16:02 | XMS_ITS | Data Portability ---
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 Available Spiriva Respimat 2.5 mcg/actuati on solution for inhalation Inhale 2 puffs every day by inhalatio n route. 08/16 completed Not Available Not Available Not Available Stiolto Respimat 2.5 mcg-2.5 mcg/actuati on solution for inhalation Inhale by inhalatio n route for 30 days. active Not Available Not Available No t Available Bevespi Aerosphere 9 mcg-4.8 mcg HFA aerosol inhaler Inhale 2 puffs twice a day by inhalatio n route. 05/02 completed Not Available Not Available Not Available BD Ultra-Fine Micro Pen Needle 32 gauge x 06/07 active Not Available Not Available Not Available Trelegy Ellipta 100 mcg-62.5 mcg-25 mcg powder for inhalation Inhale 1 puff once daily active Not Available Not Available No t Available Ozempic 0.25 mg or 0.5 mg (2 mg/1.5 mL) subcutaneou s pen injector 03/28 completed Not Available Not Available Not Available Premier Test Strip USE DIRECTED active Not Available Not Available No t Available BD Ella 2nd Gen Pen Needle 32 gauge x active Not Available Not Available Not Available Ozempic 1 mg/dose (4 mg/3 mL) subcutaneou s pen injector 02/20 completed Not Available Not Available Not Available Premier Classic Glucose Meter USE DIRECTED ONCE DAILY active Not Available Not Available No t Available Vitals Date Recorded Body height Body temperature Respiratory rate Oxygen saturation Oxygen saturation in Arterial blood by Pulse oximetry Heart rate Systolic blood pressure Diastolic blood pressure Provider Name and Address Organization Details Last Updated DateTime 4 170.18 cm 98.3 [degF] 18 /min 96 % 96 % 78 /min 126 mm[Hg] 63 mm[Hg] Demetrius Ball RN [facility] [employer] 4 16:15:04 Date Recorded Body height Body temperature Oxygen saturation Oxygen saturation in Arterial blood by Pulse oximetry Heart rate Respiratory rate Provider Name and Address Organization Details Last Updated DateTime 4 170.18 cm 99.3 [degF] 97 % 97 % 96 /min 18 /min Demetrius Ball RN [facility] [employer] 4 16:03:26 Date Recorded Body height Body temperature Respiratory rate Heart rate Oxygen saturation Oxygen saturation in Arterial blood by Pulse oximetry Systolic blood pressure Diastolic blood pressure Provider Name and Address Organization Details Last Updated DateTime 4 170.18 cm 97.7 [degF] 20 /min 84 /min 99 % 99 % 148 mm[Hg] 74 mm[Hg] Araceli Ugalde RN [facility] [employer] 4 12:39:13 Date Recorded Body height Heart rate Body temperature Oxygen saturation Oxygen saturation in Arterial blood by Pulse oximetry Systolic blood pressure Diastolic blood pressure Provider Name and Address Organization Details Last Updated DateTime 4 170.18 cm 101 /min 97.1 [degF] 94 % 94 % 133 mm[Hg] 63 mm[Hg] Fany Nikko [facility] [employer] 4 12:32:34 Date Recorded Body height Body mass index (BMI) Body weight Body temperature Heart rate Oxygen saturation Oxygen saturation in Arterial blood by Pulse oximetry Pain severity - 0-10 verbal numeric rating [Score] - Reported Respiratory rate Systolic blood pressure Diastolic blood pressure Provider Name and Address Organization Details Last Updated DateTime 4 170.18 cm 35.9 kg/m2 584737. 65 g 97.4 [degF] 83 /min 97 % 97 % 5 20 /min 142 mm[Hg] 80 mm[Hg] Sunita Masters, ASSISTANT CONTROLLER [address] [facility], [facility] [address], [place], [address] , [facility] 14:40:29 Social History Question Answer Notes LastModified by Organizat ion Details LastModified Time Tobacco Smoking Status Current Every Day Smoker Not Available [facility] 08/02/2022 20:55:12 Do You Have An Advance Directive? No Information not available 10/15/2023 What Is Your Level Of Alcohol Consumption? None [id number] Information not available 08/02/2022 Is Blood Transfusion Acceptable In An Emergency? Yes Information not available 10/15/2023 What Is Your Level Of Caffeine Consumption? Moderate Soda Information not available 10/15/2023 What Is Your Code Status? Full Code Information not available 10/15/2023 In The 14 Days Before Symptom Onset, Have You Had Close Contact With A Laboratory-confir med COVID-19 While That Case Was Ill? No [id number] Information not available 08/02/2022 In The 14 Days Before Symptom Onset, Have You Had Close Contact With A Person Who Is Under Investigation For COVID-19 While That Person Was Ill? No [id number] Information not available 08/02/2022 Are You Currently Employed? No Disabled Information not available 10/15/2023 What Type Of Diet Are You Following? REGULAR [id number] Information not available 08/02/2022 Which Illicit Or Recreational Drugs Have You Used? Marijuana [id number] Information not available 08/02/2022 Have There Been Any Changes To Your Family Or Social Situation? Yes Information no t available 10/15/2023 Do You Use Insect Repellent Routinely? No Information not available 10/15/2023 Where Do You Live? Apartment Information not available 10/15/2023 Do You Have A Medical Power Of Outsole Tacker? No Information not available 10/15/2023 What Is Your Current Pack Years? 30ormorepacky ears MIGRATION.[id number] Information not available 08/02/2022 Do You Have Any Pets? No MIGRATION.[id number] Information not available 08/02/2022 What Is Your Relationship Status? Information not available 10/15/2023 Do You Use Your Seat Belt Or Car Seat Routinely? Yes Information not available 10/15/2023 At What Age Did You Start Smoking Tobacco? 8 MIGRATION.[id number] Information not available 08/02/2022 Are You Passively Exposed To Smoke? Yes Information no t available 10/15/2023 Are There Any Smokers In Your House? Yes Information not available 10/15/2023 How Much Tobacco Do You Smoke? 0.5 PPD Information not available 10/15/2023 Do You Participate In Social Media? No Information not available 10/15/2023 Do You Feel Stressed (tense, Restless, Nervous, Or Anxious, Or Unable To Sleep At Night)? [id number] Information not available 02/25/2024 Do You Use Any Illicit Or Recreational Drugs? Yes [id number] Information not available 08/02/2022 Do You Use Sunscreen Routinely? No Information not available 10/15/2023 Has Tobacco Cessation Counseling Been Provided? No MIGRATION.[id number] Information not available 08/02/2022 How Many Years Have You Smoked Tobacco? 47 MIGRATION.[id number] 3732 Information not available 08/02/2022 Have You Recently Traveled Abroad? No MIGRATION.605138 0796 Information not available 08/02/2022 Have You Used IV Drugs? No MIGRATION.[id number] 4885 Information not available 08/02/2022 Do You Have Any Dietary Restrictions? No MIGRATION.[id number] Information not available 08/02/2022 Do You Or Have You Ever Used Any Other Forms Of Tobacco Or Nicotine? No MIGRATION.144209 3181 Information not available 08/02/2022 Sex: Unknown Functional Status Question Answer Note LastModified by Organizat ion Details LastModified Time What is your exercise level? None [id number] Information not available 08/02/2022 Mental Status None recorded. Family History Relationship Description Onset Age of this Age Resolved Age Notes LastModified by Organization Details LastModified Time Father Diabetes mellitus [id number] Not available 08/02/2022 20:55:18 Father Kidney stone MIGRATION.0 [id number] Not available 08/02/2022 20:55:18 Paternal Grandfather Diabetes mellitus [id number] Not available 08/02/2022 20:55:18 Notes:NO ENT Medical History Condition Response BLINDNESS N CYSTITIS N RHEUMATIC FEVER N KIDNEY STONES N BLADDER PROBLEMS N Enlarged Prostate N MRSA N LUNG DISEASE/DISORDER N HISTORY OF DRUG ABUSE N COPD Y RADIATION / CHEMOTHERAPY N BLOOD DISEASES N SHINGLES N BOWEL PROBLEMS N DEPRESSION (INCLUDING POST ) Y STROKE/TIA N THYROID DISEASE N ULCERS Y BENIGN PROSTATIC HYPERPLASIA N OBESITY Y GERD/NAUSEA N ANEURYSM N URINARY/BLADDER/KIDNEY PROBLEMS N Increased Urination N CORONARY ARTERY DISEASE (CAD) N USE OF BLOOD THINNERS N SKIN PROBLEMS Y EMPHYSEMA Y GASTROINTESTINAL DISORDER N PERIPHERAL ARTERY DISEASE Y GASTROINTESTINAL BLEEDING N BLOOD CLOTS N Difficulty Urinating N ASTHMA N CATARACTS N ERECTILE DYSFUNCTION N GI PROBLEMS N Low Testosterone N NEUROPATHY Y AIDS/HIV N LIVER DISEASE N MALE HYPOGONADISM N HYPERTENSION Y TOURETTE'S N ANXIETY DISORDER N BLOOD TRANSFUSION N ANEMIA/BLOOD DISORDER N TUBERCULOSIS N GLAUCOMA N SLEEP APNEA N INFECTIOUS DISEASE N PROSTATE N HEART ARRHYTHMIA N INSOMNIA N HIGH CHOLESTEROL / HYPERLIPIDEMIA Y HYPERTHYROIDISM N UTI N EDEMA Y HYPOTHYROIDISM N BACK / NECK PROBLEMS N HAVE YOU BEEN HOSPITALIZED OR SEEN IN [facility] IN THE PAST YEAR ? Y DIALYSIS N OSTEOPOROSIS N ARTHRITIS Y NO SIGNIFICANT PAST MEDICAL HISTORY N DIABETES, TYPE Y PARKINSON N HEARTBURN / REFLUX Y HEPATITIS / LIVER DISEASE N GOUT N ALZHEIMER'S DISEASE N SLEEP DISORDER N PAIN Y HERPES N SEIZURES/EPILEPSY N HEADACHES/MIGRAINES N PACEMAKER N HEART MURMUR N DIZZINESS N KIDNEY DISEASE Y HEART DISEASE/HEART PROBLEMS N MULTIPLE SCLEROSIS N CANCER: SPECIFY N ANESTHESIA COMPLICATIONS N ATRIAL FIBRILLATION N AUTOIMMUNE DISEASE N Immunizations Vaccine Type Date Status Note Provider Nam e and Address Organization Details Recorded Time Influenza, split virus, quadrivalent, preservative 0 completed Odette Lisa CMA null, [facility] [employer] 05/31/2023 15:25:27 Influenza, split virus, quadrivalent, PF 9 completed Not Available [facility] 01/10/2023 07:45:23 Influenza, split virus, quadrivalent, PF 2 completed Katarzyna Collier RN [facility] 02/25/2024 11:35:04 Influenza, split virus, quadrivalent, PF 1 completed Not Available [facility] 01/10/2023 07:45:23 Influenza, split virus, quadrivalent, PF 0 completed Not Available [facility] 01/10/2023 07:45:23 Influenza, split virus, quadrivalent, PF 3 completed Karyn Saenz MD [address] [facility], [facility] [address], [place], [address], [facility] 04/02/2023 13:43:17 Past Encounters Encounter ID Performer Location Encounter Start Date Encounter Closed Date Diagnosis/Indication Diagnosis SNOMED-CT Code Diagnosis ICD10 Code Diagnosis Note [id number] [facility] [place] [address] [facility] [address] [place] [address] 03/28/2021 00:00:00 03/28/2021 13:11:55 [id number] [facility] [place] [id number] [facility] [address] [place] [address] 04/18/2021 00:00:00 04/18/2021 13:51:52 [id number] [facility] [place] [address] [place] [address] [address] [place] [address] 05/30/2021 00:00:00 05/30/2021 15:23:48 [id number] [facility] General Surgery [facility], [facility] [address] [place] [address] 06/02/2021 00:00:00 06/02/2021 12:34:51 [id number] [facility] [place] [address] [facility] [address] [place] [address] 02/20/2022 00:00:00 02/20/2022 09:16:07 [id number] [facility] [place] [address] [place] [address] [address] [facility] [place] [address] 02/21/2022 00:00:00 02/21/2022 14:03:21 [id number] [facility] [place] [address] [facility] [address] [place] [address] 04/03/2022 00:00:00 04/03/2022 10:03:41 [id number] [facility] [place] [address] [facility] [address] [place] [address] 05/02/2022 00:00:00 05/02/2022 14:07:22 [id number] [facility] Pulmonolo gy [place] [address] [place] [address] 05/19/2022 00:00:00 05/19/2022 17:08:43 [id number] [facility] [place] [address] [place] [address] 05/23/2022 00:00:00 05/25/2022 08:13:28 [id number] [facility] [place] [address] [facility] [address] [place] [address] 06/08/2022 00:00:00 06/28/2022 14:06:27 [id number] [facility] Pul[facility]olo [facility] [place] [address] [place] [address] 07/05/2022 00:00:00 07/05/2022 15:03:40 [id number] RAY Condon [facility] [place] [address] [facility] [address] [place] [address] 08/11/2022 14:04:35 08/11/2022 15:11:56 Transition of care [id number] [address] [facility] 08/04/22-08/07 for acute CVA and A.fib. Cerebrovas cular accident [id number] I63.9 Occurred while in hospital. Still having numbness in right leg. Using cane to ambulate. He has no upper extremity/ facial weakness. No speech abnormalit ies.Contin ue current medication s, will have him f/u with neurology outpatient for continued care.Bianca erinn andrade. Anemia screening 9922224 07 Z13.0 Had endoscopy/ colonoscop y, states not active bleeds found. Started on high dose pantoprazo le.Was advised to continue outpatient follow-up, will send referral to Dr. Roblero for continuity of care. Solitary n odule of lung 114070790 R91.[address] Chest 07/23/22 - recommende d follow-up with repeat scan in 12 months.Rec ommended he continue with pulmonolog y. States he has upcoming appointmen t. Diabetes mellitus 476888 09 E11.9 Advised to continue Glimepride and Januvia. Will add on lantus 10 units at bedtime as advised to start at hospital. I do not think he was taking his Januvia as described either. He has also not been checking blood sugars, so advised he start checking fasting AM blood sugars. Discussed healthy eating and exercise. Epidermoid cyst of skin of ear 390585197 L72.0 Left ear. Noticed a couple of months ago and has continued to get bigger.Isaac lucas send to dermatolog y to evaluate. [id number] Belen Castaneda, ASSISTANT CONTROLLER-[facility] Pulmonolo gy [place] [address] [place] [address] 08/16/2022 14:20:58 08/17/2022 08:51:07 Dependence on supplemental oxygen 2791751830 07 Z99.81 On RA at rest today his saturation s were 94%Continu e RA at rest, 1 liter with activity and 4 liters with sleep and PAP until retestedDi scussed the risks of hypoxia, including Chronic ob structive pulmonary disease 35753525 J44.9 PFT completed 05/2022 with moderate obstructio nContinue Trelegy ellipta 100Instruc randolph on techniqueH e is aware to rinse and spit after use.Discus sed S/S that require emergent evaluation Recheck 6MWT in one month Congestive heart failure 21393882 I50.9 BNP 918 on admission to hospital with diuresisSe es cardiology Dyspnea on exertion 6084 5006 R06.09 He must quit smokingIGE , IGGS, Alpha1, eosinophil s, BNP all normal Nicotine dependence 5629 4008 Z87.891 Smoking cessation counseling and techniques reviewed at length. Literature reviewed. Avoid triggers, support groups. Distractio n techniques Greater than 3 but less than 10 minutes spent discussing cessation. Declines NRT. Discussed Rx options if needed in the future. Mediastina l lymphadenopathy 78536813 R59.[address] chest inpatientC heck CT chest in 3 months, due 10/2022 [id number] JUAN Sutton [facility] [place] [address] [facility] [address] [place] [address] 09/19/2022 13:55:21 09/19/2022 14:45:32 Neuropathy 220390756 G62.9 Chronic, worse in right LLE following CVA (08/2022)No t improved with current dose of pregabalin .Will increase to pregabalin 200mg Cerebrovas cular accident 791064829 I63.9 Occurred while in hospital. Still having numbness in right leg. Using cane to ambulate. He has no upper extremity/ facial weakness. No speech abnormalit ies.Contin ue current medication s, will have him f/u with neurology outpatient for continued care, referral reprinted. .Continue eliquis. Diabetes mellitus 741317 09 E11.9 Likely poorly controlled based on pts report of fasting sugars of 250sAdvise d to continue Glimepride and Januvia. Increase bedtime to Lantus 15 units. Discussed healthy eating and exercise.J anuvia 100mg dailyGlime piride 4mg BIDLantus 15 units QHS Chronic ob structive pulmonary disease 99241479 J44.9 ChronicRev iewed proper use of inhalers. Reviewed pulmonary note from King Castaneda (08/16/22): dependence on supplement al oxygen-On RA at rest today his saturation s were 94%. Continue RA at rest, 1 liter with activity and 4 liters with sleep and PAP until retested. Discussed the risks of hypoxia, including . mediastina l lymphadeno jacqueline-Per CT chest inpatient. Check CT chest in 3 months, due 10/2022. chronic obstructiv e lung disease-PF T completed 05/2022 with moderate obstructio n. Continue Trelegy ellipta 100. Instructed on technique. He is aware to rinse and spit after use. Discussed S/S that require emergent evaluation . Recheck 6MWT in one month. Order six minute walk test*. congestive heart failure-BN P 918 on admission to hospital with diuresis. Sees cardiology . dyspnea on exertion. He must quit smoking. IGE, IGGS, Alpha1, eosinophil s, BNP all normal. nicotine dependence Smoking cessation counseling and techniques reviewed at length. Literature reviewed. Obstructiv e sleep apnea syndrome 41261603 G47.33 Chronic, stablePt reports he is using bi-pap nightly and benefits from use. [id number] Lisandra Acevedo [facility] Pulmon[facility] [place] [address] [place] [address] 09/25/2022 14:48:47 09/25/2022 15:48:20 Chronic respiratory failure 73090840 J96.10 On NIV with good use and benefitRev iewed download Mediastina l lymphadenopathy 29203233 R59.[address] chest inpatientC heck CT chest in 3 months, due 10/2022 Chronic ob structive pulmonary disease 91839600 J44.9 PFT completed 05/2022 with moderate obstructio nContinue Trelegy ellipta 100 one puff dailyInstr ucted on techniqueH e is aware to rinse and spit after use.Discus sed S/S that require emergent evaluation Nebulizer for PRN use Activity intolerance 774 18634 Z73.89 Multifacto ral Dependence on supplemental oxygen 4991502598 07 Z99.81 On RA at rest today his saturation s were 94%6MWT 09/2022 normalCont inue 4 liters with sleep and NIVHe has good use and benefitDis cussed the risks of hypoxia, including Nicotine dependence 5629 4008 Z87.891 Smoking cessation counseling and techniques reviewed at length. Literature reviewed.A void triggers, support groups.Dis traction techniques Greater than 3 but less than 10 minutes spent discussing cessation. Declines NRT.Discus sed Rx options if needed in the future. [id number] Karyn Saenz MD [facility] [address] [facility] [address] [place] [address] 10/24/2022 14:01:28 10/24/2022 14:49:13 Coronary arteriosclerosis 12813994 I25.10 has not seen cardiology in about a year, referral given Neuropathy 093769302 G62 .9 increase pregabalin 300 mg bidtramado l prn severe pain Degenerati on of lumbar intervertebral disc 25715124 M51.36 pain radiating down right leg, constant, right leg is weakhe ambulates with cane, walking and standing is very limitedirr egular gaitneed MRI lumbar spine Hypothyroidism 52556039 E03.9 Diabetes mellitus 956944 09 E11.9 start injectable med pending results Gastroesop hageal reflux disease without esophagitis 199119032 K21.9 Avoid greasy/spi cy/acidic foodEat small, frequent mealsCall if any worsening symptoms including increased pain or blood in stools or if symptoms do not resolve in 14 daysadd famotidine 20 mg bid Vitamin D deficiency 347 66580 E55.9 Hyperlipidemia 63021754 E78.5 Z79.899 [id number] Karyn Saenz MD [facility] Primary Care [address] [place] [address] 11/07/2022 17:04:50 11/07/2022 18:00:12 Cerebrovascular accident 035229307 I63.9 limited ambulation , increasing weaknessho tx health referral given for pt/otneeds wheeled walker with seat and brakes for safe ambulation Edema of l ower extremity 286882064 R60.0 will call cardiology office to help make his f/u apptcheck labscall/r eturn if no improvemen t in 1-2 days or sooner if neededrevi ewed s/s that warrant urgent/alfonzo rgent eval in meantime [id number] Karyn Saenz MD [facility] Primary Care [address] [place] [address] 11/23/2022 16:25:18 11/23/2022 16:54:52 Cirrhosis of liver 12805160 K74.60 [id number] Karyn Saenz MD [facility] Primary Care [address] [place] [address] 11/29/2022 16:47:36 11/29/2022 17:56:56 Anemia 784767406 D64.9 Cirrhosis of liver 007 K74.60 Essential hypertension 28531847 I10 [id number] JUAN Thakur-DONA [facility] Pulmonolo gy [place] [address] [place] [address] 02/26/2023 15:15:18 02/26/2023 16:35:49 Mediastinal lymphadenopathy 61980247 R59.[address] chest inpatientP ersistent on imaging from with multiple nodulesChe ck PET-CT Chronic re spiratory failure 12773222 J96.10 On NIV with good use and benefitRev iewed download Chronic ob structive pulmonary disease 16774933 J44.9 PFT completed 05/2022 with moderate obstructio nContinue Trelegy ellipta 100 one puff dailyInstr ucted on techniqueH e is aware to rinse and spit after use.Discus sed S/S that require emergent evaluation Nebulizer for PRN useVaccine s this fall Activity intolerance 774 72498 Z73.89 Multifacto ral Dependence on supplemental oxygen 7750099939 07 Z99.81 On RA at rest today his saturation s were 94%6MWT 09/2022 normalCont inue 4 liters with sleep and NIVHe has good use and benefit Nicotine dependence 5629 4008 Z87.891 Smoking cessation counseling and techniques reviewed at length. Literature reviewed.A void triggers, support groups.Dis traction techniques Greater than 3 but less than 10 minutes spent discussing cessation. Declines NRT.Discus sed Rx options if needed in the future. [id number] Belen Castaneda, ASSISTANT CONTROLLER-[facility] Pulmonolo gy [place] [address] [place] [address] 03/09/2023 10:11:44 03/09/2023 11:20:49 Mass of left parotid gland [id number] 8275591 R22.1 SUV 9 per PET CTReferral to ENT for biopsy Computed t omography result abnormal 761441768 R93.89 Bone marrow with uptake on PET-CTDisc ussed with Dr Tubbs office - abnormalit ies on CBC 11/2022The y will follow up with [facility] t and further workup Mediastina l lymphadenopathy 05496026 R59.[address] chest inpatientP ersistent on imaging from with multiple nodulesPer sists on PET-CT but no uptake noted [id number] Jose Fry MD [facility] [address] [place] [address] 03/29/2023 15:06:41 03/29/2023 15:49:49 Mass of left parotid gland 8933667454 6013577 R22.1 Sebaceous cyst of skin 957741946 L72.3 [id number] Karyn Saenz MD [facility] Primary Care [facility] [place] [address] 03/28/2023 16:39:42 03/28/2023 17:19:01 Administration of influenza vaccine 18617146 Z23 Mass of le ft parotid gland 5412027859 0364055 R22.1 incidental ly found on PET scanhas upcoming appt with ENT for further evaluation [id number] Karyn Saenz MD [facility] Primary Care [facility] [address] [address] [place] [address] 04/30/2023 16:49:29 04/30/2023 17:49:48 Epidermoid cyst of skin of ear 933552853 L72.0 discussed that lancing is not definitive treatment, but he is bothered by it and wanted it drained1 ml 1% lidocaine with epi injected base of lesionsmal l incision made with #11 blade and copious material drainedinc ision dressed with bandaidpt tolerated procedure well, was given precaution s to call if any s/s infection Anemia 053191812 D64.9 Cirrhosis of liver 17307 007 K74.60 Essential hypertension 62750138 I10 Diabetes mellitus 261286 09 E11.9 Hypothyroidism 93999824 E03.9 [id number] Karyn Saenz MD [facility] Primary Care [place] [address] [place] [address] 05/31/2023 15:18:11 05/31/2023 15:46:21 Iron deficiency anemia 28179869 D50.9 egd (esophagit is) and colonoscop y (polyps) done 08/2022tria l of oral iron once dailyrepea t labs 6 weeks Chronic ob structive pulmonary disease 34590240 J44.9 [id number] Karyn Saenz MD [facility] Primary Care [facility] [address] [address] [place] [address] 07/16/2023 08:49:47 07/16/2023 09:22:20 Iron deficiency anemia 68828559 D50.9 egd (esophagit is) and colonoscop y (polyps) done 08/2022tria l of oral iron once dailyrepea t labs 6 weeks did not take ironrechec k meds Chronic ob structive pulmonary disease 11130970 J44.9 has appt with pulmonary next monthsent home with oxygen tank 2 lpm, he will use this continuous (has equipment at home)O2 sat up to 88 on 2lpm oxygen in office Edema of l ower extremity 331824297 R60.0 will call cardiology office to help make his f/u apptcheck labscall/r eturn if no improvemen t in 1-2 days or sooner if neededrevi ewed s/s that warrant urgent/alfonzo rgent eval in meantime currently on furosemide 40 mg bidcheck labs Visual disturbance 48931 001 H53.9 has floaters in vision left eye Congestive heart failure 91104017 I50.9 take additional tab of furosemide 40 mg at noon todaywill check labs Diabetes mellitus 911953 09 E11.9 Essential hypertension 59930251 I10 Hypothyroidism 19701533 E03.9 Vitamin D deficiency 347 31021 E55.9 [id number] JUAN Perry [facility] [address] [address] 10/15/2023 13:59:25 10/15/2023 15:13:44 Ulcer of right foot due to type 2 diabetes mellitus 5133711336 2790277 E11.621 Neuropathy 368563727 G62 .9 [id number] Jaun Felix DPM [facility] [address] [place] [address] 10/31/2023 09:39:27 10/31/2023 14:29:05 Pressure injury of heel 413122104 L89.619 L89.626 heel ulcer worse to the right leftrecomm end offloading at all timesBetad ine wet-to-dry dressingen couraged discontinu e smokingenc ourage good glucose management secondary to diabetesen courage patient to monitor feet dailyRx multi Podus boots bilateralf ollow-up 1 week 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 9830281132 1777603 I96 right 5th toe- partial distalas aboveBetad ine wet-to-dry dressings Peripheral arterial occlusive disease 406286859 I73.9 continue with vascular recommenda tionsobtai n prior testing and procedure documentat ion Cigarette smoker (5-9 cigarettes/day) 6441116770 63510 Z72.0 half pack-a-day smoker- for 50 something yearsencou raged to discontinu e smokingfol low-up with PCP for smoking management Diabetic p eripheral neuropathy 957139005 E11.40 continue with PCP recommenda tionsrecom mend good glucose control for wound management and preventing infection [id number] Jaun Felix DPM [facility] [address] [place] [address] 11/07/2023 14:42:10 11/15/2023 11:50:49 Pressure injury of heel 880957693 L89.619 L89.626 heel ulcer stable to the right leftrecomm end offloading at all timesBetad ine wet-to-dry dressingen couraged discontinu e smokingenc our good glucose management secondary to diabetesen age patient to monitor feet dailyRx multi Podus boots bilateral- does not present withfollow -up 1 week 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 3348330639 0432619 I96 right 5th toe- partial distalas above offloading at allBetadin e wet-to-dry dressingsf ollow-up 1 week Peripheral arterial occlusive disease 468111263 I73.9 underwent stenting of the right lower legplanned to return for the left lower leg next weekrecomm end continuing with vascular recommenda tionsobtai n prior testing and procedure documentat ion Cigarette smoker (5-9 cigarettes/day) 6847555066 43078 Z72.0 half pack-a-day smoker- for 50 something yearsencou raged to discontinu e smokingfol low-up with PCP for smoking management Diabetic p eripheral neuropathy 726674069 E11.40 continue with PCP recommenda tionsrecom mend good glucose control for wound management and preventing infection Fissure in skin 50748100 R23.4 left heel- to level of dermisSter i-Strips appliedmon itor for signs of infectiono ffloading at all timesfollo w-up 1 week [id number] JUAN Perry [facility] [address] [place] [address] 11/08/2023 13:58:08 11/08/2023 17:20:30 Neuropathy 432103277 G62.9 Cerebrovas cular accident 275735569 I63.9 Diabetes mellitus 444735 09 E11.9 Iron defic iency anemia 07922209 D50.9 [id number] Jaun Felix DPM [facility] [address] [place] [address] 11/14/2023 15:42:40 11/16/2023 09:18:50 Pressure injury of heel 701876455 L89.619 L89.626 heel ulcer stable to the right leftwound debrided today to level subcu with excisional wound debrided with a 15 bladerecom mend offloading at all timesBetad ine wet-to-dry dressingen couraged discontinu e smokingenc ourage good glucose management secondary to diabetesen courage patient to monitor feet dailyRx multi Podus boots bilateral- does not present withfollow -up 1 week 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 1018711804 1192392 I96 right 5th toe- partial distalas above offloading at allnot debridedBe tadine wet-to-dry dressings Fissure in skin 30027136 R23.4 left heel- to level of dermisdebr ided today of hypertroph ic callusSter i-Strips appliedmon itor for signs of infectiono ffloading at all timesfollo w-up 1 week Peripheral arterial occlusive disease 983557100 I73.9 underwent stenting of the right lower legplanned to return for the left lower leg next weekrecomm end continuing with vascular recommenda tionsobcasper n prior testing and procedure documentat ion Cigarette smoker (5-9 cigarettes/day) 1080752832 56008 Z72.0 half pack-a-day smoker- for 50 something yearsencou raged to discontinu e smokingfol low-up with PCP for smoking management Diabetic p eripheral neuropathy 054161892 E11.40 continue with PCP recommenda tionsrecom mend good glucose control for wound management and preventing infection [id number] Jaun Felix DPM [facility] [address] [place] [address] 11/21/2023 13:04:11 11/22/2023 11:16:51 Pressure injury of heel 980755159 L89.619 L89.626 heel ulcer stable to the right leftwound debrided today to level subcu with excisional wound debrided with a 15 bladerecom mend offloading at all timesBetad ine wet-to-dry dressingen couraged discontinu e smokingenc ourage good glucose management secondary to diabetesen courage patient to monitor feet dailyRx multi Podus boots bilateral- does not present withfollow -up 1 week 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 4637041553 6993323 I96 right 5th toe- partial distaloffl oading at all timesBetad ine wet-to-dry dressings daily Fissure in skin 00795171 R23.4 left heel- healedcont inue supportive shoe gear Peripheral arterial occlusive disease 515067696 I73.9 underwent stenting of the right lower legplanned to return for the left lower leg next weekrecomm end continuing with vascular recommenda gregory lyles prior testing and procedure documentat ion Cigarette smoker (5-9 cigarettes/day) 9525357118 09370 Z72.0 half pack-a-day smoker- for 50 something yearsencou raged to discontinu e smokingfol low-up with PCP for smoking management Diabetic p eripheral neuropathy 956805615 E11.40 continue with PCP recommenda tionsrecom mend good glucose control for wound management and preventing infection [id number] JAKE Gonzalez [facility] [address] [place] [address] 11/28/2023 15:46:01 11/29/2023 15:37:49 Pressure injury of heel 212590744 L89.619 L89.626 heel ulcer stable to the right leftBetadi ne wet-to-dry dressingen couraged discontinu e smokingenc ourage good glucose management secondary to diabetesen courage patient to monitor feet dailyRx multi Podus boots bilateral- does not present withfollow -up 1 week 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 6461035358 0473901 I96 right 5th toe- partial distaloffl oading at all timesBetad ine wet-to-dry dressings daily Peripheral arterial occlusive disease 569765997 I73.9 underwent stenting of the right lower legplanned to return for the left lower leg next weekrecomm end continuing with vascular recommenda tionsobtai n prior testing and procedure documentat ion Cigarette smoker (5-9 cigarettes/day) 5060916162 98243 Z72.0 half pack-a-day smoker- for 50 something yearsencou raged to discontinu e smokingfol low-up with PCP for smoking management [id number] Jaun Felix DPM [facility] [address] [place] [address] 12/12/2023 15:11:50 12/20/2023 15:06:13 Pressure injury of heel 788649969 L89.619 heel ulcer stable to the right leftBetadi ne wet-to-dry dressingen couraged discontinu e smokingenc [facility] glucose management secondary to diabetesen courage patient to monitor feet dailyRx multi Podus boots bilateral- does not present withfollow -up 1 week 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 2947410499 6503286 I96 right 5th toe- partial distaloffl oading at all timesBetad ine wet-to-dry dressings daily Peripheral arterial occlusive disease 881552951 I73.9 underwent stenting of the right lower legplanned to return for the left lower leg next weekrecomm end continuing with vascular recommenda tionsobtai n prior testing and procedure documentat ion Cigarette smoker (5-9 cigarettes/day) 1327457485 76290 Z72.0 half pack-a-day smoker- for 50 something yearsencou raged to discontinu e smokingfol low-up with PCP for smoking management [id number] Jaun Felix DPM [facility] [address] [place] [address] 12/19/2023 15:11:15 12/20/2023 15:08:01 Pressure injury of heel 904117240 L89.619 heel ulcer stable to the right leftBetadi ne wet-to-dry dressingen couraged discontinu e smokingenc ourage good glucose management secondary to diabetesen courage patient to monitor feet dailyRx multi Podus boots bilateral- does not present withfollow -up 1 week 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 9218758139 4101000 I96 right 5th toe- partial distaloffl oading at all timesBetad ine wet-to-dry dressings daily Peripheral arterial occlusive disease 805937971 I73.9 underwent stenting of the right lower legplanned to return for the left lower leg next weekrecomm end continuing with vascular recommenda tionsobtai n prior testing and procedure documentat ion Cigarette smoker (5-9 cigarettes/day) 7967680154 06308 Z72.0 half pack-a-day smoker- for 50+yearsen couraged to discontinu e smokingfol low-up with PCP for smoking management [id number] Jaun Felix DPM [facility] [address] [place] [address] 01/02/2024 15:32:16 01/02/2024 17:11:29 Pressure injury of heel 553005188 L89.619 heel ulcer stable to the right- Nonhealing Betadine wet-to-dry dressingen couraged discontinu e smokingenc [facility] good glucose management secondary to diabetesen courage patient to monitor feet dailyRx multi Podus boots bilateral- does not present withfollow -up 1 week 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 6528301240 3897321 I96 right 5th toe- partial distaloffl oading at all timesBetad ine wet-to-dry dressings daily Peripheral arterial occlusive disease 466181463 I73.9 underwent stenting of the right lower legrecomme nd continuing with vascular recommenda tionsobtai n prior testing and procedure documentat ion Cigarette smoker (5-9 cigarettes/day) 5714191110 18695 Z72.0 half pack-a-day smoker- for 50+yearsen couraged to discontinu e smokingfol low-up with PCP for smoking management [id number] Jaun Felix DPM [facility] [address] [place] [address] 01/16/2024 15:25:54 01/16/2024 23:34:46 Pressure injury of heel 653024438 L89.619 heel ulcer stable to the right- Non-healin gBetadine wet-to-dry dressingen couraged discontinu e smokingenc ourage good glucose management secondary to diabetesen courage patient to monitor feet dailyRx multi Podus boots bilateral- does not present withfollow -up 1 week 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 2676867765 6612678 I96 right 5th toe- partial distaloffl oading at all timesBetad ine wet-to-dry dressings daily Peripheral arterial occlusive disease 829760434 I73.9 underwent stenting of the right lower legrecomme nd continuing with vascular recommenda tionsVascu lar has no further plans to return to the right lower extremityo btain prior testing and procedure documentat ion Cigarette smoker (5-9 cigarettes/day) 1185335322 16062 Z72.0 half pack-a-day smoker- for 50+yearsen couraged to discontinu e smokingfol low-up with PCP for smoking management [id number] JUAN Perry [facility] [address] [address] 01/23/2024 15:29:47 01/23/2024 16:23:52 Depressive disorder 41054977 F32.A Degenerati on of lumbar intervertebral disc 44881665 M51.36 Severe painAdvise d to take 2 tablets of Tramadol if needed for pain, not to exceed 400 mg in 24 hrsOffered PT, pt declines. Offered pain management , pt declined. Offered neurosurge ry, pt declined. [id number] Jaun Felix DPM [facility] [address] [place] [address] 02/06/2024 15:18:35 02/07/2024 11:54:05 Diabetic peripheral neuropathy 103782338 E11.40 continue with PCP recommenda tionsrecom mend good glucose control for wound management and preventing infection Pressure i njury of heel 748963068 L89.619 heel ulcer stable to the right- slowly healingBet adine wet-to-dry dressingen couraged discontinu e smokingenc ourage good glucose management secondary to diabetesen courage patient to monitor feet dailyRx multi Podus boots bilateral- does not present withfollow -up 1 week 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 4548298848 4670958 I96 right 5th toe- partial distaloffl oading at all timesBetad ine wet-to-dry dressings daily Peripheral arterial occlusive disease 419792286 I73.9 underwent stenting of the right lower legright lower leg recrecomme nd continuing with vascular recommenda tiMayda lar has no further plans to return to the right lower extremityo btain prior testing and procedure documentat ion Cigarette smoker (5-9 cigarettes/day) 3350813063 28888 Z72.0 half pack-a-day smoker- for 50+yearsen couraged to discontinu e smokingfol low-up with PCP for smoking management [id number] JUAN Perry [facility] [address] [address] 02/25/2024 11:30:16 02/25/2024 12:13:18 Neuropathy 908222464 G62.9 Postoperative visit 1836 03686 Z48.89 Here to FU on debridemen t and stent placed in rt femoral artery.Rt leg is painful from hip to toe, rated 7/10Rt leg is red, swollen, numerous indentatio ns noted Contacted Dr. Segundo , vascular surgeon. Was advised to tell patient to seek care in [place] [facility]. Told patient to go to [place] [facility], pt resistant. Explained risks including femoral stent failure, blood clot, and possible loss of blood flow to the leg. Patient left this practice and was again advised to seek care in the ER [id number] Jaun Felix DPM [facility] [address] [place] [address] 02/27/2024 13:57:09 02/27/2024 16:24:20 Pressure injury of heel 395254132 L89.619 heel ulcer stable to the right- slowly healingwou nd debrided todayBetad ine wet-to-dry dressingen couraged discontinu e smokingenc ourage good glucose management secondary to diabetesen courage patient to monitor feet dailyRx multi Podus boots bilateral- does not present withfollow -up 1 week 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 8027599480 7764250 I96 right 5th toe- resolved Peripheral arterial occlusive disease 522573752 I73.9 underwent stenting of the right lower legright lower leg recrecomme nd continuing with vascular recommenda tionsVascu lar has no further plans to return to the right lower extremityo btain prior testing and procedure documentat ion Cigarette smoker (5-9 cigarettes/day) 3345694839 21695 Z72.0 half pack-a-day smoker- for 50+yearsen couraged to discontinu e smoking [id number] JAKE [facility] [address] [place] [address] 03/12/2024 13:57:11 03/12/2024 16:37:07 Pressure injury of heel 372130502 L89.612 heel ulcer stable to the right- slowly healingwou nd debrided todayBetad ine wet-to-dry dressingen couraged discontinu e smokingenc [facility] good glucose management secondary to diabetesen courage patient to monitor feet dailyRx multi Podus boots bilateral- does not present withfollow -up 1 week Peripheral arterial occlusive disease 706926136 I73.9 underwent stenting of the right lower legright lower leg recrecomme nd continuing with vascular recommenda tionsVascu lar has no further plans to return to the right lower extremityo btain prior testing and procedure documentat ion Cigarette smoker (5-9 cigarettes/day) 7334467786 91173 Z72.0 half pack-a-day smoker- for 50+yearsen couraged to discontinu e smoking Ulcer of toe 770641787 L 97.509 right 5th toe healed [id number] [facility] [address] [place] [address] 03/26/2024 15:10:00 03/26/2024 16:40:03 Pressure injury of heel 036618266 L89.612 heel ulcer stable to the right- slowly healingoff loading of wound at all timesBetad ine wet-to-dry dressingen couraged discontinu e smokingenc [facility] good glucose management secondary to diabetesen courage patient to monitor feet dailyRx multi Podus boots bilateral- does not present withfollow -up 1 week Peripheral arterial occlusive disease 478815221 I73.9 underwent stenting of the right lower legright lower leg recrecomme nd continuing with vascular recommenda tionsVascu lar has no further plans to return to the right lower extremityo btain prior testing and procedure documentat ion Cigarette smoker (5-9 cigarettes/day) 0009442436 29749 Z72.0 half pack-a-day smoker- for 50+yearsen couraged to discontinu e smoking Ulcer of toe 516811618 L 97.509 right 5th toe healed [id number] Jaun Felix DPM [facility] [address] [place] [address] 04/09/2024 15:56:33 04/09/2024 17:21:14 Pressure injury of heel 926931071 L89.612 heel ulcer stable to the right- slowly healingoff loading of wound at all timesBetad ine wet-to-dry dressingen couraged discontinu e smokingenc ourage good glucose management secondary to diabetesen courage patient to monitor feet dailyRx multi Podus boots bilateral- does not present withfollow -up 1 week Peripheral arterial occlusive disease 356791817 I73.9 underwent stenting of the right lower legright lower leg recrecomme nd continuing with vascular recommenda tionsVascu lar has no further plans to return to the right lower extremityo btain prior testing and procedure documentat ion Cigarette smoker (5-9 cigarettes/day) 0837924023 90229 Z72.0 half pack-a-day smoker- for 50+yearsst ill smoking 5 daysencour aged to discontinu e smoking Pressure i njury of foot 3976699721 72758 L89.899 left sub 5th metatarsal headOffloa dingMinima l weight-gricelda ringDiscon tinue smoking Bilateral heel pain 1563 924468 0975602 M79.671 M79.299 [id number] Jaun Felix DPM [facility] [address] [place] [address] 05/07/2024 12:36:01 05/14/2024 15:09:19 Pressure injury of heel 657364515 L89.612 heel ulcer stable to the right- slowly healingoff loading of wound at all timesBetad ine wet-to-dry dressingen couraged discontinu e smokingenc ourage good glucose management secondary to diabetesen courage patient to monitor feet dailyRx multi Podus boots bilateral- does not present withfollow -up 1 week Peripheral arterial occlusive disease 463045458 I73.9 underwent stenting of the right lower legright lower leg recrecomme nd continuing with vascular recommenda tionsVascu lar has no further plans to return to the right lower extremityo btain prior testing and procedure documentat ion Cigarette smoker (5-9 cigarettes/day) 2626079764 95431 Z72.0 half pack-a-day smoker- for 50+yearsst ill smoking 5 daysencour aged to discontinu e smoking [id number] Jaun Felix DPM [facility] [address] [place] [address] 05/14/2024 12:24:54 05/14/2024 15:52:04 Pressure injury of heel 568688247 L89.612 Healedreco mmend continuing supportive shoe Cameron chamorro when at restRecomm end discontinu e smokingfol low-up in 1 month for diabetic foot care Peripheral arterial occlusive disease 840760049 I73.9 underwent stenting of the right lower legright lower leg recrecomme nd continuing with vascular recommenda tionsVascu lar has no further plans to return to the right lower extremity Cigarette smoker (5-9 cigarettes/day) 7436446259 75967 Z72.0 half pack-a-day smoker- for 50+yearsst ill smoking 5 daysencour aged to discontinu e smoking Diabetes mellitus 634565 09 E11.52 continue diabetic control per PCP recommenda ness need diabetic shoes and insoles [id number] JUAN Perry [facility] [address] [address] 05/20/2024 14:32:49 05/21/2024 08:03:43 Neuropathy 087014070 G62.9 Is currently taking pregabalin 300 mg BID, states he is still having significan t neuropathy . Offered gabapentin at higher dose, states was not effective. Lesion of scalp 80442192 91 00 L98.9 Mass of forearm 16339538 6 R22.30 Will manage with topical anti-infla mmatory. Is decreasing in size currently <2mm. Pain with palpation Scrotal mass 45561723 N5 0.89 3 cm mass in right scrotum Degenerati on of lumbar intervertebral disc 54975334 M51.369 Tramadol not effective at pain control. Patient is complaint with FU and referrals. UDS and CSA UTD Nausea 400535709 R11.0 Cirrhosis of liver [address] in 2022 Health Concerns Section Related Observation LastModified by Organization Detai ls LastModified Time None Recorded Concern Status LastModified by Organization Details LastModified Time None Recorded Advance Directives Directive N: Payers Encounter Date Sequence Insurance Name Policy Number Policy Lubin Covered Member ID Lubin Member ID Guarantor Name 03/26/2024 1 [employer] [facility] [place] [employer] (MEDICARE - MEDICAID REPLACEMENT HMO) [id number] 0003 Ramakrishna Mora [id number] Ramakrishna Mora 04/09/2024 1 [employer] [facility] [place] [place]MEDICARE - MEDICAID REPLACEMENT HMO) [id number] 0003 Ramakrishna Mora [id number] Ramakrishna Mora 05/07/2024 1 [employer] [facility] [place] [employer] [place]ARE - MEDICAID REPLACEMENT HMO) [id number] 0003 Ramakrishna Mora [id number] Ramakrishna Mora 05/14/2024 1 [employer] [facility] [place] [employer] [place]ICARE - MEDICAID REPLACEMENT HMO) [id number] 0003 Ramakrishna Mora [id number] Ramakrishna Mora 05/20/2024 1 [employer] [facility] [place] [employer] [place]MEDICARE - MEDICAID REPLACEMENT HMO) [id number] 0003 Ramakrishna Mora [id number] Ramakrishna Mora Notes Date Note Type Note Provider Name and Address Organization Details Recorded Time 03/26/2024 text/html . Patient is a 58-year-old male peripheral arterial disease who has wound to the heel 5th toe which are doing very well. Patient has slow healing at the heel he denies any new wounds or infection. Patient states he has mild discomfort to the heel. Patient denies any other complaints. Jaun Felix, JAKE [address] [facility], [facility] [address], [place], [address], [employer] 04/05/2024 15:09:28 04/09/2024 text/html . Patient is a 59-year-old male who returns the office for follow-up on peripheral arterial disease. Patient has bilateral heel wounds to which he has skin fissures to level of subcu that are healthy in nature she denies any acute infection to the area. Patient states that he has a lot of numbness and neuropathy pain to his feet. Patient denies any fever, chills, nausea vomiting. Patient denies any other complaints. Jaun Felix DPM [address], [place], [address], [employer] 04/09/2024 17:20:23 05/07/2024 text/html . Patient is a 59-year-old male who returns the office for follow-up on wound to the right heel he has continue to slowly heal. Patient denies any new complaints. Patient states he still has [id number] pain to the area he denies any redness or purulent drainage. Patient states he is offloading. Patient denies any other complaints he continues to smoke but is trying to stop. Jaun Felix DPM [address], [address], [place], [address], [employer] 05/14/2024 12:55:28 05/14/2024 text/html . Patient is a 59-year-old male who returns the office for a right heel wound. Patient states he has had some minor discomfort to the area overall he denies any drainage or new signs of infection or wounds. Patient has been continuing to smoke he states that is trying to stop but is still smoking the same amount. Patient was recommended to follow-up with his primary care for other cessation medications. Patient denies any other complaints. Jaun Felix DPM [address], [address], [place], [address], [employer] 05/15/2024 09:22:49 05/20/2024 text/html Ramakrishna Mora is a 59 year old male here today for a 3 month FU. He has multiple complaints. Concerns with persistent neuropathy. States his pain is severe and interfering with daily life. Has seen and been dismissed by pain management. Has had numerous vascular surgeries. Stable chronic pain. Is taking Tramadol 1-2 times per day. Admits that this is not sufficient in pain control but causes constipation and fatigue. Has a cyst to the right side of his scrotum that is painful. States he has had this drained in the past and it has returned. Small <2mm bump on left forearm, painful on palpation. Concerns with sore on the scalp. States they begin as pimples then he will pick at them. Sunita Masters, ASSISTANT CONTROLLER [address] [facility], [facility] [address], [place], [address], [place] - [facility] 05/20/2024 14:50:12
== END 2024-07-10 15:56 | disposition home or self-care (01) ==
LOC: ANHIMG 15:58
DX: N50.9 Disorder of male genital organs, unspecified (principal)
CPT/HCPCS: 76870; 93976